=== PATIENT | female | born 1985 | race Caucasian/White ===

== ENCOUNTER 2020-06-21 17:36 | Emergency (ER) | payer MEDICAID, SELFPAY ==
[2020-06-21 17:53] VITALS: BP 124/80; PULSE 92; RESP 17; TEMP 36.5; O2SAT 99; BMI 19.1
[2020-06-21 18:32] LABS: Glucose Urine UA NEG (NEG); Leukocyte Esterase Urine 1+ (NEG); Nitrite Urine NEG (NEG); Urine Blood NEG (NEG); Urine Ketones NEG (NEG); Urine Protein NEG (NEG-TRACE)
[2020-06-21 18:33] LABS: Appearance Urine CLEAR; Color Urine YELLOW
[2020-06-21 18:46] LABS: RBC Urine 0 /HPF (0)
[2020-06-21 18:47] LABS: Bacteria Urine 2+ /LPF; Mucus Urine TRACE /LPF; Squamous Epithelial Cell Urine 3+ /LPF
--- NOTE | 2020-06-21 18:55 | XR_ITS ---
EXAMINATION: PORTABLE CHEST 1 VIEW CLINICAL INFORMATION: pt c covid like symptoms . COMPARISON: 12/02/2019. TECHNIQUE: Portable frontal view of the chest was obtained. FINDINGS: The lungs are hyperinflated. No focal infiltrate, effusion, edema, or pneumothorax. Cardiac and mediastinal silhouettes are within normal limits for technique. No acute bony abnormality seen. IMPRESSION: Hyperinflated but no evidence of acute disease. Specifically no focal airspace disease appreciated
[2020-06-21 19:02] VITALS: O2SAT 98
[2020-06-21 19:31] LABS: UPreg QC Valid YES; Urine Pregnancy NEGATIVE (NEGATIVE)
--- NOTE | 2020-06-21 19:51 | ED_ITS ---
HPI - URI/Sore Throat General Chief Complaint: Upper Respiratory Symptoms Stated Complaint: Covid Symptoms Time Seen by Provider: 06/21/20 18:17 Source: patient Mode of arrival: ambulatory Limitations: no limitations History of Present Illness HPI Narrative: 35-year-old female presenting to the ED with complaints of body aches, chills, intermittent dry cough, back pain and dysuria. Reports she recently took an [id number] urine strip and it revealed that she had a UTI a few weeks ago therefore for she took azo [id number] and reports she had her symptoms resolved although would also like to be tested for UTI. Requesting to be tested for COVID at this time. Related Data Previous Rx's Medication Instructions Recorded acetaminophen [Tylenol] 650 mg PO Q6H PRN #14 tab 06/21/20 cyclobenzaprine 10 mg PO TID PRN #14 tab 06/21/20 nitrofurantoin monohyd/m-cryst 100 mg PO BID 7 Days #14 cap NS 06/21/20 [Macrobid] Allergies Allergy/AdvReac Type Severity Reaction Status Date / Time azithromycin [AZITHROMYCIN] Allergy Mild NAUSEA AND Unverified 05/22/20 15:23 VOMITING Erythromycin Allergy Unknown Uncoded 03/27/15 00:00 Review of Systems Review of Systems: Constitutional : No Fever, No fatigue, No Malaise ENT/Mouth : No sore throat, No runny nose Eyes: No Discharge Cardiovascular : No Chest Pain, No SOB Respiratory : No Cough, No Sputum, No Wheezing, No Smoke Exposure, No Dyspnea Gastrointestinal : No Nausea, No Vomiting, No Diarrhea Genitourinary : No irregular bleeding, No Dysuria, No Urinary Frequency, No Hematuria, No Urinary Incontinence, No Urgency, No Flank Pain, Musculoskeletal : No Myalgia Skin : No rash Neuro : No Headache Yes all other systems are reviewed and are negative [facility] Past Medical History Attestation statement: The following information was validated with the patient. Medical History Depression No known health problems Tachycardia Social History Social History Advance Directives: No Advance Directives Information Provided: No Physical Exam Vital Signs: Vital Signs: Vital Signs Temp Pulse Resp BP Pulse Ox 10/17/20 19:02 98 06/21/20 17:53 97.7 F 92 17 124/80 99 Body Mass Index 19.1 vital signs have been reviewed as normal and appeared to be correct. Blood pressure normal. Heart rate normal. Respiration rate normal. Temperature normal. Oxygen saturation normal. Appearance: Alert. Oriented X3. No acute distress. Head: Normal external exam. Normocephalic. Atraumatic. No Dumont signs noted. No raccoon eyes noted Eyes: PERRLA. EOMI. Conjunctiva and sclera normal. Eyelids normal. ENT: EAC normal. TM's Normal. Pharynx normal. Uvula midline. Moist mucous membranes. No trismus noted. No drooling noted. No muffled voice noted. Neck: Normal inspection. Neck supple. FROM. No adenopathy. Thyroid Normal. No meningeal signs. No neck mass noted. CVS: Normal heart rate and rhythm. Heart sound normal. No murmurs noted. Pulses normal throughout. Respiratory: No respiratory distress. Painless inspiration. Breath sounds normal. No wheezes/rales/rhonchi noted. Chest nontender. No accessory muscle usage noted or decreased air movement noted. Abdomen: Soft and nontender. Bowel sounds normal in all 4 quadrants. No distention noted. No organomegaly noted. No visible injury noted. Back: No CVA tenderness. Full range of motion noted. Skin: Skin warm and dry. Normal skin color. Normal skin turgor. No rashes/lesions/lacerations noted. Extremities: No lower extremity edema. Extremities exhibit normal range of motion. Extremities nontender. Neuro: Oriented X 3. No motor deficit. No sensory deficit. Reflexes normal. Course Course Course Narrative: UA with signs of UTI. Negative . Chest x-ray within normal limits no acute processes noted. Patient s/p swab for COVID at this time. Will DC home with antibiotics for UTI and instructions to return if any new or worsening symptoms to follow-up with primary care provider. Patient understands agrees with this plan. MDM - URI/Sore Throat Lab Data Labs: Lab Results 06/21/20 Range/Units 18:21 Urine Color YELLOW Urine Appearance CLEAR Urine pH 7.0 (5.0-8.0) Ur Specific [place] 1.020 (1.005-1.025) Urine Protein NEG (NEG-TRACE) MG/DL Urine Glucose (UA) NEG (NEG) MG/DL Urine Ketones NEG (NEG) MG/DL Urine Blood NEG (NEG) Urine Nitrite NEG (NEG) Ur Leukocyte Esterase 1+ H (NEG) Urine RBC 0 (0) /HPF Urine WBC 5-9 H (0-4) /HPF Ur Squamous Epith Cells 3+ /LPF Urine Bacteria 2+ /LPF Urine Mucus TRACE /LPF Urine Test NEGATIVE (NEGATIVE) Discharge Plan Discharge Clinical Impression: Acute viral syndrome UTI (urinary tract infection) Qualifiers: Urinary tract infection type: acute cystitis Hematuria presence: without hematuria Qualified Code(s): N30.00 - Acute cystitis without hematuria Patient Disposition: Home, Self-Care Instructions: Urinary Tract Infection in Women (ED), Viral Syndrome (ED), COVID-19 (Coronavirus Disease 2019) (ED) Additional Instructions: Based on your symptoms and history we have sent a COVID-19. Although your RESULT IS PENDING at this time. RESULTS should return within 72 hours. At this time you will be contacted with either NEGATIVE OR POSITIVE results. -Please wait until we contact you for your results. At this time you will be okay for discharge. Please plan for self quarantine for up to 14 days. Do not expose yourself to others. You may not go to work. If testing does come back negative you may return to activities as long as you are no longer having any symptoms for at least 3 days. Please continue to follow cold instructions and wash your hands frequently. You may take Tylenol as directed on the bottle for pain or fever. Patient seen in the emergency department on 06/21/2020 and should be excused from work until negative test results AND until 72 hours without any symptoms AND at least 10 days have passed since symptoms first appeared or since last exposure to COVID-19 positive patient CDC Guidelines for home isolation: - Stay away from others - WEAR A MASK if you are sick AND STAY HOME - Cover your mouth and nose with a tissue when you cough or sneeze. Dispose of tissues in a lined trash can and wash your hands immediately with soap and water for at least 20 seconds. If soap and water are not available, clean hands with alcohol-based hand chief mechanical officer that contains at least 60% alcohol. - Clean your hands often with soap and water for at least 20 seconds - Avoid touching your eyes, nose and mouth with unwashed hands - Do not share dishes, drinking glasses, cups, eating utensils, towels, or bedding with other people in your home. After using these items, wash them thoroughly with soap and water or put in the airport engineer. - Clean high-touch surfaces in your isolation area ( sick room and bathroom) every day; let a caregiver clean and disinfect high-touch surfaces in other areas of the home. Clean the area or item with soap and water or another detergent if it is dirty. Then, use a household disinfectant. - Limit contact with pets and animals: If you must care for a pet, wash your hands before and after interacting with them). Prescriptions: New nitrofurantoin monohyd/m-cryst [Macrobid] 100 mg capsule 100 mg PO BID 7 Days Qty: 14 RF: 0 acetaminophen [Tylenol] 325 mg tablet 650 mg PO Q6H PRN (Reason: fever or pain) Qty: 14 RF: 0 cyclobenzaprine 10 mg tablet 10 mg PO TID PRN (Reason: muscle spasm) Qty: 14 RF: 0 Referrals: Marilou Cummings NP [Primary Care Provider] - 2 days Stand Alone Forms: Work/School Release Print Language: Maltese
== END 2020-06-21 20:40 | disposition home or self-care (01) ==
PROVIDERS: Physician Assistant Medical; Emergency Provider Emergency Medicine; PCP Nurse Practitioner Family
DX: B34.9 Viral infection, unspecified (principal); Z20.828 Contact with and (suspected) exposure to other viral communicable diseases; N30.00 Acute cystitis without hematuria
CPT/HCPCS: 71045; 81001; 81025; 87086; 87147; 87635; 99283; 99284

== ENCOUNTER 2020-07-04 17:33 | Outpatient (REF) | payer MEDICAID, SELFPAY ==
[2020-07-04 18:26] LABS: Glucose Urine UA NEG (NEG); Leukocyte Esterase Urine 1+ (NEG); Nitrite Urine POS (NEG); Specific Gravity - Urine >= 1.030 (1.005-1.025); Urine Blood 3+ (NEG); Urine Ketones NEG (NEG); Urine Protein 2+ MG/DL (NEG-TRACE)
[2020-07-04 18:28] LABS: Appearance Urine HAZY; Color Urine YELLOW
[2020-07-04 18:33] LABS: UPreg QC Valid YES; Urine Pregnancy NEGATIVE (NEGATIVE)
[2020-07-04 18:57] LABS: Bacteria Urine 2+ /LPF; RBC Urine TNTC /HPF (0); Squamous Epithelial Cell Urine 1+ /LPF
[2020-07-05 02:42] LABS: CT PCR NOT DETECTED (Not Detect.); NG PCR NOT DETECTED (Not Detect.)
[2020-07-05 13:00] LABS: BV Int Neg Control Negative (Negative); BV Int Pos Control Positive (Positive)
== END 2020-07-04 17:34 | disposition home or self-care (01) ==
LOC: HO.LAB 17:33
PROVIDERS: PCP Nurse Practitioner Family; Visit Provider Physician Assistant Medical
DX: R35.0 Frequency of micturition (principal); R39.15 Urgency of urination; R30.0 Dysuria
CPT/HCPCS: 81001; 81025; 87086; 87147; 87186; 87480; 87491; 87510; 87591; 87660

== ENCOUNTER 2020-07-10 17:38 | Outpatient (REF) | payer MEDICAID, SELFPAY ==
[2020-07-10 18:14] LABS: COVID-19 Test Negative (Negative)
== END 2020-07-10 17:39 | disposition home or self-care (01) ==
LOC: HO.LAB 17:38
PROVIDERS: PCP Nurse Practitioner Family; Visit Provider Internal Medicine
DX: Z20.828 Contact with and (suspected) exposure to other viral communicable diseases (principal)
CPT/HCPCS: 87635; C9803

== ENCOUNTER 2020-07-11 23:42 | Emergency (ER) | payer MEDICAID, SELFPAY ==
[2020-07-12 00:41] VITALS: BP 140/76; PULSE 102; RESP 16; TEMP 36.3; O2SAT 99; BMI 19.1
--- NOTE | 2020-07-12 00:59 | ED.FEMALEGU ---
HPI - Female Genitourinary General Chief complaint: Abdominal Pain <Scott Shah MD - Last Filed: 07/12/20 01:17> Stated complaint: UTI/KIDNEY INFECTION FOLLOW UP <Scott Shah MD - Last Filed: 07/12/20 01:17> Time Seen by Provider: 07/12/20 00:53 <Scott Shah MD - Last Filed: 07/12/20 01:17> Source: patient <Scott Shah MD - Last Filed: 07/12/20 01:17> Mode of arrival: ambulatory <Scott Shah MD - Last Filed: 07/12/20 01:17> Limitations: no limitations <Scott Shah MD - Last Filed: 07/12/20 01:17> History of Present Illness HPI Narrative: patient with recent history of UTI treated with Macrobid and got better again started having symptoms and was given ciprofloxacin urine culture showed on 07/04 of E coli supposed to be sensitive to both medication patient is still having the symptoms and now she is complaining of pain in the left flank area. No nausea no vomiting no fever no chills <Scott Shah MD - Last Filed: 07/12/20 01:17> MD elicited complaint: dysuria and UTI <Scott Shah MD - Last Filed: 07/12/20 01:17> Onset (ago): week(s) (2) <Scott Shah MD - Last Filed: 07/12/20 01:17> Severity: mild <MD Kelsi Jay Last Filed: 07/12/20 01:17> Urinary symptoms: Dysuria, Urgency and Frequency <MD Kelsi Jay Last Filed: 07/12/20 01:17> Exacerbating factors: none <MD Kelsi Jay Last Filed: 07/12/20 01:17> Relieving factors: none <MD Kelsi Jay Last Filed: 07/12/20 01:17> Associated symptoms: back pain <MD Kelsi Jay Last Filed: 07/12/20 01:17> Treatment prior to arrival: none <MD Kelsi Jay Last Filed: 07/12/20 01:17> Related Data Home medications: Previous Rx's Medication Instructions Recorded acetaminophen-codeine 1 tab PO Q8H PRN #14 tab NS 06/21/20 cyclobenzaprine 10 mg PO TID PRN #14 tab NS 06/21/20 nitrofurantoin monohyd/m-cryst 100 mg PO Q12H 5 Days #10 cap 06/21/20 [Macrobid] ciprofloxacin HCl [Cipro] 500 mg PO Q12H 5 Days #10 tab 07/04/20 fluconazole [Diflucan] 150 mg PO DAILY #1 tab 07/04/20 phenazopyridine [Pyridium] 100 mg PO TID PRN #10 tab 07/04/20 fluconazole [Diflucan] 150 mg PO Q3D #2 tab 07/12/20 metronidazole [Flagyl] 500 mg PO BID 7 Days #14 tab 07/12/20 <Scott Shah MD - Last Filed: 07/12/20 01:17> Allergies/Adverse reactions: Allergies Allergy/AdvReac Type Severity Reaction Status Date / Time No Known Allergies Allergy Verified 07/12/20 00:48 <Scott Shah MD - Last Filed: 07/12/20 01:17> Review of Systems Review of Systems: REVIEW OF SYSTEMS: Pertinent positives and negatives are stated above in the history. GEN: no fevers, chills, fatigue HEENT: no nasal congestion, sore throat, ear pain NEURO: no headache, dizziness, focal weakness PULM: no cough, shortness of breath CV: no chest pain, palpitations, LE edema ABD: no abdominal pain, nausea, vomiting, diarrhea : as HPI SKIN: no rash ROS otherwise negative x 10 <Scott Shah MD - Last Filed: 07/12/20 01:17> [facility] Past Medical History Medical History: Medical History Depression No known health problems Tachycardia <Scott Shah MD - Last Filed: 07/12/20 01:17> Social History Social History: Social History Advance Directives: No Advance Directives Information Provided: No <Scott Shah MD - Last Filed: 07/12/20 01:17> Physical Exam Vital Signs: Vital Signs: Last Vital Signs Temp 97.4 F 07/12/20 00:41 Pulse 102 H 07/12/20 00:41 Resp 16 07/12/20 00:41 BP 140/76 H 07/12/20 00:41 Pulse Ox 99 07/12/20 00:41 Body Mass Index 19.1 <Scott Shah MD - Last Filed: 07/12/20 01:17> Vital Signs: Last Vital Signs Temp 97.4 F 07/12/20 00:41 Pulse 102 H 07/12/20 00:41 Resp 16 07/12/20 00:41 BP 140/76 H 07/12/20 00:41 Pulse Ox 99 07/12/20 00:41 Body Mass Index 19.1 <JACKELINE Johnson - Last Filed: 07/12/20 02:11> Appearance: Alert. Oriented X3. No acute distress. Eyes: Pupils equal, round and reactive to light. ENT: Pharynx normal. Neck: Normal inspection. Neck supple. CVS: Normal heart rate and rhythm. Pulses normal. Respiratory: No respiratory distress. Breath sounds normal. Abdomen: Soft and nontender. mild tenderness left flank area Skin: Skin warm and dry. Normal skin color. Normal skin turgor. Extremities: No lower extremity edema. Good range of movement Neuro: Oriented X 3. No motor deficit. No sensory deficit. <Scott Shah MD - Last Filed: 07/12/20 01:17> Course Course Course Narrative: 35-year-old female presenting to the ED with complaints of generalized abdominal pain, dysuria and vaginal discharge white colored in nature. Was seen here and diagnosed with UTI placed on Macrobid reported she did not feel any better therefore was placed on Cipro and still reports she is not feeling better. She was treated for candidiasis although not for bacterial vaginosis. Her gonorrhea chlamydia were negative. Therefore labs were obtained at this time and awaiting labs. CT scan of abdomen pelvis within normal limits no acute processes noted. If labs and UA are within normal limits DC home with Flagyl and Diflucan and instructions return if any new or worsening symptoms. Patient understands agrees with this plan. <JACKELINE Johnson - Last Filed: 07/12/20 02:11> Discharge Plan Discharge Clinical Impression: Bacterial vaginosis, Candidiasis of genitalia in female <Scott Shah MD - Last Filed: 07/12/20 01:17> Patient Disposition: Home, Self-Care <Scott Shah MD - Last Filed: 07/12/20 01:17> Instructions: Bacterial Vaginosis (ED), Yeast Infection (ED) <Scott Shah MD - Last Filed: 07/12/20 01:17> Prescriptions: New fluconazole [Diflucan] 150 mg tablet 150 mg PO Q3D Qty: 2 RF: 0 metronidazole [Flagyl] 500 mg tablet 500 mg PO BID 7 Days Qty: 14 RF: 0 No Action ciprofloxacin HCl [Cipro] 500 mg tablet 500 mg PO Q12H 5 Days Qty: 10 RF: 0 phenazopyridine [Pyridium] 100 mg tablet 100 mg PO TID PRN (Reason: pain) Qty: 10 RF: 0 fluconazole [Diflucan] 150 mg tablet 150 mg PO DAILY Qty: 1 RF: 0 nitrofurantoin monohyd/m-cryst [Macrobid] 100 mg capsule 100 mg PO Q12H 5 Days Qty: 10 RF: 0 cyclobenzaprine 10 mg tablet 10 mg PO TID PRN (Reason: muscle spasm) Qty: 14 RF: 0 acetaminophen-codeine 300-30 mg tablet 1 tab PO Q8H PRN (Reason: pain) Qty: 14 RF: 0 <Scott Shah MD - Last Filed: 07/12/20 01:17> Referrals: Marilou Cummings, AGRICULTURAL TECHNICAL OFFICER [Primary Care Provider] - 2 days <Scott Shah MD - Last Filed: 07/12/20 01:17> Stand Alone Forms: Work/School Release <Scott Shah MD - Last Filed: 07/12/20 01:17> Print Language: Lebanese <Scott Shah MD - Last Filed: 07/12/20 01:17>
--- NOTE | 2020-07-12 01:12 | CT_ITS ---
EXAMINATION: CT ABDOMEN AND PELVIS WITHOUT CONTRAST CLINICAL INFORMATION: Left flank pain. Urinary tract infection. COMPARISON: 02/28/2010. TECHNIQUE: Contiguous axial thin section helical images of the abdomen and pelvis were performed without oral or IV contrast. The data set was reformatted in the coronal and sagittal planes and reviewed on an independent workstation. DLP: 278 mGy-cm. FINDINGS: The visualized lung bases are clear. The visualized portions of the heart are unremarkable. The liver is of normal size and attenuation without focal lesions nor intrahepatic biliary ductal dilation. A normal gallbladder is identified. There is no wall thickening or discernible pericholecystic fluid. The spleen, pancreas, adrenal glands are unremarkable. Both kidneys are of normal size and attenuation without hydronephrosis or nephrolithiasis. There is no abdominal free fluid. There is neither mesenteric nor retroperitoneal lymphadenopathy. There is a moderate stool within the ascending colon. Otherwise, unremarkable unopacified loops of small and large bowel are identified. There is no pelvic free fluid. The urinary bladder is unremarkable. There is neither pelvic nor inguinal lymphadenopathy. Bone windows: Neither sclerotic nor lytic bone lesions are identified. CT/CT abdomen pelvis wo con IMPRESSION: No evidence for acute abdominal or pelvic inflammatory or infectious processes. Moderate amount of stool within the ascending colon. Automated exposure control (Care Dose) Adjustment of the mA and/or kv according to patient size (this includes techniques or standardized protocols for targeted exams where dose is matched to indication / reason for exam; i.e. extremities or head).
[2020-07-12 02:41] LABS: Glucose Urine UA NEG (NEG); Leukocyte Esterase Urine 1+ (NEG); Nitrite Urine NEG (NEG); Specific Gravity - Urine 1.025 (1.005-1.025); Urine Blood NEG (NEG); Urine Ketones 15 MG/DL (NEG); Urine Protein NEG (NEG-TRACE)
[2020-07-12 02:48] LABS: Basophils Absolute Auto 0.1 X10*3/uL (0.0-0.2); Eosinophils Absolute Auto 0.2 X10*3/uL (0.0-0.4); Hematocrit 37.8 % (37-47); Hemoglobin 12.3 g/dl (12.0-16.0); Imm Gran Abs Auto 0.03 X10*3/uL (0.00-0.03); Imm Gran Pct Auto 0.4 % (0.0-0.4); Lymphocytes Absolute Auto 2.6 X10*3/uL (1.2-4.9); MANUAL DIFF FLAG NO; Mean Corpuscular HGB Conc 32.5 g/dl (31.0-35.0); Mean Corpuscular Hemoglobin 30.9 pg (27.0-33.0); Mean Platelet Volume 11.3 fL (9.4-12.3); Monocytes Absolute Auto 0.6 X10*3/uL (0.1-1.2); Monocytes Percent Auto 6.9 % (2-11); Neutrophils Absolute Auto 4.6 X10*3/uL (2.0-8.3); Neutrophils Percent Auto 57.7 % (45-73); Platelet Count 317 X10*3/uL (160-400); Red Blood Count 3.98 X10*6/uL (4.20-5.50); Red Cell Distribution Width 12.2 % (11.0-16.0)
[2020-07-12 02:57] LABS: Prothrombin Time 11.5 SEC (10.8-13.0)
[2020-07-12 03:14] LABS: Appearance Urine CLEAR; Color Urine YELLOW
[2020-07-12 03:15] LABS: RBC Urine 0-2 /HPF (0); UPreg QC Valid YES; Urine Pregnancy NEGATIVE (NEGATIVE)
[2020-07-12 03:16] LABS: Bacteria Urine TRACE /LPF; Squamous Epithelial Cell Urine 1+ /LPF
[2020-07-12 03:21] LABS: Anion Gap 12 (12-20); Blood Urea Nitrogen 14 mg/dL (9-16); Calcium 8.4 mg/dL (8.4-10.2); Carbon Dioxide 26 mmol/L (22-29); Chloride 103 mmol/L (96-108); Creatinine Clr Calc Pharmacy 49.9; Estimated Glomerular Filt Rate 59; Glucose Random 101 mg/dL (60-115); Potassium 3.8 mmol/l (3.3-5.1); Sodium 137 mmol/L (135-145)
== END 2020-07-12 05:07 | disposition home or self-care (01) ==
PROVIDERS: Physician Assistant Medical; Emergency Provider Internal Medicine; PCP Nurse Practitioner Family
DX: N76.0 Acute vaginitis (principal); R10.9 Unspecified abdominal pain; Z79.899 Other long term (current) drug therapy
CPT/HCPCS: 36415; 74176; 80048; 81001; 81025; 85025; 85610; 87040; 87086; 99283; 99284

== ENCOUNTER 2020-10-03 15:13 | Emergency (ER) | payer MEDICAID, SELFPAY ==
[2020-10-03 15:29] VITALS: BP 127/79; PULSE 212; RESP 18; TEMP 37.1; O2SAT 100; BMI 19.8
--- NOTE | 2020-10-03 15:33 | ED_ITS ---
HPI - Arrhythmia/Palpitations General Chief Complaint: Arrhythmia/Palpitations Stated Complaint: Palpitations Time Seen by Provider: 10/03/20 15:31 Source: patient Mode of arrival: ambulatory Limitations: no limitations History of Present Illness HPI narrative: Patient is a 35-year-old female with past medical history of anxiety disorder on Lexapro and Wellbutrin and oral control pills who presents with heart palpitations, she states she has had this happen to her 3 times previously but never needed any medication to break the rhythm. She states she does not drink high caffeinated drinks, coffee or tea. She is admits to dizziness but denies chest pain, nausea or vomiting. She states she was getting ready for work today and all the sudden she could feel her heart racing. Related Data Previous Rx's Medication Instructions Recorded acetaminophen-codeine 1 tab PO Q8H PRN #14 tab NS 06/21/20 cyclobenzaprine 10 mg PO TID PRN #14 tab NS 06/21/20 nitrofurantoin monohyd/m-cryst 100 mg PO Q12H 5 Days #10 cap 06/21/20 [Macrobid] ciprofloxacin HCl [Cipro] 500 mg PO Q12H 5 Days #10 tab 07/04/20 fluconazole [Diflucan] 150 mg PO DAILY #1 tab 07/04/20 phenazopyridine [Pyridium] 100 mg PO TID PRN #10 tab 07/04/20 fluconazole [Diflucan] 150 mg PO Q3D #2 tab 07/12/20 metronidazole [Flagyl] 500 mg PO BID 7 Days #14 tab 07/12/20 Allergies Allergy/AdvReac Type Severity Reaction Status Date / Time No Known Allergies Allergy Verified 07/12/20 00:48 Review of Systems Review of Systems: Yes all other systems are reviewed and are negative [facility] Past Medical History Medical History Depression No known health problems Tachycardia Social History Social History Alcohol intake: never Smoking Status: Never smoker Use of substances other than those prescribed or required for medical reasons: No Advance Directives: No Advance Directives Information Provided: Yes Physical Exam Vital Signs: Vital Signs: Last Vital Signs Temp 98.8 F 10/03/20 15:29 Pulse 103 H 01/29/21 16:03 Resp 16 10/03/20 16:03 BP 123/75 10/03/20 16:03 Pulse Ox 100 10/03/20 16:03 Body Mass Index 19.8 Const: General: cooperative and acute distress Nutritional Appearance: thin Orientation/consciousness: patient oriented x3 Limitations: no limitations Eyes: General: appearance normal, both eyes and all related structures P upils: Equal, round and reactive pupils present EOM: EOMs intact bilaterally Resp: Effort & Inspection: normal respiratory effort and able to speak in complete sentences Auscultation: clear to auscultation bilaterally Cardio: Other: (post 6mg adenosine) Rate: regular rate Rhythm: regular rhythm Heart sounds: normal S1 and S2 GI: Inspection: Yes normal to inspection Palpation (GI): Soft to palpation and nontender Skin: General skin exam: no rashes or lesions noted Neuro: General: patient oriented x3 Cranial nerves: Yes Equal, round and reactive pupils present Extrem: General: Yes normal to inspection and Yes no pedal edema Course Course Course Narrative: 35-year-old female with past medical history of anxiety presents complaining of palpitations. Upon triage, patient was found to have a heart rate of 212, 1 placed on monitor, she was in SVT. Dr Sanabria at the patient's bedside, Vagal maneuvers were attempted x3 with no success, 6 mg of adenosine was pushed with success. Patient still slightly dizzy but feeling much better, heart rate is in the high 90s, low 100s. 5:15pm patient's vital signs have been stable since she was given adenosine, she is feeling better. All labs are WNL including troponin, TSH, EKG was sinus tachycardia at 102 BPM, CXR no acute issues. Will discharge home with instructions on no caffeine, have to do a Valsalva maneuver and a follow-up with Cardiology. MDM - Arrhythmia/Palpitations Lab Data Result diagrams: 10/03/20 16:13 10/03/20 16:13 Labs: Lab Results 10/03/20 10/03/20 10/03/20 Range/Units 16:13 16:13 16:13 WBC 7.2 (4.8-10.8) X10*3/uL RBC 4.41 (4.20-5.50) X10*6/uL Hgb 13.8 (12.0-16.0) g/dl Hct 41.6 (37-47) % MCV 94.3 (80-98) fL MCH 31.3 (27.0-33.0) pg MCHC 33.2 (31.0-35.0) g/dl RDW 11.9 (11.0-16.0) % Plt Count 297 (160-400) X10*3/uL MPV 12.0 (9.4-12.3) fL Immature Gran % (Auto) 0.4 (0.0-0.4) % Neut % (Auto) 63.9 (45-73) % Lymph % (Auto) 28.6 (20-40) % [place] % (Auto) 5.7 (2-11) % Eos % (Auto) 0.8 (0-4) % Baso % (Auto) 0.6 (0-2) % Lymph # (Auto) 2.1 (1.2-4.9) X10*3/uL [place] # (Auto) 0.4 (0.1-1.2) X10*3/uL Eos # (Auto) 0.1 (0.0-0.4) X10*3/uL Baso # (Auto) 0.0 (0.0-0.2) X10*3/uL Abs Immat Gran (auto) 0.03 (0.00-0.03) X10*3/uL Absolute Neuts (auto) 4.6 (2.0-8.3) X10*3/uL Absolute Nucleated RBC 0.000 (0.0-0.012) X10*3/uL Nucleated RBC % (auto) 0.0 (0.0-0.2) /100WBC Hold Blue Top SEE NOTE Sodium 140 (135-145) mmol/L Potassium 4.1 (3.3-5.1) mmol/L Chloride 107 (96-108) mmol/L Carbon Dioxide 22 (22-29) mmol/L Anion Gap 15 (12-20) BUN 16 (9-16) mg/dL Creatinine 0.91 (0.5-1.4) mg/dL Estim Creat Clear Calc 57.7 Estimated GFR > 60 Random Glucose 72 (60-115) mg/dL Calcium 8.6 (8.4-10.2) mg/dL Magnesium 1.9 (1.6-2.6) mg/dL Troponin I High Sens (<3.5-17.0) ng/L TSH 1.36 (0.32-4.0) uIU/mL 10/03/20 10/03/20 Range/Units 16:13 16:13 WBC (4.8-10.8) X10*3/uL RBC (4.20-5.50) X10*6/uL Hgb (12.0-16.0) g/dl Hct (37-47) % MCV (80-98) fL MCH (27.0-33.0) pg MCHC (31.0-35.0) g/dl RDW (11.0-16.0) % Plt Count (160-400) X10*3/uL MPV (9.4-12.3) fL Immature Gran % (Auto) (0.0-0.4) % Neut % (Auto) (45-73) % Lymph % (Auto) (20-40) % [place] % (Auto) (2-11) % Eos % (Auto) (0-4) % Baso % (Auto) (0-2) % Lymph # (Auto) (1.2-4.9) X10*3/uL [place] # (Auto) (0.1-1.2) X10*3/uL Eos # (Auto) (0.0-0.4) X10*3/uL Baso # (Auto) (0.0-0.2) X10*3/uL Abs Immat Gran (auto) (0.00-0.03) X10*3/uL Absolute Neuts (auto) (2.0-8.3) X10*3/uL Absolute Nucleated RBC (0.0-0.012) X10*3/uL Nucleated RBC % (auto) (0.0-0.2) /100WBC Hold Blue Top Sodium Cancelled (135-145) mmol/L Potassium Cancelled (3.3-5.1) mmol/L Chloride Cancelled (96-108) mmol/L Carbon Dioxide Cancelled (22-29) mmol/L Anion Gap Cancelled (12-20) BUN Cancelled (9-16) mg/dL Creatinine Cancelled (0.5-1.4) mg/dL Estim Creat Clear Calc Cancelled Estimated GFR Cancelled Random Glucose Cancelled (60-115) mg/dL Calcium Cancelled (8.4-10.2) mg/dL Magnesium (1.6-2.6) mg/dL Troponin I High Sens 14.1 (<3.5-17.0) ng/L TSH (0.32-4.0) uIU/mL Imaging Data Chest x-ray: Attestation: I personally reviewed and interpreted this imaging study as follows: My impression: No acute process seen Radiologist's impression: [address] [id number] ReportSigned Patient: Rivas Zavala#: [id number]: 1985Acct:[id number]/Sex: 35 / FADM Date: 10/03/20Loc: EDAttending Dr: Ordering Physician: SWATI HENSON Date of Service: 10/03/20 Procedure(s): XR chest 1V Accession Number(s): [id number] cc: SWATI HENSON~ EXAMINATION: XR CHEST CLINICAL INFORMATION: SVT. COMPARISON: 06/21/2020 chest radiograph. TECHNIQUE: Frontal view of the chest was obtained. FINDINGS: No significant abnormality is noted involving the heart, lungs, mediastinum, bony thorax or soft tissues. XR/XR chest 1V IMPRESSION: Stable chest. No acute cardiopulmonary process. Dictated By:BASIA HOLGUIN MDSigned By:<Electronically signed by BASAI HOLGUIN MD in OV>10/03/20 1614 ECG Data Attestation: I personally reviewed and interpreted this ECG as follows: ECG interpretation date: 10/03/20 ECG interpretation time: 17:16 Interpretation: [address] [id number] ReportDraft Patient: Rivas Zavala#: [id number]: 1985Acct:[id number]/Sex: 35 / FADM Date: 10/03/20Loc: HOKiEDAttending Dr: Ordering Physician: SWATI HENSON Date of Service: 10/03/20 Procedure(s): ECG 12 lead EKG Accession Number(s): [id number] cc: ~ Test Reason : TACHICARDIA Blood Pressure : / mmHG Vent. Rate : 102 BPM Atrial Rate : 102 BPM P-R Int : 118 ms QRS Dur : 076 ms QT Int : 358 ms P-R-T Axes : 077 086 065 degrees QTc Int : 466 ms Sinus tachycardia Otherwise normal ECG When compared with ECG of 05-SEP-2019 17:40, No significant change was found Referred By: Swati Henson Electronically Signed By: Dictated By:Signed By: Discharge Plan Discharge Clinical Impression: Supraventricular tachycardia Patient Disposition: Home, Self-Care Instructions: Supraventricular Tachycardia (ED), Valsalva Maneuver (ED) Prescriptions: No Action ciprofloxacin HCl [Cipro] 500 mg tablet 500 mg PO Q12H 5 Days Qty: 10 RF: 0 phenazopyridine [Pyridium] 100 mg tablet 100 mg PO TID PRN (Reason: pain) Qty: 10 RF: 0 fluconazole [Diflucan] 150 mg tablet 150 mg PO DAILY Qty: 1 RF: 0 fluconazole [Diflucan] 150 mg tablet 150 mg PO Q3D Qty: 2 RF: 0 metronidazole [Flagyl] 500 mg tablet 500 mg PO BID 7 Days Qty: 14 RF: 0 nitrofurantoin monohyd/m-cryst [Macrobid] 100 mg capsule 100 mg PO Q12H 5 Days Qty: 10 RF: 0 cyclobenzaprine 10 mg tablet 10 mg PO TID PRN (Reason: muscle spasm) Qty: 14 RF: 0 acetaminophen-codeine 300-30 mg tablet 1 tab PO Q8H PRN (Reason: pain) Qty: 14 RF: 0 Referrals: Jose Dior MD [Physician] - 2 days (SVT follow up)
[2020-10-03 16:03] VITALS: BP 123/75; PULSE 103; RESP 16; O2SAT 100
[2020-10-03 16:23] LABS: MANUAL DIFF FLAG NO
[2020-10-03 16:25] LABS: Basophils Percent Auto 0.6 % (0-2); Eosinophils Absolute Auto 0.1 X10*3/uL (0.0-0.4); Eosinophils Percent Auto 0.8 % (0-4); Hematocrit 41.6 % (37-47); Hemoglobin 13.8 g/dl (12.0-16.0); Imm Gran Abs Auto 0.03 X10*3/uL (0.00-0.03); Imm Gran Pct Auto 0.4 % (0.0-0.4); Lymphocytes Absolute Auto 2.1 X10*3/uL (1.2-4.9); Lymphocytes Percent Auto 28.6 % (20-40); Mean Corpuscular HGB Conc 33.2 g/dl (31.0-35.0); Mean Corpuscular Hemoglobin 31.3 pg (27.0-33.0); Mean Corpuscular Volume 94.3 fL (80-98); Monocytes Absolute Auto 0.4 X10*3/uL (0.1-1.2); Monocytes Percent Auto 5.7 % (2-11); Neutrophils Absolute Auto 4.6 X10*3/uL (2.0-8.3); Neutrophils Percent Auto 63.9 % (45-73); Platelet Count 297 X10*3/uL (160-400); Red Blood Count 4.41 X10*6/uL (4.20-5.50); Red Cell Distribution Width 11.9 % (11.0-16.0); White Blood Count 7.2 X10*3/uL (4.8-10.8)
[2020-10-03 16:51] LABS: Anion Gap 15 (12-20); Blood Urea Nitrogen 16 mg/dL (9-16); Calcium 8.6 mg/dL (8.4-10.2); Carbon Dioxide 22 mmol/L (22-29); Chloride 107 mmol/L (96-108); Creatinine Clr Calc Pharmacy 57.7; Estimated Glomerular Filt Rate > 60; Glucose Random 72 mg/dL (60-115); Magnesium 1.9 mg/dL (1.6-2.6); Potassium 4.1 mmol/L (3.3-5.1); Sodium 140 mmol/L (135-145)
[2020-10-03 16:55] LABS: Troponin-I High Sensitivity 14.1 ng/L (<3.5-17.0)
[2020-10-03 17:14] LABS: TSH reflex Free T4 1.36 uIU/mL (0.32-4.0)
== END 2020-10-03 17:25 | disposition home or self-care (01) ==
PROVIDERS: Physician Assistant; Emergency Provider Emergency Medicine; PCP Nurse Practitioner Family
DX: I47.1 Supraventricular tachycardia (principal); R00.2 Palpitations; R42 Dizziness and giddiness; F41.1 Generalized anxiety disorder; F43.0 Acute stress reaction; Z79.899 Other long term (current) drug therapy
CPT/HCPCS: 36415; 71045; 80048; 83735; 84443; 84484; 85025; 93005; 96374; 99285; J0153

== ENCOUNTER → 2020-11-05 10:43 | Outpatient (BNVA) | payer MEDICAID, SELFPAY | PROVIDERS: PCP Nurse Practitioner Family; Visit Provider Internal Medicine Cardiovascular Disease | DX: I47.1 Supraventricular tachycardia (principal); R00.2 Palpitations; Z79.899 Other long term (current) drug therapy | CPT/HCPCS: 99202 ==

== ENCOUNTER → 2021-04-20 08:12 | Outpatient (BNVA) | payer MEDICAID, SELFPAY | PROVIDERS: PCP Nurse Practitioner Family; Visit Provider Advanced Practice Midwife ==

== ENCOUNTER 2022-05-03 14:14 | Outpatient (REF) | payer MEDICAID, SELFPAY ==
[2022-05-04 12:55] LABS: BV Int Neg Control Negative (Negative); BV Int Pos Control Positive (Positive)
== END 2022-05-03 14:15 | disposition home or self-care (01) ==
LOC: HO.LAB 14:14
PROVIDERS: Visit Provider Advanced Practice Midwife
DX: N89.8 Other specified noninflammatory disorders of vagina (principal)
CPT/HCPCS: 87480; 87510; 87660

== ENCOUNTER → 2022-06-08 13:58 | Outpatient (BNVA) | payer MEDICAID, SELFPAY | PROVIDERS: PCP Nurse Practitioner Family; Visit Provider Nurse Practitioner Family | DX: I47.1 Supraventricular tachycardia (principal) | CPT/HCPCS: 93005; 99212 ==

== ENCOUNTER 2022-08-13 09:29 | Outpatient (REF) | payer MEDICAID, SELFPAY ==
[2022-08-13 10:37] LABS: Cholesterol 232 mg/dL; HDL Cholesterol 52 mg/dL; LDL Cholesterol Calculated 140 mg/dl; Triglycerides 202 mg/dL
[2022-08-13 11:00] LABS: Estimated Average Glucose 100 mg/dL; Hemoglobin A1c % 5.1 %
== END 2022-08-13 09:30 | disposition home or self-care (01) ==
LOC: HO.LAB 09:29
PROVIDERS: PCP Nurse Practitioner Family; Visit Provider Registered Nurse
DX: F32.1 Major depressive disorder, single episode, moderate (principal)
CPT/HCPCS: 36415; 80061; 83036

== ENCOUNTER 2023-04-21 14:10 | Outpatient (REF) | payer MEDICAID, SELFPAY ==
--- NOTE | ~2023-04-21 | MM_ITS ---
EXAMINATION: MM SCREENING DIGITAL BREAST TOMOSYNTHESIS, BILATERAL CLINICAL INFORMATION: Screening. Asymptomatic. COMPARISON: Mammography: This is a baseline mammogram. TECHNIQUE: Digital breast tomosynthesis is performed in both the craniocaudal and mediolateral oblique views along with computer-aided detection (CAD). Synthesized 2D images are generated from the tomosynthesis. FINDINGS: The breasts are heterogeneously dense, which may obscure small masses (ACR BI-RADS breast composition Category c). There are no significant masses, abnormal calcifications, or other abnormalities. MM/MM tomosynthesis screening BI IMPRESSION: No mammographic evidence of malignancy. ASSESSMENT: BI-RADS BI-RADS 1 - Negative RECOMMENDATION: Routine annual mammography screening. 1 year F/U This examination should not preclude the clinical evaluation of a suspicious palpable abnormality. This patient's information was entered into a reminder system with a target due date for their next mammogram.
== END 2023-04-21 14:11 | disposition home or self-care (01) ==
LOC: HO.MAMMO 14:10
PROVIDERS: PCP Nurse Practitioner Family; Visit Provider Nurse Practitioner Family
DX: Z12.31 Encounter for screening mammogram for malignant neoplasm of breast (principal)
CPT/HCPCS: 77063; 77067

== ENCOUNTER → 2023-04-21 14:15 | Outpatient (BNV) | payer MEDICAID, SELFPAY | PROVIDERS: PCP Nurse Practitioner Family; Visit Provider Radiology Diagnostic Radiology | DX: Z12.31 Encounter for screening mammogram for malignant neoplasm of breast (principal) | CPT/HCPCS: 77063; 77067 ==

== ENCOUNTER 2023-05-05 12:57 | Outpatient (AMB) | payer MEDICAID, SELFPAY ==
--- NOTE | 2023-05-05 13:05 | MHC.OFFVIS ---
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 Scribed for PADDY Willams by Marlen Medrano medical service representative, on 05/05/2023 at 1:20 pm EST. Audio Visual Equipment Rental Clerk Required: No Information Interpreted: non-clinical & clinical Banking Paralegal: Banking Paralegal Present (Leatha Hernandez ANA) Accompanied by: Self / Same As Patient Allergies No Known Allergies Allergy (Verified 05/05/23 13:09) Is last menstrual period known: Yes HPI HPI Comments History of Present Illness Details She is a premenopausal woman presenting for annual exam. Patient admits she tries to eat a healthy diet including Calcium and Vitamin D. She stays active with exercise. Currently sexually active. Uses Junel for BC for 3 years and has concerns for weight gain in the past 2 years and non existent menses. Reports she has interest in possible tubal ligation. Denies vaginal itching and irritation. STD screening offered; she declines. Denies family hx of breast and ovarian cancer. Last pap smear 01/02/20. Last mammogram 04/21/23. UTD on colonoscopy. She denies any contraindications to control such as: migraines with aura, history of DVT or pulmonary emboli, high blood pressure, liver disease, thrombolic disorders, Lupus, +BETSY, or smoking. 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 Sexual orientation: Straight/Heterosexual Gender identity: Female Female Reproductive History Menstrual control method: pills Total pregnancies: 2 Full term: 2 Number of Living Children: 2 Date of last pap smear: 01/02/20 History of abnormal pap smear: No Date of Mammogram: 04/21/23 Physical Exam Vital Signs: Last Vital Signs BP 106/62 05/05/23 13:08 BMI result Body Mass Index 25.2 Const General: cooperative, healthy appearing, no acute distress, well developed and alert Orientation/consciousness: patient oriented x3 HEENT Head: Yes normal to inspection Eyes General: appearance normal, both eyes and all related structures Neck Neck: Yes normal visual inspection Thyroid: Thyroid normal Chest Chest palpation & inspection: normal inspection of the chest Breast/axilla inspection: normal inspection of the breasts (no puckering, dimpling, peau de orange, retraction, discharge, masses) Breast/axilla palpation: normal palpation of the breasts Resp Effort & Inspection: normal respiratory effort GI Inspection: Yes normal to inspection Palpation (GI): Soft to palpation (to palpation) Rectal Exam - Female: deferred General: Yes bladder normal to inspection External Female Exam: normal external appearance and normal appearance of the urethra Speculum Exam - Vagina: normal appearance of the vagina, normal palpation and normal vaginal discharge Speculum Exam - Cervix: normal appearance of the cervix and normal palpation Bimanual exam- vagina & uterus: normal palpation and normal palpation Bimanual Exam- Adnexa, other: normal adnexae and no masses Skin General skin exam: no rashes or lesions noted Neuro General: patient oriented x3 Cognition (Neuro): normal cognition Extrem General: Yes normal to inspection Psych Attitude: cooperative Thought process: Normal thought process present Assessment & Plan Assessment & Plan (1) Well woman exam: Code(s): Z01.419 - Encounter for gynecological examination (general) (routine) without abnormal findings Plan: Discussed: Current recommendations for pap smears per ASCCP guidelines. Breast awareness and periodic self breast exams. Maintaining a healthy lifestyle including a well balanced diet, hydrate well with water and routine exercise. All of her questions and concerns were addressed to the best of my ability. RTO in one year for AG. (2) Contraceptive surveillance: Code(s): Z30.40 - Encounter for surveillance of contraceptives, unspecified Plan: Continue . Reviewed use, side effects and warning of OCP including weight gain and effect of menses. She was instructed to go to ER if she develops loss of vision, severe headache that does not resolve, chest pain, difficulty breathing, abdominal pain, or pain or tenderness in extremity. Advised if considering tubal ligation, schedule consult with Dr. Langley; she opts to think about it. Call the office with any concerns. She is agreeable to plan of care. (3) Weight gain: Code(s): R63.5 - Abnormal weight gain Medications: Changed From norethindrone-e.estradiol-iron 1 mg-20 mcg (21)/75 mg (7) (09/24 ()) continuous use 1 tab PO DAILY 21 days 84 tabs 0RF To norethindrone-e.estradiol-iron 1 mg-20 mcg (21)/75 mg (7) (09/24 ()) continuous use, skip placebo week 1 tab PO DAILY 84 tabs 4RF 21 days Coding Level of Care Code Est Pt Prev Care 40-64y(32631) Diagnoses Well woman exam Z01.419 Contraceptive surveillance Z30.40 Weight gain R63.5
[2023-05-05 13:08] VITALS: BP 106/62; BMI 25.2
== END 2023-05-05 13:39 | disposition home or self-care (01) ==
PROVIDERS: Visit Provider Advanced Practice Midwife
DX: Z01.419 Encounter for gynecological examination (general) (routine) without abnormal findings (principal); Z30.40 Encounter for surveillance of contraceptives, unspecified; R63.5 Abnormal weight gain
CPT/HCPCS: 99396

== ENCOUNTER → 2023-05-05 12:57 | Outpatient (BNVA) | payer MEDICAID, SELFPAY | PROVIDERS: Visit Provider Advanced Practice Midwife ==

== ENCOUNTER 2023-06-30 08:13 | Outpatient (AMB) | payer OTHER, MEDICAID, SELFPAY ==
[2023-06-30 08:17] VITALS: BP 114/62; PULSE 65; BMI 24.4
--- NOTE | 2023-06-30 08:17 | MHC.OFFVIS ---
Intake Vital Signs 06/30/23 08:17 Height 4 ft 11 in Weight 120 lb 13.013 oz BMI 24.4 BP 114/62 Blood Pressure Location Rt brachial Position Sitting Pulse 65 Intake Visit Reasons: 1 year follow-up with ekg Estimator And Drafter Required: No Allergies No Known Allergies Allergy (Verified 06/30/23 08:19) Medication List - Last Reconciled 06/30/23 by Rolanda Robins, SPECIMEN TECHNICIAN-C cholecalciferol (vitamin D3) 25 mcg PO DAILY escitalopram oxalate 10 mg PO QAM hydroxyzine HCl 25 mg PO BID norethindrone-e.estradiol-iron 1 mg-20 mcg (21)/75 mg (7) ( FE 09/24 ()) 1 tab PO DAILY 21 days propranolol 10 mg PO BID 90 days pyridoxine (vitamin B6) 50 mg PO DAILY HPI 1 year follow-up with ekg HPI Details Radha is a 38-year-old female past medical history of SVT who presents for follow-up. Last prior visit was 06/08/2022. Today she reports that she has been doing well with no sustained heart palpitations. She does feel brief intermittent palpitations mostly when she is at rest. She has noted palpitations brought on by physical activity. No presyncope, syncope, falls. No shortness of breath, PND, orthopnea or edema. She does report high anxiety levels which is not new for her. She reports that her life is stressful as both her kids are teenagers. Has been working on weight loss, recently lost approximately 20 lb. [facility] Medical History Mood disorder Acute adjustment disorder with anxiety No known health problems Depression Tachycardia Family History Mother Hypercholesteremia Arthritis Father HTN (hypertension) Hypercholesteremia Emphysema lung Manic depression Tachycardia Heart attack Stroke Maternal Grandfather Colon cancer Sister Suicide Social History Household Members: Children Housing: House Alcohol intake: current Alcohol intake frequency: holidays/special occasions only Alcohol type: wine Patient Tobacco Use Status: Never used Tobacco Current occupational status: employed 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 Sexual orientation: Straight/Heterosexual Gender identity: Female Review of Systems Const All systems reviewed & are unremarkable except as noted in HPI and below ENT Denies dizziness Card Details: brief palpitations Denies chest pain, Denies chest pain at rest, Denies chest pain with activity, Denies rapid heart rate, Denies pedal edema, Denies edema, Denies leg edema, Denies lightheadedness, Denies palpitations, Denies dyspnea, Denies dyspnea on exertion and Denies orthopnea Resp Denies cough, Denies dyspnea and Denies dyspnea on exertion GI Denies hematochezia and Denies change in stool character Musc Denies abnormal gait, Denies limited range of motion, Denies muscle cramps, Denies muscle weakness, Denies numbness, Denies radiating pain into limb, Denies stiffness and Denies tingling Neuro Denies abnormal gait, Denies dizziness, Denies numbness and Denies tingling Endo Denies palpitations Physical Exam Vital Signs: Last Vital Signs Pulse 65 06/30/23 08:17 BP 114/62 06/30/23 08:17 BMI result Body Mass Index 24.4 Const General: cooperative, healthy appearing, comfortable and no acute distress Orientation/consciousness: patient oriented x3 Neck Neck: Yes normal visual inspection and Yes no JVD Carotids: normal carotid upstroke Resp Effort & Inspection: normal respiratory effort Auscultation: clear to auscultation bilaterally, no crackles, no rales, no rhonchi and no wheezes Cardio Jugular venous distension: no JVD Rate: regular rate Rhythm: regular rhythm Heart sounds: S1 normal heart sound present, S2 normal heart sound present, no gallops, no murmurs and no rubs Neuro General: patient oriented x3 Extrem General: Yes normal to inspection, No no pedal edema and No calf tenderness Psych Appearance: grossly normal Mental Status: mental status grossly normal Speech and movement: Normal speech and movement present Office Procedures EKG Details: Today, read by me, normal sinus rhythm, no acute ST or T-wave abnormalities, rate 65, QTC 436 milliseconds [id number], Complete Assessment & Plan Assessment & Plan (1) SVT (supraventricular tachycardia): Code(s): I47.1 - Supraventricular tachycardia Plan: History of SVT with prior ER visits receiving adenosine at least once. No recurrent sustained SVT in the last 2 years. Continues on propranolol 10 mg once daily. She feels this dose is helpful for her. She continues to drink 1 caffeinated beverage daily. She had been exercising routinely and tolerated it well. She does report anxiety issues but this has not triggered any recent SVT. She will feel an occasional brief palpitation mostly when at rest and lasting only seconds. Reviewed vagal maneuvers with her. If she does have recurrent episodes she should cut back on her caffeine intake and increase propranolol to b.i.d. as originally ordered. She will call with concerning symptoms and ED care if needed for sustained rapid palpitations. Cardiology follow-up 2 year, sooner if needed Coding Level of Care Code Est Pt Level 3 (77853) Diagnoses SVT (supraventricular tachycardia) I47.1 CPT Codes EKG - CPT: 76590-[id number], Complete ([id number]) Time Spent (min) 22
== END 2023-06-30 08:43 | disposition home or self-care (01) ==
PROVIDERS: PCP Nurse Practitioner Family; Visit Provider Nurse Practitioner Family
DX: I47.1 Supraventricular tachycardia (principal)
CPT/HCPCS: 93010; 99213

== ENCOUNTER → 2023-06-30 08:13 | Outpatient (BNVA) | payer MEDICAID, SELFPAY | PROVIDERS: PCP Nurse Practitioner Family; Visit Provider Nurse Practitioner Family | DX: I47.10 Supraventricular tachycardia, unspecified (principal); R00.2 Palpitations; F43.22 Adjustment disorder with anxiety; F39 Unspecified mood [affective] disorder | CPT/HCPCS: 93005 ==

== ENCOUNTER 2023-11-03 08:42 | Outpatient (AMB) | payer OTHER, SELFPAY ==
--- NOTE | 2023-11-03 09:08 | AM.OFFWIN_ITS ---
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 She states that this started as a brief respiratory illness, with a mildly sore throat, fatigue, body aches, nasal congestion. This resolved, however she has had ongoing myalgias for the last 2 weeks. She was seen this past weekend at a different urgent care. COVID, flu, RSV were all negative. She did have a mild UTI and was started on antibiotics for this. She states that she has been taking ibuprofen around the clock to help with the body aches and headaches. She denies any respiratory symptoms. Denies any nasal congestion, sinus pressure, shortness of breath, cough. Denies any GI symptoms. Denies any urinary symptoms at this time. Is over correction through her antibiotic regimen. Denies fever or chills. [facility] Medical History Screening due Mood disorder Acute adjustment disorder with anxiety No known health problems Depression Tachycardia Family History Mother Hypercholesteremia Arthritis Father HTN (hypertension) Hypercholesteremia Emphysema lung Manic depression Tachycardia Heart attack Stroke Maternal Grandfather Colon cancer Sister Suicide Social History Household Members: Children Housing: House Alcohol intake: current Alcohol intake frequency: holidays/special occasions only Alcohol type: wine Patient Tobacco Use Status: Never used Tobacco Current occupational status: employed 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 Sexual orientation: Straight/Heterosexual Gender identity: Female Review of Systems Const All systems reviewed & are unremarkable except as noted in HPI and below Physical Exam Vital Signs: Last Vital Signs Pulse 76 11/03/23 09:10 BP 130/80 11/03/23 09:10 Pulse Ox 99 11/03/23 09:10 Oxygen Delivery Method Room Air 11/03/23 09:10 Const General: cooperative and no acute distress HEENT Head: Yes normal to inspection Ears: hearing grossly normal bilaterally, external ears normal and TM's normal bilaterally General nose exam: Normal external nose present and Normal nasal mucous membranes and turbinates present Face and sinus: Yes normal facial exam and Yes sinuses nontender Mouth: Normal oral and palatal mucosa present and oropharynx normal Throat: Yes posterior oropharynx normal Neck Neck: Yes no lymphadenopathy Resp Effort & Inspection: normal respiratory effort and able to speak in complete sentences Auscultation: clear to auscultation bilaterally Cardio Jugular venous distension: no JVD Palpation: normal PMI Rate: regular rate Rhythm: regular rhythm Skin General skin exam: no rashes or lesions noted Neuro General: gait normal Extrem General: Yes capillary refill normal and Yes no clubbing, cyanosis or edema Psych Appearance: grossly normal Mental Status: mental status grossly normal Speech and movement: Normal speech and movement present Results AMB Urinalysis, Automated UA Leukoctes 15 Kate/uL Last Edit by GRAYSON Kebede on 11/03/23 09:3 5 UA Nitrite Negative Last Edit by GRAYSON Kebede on 11/03/23 09:35 UA Urobilinogen 0.2 mg/dL Last Edit by GRAYSON Kebede on 11/03/23 09:35 UA Protein 0 mg/dL Last Edit by GRAYSON Kebede on 11/03/23 09:35 UA pH 5.5 Last Edit by GRAYSON Kebede on 11/03/23 09:35 UA Blood 0 Jose Angel/uL Last Edit by GRAYSON Kebede on 11/03/23 09:35 UA Specific [place] 1.030 Last Edit by GRAYSON Kebede on 11/03/23 09:35 UA Ketone Negative Last Edit by GRAYSON Kebede on 02/29/24 09:35 UA Bilirubin 0 mg/dL Last Edit by GRAYSON Kebede on 11/03/23 09:35 UA Glucose 0 mg/dL Last Edit by GRAYSON Kebede on 11/03/23 09:35 AMB Test Urine AMB Test Urine Negative Last Edit by Abhijit Fernandez CMA on 11/03/23 09:37 Assessment & Plan Assessment & Plan (1) Myalgia: Code(s): M79.10 - Myalgia, unspecified site Plan: Patient having ongoing myalgias following a brief upper respiratory illness. She does not have a PCP at this time, however she is scheduled to see one here with [facility] in November. Urine dip showed small leukocytes. She denies any urinary symptoms, and is on an antibiotic regimen for UTI currently. Her physical exam is unremarkable today. I am going to order some basic labs CBC, BMP, and also an hCG level, as patient has been questioning . She does not get a period while on her oral control pills, however did have some spotting couple of weeks ago. Urine test in the office was negative. Patient aware of this. I have discussed with the patient to continue with conservative measures including increase rest, hydration, Tylenol/Motrin as needed for body aches. I will follow up with her regarding labs once these are available. And she will be seeing PCP within the next couple of weeks should these symptoms be ongoing. If anything changes/worsens in the meantime, she can return to the clinic for further evaluation. She verbalizes understanding and agrees to plan. Orders: Orders AMB Urinalysis Automated Today Z13.9 - Encounter for screening, unspecified Complete Blood Count Auto Diff Today M79.10 - Myalgia, unspecified site Basic Metabolic Panel Today M79.10 - Myalgia, unspecified site AMB HCG Urine Test Today Z13.9 - Encounter for screening, unspecified HCG Quantitative Today M79.10 - Myalgia, unspecified site Coding Level of Care Code Est Pt Level 4 (60579) Diagnoses Myalgia M79.10 Time Spent (min) 25
[2023-11-03 09:10] VITALS: BP 130/80; PULSE 76; O2SAT 99
== END 2023-11-03 10:13 | disposition home or self-care (01) ==
PROVIDERS: PCP Nurse Practitioner Family; Visit Provider Nurse Practitioner Family
DX: M79.10 Myalgia, unspecified site (principal); Z32.02 Encounter for pregnancy test, result negative
CPT/HCPCS: 81003; 81025; 99214

== ENCOUNTER 2023-11-03 09:47 | Outpatient (REF) | payer OTHER, SELFPAY ==
[2023-11-03 13:05] LABS: MANUAL DIFF FLAG NO
[2023-11-03 13:12] LABS: Basophils Absolute Auto 0.1 X10*3/uL (0.0-0.2); Basophils Percent Auto 0.7 % (0-2); Eosinophils Absolute Auto 0.1 X10*3/uL (0.0-0.4); Eosinophils Percent Auto 1.4 % (0-4); Hematocrit 38.9 % (37.0-47.0); Hemoglobin 12.4 g/dl (12.0-16.0); Imm Gran Abs Auto 0.02 X10*3/uL (0.00-0.03); Imm Gran Pct Auto 0.3 % (0.0-0.4); Lymphocytes Absolute Auto 2.9 X10*3/uL (1.2-4.9); Lymphocytes Percent Auto 40.7 % (20-40); Mean Corpuscular HGB Conc 31.9 g/dl (31.0-35.0); Mean Corpuscular Hemoglobin 30.2 pg (27.0-33.0); Mean Corpuscular Volume 94.9 fL (80.0-98.0); Mean Platelet Volume 12.4 fL (9.4-12.3); Monocytes Absolute Auto 0.4 X10*3/uL (0.1-1.2); Neutrophils Absolute Auto 3.6 x10*3/uL (2.0-8.3); Neutrophils Percent Auto 50.9 % (45-73); Platelet Count 305 X10*3/uL (160-400); Red Cell Distribution Width 12.4 % (11.0-16.0); White Blood Count 7.1 X10*3/uL (4.8-10.8)
[2023-11-03 13:45] LABS: Anion Gap 12 (12-20); Blood Urea Nitrogen 11 mg/dL (9-16); Calcium 8.7 mg/dL (8.4-10.2); Carbon Dioxide 25 mmol/L (22-29); Chloride 106 mmol/L (96-108); Estimated Glomerular Filt Rate > 60; Glucose Random 92 mg/dL (60-115); HCG Quantitative < 2 mIU/mL; Sodium 139 mmol/L (135-145)
== END 2023-11-03 09:48 | disposition home or self-care (01) ==
LOC: HO.HMGCLDS 09:47
PROVIDERS: PCP Nurse Practitioner Primary Care; Visit Provider Nurse Practitioner Family
DX: M79.10 Myalgia, unspecified site (principal)
CPT/HCPCS: 36415; 80048; 84702; 85025

== ENCOUNTER 2023-11-16 07:59 | Outpatient (AMB) | payer OTHER, SELFPAY ==
--- NOTE | 2023-11-16 08:05 | A.OFFPC_ITS ---
Vital Signs 11/16/23 08:06 Height 4 ft 11 in Weight 123 lb 4 oz BMI 24.9 BP 108/76 Blood Pressure Location Rt brachial Position Sitting Pulse 81 Pulse Source Pulse Oximeter Pulse Oximetry (%) 98 Oxygen Delivery Method Room Air Intake Visit Reasons: EST care Intake Note: Pt is here to est care [facility] last pap 05/05/23 [place] at [facility] [place] Is last menstrual period known: No Allergies No Known Allergies Allergy (Verified 11/16/23 08:22) Medication List - Last Reconciled 11/16/23 by CARMELO Mittal escitalopram oxalate 15 mg PO QAM norethindrone-e.estradiol-iron 1 mg-20 mcg ()/75 mg (7) (09/24 ()) 1 tab PO DAILY 21 days propranolol 10 mg PO BID 90 days Tobacco use date assessed: 11/16/23 Dental Screening Dental Screen Date: 11/16/23 Did you have a dental visit in the last 12 months?: No Did you have a dental problem in the last 6 months where you did not have access to dental care?: No Was dental information given to patient?: No HPI HPI Comments History of Present Illness Details This is a 38-year-old female who I am meeting for the 1st time. Patient has a history of SVT and anxiety, which are both in control. Patient has establish care with OBGYN, psychiatry, and Cardiology at [facility] Patient is up-to-date with immunizations. Patient is due for mammogram in 5 months. Patient states that over the past year she has fluctuated in weight. She states she gained 45 lb over the course of few months, and then lost around 23lbs a few months following that. 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 She states her weight is usually stable. Will draw labs including T4/TSH. [facility] Medical History Screening due Mood disorder Acute adjustment disorder with anxiety No known health problems Depression Tachycardia Family History Mother Hypercholesteremia Arthritis Father HTN (hypertension) Hypercholesteremia Emphysema lung Manic depression Tachycardia Heart attack Stroke Maternal Grandfather Colon cancer Sister Suicide Social History Household Members: Children Housing: House Alcohol intake: current Alcohol intake frequency: holidays/special occasions only Alcohol type: wine Patient Tobacco Use Status: Never used Tobacco e-Cigarette/Vaping Use: Never Used Second Hand Smoke Exposure: Yes Current occupational status: employed 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 1. Little interest or pleasure in doing things: several days 2. Feeling down, depressed, or hopeless: several days 3. Trouble falling or staying asleep, or sleeping too much: not at all 4. Feeling tired or having little energy: several days 5. Poor appetite or overeating: not at all 6. Feeling bad about yourself - or that you are a failure or have let yourself or your family down: not at all 7. Trouble concentrating on things, such as reading the newspaper or watching television: not at all 8. Moving or speaking so slowly that other people could have noticed. Or the opposite - being so fidgety or restless that you have been moving around a lot more than usual: not at all 9. Thoughts that you would be better off or of hurting yourself in some way: not at all Total score: 3 Depression Screening Interpretation: Negative Depression Screening Done: Yes 03261 - PHQ-9 Billing: Yes Source: Developed by Drs. Vinayak Briscoe, Morena Ordonez, Dennis Sainz and colleagues, with an educational jasen from [employer]. Thrive Questionnaire Date Thrive assessed: 11/16/23 I am a: Patient What is your living situation today?: I have a steady place to live Within the past 12 months, did the food you bought not last and you didn't have the money to get more?: Never true Within the past 12 months, did you worry whether your food would run out before you got money to buy more?: Never true Do you have trouble paying for medicines?: No Do you have trouble getting transportation to medical appointments?: No Do you have trouble paying your heating and electricity bill?: No Do you have trouble taking care of your child, family member or friend?: No Do you have trouble with day-to-day activities such as bathing, preparing meals, shopping, managing finances, etc.?: No Are you currently unemployed and looking for a job?: No Are you interested in more education?: No THRIVE Score: 0 AUDIT C Alcohol Use Questionnaire (AUDIT-C) 1. How often do you have a drink containing alcohol?: 2-4 times a month 2. How many drinks containing alcohol do you have on a typical day when you are drinking?: 1 or 2 3. How often do you have six or more drinks on one occasion?: Never Total Score: 2 AIDEE-7 AMB Questionnaire AIDEE-7 Date AIDEE - 7 assessed: 11/16/23 Feeling nervous, anxious, or on edge: 1 = Several days Not being able to stop or control worryin = Several days Worrying too much about different things: 1 = Several days Trouble relaxin = Several days Being so restless that it is hard to sit still: 0 = Not at all Becoming easily annoyed or irritable: 1 = Several days Feeling afraid as if something awful might happen: 0 = Not at all Total AIDEE-7 score (0-4 normal; 5-9 mild; 10-14 moderate; 15-21 severe): 5 Source: Developed by Drs. Vinayak Briscoe, Morena Ordonez, Dennis Sainz and colleagues, with an educational jasen from [employer]. AIDEE-7 Assessment Billing AIDEE-7 Assessment Tool: AIDEE-7 Assessment 21510 Review of Systems Const All systems reviewed & are unremarkable except as noted in HPI and below Card Denies chest pain and Denies dyspnea Resp Denies dyspnea Psych Denies homicidal ideation and Denies suicidal ideation Physical exam (Primary Care) Vital Signs: Last Vital Signs Pulse 81 11/16/23 08:06 Pulse Ox 98 11/16/23 08:06 Oxygen Delivery Method Room Air 11/16/23 08:06 Care Plan Goal for BP management: Vital signs reviewed stable. BMI result Body Mass Index 24.9 Tobacco/Smoking Status: Tobacco use Status Patient Tobacco Use Status Never used Tobacco 11/16/23 08:06 Depression Screening Interpretation: Negative Const Other: Appearance: Alert.? Oriented X3.? No acute distress.? Head: Normocephalic, atraumatic, ENT: Pharynx normal.? Neck: Normal inspection.? Neck supple.? CVS: Normal heart rate and rhythm.? Pulses normal.? Respiratory: No respiratory distress.? Breath sounds normal.? Neuro: Oriented X 3.? No motor deficit.? No sensory deficit. CN 2-12 intact Results Reviewed Results Reviewed: Sodium 139 135-145 mmol/L Potassium 4.0 3.3-5.1 mmol/L CL 106 96-108 mmol/L CO2 25 22-29 mmol/L Gap 12 12-20 BUN 11 9-16 mg/dL Creat 0.81 0.5-1.4 mg/dL EGFR > 60 NOTE: For -Citizen Of [place] individuals, multiply the result by 1.210. Chronic Kidney Disease: Estimated GFR < 60 mL/min/1.73m2 Severe Kidney Disease: Estimated GFR < 15 mL/min/1.73m2 Glucose, Random 92 60-115 mg/dL CA 8.7 8.4-10.2 mg/dL HCG Quant < 2 mIU/mL Weeks post LMP Approximate hCG (Last Menstrual Period) Range (mIU/ml) 3 - 4 weeks 9 - 130 4 - 5 weeks 75 - 2,600 5 - 6 weeks 850 - 20,800 6 - 7 weeks 4000 - 100,200 7 - 12 weeks 11,500 - 289,000 12 - 16 weeks 18,300 - 137,000 16 - 29 weeks (2nd trimester) 1,400 - 53,000 29 - 41 weeks (3rd trimester) 940 - 60,000 The Ramirez B-hCG assay is used for the early detection of ; it cannot be used to diagnose any condition unrelated to . If a B-hCG level is not supported by the clinical evidence, results should be confirmed by an alternative method (qualitative urine hCG, for example). Assessment and Plan Assessment & Plan (1) Anxiety: Comment: Patient's anxiety is currently under control. She taking Lexapro 15 mg per day. Also has established therapy and Psychiatry. Code(s): F41.9 - Anxiety disorder, unspecified (2) SVT (supraventricular tachycardia): Comment: Patient is establish care with [facility] cardiology. Patient taking propanolol with good effect. Code(s): I47.1 - Supraventricular tachycardia (3) Fluctuation of weight: Comment: Will draw labs including TSH, T4, lipid profile, A1c, UA. Patient had CMP and CBC drawn recently Code(s): R68.89 - Other general symptoms and signs Plan: Take your medications as prescribed. If you were prescribed antibiotics today, it is important that you take your medication to their entirety, do not skip any doses, do not finish them early. Follow-up with your primary care provider this week. Return to the emergency department with new or worsening symptoms. Such as fevers, chills, chest pain, shortness of breath, nausea, vomiting, dizziness, headache, vision changes, lethargy In case of emergency call 911 Plan Follow-up physical exam in 4 months Orders: Orders UA CC w/rflx Micro + Cult Today Z13.89 - Encounter for screening for other disorder TSH reflex Free T4 Today Z13.29 - Encounter for screening for other suspected endocrine disorder Lipid Panel Today Z13.0 - Encounter for screening for diseases of the blood and blood-forming organs and certain disorders involving the immune mechanism Vitamin D 25-OH (D2 and D3) Today Z13.21 - Encounter for screening for nutritional disorder Vitamin B6 Today Z13.21 - Encounter for screening for nutritional disorder Vitamin B12 Today Z13.21 - Encounter for screening for nutritional disorder MM tomosynthesis screening BI 5 Months Z12.31 - Encounter for screening mammogram for malignant neoplasm of breast Hemoglobin A1c Today Z13.1 - Encounter for screening for diabetes mellitus Coding Level of Care Code Est Pt Level 3 (75908) Diagnoses Anxiety F41.9 SVT (supraventricular tachycardia) I47.1 Fluctuation of weight R68.89 Additional Codes AIDEE-7 Assessment Billing - AIDEE-7 Assessment Tool: AIDEE-7 Assessment 92134 ([id number]) Time Spent (min) 31
[2023-11-16 08:06] VITALS: BP 108/76; PULSE 81; O2SAT 98; BMI 24.9
== END 2023-11-16 09:48 | disposition home or self-care (01) ==
PROVIDERS: PCP Nurse Practitioner Family; Visit Provider Nurse Practitioner Primary Care
DX: I47.10 Supraventricular tachycardia, unspecified (principal); F41.9 Anxiety disorder, unspecified; R68.89 Other general symptoms and signs
CPT/HCPCS: 99213

== ENCOUNTER 2023-12-28 08:08 | Outpatient (AMB) | payer OTHER, SELFPAY ==
[2023-12-28 08:43] VITALS: BP 110/78; PULSE 70; TEMP 36.2; O2SAT 98; BMI 25.4
--- NOTE | 2023-12-28 08:43 | MHC.OFFWIV ---
Intake Vital Signs 12/28/23 08:43 Height 4 ft 11 in Weight 126 lb BMI 25.4 BP 110/78 Blood Pressure Location Lt brachial Position Sitting Pulse 70 Pulse Source Pulse Oximeter Temp 97.2 F Temp Source Temporal Artery Scan Pulse Oximetry (%) 98 Oxygen Delivery Method Room Air Intake Visit Reasons: EP vaginal pain discomfort Intake Note: pt is here today for vaginal pain discomfort started yesterday Patient Tobacco Use Status: Never used Tobacco Allergies No Known Allergies Allergy (Verified 12/28/23 08:52) Do you need a note to return to daycare/school/sports/work: Yes HPI HPI Comments History of Present Illness Details She presents to office with vaginal/urine discomfort + increased urine frequency last night She has hx of urine infection She noticed this am + pink in toilet bowl and on paper No thick clots + pressure suprapubic is discomfort, low pain No fever or chills She denies back psin + frequency, urgency, dysuria No abdnormal vaginal discharge PFSH Medical History Screening due Mood disorder Acute adjustment disorder with anxiety No known health problems Depression Tachycardia Family History Mother Hypercholesteremia Arthritis Father HTN (hypertension) Hypercholesteremia Emphysema lung Manic depression Tachycardia Heart attack Stroke Maternal Grandfather Colon cancer Sister Suicide Social History Household Members: Children Housing: House Alcohol intake: current Alcohol intake frequency: holidays/special occasions only Alcohol type: wine Patient Tobacco Use Status: Never used Tobacco e-Cigarette/Vaping Use: Never Used Second Hand Smoke Exposure: Yes Current occupational status: employed 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 Sexual orientation: Straight/Heterosexual Gender identity: Female Review of Systems Const Denies body aches, Denies chills and Denies fever(s) GI Reports abdominal pain (pelvic), Denies diarrhea and Denies nausea Reports hematuria, Reports dysuria, Reports pelvic pain, Denies urinary incontinence, Reports urinary urgency and Denies vaginal discharge Physical Exam Vital Signs: Last Vital Signs Temp 97.2 F 12/28/23 08:43 Pulse 70 12/28/23 08:43 BP 110/78 12/28/23 08:43 Pulse Ox 98 12/28/23 08:43 Oxygen Delivery Method Room Air 12/28/23 08:43 BMI result Body Mass Index 25.4 General: Non-toxic, NAD. Speaking full sentences. Skin: Warm dry throughout Eye: EOMI Respiratory: CTA bilaterally. No wheezes, rales or rhonchi Cardiac: RRR. No murmur Absominal: BS present. Minimal suprapubic tenderness to palpation. No CVAT MSK: Full ROM extremities. Neurology: A/O. No aphasia or facial droop. Gait without abnormality Psych: Good mood and affect Assessment & Plan Assessment & Plan (1) UTI (urinary tract infection): Code(s): N39.0 - Urinary tract infection, site not specified Qualifiers: Hematuria presence: without hematuria Urinary tract infection type: acute cystitis Qualified Code(s): N30.00 - Acute cystitis without hematuria Plan: Patient seen and evaluated. U/A: + blood and leuks HCG: negative Macrobid to pharmacy Pyridium to pharmacy Finish antibiotic completely Increase fluids Patient gave verbal understanding and had no additional questions or concerns at time of discharge All questions answered Medications: New nitrofurantoin monohyd/m-cryst 100 mg (Macrobid) must administer with a meal/food 100 mg PO Q12H 14 caps 0RF 7 days phenazopyridine (Pyridium) 100 mg PO TID PRN 9 tabs 0RF pain Coding Level of Care Code Est Pt Level 3 (33634) Diagnoses UTI (urinary tract infection) N30.00 Hematuria presence: without hematuria Urinary tract infection type: acute cystitis
== END 2023-12-28 09:10 | disposition home or self-care (01) ==
PROVIDERS: PCP Nurse Practitioner Primary Care; Visit Provider Physician Assistant
DX: N30.00 Acute cystitis without hematuria (principal)
CPT/HCPCS: 99213

== ENCOUNTER 2024-01-11 10:12 | Outpatient (REF) | payer OTHER, SELFPAY | END 2024-01-11 10:13 | disposition home or self-care (01) | LOC: HO.LNP 10:12 | PROVIDERS: PCP Nurse Practitioner Primary Care; Visit Provider Advanced Practice Midwife | DX: R10.84 Generalized abdominal pain (principal); R31.9 Hematuria, unspecified; R10.9 Unspecified abdominal pain; Z87.440 Personal history of urinary (tract) infections | CPT/HCPCS: 81003; 81025 ==

== ENCOUNTER 2024-01-11 10:12 | Outpatient (AMB) | payer OTHER, SELFPAY ==
[2024-01-11 10:14] VITALS: BP 102/64; TEMP 36.2; BMI 25.4
--- NOTE | 2024-01-11 10:14 | A.OFFVIS_ITS ---
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 She denies any symptoms of diarrhea, admits to some constipation, attempting to hydrate well, no vomiting. She reports an onset of some pink spotting with urination, she was treated for UTI on 12/28/2023 with Macrobid. Urinalysis revealed blood and leukocytes. No culture was obtained. She progressively had worsening symptoms and went to a second external urgent care center where she was told she had a UTI and was treated with ciprofloxacin currently nursing home through treatment, and reports no improvement, now feels worse with headache. She reports yesterday she did a home test which was faintly positive. Currently on OCP continuos dose user with no history of missed pills. UPT was negative today. Urine dip showed trace blood. [facility] Medical History (Updated 01/11/24 @ 16:17 by Dread Fonseca MD) Pelvic pain Screening due Mood disorder Acute adjustment disorder with anxiety No known health problems Depression Tachycardia Family History Mother Hypercholesteremia Arthritis Father HTN (hypertension) Hypercholesteremia Emphysema lung Manic depression Tachycardia Heart attack Stroke Maternal Grandfather Colon cancer Sister Suicide Social History Household Members: Children Housing: House Alcohol intake: current Alcohol intake frequency: holidays/special occasions only Alcohol type: wine Patient Tobacco Use Status: Never used Tobacco Smoked in Last 30 Days: No e-Cigarette/Vaping Use: Never Used Second Hand Smoke Exposure: Yes Use of substances other than those prescribed or required for medical reasons: No Advance Directives: No Advance Directives Information Provided: Yes Do you have a plan to hurt others: No Plan Current occupational status: employed 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 Sexual orientation: Straight/Heterosexual Gender identity: Female Female Reproductive History Menstrual control method: pills Review of Systems Const All systems reviewed & are unremarkable except as noted in HPI and below Physical Exam Vital Signs: Last Vital Signs Temp 97.1 F 01/11/24 10:14 BP 102/64 01/11/24 10:14 BMI result Body Mass Index 25.4 Const General: cooperative, healthy appearing and no acute distress Orientation/consciousness: patient oriented x3 GI Other: Left flank tenderness Inspection: Yes normal to inspection Palpation (GI): Soft to palpation, Tenderness to palpation present (GI) and Other GI palpation findings present (Nontender) Rectal Exam - Female: visual inspection normal Other: Diffusely tender all over pelvis, no CMT General: Yes bladder normal to palpation External Female Exam: normal appearance of the urethra Speculum Exam - Vagina: normal appearance of the vagina, normal palpation and normal vaginal discharge Speculum Exam - Cervix: normal appearance of the cervix and normal palpation Bimanual exam- vagina & uterus: normal bimanual exam, normal palpation, uterine size normal, bladder normal to palpation, normal palpation, uterine shape normal and non-tender Bimanual Exam- Adnexa, other: normal adnexae Neuro General: patient oriented x3 Results AMB Test Urine AMB Test Urine Negative Last Edit by ANA Willard on 01/11/24 10:30 AMB Urinalysis, Automated UA Leukoctes 2 Kate/uL Last Edit by ANA Willard on 01/11/24 10:30 UA Nitrite Negative Last Edit by ANA Willard on 01/11/24 10:30 UA Urobilinogen 0 mg/dL Last Edit by ANA Willard on 01/11/24 10:3 0 UA Protein 0 mg/dL Last Edit by ANA Willard on 01/11/24 10:30 UA pH 5.0 Last Edit by ANA Willard on 01/11/24 10:30 UA Blood 0.5 Jose Angel/uL Last Edit by ANA Willard on 01/11/24 10:30 UA Specific [place] 1.015 Last Edit by ANA Willard on 01/11/24 10:30 UA Ketone Negative Last Edit by ANA Willard on 01/11/24 10:30 UA Bilirubin 0 mg/dL Last Edit by ANA Willard on 01/11/24 10:30 UA Glucose 0 mg/dL Last Edit by ANA Willard on 01/11/24 10:30 Results Reviewed Results Reviewed: Laboratory Last Values Urine pH (Auto) 5.0 01/11/24 10:28 Specific [place] (Auto) 1.015 01/11/24 10:28 Urine Protein (Auto) 0 mg/dL 01/11/24 10:28 Glucose (UA)(Auto) 0 mg/dL 01/11/24 10:28 Urine Ketones (Auto) Negative 01/11/24 10:28 Urine Blood (Auto) 0.5 Jose Angel/uL 01/11/24 10:28 Urine Nitrite (Auto) Negative 01/11/24 10:28 Urine Bilirubin (Auto) 0 mg/dL 01/11/24 10:28 Urine Urobilinogen (Auto) 0 mg/dL 01/11/24 10:28 Leukocyte Esterase (Auto) 2 Kate/uL 01/11/24 10:28 Tst Clinic Negative 01/11/24 10:28 Assessment & Plan Assessment & Plan (1) Abdominal pain: Code(s): R10.9 - Unspecified abdominal pain Qualifiers: Abdominal location: generalized Qualified Code(s): R10.84 - Generalized abdominal pain (2) Hematuria: Code(s): R31.9 - Hematuria, unspecified Qualifiers: Hematuria type: unspecified type Qualified Code(s): R31.9 - Hematuria, unspecified (3) History of UTI: Code(s): Z87.440 - Personal history of urinary (tract) infections (4) Left flank pain: Code(s): R10.9 - Unspecified abdominal pain Plan Discussed: Workup and further assessment through ED services to rule out pyelo, patient agreeable with plan of care. Report called in. All questions answered to my best ability. This note is constructed using voice recognition software. While every effort has been made to ensure accuracy, tool setter apprentice errors may have been included. Orders: Orders AMB HCG Urine Test Today R10.2 - Pelvic and perineal pain HCG Quantitative Today R10.2 - Pelvic and perineal pain CT NG by PCR Today R10.2 - Pelvic and perineal pain AMB Urinalysis Automated Today R10.2 - Pelvic and perineal pain Bacterial Vaginosis Panel Today R10.2 - Pelvic and perineal pain Coding Level of Care Code Est Pt Level 3 (12975) Diagnoses Generalized abdominal pain R10.84 Abdominal location: generalized Hematuria, unspecified type R31.9 Hematuria type: unspecified type History of UTI Z87.440 Left flank pain R10.9
== END 2024-01-11 11:19 | disposition home or self-care (01) ==
PROVIDERS: PCP Nurse Practitioner Primary Care; Visit Provider Advanced Practice Midwife
DX: R10.2 Pelvic and perineal pain (principal)

== ENCOUNTER 2024-01-11 10:55 | Outpatient (REF) | payer OTHER, SELFPAY ==
[2024-01-12 05:37] LABS: CT PCR NOT DETECTED (Not Detect.); NG PCR NOT DETECTED (Not Detect.)
[2024-01-12 12:03] LABS: BV Int Neg Control Negative (Negative); BV Int Pos Control Positive (Positive)
== END 2024-01-11 10:56 | disposition home or self-care (01) ==
LOC: HO.LAB 10:55
PROVIDERS: Visit Provider Advanced Practice Midwife
DX: R10.2 Pelvic and perineal pain (principal)
CPT/HCPCS: 0353U; 87480; 87510; 87660

== ENCOUNTER 2024-01-11 11:27 | Emergency (ER) | payer OTHER, SELFPAY ==
--- NOTE | ~2024-01-11 | CT_ITS ---
EXAMINATION: CT ABDOMEN AND PELVIS WITH CONTRAST CLINICAL INFORMATION: Left flank pain COMPARISON: CT of 07/12/2020 and 02/28/2010 TECHNIQUE: Multidetector volumetric images were obtained from the superior aspect of the liver through the pubic symphysis following administration 85 mL of Omnipaque 350 intravenous contrast. Sagittal and coronal reformatted images were obtained on the technologist's workstation. Oral contrast: No This CT examination was performed using dose optimization techniques as appropriate, variously including the following: *Automated exposure control *Adjustment of mA and/or kV according to patient size (this includes techniques or standardized protocols for targeted exams where dose is matched to indication/reason for exam; i.e. extremities or head) *Use of iterative reconstruction technique DLP: 332 mGy-cm FINDINGS: LUNG BASES: The visualized lung bases are unremarkable. LIVER, GALLBLADDER, AND BILIARY TREE: The liver is normal in size, shape, and attenuation. No focal hepatic lesion or biliary ductal dilatation is present. The gallbladder is unremarkable with no evidence of radiopaque gallstones, gallbladder wall thickening, or obvious pericholecystic inflammatory changes. PANCREAS: Unremarkable. SPLEEN: Unremarkable. ADRENAL GLANDS: Unremarkable. KIDNEYS AND URETERS: The kidneys are normal in size, shape, and attenuation. No hydronephrosis, hydroureter, or calculi seen. No perinephric stranding. BLADDER: Unremarkable. GASTROINTESTINAL TRACT: The small and large bowel are unremarkable. The appendix is unremarkable. ABDOMINAL WALL: No significant hernia is appreciated. LYMPH NODES: Normal. VASCULAR: Unremarkable. PELVIC VISCERA: Unremarkable. OSSEOUS STRUCTURES: Unremarkable. CT/CT abdomen pelvis w IV con IMPRESSION: No acute findings in the abdomen or pelvis. Fleischner guidelines were followed.
[2024-01-11 12:16] VITALS: BP 142/82; PULSE 64; RESP 16; TEMP 36.6; O2SAT 98; BMI 25.5
[2024-01-11 12:36] LABS: MANUAL DIFF FLAG NO
--- NOTE | 2024-01-11 12:38 | ED_ITS ---
HPI - Female Genitourinary General Chief complaint: Urogenital-Female Stated complaint: Kidney infection? UTI Time Seen by Provider: 01/11/24 12:55 History of Present Illness HPI Narrative: The patient is a 38-year-old woman who says that about 2 weeks ago she had some pinkish tinge in her urine. The next day she developed some urinary discomfort. She went to an urgent care center and was put on an antibiotic that might have been Macrobid. Apparently no culture was sent. She did not feel that she improved at all on the 1st antibiotic and subsequently went to another urgent care 5 days ago and was prescribed 7 days of ciprofloxacin. Despite the ciprofloxacin she is developed left flank pain. She has had no fever. She has had a lot of nausea. She has not had any vomiting. She has had no diarrhea. Today she went to the Gynecology office with complaints of the symptoms. She had a pelvic exam that showed no cervical motion tenderness. She was felt to have left-sided CVA percussion tenderness and was sent to the emergency room for evaluation of possible pyelonephritis or other problem. Related Data Home Medications ?Medication ?Instructions ?Recorded ?Confirmed escitalopram oxalate 10 mg tablet 15 mg PO QAM 11/16/23 11/16/23 cider tab PO 01/11/24 keexzkh-Ux-jvgwtdrkrjlkeeor-tea 500 mg-100 mcg-300 mg-60 mg tab (Apple Cider Vinegar Plus) ciprofloxacin HCl 500 mg tablet 500 mg PO BID 01/11/24 cranberry fruit concentrate 250 mg 250 mg PO TID 01/11/24 chewable tablet (Azo Cranberry) Previous Rx's ?Medication ?Instructions ?Recorded norethindrone 1 mg-ethinyl 1 tab PO DAILY 21 days #84 tabs 05/05/23 estradiol 20 mcg (21)-iron 75 mg (7) tablet (09/24 ()) propranolol 10 mg tablet 10 mg PO BID 90 days #180 tabs 10/27/23 Allergies Allergy/AdvReac Type Severity Reaction Status Date / Time No Known Allergies Allergy Verified 01/11/24 12:17 Review of Systems 2 Review of Systems: Yes all other systems are reviewed and are negative [facility] Past Medical History Medical History (Updated 01/11/24 @ 16:17 by Dread Fonseca MD) Pelvic pain Screening due Mood disorder Acute adjustment disorder with anxiety No known health problems Depression Tachycardia Family History Family History Mother Hypercholesteremia Arthritis Father HTN (hypertension) Hypercholesteremia Emphysema lung Manic depression Tachycardia Heart attack Stroke Maternal Grandfather Colon cancer Sister Suicide Social History Social History Household Members: Children Housing: House Alcohol intake: current Alcohol intake frequency: holidays/special occasions only Alcohol type: wine Patient Tobacco Use Status: Never used Tobacco Smoked in Last 30 Days: No e-Cigarette/Vaping Use: Never Used Second Hand Smoke Exposure: Yes Use of substances other than those prescribed or required for medical reasons: No Advance Directives: No Advance Directives Information Provided: Yes Do you have a plan to hurt others: No Plan Current occupational status: employed 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 She does not appear obviously ill. HEENT: Other: Face is symmetrical. Mucous membranes moist Eyes: Other: Pupils are round equal, conjunctivae are clear Neck: Other: No JVD, neck is supple Resp: Effort & Inspection: normal respiratory effort Auscultation: clear to auscultation bilaterally Cardio: Rate: regular rate Rhythm: regular rhythm Heart sounds: S1 normal heart sound present and S2 normal heart sound present GI: Other: Possibly some mild left-sided abdominal tenderness. No right lower quadrant tenderness Back/Spine/Pelvis: Other: There is left-sided CVA percussion tenderness Skin: Other: Skin is dry and unremarkable Neuro: Other: The patient is awake, alert, grossly neurologically intact. Extrem: Other: No peripheral edema Course Course Course Narrative: This is a Rapid Medical Examination (RME) performed by Nelli Castle PA-C in triage. Full HPI, ROS, assessment and treatment plan per primary provider in the Main ED. 38 yo female here for eval of left flank, nausea without vomiting, headache and diffuse abd pain x2 wks. denies dysuria or hematuria. admits to chance of . concern for STD. [facility]. had pelvic done in office today. sent to ED for labs, serum hcg, and scan. slight left CVAT. diffuse abd tenderness. no rebound or guarding. Plan: labs. UA, u preg, serum hcg +/- CT w/ con in main ED per primary provider Medications Administered Discontinued Medications Generic Name Dose Route Start Last Admin Trade Name Freq PRN Reason Stop Dose Admin Sodium Chloride 1,000 mls @ 999 mls/hr 01/11/24 13:15 01/11/24 14:30 Ns IV 01/11/24 14:15 Infused .Q1H1M CARLOS Infusion Sodium Chloride 1,000 mls @ 999 mls/hr 01/11/24 14:30 01/11/24 16:37 Ns IV 01/11/24 15:30 Infused .Q1H1M CARLOS Infusion Iohexol 100 ml 01/11/24 14:35 01/11/24 14:36 Iohexol 350 Mg/Ml 100 Ml Infus..Btl IV 01/11/24 14:36 85 ml ONCE ONE Administration Ketorolac Tromethamine 10 mg 01/11/24 13:06 01/11/24 13:16 Ketorolac Tromethamine 15 Mg/Ml Vial IVPUSH 01/11/24 13:07 10 mg ONCE ONE Administration Ondansetron HCl 4 mg 01/11/24 13:05 01/11/24 13:16 Ondansetron Hcl 4 Mg/2 Ml Vial IVPUSH 01/11/24 13:06 4 mg ONCE ONE Administration Medical Decision Making Medical Decision Making MDM Narrative: The patient is a 38-year-old woman who is generally in good health who has not felt well for 2 weeks. Her syndrome started with urinary symptoms and she was initially treated with an antibiotic which may have been Macrobid. No urine culture was done at the time of her initial antibiotics. She subsequently was seen at an urgent care center 3 or 4 days ago and was placed on ciprofloxacin. She now has left flank pain and nausea. She has not had fevers. She has not had vomiting. No vaginal discharge. She had a pelvic exam before coming to the emergency room at the Gynecology office. There was no cervical motion tenderness by report. Clinically the patient had unremarkable vital signs. She has not had a fever during any portion of this illness. On exam she has some left-sided CVA percussion tenderness but no other remarkable findings. She has no pleuritic chest pain or shortness of breath. Her pain is not exacerbated by deep breaths. Ultimately the patient's workup in the emergency room was fairly unremarkable including a negative CT of the abdomen and pelvis with IV contrast. No evidence of pyelonephritis or other acute intra-abdominal or retroperitoneal process. Her labs show a normal white count of 8.1 with a normal differential. Her metabolic panel shows normal electrolytes. Her creatinine is 1.18 and her BUN is 18. This gives an estimated GFR of 51 and an estimated creatinine clearance of 48.8. This is likely due to some degree of mild dehydration. Her C-reactive protein is mildly elevated at 3.11. Her urinalysis today shows no blood or infection. test negative. The patient was given 2 L of IV normal saline. Her nausea improved with ondansetron. I explained to the patient that I was not able to find any definite explanation for her symptoms. I was able to contact the urgent care center where she was seen a few days ago. The urine culture sent from that visit grew less than 10,000 colony-forming units of a Gram-negative organism. Given this essentially negative culture I think I will recommend the patient stop taking the ciprofloxacin she is currently taking. She will be discharged with a prescription for ondansetron. She will be advised to take a lot of fluids to help correct her slight renal insufficiency. She should contact your regular doctor's office for a follow up appointment next week or return to the ER if worse before then. Lab Data 01/11/24 12:32 01/11/24 12:32 Labs: Lab Results 01/11/24 01/11/24 Range/Units 12:32 13:01 WBC 8.1 (4.8-10.8) X10*3/uL RBC 4.03 L (4.20-5.50) X10*6/uL Hgb 12.7 (12.0-16.0) g/dl Hct 38.3 (37.0-47.0) % MCV 95.0 (80.0-98.0) fL MCH 31.5 (27.0-33.0) pg MCHC 33.2 (31.0-35.0) g/dl RDW 11.9 (11.0-16.0) % Plt Count 304 (160-400) X10*3/uL MPV 11.3 (9.4-12.3) fL Immature Gran % (Auto) 0.4 (0.0-0.4) % Neut % (Auto) 60.9 (45-73) % Lymph % (Auto) 30.0 (20-40) % Whitman % (Auto) 7.0 (2-11) % Eos % (Auto) 1.0 (0-4) % Baso % (Auto) 0.7 (0-2) % Lymph # (Auto) 2.4 (1.2-4.9) X10*3/uL Whitman # (Auto) 0.6 (0.1-1.2) X10*3/uL Eos # (Auto) 0.1 (0.0-0.4) X10*3/uL Baso # (Auto) 0.1 (0.0-0.2) X10*3/uL Abs Immat Gran (auto) 0.03 (0.00-0.03) X10*3/uL Absolute Neuts (auto) 4.9 (2.0-8.3) x10*3/uL Absolute Nucleated RBC 0.000 (0.0-0.012) X10*3/uL Nucleated RBC % (auto) 0.0 (0.0-0.2) /100WBC Sodium 138 (135-145) mmol/L Potassium 4.4 (3.3-5.1) mmol/L Chloride 106 (96-108) mmol/L Carbon Dioxide 23 (22-29) mmol/L Anion Gap 13 (12-20) BUN 18 H (9-16) mg/dL Creatinine 1.18 (0.5-1.4) mg/dL Estim Creat Clear Calc 48.8 Estimated GFR 51 Random Glucose 83 (60-115) mg/dL Calcium 9.1 (8.4-10.2) mg/dL Magnesium 2.1 (1.6-2.6) mg/dL Total Bilirubin 0.4 (0.0-1.0) mg/dL AST 18 (5-31) U/L ALT 12 (0-31) U/L Alkaline Phosphatase 37 L (39-117) U/L C-Reactive Protein 3.11 H (< or = 0.50) mg/dL Total Protein 7.2 (6.5-8.0) g/dL Albumin 4.1 (3.5-5.0) g/dL Lipase 18 (8-78) U/L Beta HCG, Quant < 2 mIU/mL Urine Color Yellow Urine Appearance Clear Urine pH 5.0 (5.0-9.0) Ur Specific Violet 1.010 (1.005-1.025) Urine Protein Negative (Neg-Trace) mg/dL Urine Glucose (UA) Negative (Negative) mg/dL Urine Ketones Negative (Negative) mg/dL Urine Blood Negative (Negative) Urine Nitrite Negative (Negative) Ur Leukocyte Esterase Negative (Negative) Urine Test NEGATIVE (NEGATIVE) Discharge Plan Discharge Clinical Impression: Left flank pain, Nausea, Dehydration Patient Disposition: Home, Self-Care Additional Instructions: Your evaluation in the emergency room is not showing any definite explanation for your symptoms. I contacted the urgent care where you were seen a couple of days ago. Your urine culture has not grown anything significant. For this reason I think you may stop your current antibiotic. It is possible some of your symptoms could be side effects from the antibiotic. Therefore please stop the antibiotic and concentrate on taking a lot of fluids. You may use acetaminophen (Tylenol) as needed for pain. Take 2 extra-strength tablets up to 3 times a day. I have sent a prescription for a nausea medication to your pharmacy. You may use this as needed. Please contact your regular doctor's office tomorrow to arrange a follow up appointment to recheck how you are doing in the next week or 2 and also to recheck your kidney function. I would avoid ibuprofen (Motrin or Advil) and naproxen (Naprosyn or Aleve) until you have been rechecked by your regular doctor. Return to the emergency room if significantly worse. Prescriptions: No Action propranolol 10 mg tablet 10 mg PO BID 90 Days Qty: 180 3RF escitalopram oxalate 10 mg tablet 15 mg PO QAM norethindrone-e.estradiol-iron [ FE 09/24 (28)] 1 mg-20 mcg (21)/75 mg (7) tablet 1 tab PO DAILY 21 Days Qty: 84 4RF Rx Instructions: continuous use, skip placebo week ciprofloxacin HCl 500 mg tablet 500 mg PO BID Azo Cranberry 250 mg tablet,chewable 250 mg PO TID Apple Cider Vinegar Plus [phone] be-snr-uh-mg tablet PO Referrals: Thom Barney FNP [Primary Care Provider] - (Left flank pain, nausea, mild kidney dysfunction) Stand Alone Forms: Work/School Release Print Language: Chinese
[2024-01-11 12:39] LABS: Basophils Absolute Auto 0.1 X10*3/uL (0.0-0.2); Basophils Percent Auto 0.7 % (0-2); Eosinophils Absolute Auto 0.1 X10*3/uL (0.0-0.4); Hematocrit 38.3 % (37.0-47.0); Hemoglobin 12.7 g/dl (12.0-16.0); Imm Gran Abs Auto 0.03 X10*3/uL (0.00-0.03); Imm Gran Pct Auto 0.4 % (0.0-0.4); Lymphocytes Absolute Auto 2.4 X10*3/uL (1.2-4.9); Mean Corpuscular HGB Conc 33.2 g/dl (31.0-35.0); Mean Corpuscular Hemoglobin 31.5 pg (27.0-33.0); Mean Platelet Volume 11.3 fL (9.4-12.3); Monocytes Absolute Auto 0.6 X10*3/uL (0.1-1.2); Neutrophils Absolute Auto 4.9 x10*3/uL (2.0-8.3); Neutrophils Percent Auto 60.9 % (45-73); Platelet Count 304 X10*3/uL (160-400); Red Blood Count 4.03 X10*6/uL (4.20-5.50); Red Cell Distribution Width 11.9 % (11.0-16.0); White Blood Count 8.1 X10*3/uL (4.8-10.8)
[2024-01-11 13:07] LABS: Alanine Aminotransferase 12 U/L (0-31); Albumin Level 4.1 g/dL (3.5-5.0); Alkaline Phosphatase 37 U/L (39-117); Anion Gap 13 (12-20); Aspartate Amino Transferase 18 U/L (5-31); Bilirubin Total 0.4 mg/dL (0.0-1.0); Blood Urea Nitrogen 18 mg/dL (9-16); Calcium 9.1 mg/dL (8.4-10.2); Carbon Dioxide 23 mmol/L (22-29); Chloride 106 mmol/L (96-108); Creatinine Clr Calc Pharmacy 48.8; Estimated Glomerular Filt Rate 51; Glucose Random 83 mg/dL (60-115); HCG Quantitative < 2 mIU/mL; Lipase 18 U/L (8-78); Magnesium 2.1 mg/dL (1.6-2.6); Potassium 4.4 mmol/L (3.3-5.1); Sodium 138 mmol/L (135-145); Total Protein 7.2 g/dL (6.5-8.0)
[2024-01-11 13:08] VITALS: BP 133/85; PULSE 63; RESP 18
[2024-01-11 13:15] LABS: Appearance Urine Clear; Color Urine Yellow; Glucose Urine UA Negative (Negative); Leukocyte Esterase Urine Negative (Negative); Nitrite Urine Negative (Negative); Urine Blood Negative (Negative); Urine Ketones Negative (Negative); Urine Protein Negative (Neg-Trace)
[2024-01-11] MEDS: Ketorolac Tromethamine 15 MG/ML VIAL 10 MG IVPUSH (13:16)
[2024-01-11] MEDS: ondansetron HCL 4 MG/2 ML VIAL IVPUSH (13:16)
[2024-01-11 13:20] LABS: UPreg QC Valid YES; Urine Pregnancy NEGATIVE (NEGATIVE)
[2024-01-11] MEDS: 0.9 % Sodium Chloride 1,000 ML 999 ML IV ×2 (13:21→15:18)
--- NOTE | 2024-01-11 13:29 | PC.NURSE ---
Pt presents to ED from doctors appointment upstairs. Reports for 2 weeks she has had a UTI, on second course of ABX. Reports she had a period of pink tinged urine, since resolved. Now pt reports lower ABD pain bilat radiating to left side of back X 4 days, 5/10, cramping and discomfort. Pt was seen by her [employer] upstairs who did a pelvic exam and advised her to come to ER for further testing. Pt is alert and oriented, breathing even and unlabored, skin WNL. Pt noted to have lower ABD and left lower back tenderness. Also reports mild headache, ongoing for past few days.
[2024-01-11 14:06] LABS: C Reactive Protein 3.11 mg/dL (< or = 0.50)
[2024-01-11] MEDS: iohexoL 350 MG/ML 100 ML INFUS..BTL IV (14:36)
[2024-01-11 16:43] LABS: CT PCR NOT DETECTED (Not Detect.); NG PCR NOT DETECTED (Not Detect.)
[2024-01-11 16:45] VITALS: BP 121/70; PULSE 70; RESP 16; TEMP 36.9; O2SAT 99
== END 2024-01-11 16:49 | disposition home or self-care (01) ==
PROVIDERS: Physician Assistant Medical; Emergency Provider Emergency Medicine; PCP Nurse Practitioner Primary Care
DX: R10.9 Unspecified abdominal pain (principal); R11.0 Nausea; E86.0 Dehydration; R10.2 Pelvic and perineal pain; F41.9 Anxiety disorder, unspecified; I47.10 Supraventricular tachycardia, unspecified; Z79.899 Other long term (current) drug therapy
CPT/HCPCS: 0353U; 36415; 74177; 80053; 81003; 81025; 83690; 83735; 84702; 85025; 86140; 96361; 96374; 96375; 99284; 99285; J1885; J2405; Q9967

== ENCOUNTER 2024-03-06 12:30 | Emergency (ER) | payer OTHER, SELFPAY ==
--- NOTE | 2024-03-06 | ECG_ITS ---
Test Reason : DIZZINESS Blood Pressure : / mmHG Vent. Rate : 081 BPM Atrial Rate : 081 BPM P-R Int : 120 ms QRS Dur : 074 ms QT Int : 388 ms P-R-T Axes : 065 080 067 degrees QTc Int : 450 ms Normal sinus rhythm Normal ECG No significant changes when compared with the previous EKG of 03 oct 2020 Referred By: Generic ED Physician Electronically Signed By:WILLIE VASQUEZ
[2024-03-06 12:32] VITALS: BP 156/83; PULSE 73; RESP 16; TEMP 36.6; O2SAT 100; BMI 25.4
--- NOTE | 2024-03-06 12:47 | ED.GENADULT ---
HPI - General Adult General Chief complaint: Dizziness Stated complaint: Tingling in extremities, lightheaded Time Seen by Provider: 03/06/24 12:40 Source: patient Mode of arrival: ambulatory Limitations: no limitations History of Present Illness HPI narrative: This is a 38-year-old woman with a past medical history of anxiety, SVT who presents for evaluation of palpitations and lightheadedness. Patient reports that she is prone to tachyarrhythmias. She states no indication she does experience sensation of fluttering in her chest. She reports similar episode yesterday. She states that she does follow with Cardiology and takes propranolol for her tachyarrhythmia. She reports fluttering sensation in her chest yesterday. She states this is preceded by a ?vibration? sensation in her head. She reports similar episodes today. She states feeling lightheaded and having heart racing sensation. She states no associated syncope. She reports associated paresthesias in her hands. She reports this lasted for several minutes. She states and no associated headache, vision changes, vision loss, hearing changes, fever, chills, cough, chest pain, dyspnea, abdominal pain, nausea, vomiting, urinary symptoms or changes to bowel habits. She reports not having much to drink today and reports that she was getting ready to have lunch, but states that she did not get around to having lunch due to her symptoms and come into the emergency room. She reports having coffee this morning. Related Data Home Medications ?Medication ?Instructions ?Recorded ?Confirmed escitalopram oxalate 10 mg tablet 15 mg PO QAM 11/16/23 11/16/23 cider tab PO 01/11/24 ykrttwr-Ln-fhdgwgmgbnmelpjk-tea 500 mg-100 mcg-300 mg-60 mg tab (Apple Cider Vinegar Plus) ciprofloxacin HCl 500 mg tablet 500 mg PO BID 01/11/24 cranberry fruit concentrate 250 mg 250 mg PO TID 01/11/24 chewable tablet (Azo Cranberry) Previous Rx's ?Medication ?Instructions ?Recorded norethindrone 1 mg-ethinyl 1 tab PO DAILY 21 days #84 tabs 05/05/23 estradiol 20 mcg (21)-iron 75 mg (7) tablet ( FE 09/24 ()) propranolol 10 mg tablet 10 mg PO BID 90 days #180 tabs 10/27/23 metronidazole 500 mg tablet 500 mg PO BID 7 days #14 tabs 01/12/24 ondansetron 4 mg disintegrating 4 mg PO Q6H PRN nausea and 01/12/24 tablet vomiting #14 tabs Allergies Allergy/AdvReac Type Severity Reaction Status Date / Time No Known Allergies Allergy Verified 03/06/24 12:33 Review of Systems Review of Systems: ROS as per HPI PMFSH Past Medical History Medical History (Updated 03/06/24 @ 14:28 by Scott Weldon MD) Pelvic pain Screening due Mood disorder Acute adjustment disorder with anxiety No known health problems Depression Tachycardia Family History Family History Mother Hypercholesteremia Arthritis Father HTN (hypertension) Hypercholesteremia Emphysema lung Manic depression Tachycardia Heart attack Stroke Maternal Grandfather Colon cancer Sister Suicide Social History Social History Household Members: Children Housing: House Alcohol intake: current Alcohol intake frequency: holidays/special occasions only Alcohol type: wine Patient Tobacco Use Status: Never used Tobacco Smoked in Last 30 Days: No e-Cigarette/Vaping Use: Never Used Second Hand Smoke Exposure: Yes Advance Directives: No Advance Directives Information Provided: Yes Do you have a plan to hurt others: No Plan Patient : No Current occupational status: employed 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 Sexual orientation: Straight/Heterosexual Gender identity: Female Physical Exam ED Vital Signs: Vital Signs - 24 hr 03/06/24 12:32 Temperature 97.8 F Pulse Rate 73 Respiratory Rate 16 Blood Pressure 156/83 H Pulse Oximetry 100 Oxygen Delivery Method Room Air BMI result Body Mass Index 25.4 Gen: NAD, AOx3 HEENT: NCAT, EOMI, normal conjunctiva CV: RRR, no murmurs appreciated Pulm: CTAB, no increased work of breathing GI: Soft, NTND, no rebound, guarding or rigidity Neuro: Grossly non focal Medications Administered Discontinued Medications Generic Name Dose Route Start Last Admin Trade Name Freq PRN Reason Stop Dose Admin Lactated Ringer's 1,000 mls @ 999 mls/hr 03/06/24 12:41 03/06/24 13:57 Lr IV 03/06/24 13:41 Infused .Q1H1M ONE Infusion Medical Decision Making Medical Decision Making MDM Narrative: Differential diagnosis includes, but is not limited to arrhythmia, electrolyte derangement, dehydration, panic attack, anxiety. Patient is provided 1 L IV LR. Patient is afebrile and hemodynamically stable on room air. Exam is benign and reassuring. I reviewed and interpreted labs, which are noncontributory. I reviewed and interpreted EKG, which is unremarkable for any acute findings. On re-examination, patient is well-appearing and in no acute distress. ?Patient states symptoms have resolved. ?Patient ambulates independently. There is no indication for further emergent evaluation in this otherwise well-appearing patient as above. ?Patient is provided written and verbal instructions, educational materials, recommendations for outpatient follow-up, strict return precautions and teach back is performed. ?Patient states understanding and agreement with plan of care. ?Patient is discharged home in stable and improved condition. Admission/Observation Consideration of admission/observation: Escalation of care including admission/observation considered Lab Data [facility] Lab Attestation statement: I reviewed the patient's lab results. 03/06/24 13:00 03/06/24 13:00 Labs: Lab Results 03/06/24 Range/Units 13:00 WBC 9.8 (4.8-10.8) X10*3/uL RBC 4.19 L (4.20-5.50) X10*6/uL Hgb 13.2 (12.0-16.0) g/dl Hct 39.2 (37.0-47.0) % MCV 93.6 (80.0-98.0) fL MCH 31.5 (27.0-33.0) pg MCHC 33.7 (31.0-35.0) g/dl RDW 12.3 (11.0-16.0) % Plt Count 310 (160-400) X10*3/uL MPV 11.8 (9.4-12.3) fL Immature Gran % (Auto) 0.2 (0.0-0.4) % Neut % (Auto) 52.8 (45-73) % Lymph % (Auto) 39.3 (20-40) % Gulf % (Auto) 6.0 (2-11) % Eos % (Auto) 1.0 (0-4) % Baso % (Auto) 0.7 (0-2) % Lymph # (Auto) 3.9 (1.2-4.9) X10*3/uL Gulf # (Auto) 0.6 (0.1-1.2) X10*3/uL Eos # (Auto) 0.1 (0.0-0.4) X10*3/uL Baso # (Auto) 0.1 (0.0-0.2) X10*3/uL Abs Immat Gran (auto) 0.02 (0.00-0.03) X10*3/uL Absolute Neuts (auto) 5.2 (2.0-8.3) x10*3/uL Absolute Nucleated RBC 0.000 (0.0-0.012) X10*3/uL Nucleated RBC % (auto) 0.0 (0.0-0.2) /100WBC Sodium 140 (135-145) mmol/L Potassium 4.0 (3.3-5.1) mmol/L Chloride 105 (96-108) mmol/L Carbon Dioxide 26 (22-29) mmol/L Anion Gap 13 (12-20) BUN 12 (9-16) mg/dL Creatinine 0.84 (0.5-1.4) mg/dL Estim Creat Clear Calc 69.0 Estimated GFR > 60 Random Glucose 83 (60-115) mg/dL Calcium 9.4 (8.4-10.2) mg/dL Independent Interpretation I performed an independent interpretation of an: EKG Interpretation: EKG demonstrates normal sinus rhythm at 81 beats per minute, NV 120, QRS 74, QTC 450, no STEMI (there are no diagnostic ischemic changes compared to prior EKG June 30, 2023) Discharge Plan Discharge Clinical Impression: Heart palpitations Patient Disposition: Home, Self-Care Instructions: Heart Palpitations (ED) Additional Instructions: You were seen and evaluated in the emergency room. Your vital signs were normal. Your blood work was normal. Your EKG was normal. Please be sure to sit down/lower yourself if experiencing similar symptoms in the future. Please follow-up with your primary care doctor in the next 5-7 days. ? Please return to the emergency room if you develop any worsening symptoms including, but not limited to of lightheadedness, loss of consciousness, palpitations, chest pain or difficulty breathing. ? Prescriptions: No Action propranolol 10 mg tablet 10 mg PO BID 90 Days Qty: 180 3RF metronidazole 500 mg tablet 500 mg PO BID 7 Days Qty: 14 0RF Rx Instructions: Take with food, Avoid alcohol and vinegar products ondansetron 4 mg tablet,disintegrating 4 mg PO Q6H PRN (Reason: nausea and vomiting) Qty: 14 0RF escitalopram oxalate 10 mg tablet 15 mg PO QAM norethindrone-e.estradiol-iron [June FE 09/24 ()] 1 mg-20 mcg (21)/75 mg (7) tablet 1 tab PO DAILY 21 Days Qty: 84 4RF Rx Instructions: continuous use, skip placebo week ciprofloxacin HCl 500 mg tablet 500 mg PO BID Azo Cranberry 250 mg tablet,chewable 250 mg PO TID Apple Cider Vinegar Plus [phone] zf-eza-us-mg tablet PO Print Language: Setswana
[2024-03-06] MEDS: Lactated Ringers 1,000 ML 999 ML IV (13:01)
[2024-03-06 13:05] LABS: MANUAL DIFF FLAG NO
[2024-03-06 13:06] LABS: Basophils Absolute Auto 0.1 X10*3/uL (0.0-0.2); Basophils Percent Auto 0.7 % (0-2); Eosinophils Absolute Auto 0.1 X10*3/uL (0.0-0.4); Hematocrit 39.2 % (37.0-47.0); Hemoglobin 13.2 g/dl (12.0-16.0); Imm Gran Abs Auto 0.02 X10*3/uL (0.00-0.03); Imm Gran Pct Auto 0.2 % (0.0-0.4); Lymphocytes Absolute Auto 3.9 X10*3/uL (1.2-4.9); Lymphocytes Percent Auto 39.3 % (20-40); Mean Corpuscular HGB Conc 33.7 g/dl (31.0-35.0); Mean Corpuscular Hemoglobin 31.5 pg (27.0-33.0); Mean Corpuscular Volume 93.6 fL (80.0-98.0); Mean Platelet Volume 11.8 fL (9.4-12.3); Monocytes Absolute Auto 0.6 X10*3/uL (0.1-1.2); Neutrophils Absolute Auto 5.2 x10*3/uL (2.0-8.3); Neutrophils Percent Auto 52.8 % (45-73); Platelet Count 310 X10*3/uL (160-400); Red Blood Count 4.19 X10*6/uL (4.20-5.50); Red Cell Distribution Width 12.3 % (11.0-16.0); White Blood Count 9.8 X10*3/uL (4.8-10.8)
[2024-03-06 13:19] LABS: Anion Gap 13 (12-20); Blood Urea Nitrogen 12 mg/dL (9-16); Calcium 9.4 mg/dL (8.4-10.2); Carbon Dioxide 26 mmol/L (22-29); Chloride 105 mmol/L (96-108); Estimated Glomerular Filt Rate > 60; Glucose Random 83 mg/dL (60-115); Sodium 140 mmol/L (135-145)
--- NOTE | 2024-03-06 14:00 | PC.NURSE ---
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
[2024-03-06 14:56] VITALS: BP 127/62; PULSE 72; RESP 16; TEMP 36.8; O2SAT 98
== END 2024-03-06 15:00 | disposition home or self-care (01) ==
PROVIDERS: Absent Provider Nurse Practitioner Primary Care; Emergency Provider Emergency Medicine
DX: R00.2 Palpitations (principal); R42 Dizziness and giddiness; I47.10 Supraventricular tachycardia, unspecified; Z79.899 Other long term (current) drug therapy
CPT/HCPCS: 36415; 80048; 85025; 93005; 96360; 99284; 99285; J7120

== ENCOUNTER → 2024-03-06 12:53 | Outpatient (BNV) | payer OTHER, SELFPAY | PROVIDERS: Absent Provider Nurse Practitioner Primary Care; Emergency Provider Emergency Medicine; Visit Provider Internal Medicine | DX: R42 Dizziness and giddiness (principal) | CPT/HCPCS: 93010 ==

== ENCOUNTER 2024-03-19 09:30 | Outpatient (AMB) | payer OTHER, SELFPAY ==
--- NOTE | 2024-03-19 09:30 | A.OFFPC_ITS ---
Vital Signs 03/19/24 09:36 Height 4 ft 11 in Weight 121 lb BMI 24.4 BP 118/68 Blood Pressure Location Rt brachial Position Sitting Pulse 63 Pulse Source Pulse Oximeter Pulse Oximetry (%) 97 Oxygen Delivery Method Room Air Intake Visit Reasons: Annual PE Intake Note: pt is here for annual PE. Mammogram 04/21/23. Pap Due Allergies No Known Allergies Allergy (Verified 03/19/24 10:13) Medication List - Last Reconciled 03/19/24 by CARMELO Mittal escitalopram oxalate (Lexapro) 20 mg PO DAILY norethindrone-e.estradiol-iron 1 mg-20 mcg (21)/75 mg (7) ( FE 09/24 ()) 1 tab PO DAILY 21 days propranolol 10 mg PO BID 90 days Tobacco use date assessed: 03/19/24 Dental Screening Dental Screen Date: 03/19/24 HPI HPI Comments History of Present Illness Details This is a 38-year-old female in today for physical exam. She is up-to-date with her Tdap. She is due for mammogram will order Has upcoming appointment with OBGYN. Has a past medical history significant for: Anxiety depression: Utilizing escitalopram oxalate 50 mg p.o. daily. Patient has establish psychiatric provider and therapist. 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 Patient Denies SI/HI. SVT: Patient utilizing propanolol 10 mg p.o. b.i.d. with good effect. History of Atypical Nevi: Also family history of melanoma. Will refer to derm. REPLACED BY [facility] Medical History (Updated 03/19/24 @ 10:15 by CARMELO Mittal) Pelvic pain Screening due Mood disorder Acute adjustment disorder with anxiety No known health problems Depression Tachycardia Family History Mother Hypercholesteremia Arthritis Father HTN (hypertension) Hypercholesteremia Emphysema lung Manic depression Tachycardia Heart attack Stroke Maternal Grandfather Colon cancer Sister Suicide Social History Household Members: Children Housing: House Alcohol intake: current Alcohol intake frequency: holidays/special occasions only Alcohol type: wine Patient Tobacco Use Status: Never used Tobacco e-Cigarette/Vaping Use: Never Used Second Hand Smoke Exposure: Yes Current occupational status: employed 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 1. Little interest or pleasure in doing things: more than half the days 2. Feeling down, depressed, or hopeless: more than half the days 3. Trouble falling or staying asleep, or sleeping too much: nearly every day 4. Feeling tired or having little energy: nearly every day 5. Poor appetite or overeating: nearly every day 6. Feeling bad about yourself - or that you are a failure or have let yourself or your family down: nearly every day 7. Trouble concentrating on things, such as reading the newspaper or watching television: nearly every day 8. Moving or speaking so slowly that other people could have noticed. Or the opposite - being so fidgety or restless that you have been moving around a lot more than usual: not at all 9. Thoughts that you would be better off or of hurting yourself in some way: several days Total score: 20 Depression Screening Interpretation: Positive Depression Screening Follow-up: In treatment and Change in Medication Depression Screening Done: Yes 27983 - PHQ-9 Billing: Yes Source: Developed by Drs. Vinayak Briscoe, Morena Ordonez, Dennis Sainz and colleagues, with an educational jasen from [employer]. Thrive Questionnaire Date Thrive assessed: 03/19/24 I am a: Patient What is your living situation today?: I have a steady place to live Within the past 12 months, did the food you bought not last and you didn't have the money to get more?: Sometimes True Within the past 12 months, did you worry whether your food would run out before you got money to buy more?: Sometimes True Do you have trouble paying for medicines?: No Do you have trouble getting transportation to medical appointments?: No Do you have trouble paying your heating and electricity bill?: Yes Do you have trouble taking care of your child, family member or friend?: No Do you have trouble with day-to-day activities such as bathing, preparing meals, shopping, managing finances, etc.?: No Are you currently unemployed and looking for a job?: No Are you interested in more education?: No Please select the resources that you would like help with: Housing/Detention Currently or been in a relationship where the following occur: No concerns reported THRIVE Score: 3 AUDIT C Alcohol Use Questionnaire (AUDIT-C) 1. How often do you have a drink containing alcohol?: Monthly or less 2. How many drinks containing alcohol do you have on a typical day when you are drinking?: 1 or 2 3. How often do you have six or more drinks on one occasion?: Never Total Score: 1 AIDEE-7 AMB Questionnaire AIDEE-7 Date AIDEE - 7 assessed: 03/19/24 Feeling nervous, anxious, or on edge: 2 = More than half the days Not being able to stop or control worryin = Several days Worrying too much about different things: 3 = Nearly every day Trouble relaxin = Not at all Being so restless that it is hard to sit still: 0 = Not at all Becoming easily annoyed or irritable: 3 = Nearly every day Feeling afraid as if something awful might happen: 1 = Several days Total AIDEE-7 score (0-4 normal; 5-9 mild; 10-14 moderate; 15-21 severe): 10 Source: Developed by Drs. Vinayak Briscoe, Morena Ordonez, Dennis Sainz and colleagues, with an educational jasen from [employer]. AIDEE-7 Assessment Billing AIDEE-7 Assessment Tool: AIDEE-7 Assessment 35325 (His therapist in Psychiatry. Patient will have escitalopram increased to 20 mg p.o. daily) Review of Systems Const All systems reviewed & are unremarkable except as noted in HPI and below Physical exam (Primary Care) Vital Signs: Last Vital Signs Pulse 63 03/19/24 09:36 BP 118/68 03/19/24 09:36 Pulse Ox 97 03/19/24 09:36 Oxygen Delivery Method Room Air 03/19/24 09:36 BMI result Body Mass Index 24.4 Tobacco/Smoking Status: Tobacco use Status Tobacco use date assessed 03/19/24 03/19/24 09:39 Patient Tobacco Use Status Never used Tobacco 03/19/24 09:31 e-Cigarette/Vaping Use Never Used 03/19/24 09:31 PHQ-9: PHQ-9 Score PHQ-9: Total score 20 03/19/24 09:55 Depression Screening Interpretation: Positive Depression Screening Follow-up: In treatment and Change in Medication Thrive Assessment: Date of Thrive Assessment Date Thrive assessed 03/19/24 03/19/24 09:33 Currently or been in a relationship where the following occur: No concerns reported Const Other: Appearance: Alert.? Oriented X3.? No acute distress.? Head: Normocephalic, atraumatic, no step-offs or deformities Eyes: Pupils equal, round and reactive to light.? ENT: Pharynx normal.?TM intact and pearly varma. Neck: Normal inspection.? Neck supple.? CVS: Normal heart rate and rhythm.? Pulses normal.? Respiratory: No respiratory distress.? Breath sounds normal.? Abdomen: Soft and nontender.? Skin: Skin warm and dry.? Normal skin color.? Normal skin turgor.? Extremities: No lower extremity edema.? No calf ttp. 5/5 strength to bilateral upper and lower extremities Back: No midline tenderness, no C-spine tenderness, full range of motion, no CVA tenderness bilaterally Neuro: Oriented X 3.? No motor deficit.? No sensory deficit. CN 2-12 intact Psych: No SI/HI. Assessment and Plan Assessment & Plan (1) Physical exam: Comment: She is due for mammogram will order Has upcoming appointment with OBGYN. Has a past medical history significant for: Anxiety depression: Utilizing escitalopram oxalate 50 mg p.o. daily. Patient has establish psychiatric provider and therapist. 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 Patient Denies SI/HI. SVT: Patient utilizing propanolol 10 mg p.o. b.i.d. with good effect. History of Atypical Nevi: Also family history of melanoma. Will refer to derm. Code(s): Z00.00 - Encounter for general adult medical examination without abnormal findings (2) Atypical nevus: Comment: Will refer to Derm. Code(s): D22.9 - Melanocytic nevi, unspecified (3) Anxiety: Comment: Patient's anxiety is currently under control. She taking Lexapro 15 mg per day. Also has established therapy and Psychiatry. Will increase Lexapro to 20 mg p.o. daily. Patient has follow-up with Psychiatry in 1 month. Patient has crisis information and feels confident that she could reach out if having acute episodes of anxiety. Code(s): F41.9 - Anxiety disorder, unspecified (4) SVT (supraventricular tachycardia): Comment: Patient is establish care with [facility] cardiology. Patient taking propanolol with good effect. Code(s): I47.1 - Supraventricular tachycardia Plan follow up in 6 months. Orders: Referrals Dermatology Referral D22.9 - Melanocytic nevi, unspecified Medications: New escitalopram oxalate (Lexapro) 20 mg PO DAILY 90 tabs 0RF Coding Level of Care Code Est Pt Level 3 (52691) Est Pt Prev Care 40-64y(43298) Diagnoses Physical exam Z00.00 Atypical nevus D22.9 Anxiety F41.9 SVT (supraventricular tachycardia) I47.1 Additional Codes AIDEE-7 Assessment Billing - AIDEE-7 Assessment Tool: AIDEE-7 Assessment 96052 ([id number]) Time Spent (min) 31
[2024-03-19 09:36] VITALS: BP 118/68; PULSE 63; O2SAT 97; BMI 24.4
== END 2024-03-19 10:14 | disposition home or self-care (01) ==
PROVIDERS: PCP Nurse Practitioner Primary Care; Visit Provider Nurse Practitioner Primary Care
DX: Z00.00 Encounter for general adult medical examination without abnormal findings (principal); D22.9 Melanocytic nevi, unspecified; F41.9 Anxiety disorder, unspecified; I47.10 Supraventricular tachycardia, unspecified
CPT/HCPCS: 96127; 99213; 99396

== ENCOUNTER 2024-04-09 10:13 | Inpatient (IN) | payer OTHER, SELFPAY ==
--- NOTE | ~2024-04-09 | CT_ITS ---
CT HEAD WITHOUT CONTRAST CLINICAL INFORMATION: Migraines. COMPARISON: Head CT May 19, 2017. TECHNIQUE: Contiguous axial imaging was performed from the skull base to vertex without intravenous administration of contrast. This CT examination was performed using dose optimization techniques as appropriate, variously including the following: *Automated exposure control *Adjustment of mA and/or kV according to patient size (this includes techniques or standardized protocols for targeted exams where dose is matched to indication/reason for exam; i.e. 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 There is no intracranial hemorrhage, hydrocephalus, extra-axial surface collection, midline shift, or other herniation pattern. Christiansen to white matter differentiation is diffusely maintained without evidence of an evolved acute territorial infarct. The basilar cisterns are preserved. No significant soft tissue abnormality. No acute osseous abnormality. The paranasal sinuses and the mastoid air cells are well aerated. CT/CT head/brain wo IV con IMPRESSION: No acute intracranial abnormality. 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 No hydrocephalus.
[2024-04-09 10:27] VITALS: BP 146/93; PULSE 77; RESP 16; TEMP 37; O2SAT 99; BMI 26.0
[2024-04-09 12:03] LABS: MANUAL DIFF FLAG NO
[2024-04-09 12:04] LABS: Basophils Absolute Auto 0.1 X10*3/uL (0.0-0.2); Basophils Percent Auto 0.7 % (0-2); Eosinophils Absolute Auto 0.1 X10*3/uL (0.0-0.4); Eosinophils Percent Auto 1.5 % (0-4); Hematocrit 35.8 % (37.0-47.0); Hemoglobin 12.2 g/dl (12.0-16.0); Imm Gran Abs Auto 0.02 X10*3/uL (0.00-0.03); Imm Gran Pct Auto 0.3 % (0.0-0.4); Lymphocytes Absolute Auto 2.8 X10*3/uL (1.2-4.9); Lymphocytes Percent Auto 37.2 % (20-40); Mean Corpuscular HGB Conc 34.1 g/dl (31.0-35.0); Mean Corpuscular Hemoglobin 31.7 pg (27.0-33.0); Mean Platelet Volume 11.4 fL (9.4-12.3); Monocytes Absolute Auto 0.4 X10*3/uL (0.1-1.2); Monocytes Percent Auto 5.8 % (2-11); Neutrophils Absolute Auto 4.1 x10*3/uL (2.0-8.3); Neutrophils Percent Auto 54.5 % (45-73); Platelet Count 274 X10*3/uL (160-400); Red Blood Count 3.85 X10*6/uL (4.20-5.50); Red Cell Distribution Width 12.3 % (11.0-16.0); White Blood Count 7.5 X10*3/uL (4.8-10.8)
[2024-04-09 12:21] LABS: Amphetamine Screen Urine Not Detected (Not Detect); Barbiturates, Urine Not Detected (Not Detect); Benzodiazepines Screen Urine Not Detected (Not Detect); Buprenorphine Scr Not Detected (Not Detect); Cannabinoid Screen Urine Not Detected (Not Detect); Cocaine Screen Urine Not Detected (Not Detect); Fentanyl, urine Not Detected (Not Detect); Methadone Screen, Urine Not Detected (Not Detect); Opiate Screen Urine Not Detected (Not Detect); Oxycodone Screen Urine Not Detected (Not Detect); Phencyclidine Screen Urine Not Detected (Not Detect)
--- NOTE | 2024-04-09 12:23 | ED.PSYCH ---
HPI - Psych General Chief Complaint: Psychiatric Symptoms Stated Complaint: anxiety, brain fog, depression Time Seen by Provider: 04/09/24 10:54 Source: patient Mode of arrival: ambulatory Limitations: no limitations History of Present Illness ED Provider: Kassandra CARSON HPI Narrative: This is a 38-year-old female history of anxiety presenting to the emergency department with ?head fog?, patient reports she has been having worsening anxiety, depression over the past few weeks, she reports she was on Lexapro she was on 15 mg recently switched to 20 mg however this does not seem to be helping. She reports increasing life stressors related to finances, employment, children. She reports that she has been having intermittent suicidal thoughts with thoughts to overdose on drugs or alcohol. She has never had this before. Denies hallucinations. Reports headache from stress however denies head trauma, visual disturbances, weakness. Patient denies drugs, alcohol and tobacco. Reports chest heaviness when she gets anxious however no pain. Denies shortness of breath nausea, vomiting, abdominal pain, vision changes, dizziness, weakness NIH stroke scale 0 Related Data Previous Rx's ?Medication ?Instructions ?Recorded norethindrone 1 mg-ethinyl 1 tab PO DAILY 21 days #84 tabs 05/05/23 estradiol 20 mcg (21)-iron 75 mg (7) tablet (09/24 (28)) propranolol 10 mg tablet 10 mg PO BID 90 days #180 tabs 10/27/23 escitalopram oxalate 20 mg tablet 20 mg PO DAILY #90 tabs 03/19/24 (Lexapro) Allergies Allergy/AdvReac Type Severity Reaction Status Date / Time No Known Allergies Allergy Verified 04/09/24 10:41 Review of Systems Review of Systems: Yes all other systems are reviewed and are negative REPLACED BY [facility] Past Medical History Attestation statement: The following information was validated with the patient. Source: old records reviewed and nursing notes reviewed Medical History Pelvic pain Screening due Mood disorder Acute adjustment disorder with anxiety No known health problems Depression Tachycardia Family History Family History Mother Hypercholesteremia Arthritis Father HTN (hypertension) Hypercholesteremia Emphysema lung Manic depression Tachycardia Heart attack Stroke Maternal Grandfather Colon cancer Sister Suicide Social History Social History Household Members: Children Housing: House Alcohol intake: current Alcohol intake frequency: a few times a month Alcohol type: wine Patient Tobacco Use Status: Never used Tobacco Smoked in Last 30 Days: No e-Cigarette/Vaping Use: Never Used Second Hand Smoke Exposure: Yes Use of substances other than those prescribed or required for medical reasons: No Advance Directives: No Advance Directives Information Provided: Yes Current occupational status: employed 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 Oriented X3.? No acute distress.? Head: Normocephalic, atraumatic, no step-offs or deformities Eyes: Pupils equal, round and reactive to light.? ENT: Pharynx normal.? Neck: Normal inspection.? Neck supple.? CVS: Normal heart rate and rhythm.? Pulses normal.? Respiratory: No respiratory distress.? Breath sounds normal.? Abdomen: Soft and nontender.? Skin: Skin warm and dry.? Normal skin color.? Normal skin turgor.? Extremities: No lower extremity edema.? No calf ttp. 5/5 strength to bilateral upper and lower extremities Back: No midline tenderness, no C-spine tenderness, full range of motion, no CVA tenderness bilaterally Neuro: Oriented X 3.? No motor deficit.? No sensory deficit. CN 2-12 intact . Normal [id number], [id number] steady tandem gait normal coordination. Course Reevaluation(s) Reevaluation #1: CBC no acute findings needing intervention. Chemistry no acute findings needing intervention. Troponin negative, nonischemic EKG pending. Urine toxicology negative. Ethanol negative. Patient was seen by the care team who feels as though patient would likely benefit from inpatient hospital admission. At this time will place patient into physician observation until bed becomes available. Time: 13:33 Medications Administered Discontinued Medications Generic Name Dose Route Start Last Admin Trade Name Steev PRN Reason Stop Dose Admin Acetaminophen 650 mg 04/09/24 12:23 04/09/24 12:48 Acetaminophen 325 Mg Tablet PO 04/09/24 12:24 650 mg ONCE ONE Administration Lorazepam 1 mg 04/09/24 12:23 04/09/24 12:48 Lorazepam 1 Mg Tablet PO 04/09/24 12:24 1 mg ONCE ONE Administration Medical Decision Making Medical Decision Making [facility] Narrative: 38-year-old female presents with anxiety, depression and intermittent suicidal ideation and thoughts. Ongoing for the past few week. Recent medication change Physical exam benign History and physical exam concerning for anxiety, depression and suicidal ideation. Unlikely bipolar, schizophrenia. Unlikely metabolic derangements. Chest pressure likely secondary to anxiety unlikely ACS, PE, dissection, acute respiratory distress. Headache likely secondary to stress, unlikely intracranial hemorrhage, stroke, posterior stroke. Plan labs, urine, EKG Differential Diagnosis Differential Diagnoses: The differential diagnosis associated with the presentation includes History and physical exam concerning for anxiety, depression and suicidal ideation. Unlikely bipolar, schizophrenia. Unlikely metabolic derangements. Chest pressure likely secondary to anxiety unlikely ACS, PE, dissection, acute respiratory distress. Headache likely secondary to stress, unlikely intracranial hemorrhage, stroke, posterior stroke. Admission/Observation Consideration of admission/observation: Escalation of care including admission/observation considered Unlikley Consult Healthcare Provider Management of the patient was discussed with: Behavioral Health Provider Lab Data [facility] Lab Attestation statement: I reviewed the patient's lab results. 04/09/24 11:56 04/09/24 11:56 Labs: Lab Results 04/09/24 04/09/24 Range/Units 11:23 11:56 WBC 7.5 (4.8-10.8) X10*3/uL RBC 3.85 L (4.20-5.50) X10*6/uL Hgb 12.2 (12.0-16.0) g/dl Hct 35.8 L (37.0-47.0) % MCV 93.0 (80.0-98.0) fL MCH 31.7 (27.0-33.0) pg MCHC 34.1 (31.0-35.0) g/dl RDW 12.3 (11.0-16.0) % Plt Count 274 (160-400) X10*3/uL MPV 11.4 (9.4-12.3) fL Immature Gran % (Auto) 0.3 (0.0-0.4) % Neut % (Auto) 54.5 (45-73) % Lymph % (Auto) 37.2 (20-40) % [place] % (Auto) 5.8 (2-11) % Eos % (Auto) 1.5 (0-4) % Baso % (Auto) 0.7 (0-2) % Lymph # (Auto) 2.8 (1.2-4.9) X10*3/uL [place] # (Auto) 0.4 (0.1-1.2) X10*3/uL Eos # (Auto) 0.1 (0.0-0.4) X10*3/uL Baso # (Auto) 0.1 (0.0-0.2) X10*3/uL Abs Immat Gran (auto) 0.02 (0.00-0.03) X10*3/uL Absolute Neuts (auto) 4.1 (2.0-8.3) x10*3/uL Absolute Nucleated RBC 0.000 (0.0-0.012) X10*3/uL Nucleated RBC % (auto) 0.0 (0.0-0.2) /100WBC Sodium 139 (135-145) mmol/L Potassium 3.9 (3.3-5.1) mmol/L Chloride 108 (96-108) mmol/L Carbon Dioxide 26 (22-29) mmol/L Anion Gap 9 L (12-20) BUN 9 (9-16) mg/dL Creatinine 0.78 (0.5-1.4) mg/dL Estim Creat Clear Calc 74.5 Estimated GFR > 60 Random Glucose 99 (60-115) mg/dL Calcium 8.6 D (8.4-10.2) mg/dL Magnesium 1.9 (1.6-2.6) mg/dL Total Bilirubin 0.3 (0.0-1.0) mg/dL AST 14 (5-31) U/L ALT 12 (0-31) U/L Alkaline Phosphatase 33 L (39-117) U/L Troponin I High Sens < 2.7 (<3.5-17.0) ng/L Total Protein 6.7 (6.5-8.0) g/dL Albumin 4.0 (3.5-5.0) g/dL Urine Opiates Screen Not Detected (Not Detect) Ur Buprenorphine Scrn Not Detected (Not Detect) ng/mL Ur Oxycodone Screen Not Detected (Not Detect) ng/mL Urine Methadone Screen Not Detected (Not Detect) ng/mL Urine Fentanyl Screen Not Detected (Not Detect) Ur Barbiturates Screen Not Detected (Not Detect) Ur Phencyclidine Scrn Not Detected (Not Detect) Ur Amphetamines Screen Not Detected (Not Detect) U Benzodiazepines Scrn Not Detected (Not Detect) Urine Cocaine Screen Not Detected (Not Detect) U Marijuana (THC) Screen Not Detected (Not Detect) Ethyl Alcohol < 10 mg/dL Independent Interpretation I performed an independent interpretation of an: EKG Radiology Impression Discussion of test interpretation with radiology: I have reviewed the radiologist's reading. External Record Review External record reviewed: Office record, Outpatient record and Prior outpatient labs Discharge Plan Discharge Clinical Impression: Anxiety, Depression Patient Disposition: Still a Patient Prescriptions: No Action propranolol 10 mg tablet 10 mg PO BID 90 Days Qty: 180 3RF escitalopram oxalate [Lexapro] 20 mg tablet 20 mg PO DAILY Qty: 90 0RF norethindrone-e.estradiol-iron [Junel FE 09/24 ()] 1 mg-20 mcg (21)/75 mg (7) tablet 1 tab PO DAILY 21 Days Qty: 84 4RF Rx Instructions: continuous use, skip placebo week Interventions: [place]-Suicide Risk Severity Scale Last Done: 04/09/24 11:03 Print Language: Albanian
--- NOTE | 2024-04-09 12:25 | ECG_ITS ---
Test Reason : CHEST HEAVINESS Blood Pressure : / mmHG Vent. Rate : 080 BPM Atrial Rate : 080 BPM P-R Int : 126 ms QRS Dur : 076 ms QT Int : 388 ms P-R-T Axes : 054 067 063 degrees QTc Int : 447 ms Normal sinus rhythm Cannot rule out Anterior infarct , age undetermined Abnormal ECG When compared with ECG of 06-MAR-2024 12:53, No significant change was found Referred By: Lakshmi Corona Electronically Signed By:HESHAM LOPES MD
[2024-04-09] MEDS: Acetaminophen 325 MG TABLET 650 MG PO (12:48)
[2024-04-09] MEDS: LORazepam 1 MG TABLET PO (12:48)
[2024-04-09 12:58] LABS: Alanine Aminotransferase 12 U/L (0-31); Alkaline Phosphatase 33 U/L (39-117); Anion Gap 9 (12-20); Aspartate Amino Transferase 14 U/L (5-31); Bilirubin Total 0.3 mg/dL (0.0-1.0); Blood Urea Nitrogen 9 mg/dL (9-16); Calcium 8.6 mg/dL (8.4-10.2); Carbon Dioxide 26 mmol/L (22-29); Chloride 108 mmol/L (96-108); Creatinine Clr Calc Pharmacy 74.5; Estimated Glomerular Filt Rate > 60; Ethanol < 10 mg/dL; Glucose Random 99 mg/dL (60-115); Magnesium 1.9 mg/dL (1.6-2.6); Potassium 3.9 mmol/L (3.3-5.1); Sodium 139 mmol/L (135-145); Total Protein 6.7 g/dL (6.5-8.0)
[2024-04-09 13:14] LABS: Troponin-I High Sensitivity < 2.7 ng/L (<3.5-17.0)
--- NOTE | 2024-04-09 15:29 | PC.NURSE ---
Med rec completed with patient. Patient states propranlol is prescribed 10mg BID but she only takes it daily
[2024-04-09 15:43] LABS: Appearance Urine Cloudy; Color Urine Yellow; Glucose Urine UA Negative (Negative); Leukocyte Esterase Urine Large (3+) (Negative); Nitrite Urine Negative (Negative); PH 5.5 (5.0-9.0); Specific Gravity - Urine 1.015 (1.005-1.025); UMIC TRIGGER UACC YES; Urine Blood Negative (Negative); Urine Ketones Negative (Negative); Urine Protein Negative (Neg-Trace)
[2024-04-09 15:46] LABS: Bacteria Urine 1+ (None Seen); Hyaline Casts Urine 0-2 /LPF (0-2); RBC Urine 0-2 /HPF (0-2); UACC Culture Trigger YES; WBC Urine >50 /HPF (0-5)
[2024-04-09 15:55] LABS: UPreg QC Valid YES; Urine Pregnancy NEGATIVE (NEGATIVE)
--- NOTE | 2024-04-09 17:26 | PC.NURSE ---
Report given to Darby in M5
[2024-04-09 17:45] VITALS: BP 139/81; PULSE 81; RESP 16; TEMP 36.5; O2SAT 98
[2024-04-09 17:46] VITALS: BMI 25.7
--- NOTE | 2024-04-09 18:50 | PC.ADMIT ---
Pt arrived on the unit at 1740 via w/c from [facility]. Worsening anxiety and depression with SI (OD on alcohol or drugs)brought her in for help. She reports a recent stressor of changing positions at work, however, she is unsure if this triggered her decline. Pt also states that she sometimes has paranoia, which she experienced previous to going on her current medications. She also states that she experiences panic attacks daily . Pt believes that she needs a medication adjustment. She is here on a CV. Pt is a current and long standing [facility] employee. Pt assessed as safe on the unit and placed on 15 minute checks. Skin check completed, unremarkable. NKDA. Pt has a stable home life and stable housing.
[2024-04-09 20:00] VITALS: BP 130/75; PULSE 76; RESP 18; TEMP 37.1; O2SAT 98
[2024-04-09] MEDS: hydrOXYzine HCL 25 MG TABLET PO (22:38)
[2024-04-10 08:00] VITALS: BP 141/79; PULSE 77; RESP 17; TEMP 36.9; O2SAT 97
[2024-04-10] MEDS: Escitalopram Oxalate 20 MG TABLET PO (08:47)
[2024-04-10] MEDS: Propranolol HCL 10 MG TABLET PO (08:47)
[2024-04-10 08:53] LABS: Estimated Average Glucose 85 mg/dL; Hemoglobin A1c % 4.6 % (<6.0)
[2024-04-10 09:04] LABS: Cholesterol 240 mg/dL (<200); HDL Cholesterol 47 mg/dL (>40); LDL Cholesterol Calculated 125 mg/dL (<100); Triglycerides 340 mg/dL (<150)
[2024-04-10 09:55] LABS: Free T4 (Free Thyroxine) 0.87 ng/dL (0.71-1.85); Thyroid Stimulating Hormone 1.42 uIU/mL (0.32-4.0)
[2024-04-10 10:05] LABS: Folate 12.4 ng/mL (> or = 4.0); Vitamin B12 393 pg/mL (200-900)
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
[2024-04-10] MEDS: NaPROXEN 500 MG TABLET PO (16:08)
[2024-04-10 20:00] VITALS: BP 111/55; PULSE 75; RESP 18; TEMP 37.1; O2SAT 98
[2024-04-10 20:20] LABS: C Reactive Protein 0.65 mg/dL (< or = 0.50)
[2024-04-10 20:24] LABS: D Dimer High Sensitivity < 150 NG/ML
[2024-04-10 20:42] LABS: Vitamin D 25-OH Total 20.3 ng/mL (>30)
[2024-04-10 21:05] LABS: Erythrocyte Sedimentation Rate 10 MM/HR (0-20)
[2024-04-11] MEDS: Venlafaxine HCl ER 37.5 MG CAP.ER.24H PO (08:22)
[2024-04-11] MEDS: Escitalopram Oxalate 10 MG TABLET PO (08:22)
[2024-04-11] MEDS: Propranolol HCL 10 MG TABLET PO (08:22)
[2024-04-11 08:24] VITALS: BP 151/83; PULSE 67; RESP 16; TEMP 37.1; O2SAT 97
[2024-04-11] MEDS: Cholecalciferol (Vitamin D3) 25 MCG TABLET 50 MCG PO (10:53)
--- NOTE | 2024-04-11 12:18 | P.PNPSI_ITS ---
Subjective Subjective Date of Service: 04/11/24 Reason For Visit: Depression Subjective Notes: Conditional Voluntary Interim History: Reviewed with Dr. Maddox. Patient reports having some anxiety today;pt stated, I'm really sensitive when I'm switching medications. This usually happens where I get a brain fog and anxious. I've been trying to stay in my room and read because it calms me down . Pt reports sleeping well last night. denies SI/HI/VH/AH. Medication Compliance: Yes Side effects from medications: No Attending Groups: Yes Review of Systems Constitutional: Reports as per HPI Eyes: Reports as per HPI Reports as per HPI Cardiovascular: Reports as per HPI Respiratory: Reports as per HPI Gastrointestinal: Reports as per HPI Genitourinary: Reports as per HPI Musculoskeletal: Reports as per HPI Skin/Breast: Reports as per HPI Reports as per HPI Psychiatric: Reports as per HPI Endocrine: Reports as per HPI Hematologic/Lymphatic: Reports as per HPI Allergic/Immunologic: Reports as per HPI Mental Status Exam Mental Status Exam Narrative: Pt is alert and oriented; behavior is cooperative, friendly and calm; dressed in casual attire; mood is described as good ; eye contact appropriate; Speech is normal rate, volume and not pressured; thought process is organized and goal directed; Thought content is on tx; denies SI/HI/VH/AH. Diagnostics Vital Signs (24Hr): Vital Signs - 24 hr 04/10/24 20:00 04/11/24 08:24 Temperature 98.7 F 98.8 F Pulse Rate 75 67 Respiratory Rate 18 16 Blood Pressure 111/55 L 151/83 H Pulse Oximetry 98 97 Oxygen Delivery Method Room Air Room Air BMI result Body Mass Index 25.7 Labs 04/09/24 11:56 04/09/24 11:56 Labs: Laboratory Results - last 48 hr 04/09/24 04/09/24 04/09/24 11:23 11:56 15:34 ESR D-Dimer High Sensitivty Sodium 139 Potassium 3.9 Chloride 108 Carbon Dioxide 26 Anion Gap 9 L BUN 9 Creatinine 0.78 Estim Creat Clear Calc 74.5 Estimated GFR > 60 Random Glucose 99 Estimat Average Glucose Hemoglobin A1c % Calcium 8.6 D Magnesium 1.9 Total Bilirubin 0.3 AST 14 ALT 12 Alkaline Phosphatase 33 L Troponin I High Sens < 2.7 C-Reactive Protein Total Protein 6.7 Albumin 4.0 Triglycerides Cholesterol LDL Cholesterol, Calc HDL Cholesterol Vitamin B12 25-OH Vitamin D Total Folate TSH Free T4 Urine Color Yellow Urine Appearance Cloudy Urine pH 5.5 Ur Specific [place] 1.015 Urine Protein Negative Urine Glucose (UA) Negative Urine Ketones Negative Urine Blood Negative Urine Nitrite Negative Ur Leukocyte Esterase Large (3+) H Urine RBC 0-2 Urine WBC >50 H Ur Squamous Epith Cells 6-10 Urine Bacteria 1+ Hyaline Casts 0-2 Urine Test NEGATIVE Urine Opiates Screen Not Detected Ur Buprenorphine Scrn Not Detected Ur Oxycodone Screen Not Detected Urine Methadone Screen Not Detected Urine Fentanyl Screen Not Detected Ur Barbiturates Screen Not Detected Ur Phencyclidine Scrn Not Detected Ur Amphetamines Screen Not Detected U Benzodiazepines Scrn Not Detected Urine Cocaine Screen Not Detected U Marijuana (THC) Screen Not Detected Ethyl Alcohol < 10 04/10/24 04/10/24 08:25 20:01 ESR 10 D-Dimer High Sensitivty < 150 Sodium Potassium Chloride Carbon Dioxide Anion Gap BUN Creatinine Estim Creat Clear Calc Estimated GFR Random Glucose Estimat Average Glucose 85 Hemoglobin A1c % 4.6 Calcium Magnesium 2.0 Total Bilirubin AST ALT Alkaline Phosphatase Troponin I High Sens C-Reactive Protein 0.65 H Total Protein Albumin Triglycerides 340 H Cholesterol 240 H LDL Cholesterol, Calc 125 H HDL Cholesterol 47 Vitamin B12 393 25-OH Vitamin D Total 20.3 L Folate 12.4 TSH 1.42 Free T4 0.87 Urine Color Urine Appearance Urine pH Ur Specific [place] Urine Protein Urine Glucose (UA) Urine Ketones Urine Blood Urine Nitrite Ur Leukocyte Esterase Urine RBC Urine WBC Ur Squamous Epith Cells Urine Bacteria Hyaline Casts Urine Test Urine Opiates Screen Ur Buprenorphine Scrn Ur Oxycodone Screen Urine Methadone Screen Urine Fentanyl Screen Ur Barbiturates Screen Ur Phencyclidine Scrn Ur Amphetamines Screen U Benzodiazepines Scrn Urine Cocaine Screen U Marijuana (THC) Screen Ethyl Alcohol Imaging Radiology Impressions: ITS Impressions Head CT 04/10/24 13:38 IMPRESSION: No acute intracranial abnormality. 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 No hydrocephalus. Medications Medications Current Medications Acetaminophen (Acetaminophen 325 Mg Tablet) 650 mg PO Q6H PRN PRN Reason: Headache/Pain Mild Scale (1-3) Al Hydroxide/Mg Hydroxide (Magnesium Hydrox/Alum Hydrox 30 Ml Oral.Susp) 30 ml PO Q6H PRN PRN Reason: Heartburn/Nausea Escitalopram Oxalate (Escitalopram Oxalate 10 Mg Tablet) 10 mg PO DAILY [facility] Last Admin: 04/11/24 08:22 Dose: 10 mg Hydroxyzine HCl (Hydroxyzine Hcl 25 Mg Tablet) 25 mg PO Q6H PRN PRN Reason: Anxiety Last Admin: 04/09/24 22:38 Dose: 25 mg Lorazepam (Lorazepam 0.5 Mg Tablet) 0.5 mg PO BID PRN PRN Reason: severe anxiety Magnesium Hydroxide (Milk Of Magnesia 30 Ml Oral.Susp) 30 ml PO DAILY PRN PRN Reason: Constipation Naproxen (Naproxen 500 Mg Tablet) 500 mg PO Q12H PRN PRN Reason: Headache Last Admin: 04/10/24 16:08 Dose: 500 mg Nicotine (Nicotine 21 Mg Patch.Td24) 21 mg TRANSDERMA DAILY PRN PRN Reason: nicotine cravings Nicotine Polacrilex (Nicotine Polacrilex 2 Mg Gum) 4 mg BUCCAL Q2H PRN PRN Reason: Nicotine Cravings Pt Own ( Norethindrone-E. Estradiol-Iron [ Blisovi Fe 09/24 () ] 1 Mg-20 Mc 1 tab PO DAILY [facility] Last Admin: 04/11/24 08:22 Dose: 1 tab Propranolol HCl (Propranolol Hcl 10 Mg Tablet) 10 mg PO DAILY [facility]; Protocol Last Admin: 04/11/24 08:22 Dose: 10 mg Trazodone HCl (Trazodone Hcl 50 Mg Tablet) 50 mg PO BEDTIME MRX1 PRN PRN Reason: Insomnia Venlafaxine HCl (Venlafaxine Hcl Er 37.5 Mg Cap.Er.24h) 37.5 mg PO DAILY [facility] Last Admin: 04/11/24 08:22 Dose: 37.5 mg Vitamin D (Cholecalciferol (Vitamin D3) 25 Mcg Tablet) 50 mcg PO DAILY [facility] Last Admin: 04/11/24 10:53 Dose: 50 mcg Allergies Allergies Allergy/AdvReac Type Severity Reaction Status Date / Time No Known Allergies Allergy Verified 04/09/24 10:41 Assessment & Plan Assessment & Plan (1) MDD (major depressive disorder), recurrent episode, moderate: Status: Acute Code(s): F33.1 - Major depressive disorder, recurrent, moderate Plan Mrs. Ball is a 38 year-old woman with hx of MDD, who self presents reporting increased depression, anxious mood, intermittent Si but no plan or intent to harm herself. She is finding it harder to function, go to work, easily overwhelmed, feeling of tiredness even after sleeping all night, no able to find tushar. She had been on lexapro for some years after few SSRI failed trials including sertraline, prozac and also tried wellbutrin. We discussed switching lexapro to effexor, hoping norepinephrine and serotonin may help with low energy. TSH wnl. B12 also wnl. She reports feeling of head warm on fire and headaches, will do head CT. Will check inflamatory markers given other physical symptoms of depression and anxiety- palpitation, headache, numbness and joint pain. PLAN 1. Admit to , CV, 15 minutes checks for safety 2. lowered lexapro to 10mg po daily, start venlafaxine to 37.5mg po daily. 3. head ct headache, vit d, esr, crp, liliam 4. obtain collateral information 5. aftercare planning- pt would benefit from stepping down to [facility] 04/11: Patient reports having some anxiety today;pt stated, I'm really sensitive when I'm switching medications. This usually happens where I get a brain fog and anxious. I've been trying to stay in my room and read because it calms me down . Pt reports sleeping well last night. denies SI/HI/VH/AH. Continue current tx plan. Patient educated on: diagnosis, medication risk/benefits and therapeutic strategies Reason for continued inpatient stay Substantial Risk for: med/psych decompensation Time Spent With Patient Time: Total time managing care of this patient today _20___ minutes.
--- NOTE | 2024-04-11 16:55 | PM.NEUROCN ---
History of Present Illness Data of Consult Service Date: 04/11/24 Primary Care Provider: CARMELO Mittal HPI Reason for consult: Pineal cyst on CT This is a 38 year-old woman with hx of depression and anxiety, admitted for increasingly depressed mood, difficulty concentrating, increased anxious mood with periods of panic attacks. Utox is negative. She has been in treatment for depression and anxiety since 2017. She had been stable for sometime. She reports for the past 2-3 months she has been feeling more depressed, anxious. She reports every day to day task feels very overwhelming. She is facing financial stress and behind on her mortgage. She is head of household and has two children ages 15 and 19. She endorses anhedonia, hopelessness, depressed mood, poor concentration. Sleep is okay. She reports feeling tired all the time, even after sleeping. She has occasional headaches and burning in the scalp. She reports at times passive SI but adamantly denies any plan or intent to harm herself. 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 This is an insignificant incidental finding. Neurological examination is normal. Nonfocal. Impression: depression and muscle tension headaches. Incidental finding of a partially calcified pineal gland cyst, which is unchanged over 7 years and is an insignificant and common finding of no clinical significance. Recommend treating her with her Tylenol when necessary. Keep a log of the headaches if they get very frequent and amitriptyline 25 mg at bedtime can be instituted. No further workup is necessary for the pineal cyst. The [facility] Past Medical History Medical History Pelvic pain Screening due Mood disorder Acute adjustment disorder with anxiety No known health problems Depression Tachycardia Family History Family History Mother Hypercholesteremia Arthritis Father HTN (hypertension) Hypercholesteremia Emphysema lung Manic depression Tachycardia Heart attack Stroke Maternal Grandfather Colon cancer Sister Suicide Social History Social History Household Members: Children Housing: House Do you presently have visiting nurse or other home services: No Alcohol intake: current Alcohol intake frequency: a few times a month Alcohol type: wine Patient Tobacco Use Status: Never used Tobacco Smoked in Last 30 Days: No e-Cigarette/Vaping Use: Never Used Second Hand Smoke Exposure: Yes Use of substances other than those prescribed or required for medical reasons: No Currently Displaying Signs/Symptoms of Drug Intoxication Withdrawal: No Have you been hit, kicked, punched, or otherwise hurt by someone within the past year? If so, by whom?: No Do you feel safe in your current relationship?: Yes Is there a partner from a previous relationship who is making you feel unsafe now?: No Are you made to feel afraid or neglected: No Advance Directives: No Advance Directives Information Provided: Yes Do you have thoughts of harming others: None Do you have a plan to hurt others: No Plan Recently lost weight without trying: No How much weight loss: Not applicable Eating poorly because of decreased appetite: No Nutrition screen score: 0 Nutrition Risks: No Nutritional Risk Patient : No : No Poor oral hygiene: No service: No Current occupational status: employed 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 Sexual orientation: Straight/Heterosexual Gender identity: Female Meds Allergies Allergy/AdvReac Type Severity Reaction Status Date / Time No Known Allergies Allergy Verified 04/09/24 10:41 Active Medications: Current Medications Acetaminophen (Acetaminophen 325 Mg Tablet) 650 mg PO Q6H PRN PRN Reason: Headache/Pain Mild Scale (1-3) Al Hydroxide/Mg Hydroxide (Magnesium Hydrox/Alum Hydrox 30 Ml Oral.Susp) 30 ml PO Q6H PRN PRN Reason: Heartburn/Nausea Escitalopram Oxalate (Escitalopram Oxalate 10 Mg Tablet) 10 mg PO DAILY [facility] Last Admin: 04/11/24 08:22 Dose: 10 mg Hydroxyzine HCl (Hydroxyzine Hcl 25 Mg Tablet) 25 mg PO Q6H PRN PRN Reason: Anxiety Last Admin: 04/09/24 22:38 Dose: 25 mg Lorazepam (Lorazepam 0.5 Mg Tablet) 0.5 mg PO BID PRN PRN Reason: severe anxiety Magnesium Hydroxide (Milk Of Magnesia 30 Ml Oral.Susp) 30 ml PO DAILY PRN PRN Reason: Constipation Naproxen (Naproxen 500 Mg Tablet) 500 mg PO Q12H PRN PRN Reason: Headache Last Admin: 04/10/24 16:08 Dose: 500 mg Nicotine (Nicotine 21 Mg Patch.Td24) 21 mg TRANSDERMA DAILY PRN PRN Reason: nicotine cravings Nicotine Polacrilex (Nicotine Polacrilex 2 Mg Gum) 4 mg BUCCAL Q2H PRN PRN Reason: Nicotine Cravings Pt Own ( Norethindrone-E. Estradiol-Iron [ Blisovi Fe 09/24 () ] 1 Mg-20 Mc 1 tab PO DAILY [facility] Last Admin: 04/11/24 08:22 Dose: 1 tab Propranolol HCl (Propranolol Hcl 10 Mg Tablet) 10 mg PO DAILY [facility]; Protocol Last Admin: 04/11/24 08:22 Dose: 10 mg Trazodone HCl (Trazodone Hcl 50 Mg Tablet) 50 mg PO BEDTIME MRX1 PRN PRN Reason: Insomnia Venlafaxine HCl (Venlafaxine Hcl Er 37.5 Mg Cap.Er.24h) 37.5 mg PO DAILY [facility] Last Admin: 04/11/24 08:22 Dose: 37.5 mg Vitamin D (Cholecalciferol (Vitamin D3) 25 Mcg Tablet) 50 mcg PO DAILY [facility] Last Admin: 04/11/24 10:53 Dose: 50 mcg Home Medications ?Medication ?Instructions ?Recorded ?Confirmed ?Last Taken ?Type norethindrone 1 mg-ethinyl 1 tab PO DAILY 04/09/24 04/09/24 Unknown History estradiol 20 mcg (21)-iron 75 mg (7) tablet (Blisovi Fe 09/24 ()) propranolol 10 mg tablet 10 mg PO DAILY 04/09/24 04/09/24 Unknown History Physical Exam Vital Signs: Vital Signs: Last Vital Signs Temp 98.8 F 04/11/24 08:24 Pulse 67 04/11/24 08:24 Resp 16 04/11/24 08:24 BP 151/83 H 04/11/24 08:24 Pulse Ox 97 04/11/24 08:24 O2 Del Method Room Air 04/11/24 08:24 BMI result Body Mass Index 25.7 Results Labs 04/09/24 11:56 04/09/24 11:56 Microbiology Microbiology Results: Microbiology 04/09/24 Unknown Urine clean catch - Clean Catch Midstream Urine Culture - Final Lactobacillus species Procedures Date of Service Date of Service: 04/11/24
[2024-04-11 20:00] VITALS: BP 143/89; PULSE 80; RESP 20; TEMP 36.6
[2024-04-11] MEDS: LORazepam 0.5 MG TABLET PO (20:38)
[2024-04-11] MEDS: hydrOXYzine HCL 25 MG TABLET PO (20:38)
[2024-04-12 07:00] VITALS: BMI 25.4
[2024-04-12 08:00] VITALS: BP 137/79; PULSE 80; RESP 20; TEMP 36.8; O2SAT 99
[2024-04-12 08:43] VITALS: BP 137/79; PULSE 80
[2024-04-12] MEDS: Propranolol HCL 10 MG TABLET PO (08:43)
[2024-04-12] MEDS: Venlafaxine HCl ER 37.5 MG CAP.ER.24H PO (08:44)
[2024-04-12] MEDS: Escitalopram Oxalate 10 MG TABLET PO (08:44)
[2024-04-12] MEDS: Cholecalciferol (Vitamin D3) 25 MCG TABLET 50 MCG PO (08:44)
--- NOTE | 2024-04-12 14:02 | P.PNPSI_ITS ---
Subjective Subjective Date of Service: 04/12/24 Reason For Visit: Depression Subjective Notes: Conditional Voluntary Interim History: Reviewed with Dr. Maddox. Pt presents similar to yesterday; continuing to report anxiety about medication changes. Pt stated, I'm trying to get used to the new meds . denies SI/HI/VH/AH. Keeping to self. pt reports she is looking forward to visiting with her friends today. Medication Compliance: Yes Side effects from medications: No Attending Groups: No Review of Systems Constitutional: Reports as per HPI Eyes: Reports as per HPI Reports as per HPI Cardiovascular: Reports as per HPI Respiratory: Reports as per HPI Gastrointestinal: Reports as per HPI Musculoskeletal: Reports as per HPI Skin/Breast: Reports as per HPI Reports as per HPI Psychiatric: Reports as per HPI Endocrine: Reports as per HPI Hematologic/Lymphatic: Reports as per HPI Allergic/Immunologic: Reports as per HPI Mental Status Exam Mental Status Exam Narrative: Pt is alert and oriented; behavior is cooperative, friendly and calm; dressed in casual attire; mood is described as anxious ; eye contact appropriate; Speech is normal rate, volume and not pressured; thought process is organized and goal directed; Thought content is on tx; denies SI/HI/VH/AH. Diagnostics Vital Signs (24Hr): Vital Signs - 24 hr 04/11/24 20:00 04/12/24 08:00 04/12/24 08:43 Temperature 97.9 F 98.3 F Pulse Rate 80 80 80 Respiratory Rate 20 20 Blood Pressure 143/89 H 137/79 137/79 Pulse Oximetry 99 Oxygen Delivery Method Room Air Room Air BMI result Body Mass Index 25.4 Labs 04/09/24 11:56 04/09/24 11:56 Labs: Laboratory Results - last 48 hr 04/10/24 20:01 ESR 10 D-Dimer High Sensitivty < 150 C-Reactive Protein 0.65 H 25-OH Vitamin D Total 20.3 L Imaging Radiology Impressions: ITS Impressions Head CT 04/10/24 13:38 IMPRESSION: No acute intracranial abnormality. 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 No hydrocephalus. Medications Medications Current Medications Acetaminophen (Acetaminophen 325 Mg Tablet) 650 mg PO Q6H PRN PRN Reason: Headache/Pain Mild Scale (1-3) Al Hydroxide/Mg Hydroxide (Magnesium Hydrox/Alum Hydrox 30 Ml Oral.Susp) 30 ml PO Q6H PRN PRN Reason: Heartburn/Nausea Escitalopram Oxalate (Escitalopram Oxalate 10 Mg Tablet) 10 mg PO DAILY [facility] Last Admin: 04/12/24 08:44 Dose: 10 mg Hydroxyzine HCl (Hydroxyzine Hcl 25 Mg Tablet) 25 mg PO Q6H PRN PRN Reason: Anxiety Last Admin: 04/11/24 20:38 Dose: 25 mg Lorazepam (Lorazepam 0.5 Mg Tablet) 0.5 mg PO BID PRN PRN Reason: severe anxiety Last Admin: 04/11/24 20:38 Dose: 0.5 mg Magnesium Hydroxide (Milk Of Magnesia 30 Ml Oral.Susp) 30 ml PO DAILY PRN PRN Reason: Constipation Naproxen (Naproxen 500 Mg Tablet) 500 mg PO Q12H PRN PRN Reason: Headache Last Admin: 04/10/24 16:08 Dose: 500 mg Nicotine (Nicotine 21 Mg Patch.Td24) 21 mg TRANSDERMA DAILY PRN PRN Reason: nicotine cravings Nicotine Polacrilex (Nicotine Polacrilex 2 Mg Gum) 4 mg BUCCAL Q2H PRN PRN Reason: Nicotine Cravings Pt Own ( Norethindrone-E. Estradiol-Iron [ Blisovi Fe 09/24 () ] 1 Mg-20 Mc 1 tab PO DAILY [facility] Last Admin: 04/12/24 09:01 Dose: 1 tab Propranolol HCl (Propranolol Hcl 10 Mg Tablet) 10 mg PO DAILY [facility]; Protocol Last Admin: 04/12/24 08:43 Dose: 10 mg Trazodone HCl (Trazodone Hcl 50 Mg Tablet) 50 mg PO BEDTIME MRX1 PRN PRN Reason: Insomnia Venlafaxine HCl (Venlafaxine Hcl Er 37.5 Mg Cap.Er.24h) 37.5 mg PO DAILY [facility] Last Admin: 04/12/24 08:44 Dose: 37.5 mg Vitamin D (Cholecalciferol (Vitamin D3) 25 Mcg Tablet) 50 mcg PO DAILY [facility] Last Admin: 04/12/24 08:44 Dose: 50 mcg Allergies Allergies Allergy/AdvReac Type Severity Reaction Status Date / Time No Known Allergies Allergy Verified 04/09/24 10:41 Assessment & Plan Assessment & Plan (1) MDD (major depressive disorder), recurrent episode, moderate: Status: Acute Code(s): F33.1 - Major depressive disorder, recurrent, moderate Plan Mrs. Ball is a 38 year-old woman with hx of MDD, who self presents reporting increased depression, anxious mood, intermittent Si but no plan or intent to harm herself. She is finding it harder to function, go to work, easily overwhelmed, feeling of tiredness even after sleeping all night, no able to find tushar. She had been on lexapro for some years after few SSRI failed trials including sertraline, prozac and also tried wellbutrin. We discussed switching lexapro to effexor, hoping norepinephrine and serotonin may help with low energy. TSH wnl. B12 also wnl. She reports feeling of head warm on fire and headaches, will do head CT. Will check inflamatory markers given other physical symptoms of depression and anxiety- palpitation, headache, numbness and joint pain. PLAN 1. Admit to [facility], CV, 15 minutes checks for safety 2. lowered lexapro to 10mg po daily, start venlafaxine to 37.5mg po daily. 3. head ct headache, vit d, esr, crp, liliam 4. obtain collateral information 5. aftercare planning- pt would benefit from stepping down to [facility] 04/11: Patient reports having some anxiety today;pt stated, I'm really sensitive when I'm switching medications. This usually happens where I get a brain fog and anxious. I've been trying to stay in my room and read because it calms me down . Pt reports sleeping well last night. denies SI/HI/VH/AH. Continue current tx plan. 04/12: Continue current tx plan. Patient educated on: diagnosis, medication risk/benefits and therapeutic strategies Reason for continued inpatient stay Substantial Risk for: med/psych decompensation Time Spent With Patient Time: Total time managing care of this patient today _20___ minutes.
[2024-04-12] MEDS: Acetaminophen 325 MG TABLET 650 MG PO (18:41)
[2024-04-12 20:00] VITALS: BP 134/74; PULSE 93; RESP 18; TEMP 36.3; O2SAT 99
--- NOTE | 2024-04-13 07:38 | HO.PSYCHPN ---
Subjective Subjective Date of Service: 04/13/24 Reason For Visit: Depression Subjective Notes: Conditional Voluntary Interim History: Reviewed with Dr. Maddox. Pt reports feeling a little better today. Pt stated, last evening I felt pretty good but I didn't sleep well last night, I'm not sure why . denies SI/HI/VH/AH. Discussed starting melatonin; pt agreed to trial. Start: Melatonin 3mg PO bedtime Medication Compliance: Yes Side effects from medications: No Attending Groups: Intermittent Review of Systems Constitutional: Reports as per HPI Eyes: Reports as per HPI Reports as per HPI Cardiovascular: Reports as per HPI Respiratory: Reports as per HPI Gastrointestinal: Reports as per HPI Musculoskeletal: Reports as per HPI Skin/Breast: Reports as per HPI Reports as per HPI Psychiatric: Reports as per HPI Endocrine: Reports as per HPI Hematologic/Lymphatic: Reports as per HPI Allergic/Immunologic: Reports as per HPI Mental Status Exam Mental Status Exam Narrative: Pt is alert and oriented; behavior is cooperative, friendly and calm; dressed in casual attire; mood is described as okay ; eye contact appropriate; Speech is normal rate, volume and not pressured; thought process is organized and goal directed; Thought content is on tx; denies SI/HI/VH/AH. Diagnostics Vital Signs (24Hr): Vital Signs - 24 hr 04/12/24 08:00 04/12/24 08:43 04/12/24 20:00 Temperature 98.3 F 97.3 F Pulse Rate 80 80 93 Respiratory Rate 20 18 Blood Pressure 137/79 137/79 134/74 Pulse Oximetry 99 99 Oxygen Delivery Method Room Air Room Air BMI result Body Mass Index 25.4 Labs 04/09/24 11:56 04/09/24 11:56 Imaging Radiology Impressions: ITS Impressions Head CT 04/10/24 13:38 IMPRESSION: No acute intracranial abnormality. 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 No hydrocephalus. Medications Medications Current Medications Acetaminophen (Acetaminophen 325 Mg Tablet) 650 mg PO Q6H PRN PRN Reason: Headache/Pain Mild Scale (1-3) Last Admin: 04/12/24 18:41 Dose: 650 mg Al Hydroxide/Mg Hydroxide (Magnesium Hydrox/Alum Hydrox 30 Ml Oral.Susp) 30 ml PO Q6H PRN PRN Reason: Heartburn/Nausea Escitalopram Oxalate (Escitalopram Oxalate 10 Mg Tablet) 10 mg PO DAILY [facility] Last Admin: 04/12/24 08:44 Dose: 10 mg Hydroxyzine HCl (Hydroxyzine Hcl 25 Mg Tablet) 25 mg PO Q6H PRN PRN Reason: Anxiety Last Admin: 04/11/24 20:38 Dose: 25 mg Lorazepam (Lorazepam 0.5 Mg Tablet) 0.5 mg PO BID PRN PRN Reason: severe anxiety Last Admin: 04/11/24 20:38 Dose: 0.5 mg Magnesium Hydroxide (Milk Of Magnesia 30 Ml Oral.Susp) 30 ml PO DAILY PRN PRN Reason: Constipation Naproxen (Naproxen 500 Mg Tablet) 500 mg PO Q12H PRN PRN Reason: Headache Last Admin: 04/10/24 16:08 Dose: 500 mg Nicotine (Nicotine 21 Mg Patch.Td24) 21 mg TRANSDERMA DAILY PRN PRN Reason: nicotine cravings Nicotine Polacrilex (Nicotine Polacrilex 2 Mg Gum) 4 mg BUCCAL Q2H PRN PRN Reason: Nicotine Cravings Pt Own ( Norethindrone-E. Estradiol-Iron [ Blisovi Fe 09/24 () ] 1 Mg-20 Mc 1 tab PO DAILY [facility] Last Admin: 04/12/24 09:01 Dose: 1 tab Propranolol HCl (Propranolol Hcl 10 Mg Tablet) 10 mg PO DAILY [facility]; Protocol Last Admin: 04/12/24 08:43 Dose: 10 mg Trazodone HCl (Trazodone Hcl 50 Mg Tablet) 50 mg PO BEDTIME MRX1 PRN PRN Reason: Insomnia Venlafaxine HCl (Venlafaxine Hcl Er 37.5 Mg Cap.Er.24h) 37.5 mg PO DAILY [facility] Last Admin: 04/12/24 08:44 Dose: 37.5 mg Vitamin D (Cholecalciferol (Vitamin D3) 25 Mcg Tablet) 50 mcg PO DAILY [facility] Last Admin: 04/12/24 08:44 Dose: 50 mcg Allergies Allergies Allergy/AdvReac Type Severity Reaction Status Date / Time No Known Allergies Allergy Verified 04/09/24 10:41 Assessment & Plan Assessment & Plan (1) MDD (major depressive disorder), recurrent episode, moderate: Status: Acute Code(s): F33.1 - Major depressive disorder, recurrent, moderate Plan Mrs. Ball is a 38 year-old woman with hx of MDD, who self presents reporting increased depression, anxious mood, intermittent Si but no plan or intent to harm herself. She is finding it harder to function, go to work, easily overwhelmed, feeling of tiredness even after sleeping all night, no able to find tushar. She had been on lexapro for some years after few SSRI failed trials including sertraline, prozac and also tried wellbutrin. We discussed switching lexapro to effexor, hoping norepinephrine and serotonin may help with low energy. TSH wnl. B12 also wnl. She reports feeling of head warm on fire and headaches, will do head CT. Will check inflamatory markers given other physical symptoms of depression and anxiety- palpitation, headache, numbness and joint pain. PLAN 1. Admit to , CV, 15 minutes checks for safety 2. lowered lexapro to 10mg po daily, start venlafaxine to 37.5mg po daily. 3. head ct headache, vit d, esr, crp, liliam 4. obtain collateral information 5. aftercare planning- pt would benefit from stepping down to [facility] 04/11: Patient reports having some anxiety today;pt stated, I'm really sensitive when I'm switching medications. This usually happens where I get a brain fog and anxious. I've been trying to stay in my room and read because it calms me down . Pt reports sleeping well last night. denies SI/HI/VH/AH. Continue current tx plan. 04/12: Continue current tx plan. 04/13: Pt reports feeling a little better today. Pt stated, last evening I felt pretty good but I didn't sleep well last night, I'm not sure why . denies SI/HI/VH/AH. Discussed starting melatonin; pt agreed to trial. Start: Melatonin 3mg PO bedtime Patient educated on: diagnosis, medication risk/benefits and therapeutic strategies Reason for continued inpatient stay Substantial Risk for: med/psych decompensation Time Spent With Patient Time: Total time managing care of this patient today _20___ minutes.
[2024-04-13 08:00] VITALS: BP 137/75; PULSE 67; RESP 16; TEMP 36.8; O2SAT 99
[2024-04-13] MEDS: Cholecalciferol (Vitamin D3) 25 MCG TABLET 50 MCG PO (08:42)
[2024-04-13] MEDS: Venlafaxine HCl ER 37.5 MG CAP.ER.24H PO (08:42)
[2024-04-13] MEDS: Escitalopram Oxalate 10 MG TABLET PO (08:42)
[2024-04-13] MEDS: Propranolol HCL 10 MG TABLET PO (08:42)
[2024-04-13] MEDS: Ibuprofen 200 MG TABLET PO (16:33)
[2024-04-13 17:28] LABS: Influenza A PCR NEGATIVE (Negative); Influenza B PCR NEGATIVE (Negative); Resp Syncy Virus RNA Qual PCR NEGATIVE (Negative); SARS COV2 PCR INHOUSE NEGATIVE (Negative)
[2024-04-13 20:00] VITALS: BP 134/80; PULSE 71; TEMP 36.2; O2SAT 99
[2024-04-13] MEDS: Melatonin 3 MG TABLET PO (21:07)
[2024-04-14 07:56] VITALS: BP 129/66; PULSE 67; RESP 16; TEMP 36.3; O2SAT 98
[2024-04-14 09:13] VITALS: BP 117/71; PULSE 80
[2024-04-14] MEDS: Venlafaxine HCl ER 37.5 MG CAP.ER.24H PO (09:13)
[2024-04-14] MEDS: Propranolol HCL 10 MG TABLET PO (09:13)
[2024-04-14] MEDS: Acetaminophen 325 MG TABLET 650 MG PO ×2 (09:13→21:50)
[2024-04-14] MEDS: Escitalopram Oxalate 10 MG TABLET PO (09:14)
[2024-04-14] MEDS: Cholecalciferol (Vitamin D3) 25 MCG TABLET 50 MCG PO (09:14)
--- NOTE | 2024-04-14 10:16 | P.PNPSI_ITS ---
Subjective Subjective Date of Service: 04/14/24 Reason For Visit: Depression Interim History: Patient feels tired and run down. Has postnasal drip and complains of a sore throat. No fevers. COVID -ve. Says she can't assess mood because she is feeling unwell. No SOB. No CP. No N/V. Denies SI/HI/VH/AH. Review of Systems Review of Systems Yes all other systems are reviewed and are negative Constitutional: Reports as per HPI Eyes: Reports as per HPI Reports as per HPI Cardiovascular: Reports as per HPI Respiratory: Reports as per HPI Gastrointestinal: Reports as per HPI Musculoskeletal: Reports as per HPI Skin/Breast: Reports as per HPI Reports as per HPI Psychiatric: Reports as per HPI Endocrine: Reports as per HPI Hematologic/Lymphatic: Reports as per HPI Allergic/Immunologic: Reports as per HPI Mental Status Exam Mental Status Exam Narrative: Pt is alert and oriented; behavior is cooperative, friendly and calm; dressed in casual attire; mood is described as okay ; eye contact appropriate; Speech is normal rate, volume and not pressured; thought process is organized and goal directed; Thought content is on tx; denies SI/HI/VH/AH. Diagnostics Vital Signs (24Hr): Vital Signs - 24 hr 04/13/24 20:00 04/14/24 07:56 04/14/24 09:13 Temperature 97.2 F 97.4 F Pulse Rate 71 67 80 Respiratory Rate 16 Blood Pressure 134/80 129/66 117/71 Pulse Oximetry 99 98 Oxygen Delivery Method Room Air Room Air BMI result Body Mass Index 25.4 Labs 04/09/24 11:56 04/09/24 11:56 Labs: Laboratory Results - last 48 hr 04/13/24 16:42 Influenza Type A (PCR) NEGATIVE Influenza Type B (PCR) NEGATIVE RSV RNA Qual (PCR) NEGATIVE SARS-CoV-2 RNA (RT-PCR) NEGATIVE Imaging Radiology Impressions: ITS Impressions Head CT 04/10/24 13:38 IMPRESSION: No acute intracranial abnormality. 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 No hydrocephalus. Medications Medications Current Medications Acetaminophen (Acetaminophen 325 Mg Tablet) 650 mg PO Q6H PRN PRN Reason: Headache/Pain Mild Scale (1-3) Last Admin: 04/14/24 09:13 Dose: 650 mg Al Hydroxide/Mg Hydroxide (Magnesium Hydrox/Alum Hydrox 30 Ml Oral.Susp) 30 ml PO Q6H PRN PRN Reason: Heartburn/Nausea Escitalopram Oxalate (Escitalopram Oxalate 10 Mg Tablet) 10 mg PO DAILY [facility] Last Admin: 04/14/24 09:14 Dose: 10 mg Hydroxyzine HCl (Hydroxyzine Hcl 25 Mg Tablet) 25 mg PO Q6H PRN PRN Reason: Anxiety Last Admin: 04/11/24 20:38 Dose: 25 mg Ibuprofen (Ibuprofen 200 Mg Tablet) 200 mg PO Q4H PRN PRN Reason: uri sx Last Admin: 04/13/24 16:33 Dose: 200 mg Lorazepam (Lorazepam 0.5 Mg Tablet) 0.5 mg PO BID PRN PRN Reason: severe anxiety Last Admin: 04/11/24 20:38 Dose: 0.5 mg Magnesium Hydroxide (Milk Of Magnesia 30 Ml Oral.Susp) 30 ml PO DAILY PRN PRN Reason: Constipation Melatonin (Melatonin 3 Mg Tablet) 3 mg PO BEDTIME [facility] Last Admin: 04/13/24 21:07 Dose: 3 mg Naproxen (Naproxen 500 Mg Tablet) 500 mg PO Q12H PRN PRN Reason: Headache Last Admin: 04/10/24 16:08 Dose: 500 mg Nicotine (Nicotine 21 Mg Patch.Td24) 21 mg TRANSDERMA DAILY PRN PRN Reason: nicotine cravings Nicotine Polacrilex (Nicotine Polacrilex 2 Mg Gum) 4 mg BUCCAL Q2H PRN PRN Reason: Nicotine Cravings Pt Own ( Norethindrone-E. Estradiol-Iron [ Blisovi Fe 09/24 () ] 1 Mg-20 Mc 1 tab PO DAILY [facility] Last Admin: 04/14/24 09:15 Dose: 1 tab Propranolol HCl (Propranolol Hcl 10 Mg Tablet) 10 mg PO DAILY [facility]; Protocol Last Admin: 04/14/24 09:13 Dose: 10 mg Trazodone HCl (Trazodone Hcl 50 Mg Tablet) 50 mg PO BEDTIME MRX1 PRN PRN Reason: Insomnia Venlafaxine HCl (Venlafaxine Hcl Er 37.5 Mg Cap.Er.24h) 37.5 mg PO DAILY [facility] Last Admin: 04/14/24 09:13 Dose: 37.5 mg Vitamin D (Cholecalciferol (Vitamin D3) 25 Mcg Tablet) 50 mcg PO DAILY [facility] Last Admin: 04/14/24 09:14 Dose: 50 mcg Allergies Allergies Allergy/AdvReac Type Severity Reaction Status Date / Time No Known Allergies Allergy Verified 04/09/24 10:41 Assessment & Plan Assessment & Plan (1) MDD (major depressive disorder), recurrent episode, moderate: Status: Acute Code(s): F33.1 - Major depressive disorder, recurrent, moderate Plan Mrs. Ball is a 38 year-old woman with hx of MDD, who self presents reporting increased depression, anxious mood, intermittent Si but no plan or intent to harm herself. She is finding it harder to function, go to work, easily overwhelmed, feeling of tiredness even after sleeping all night, no able to find tushar. She had been on lexapro for some years after few SSRI failed trials including sertraline, prozac and also tried wellbutrin. We discussed switching lexapro to effexor, hoping norepinephrine and serotonin may help with low energy. TSH wnl. B12 also wnl. She reports feeling of head warm on fire and headaches, will do head CT. Will check inflamatory markers given other physical symptoms of depression and anxiety- palpitation, headache, numbness and joint pain. PLAN 1. Admit to [facility], CV, 15 minutes checks for safety 2. lowered lexapro to 10mg po daily, start venlafaxine to 37.5mg po daily. 3. head ct headache, vit d, esr, crp, liliam 4. obtain collateral information 5. aftercare planning- pt would benefit from stepping down to [facility] 04/11: Patient reports having some anxiety today;pt stated, I'm really sensitive when I'm switching medications. This usually happens where I get a brain fog and anxious. I've been trying to stay in my room and read because it calms me down . Pt reports sleeping well last night. denies SI/HI/VH/AH. Continue current tx plan. 04/12: Continue current tx plan. 04/13: Pt reports feeling a little better today. Pt stated, last evening I felt pretty good but I didn't sleep well last night, I'm not sure why . denies SI/HI/VH/AH. Discussed starting melatonin; pt agreed to trial. Start: Melatonin 3mg PO bedtime 04/14: Decrease Lexapro to 5 mg and increase Effexor to 75 mg. Reason for continued inpatient stay Substantial Risk for: inability to function and rapid decompensation Time Spent With Patient Time: Total time managing care of this patient today ____ minutes.
[2024-04-14] MEDS: Throat Lozenge, Medicated LOZENGE 1 LOZENGE MUCOUS MEM (13:29)
[2024-04-14] MEDS: Ibuprofen 200 MG TABLET PO (13:29)
[2024-04-14 20:00] VITALS: BP 154/99; PULSE 78; RESP 17; TEMP 36.6; O2SAT 100
[2024-04-14] MEDS: Melatonin 3 MG TABLET PO (21:50)
[2024-04-15] MEDS: Ibuprofen 200 MG TABLET PO ×2 (02:15→21:12)
[2024-04-15] MEDS: Throat Lozenge, Medicated LOZENGE 1 LOZENGE MUCOUS MEM (02:15)
[2024-04-15] MEDS: Fluticasone Propionate Nasal 16 GM SPRAY 1 SPRAY NOSTRIL-B (02:16)
[2024-04-15 08:32] VITALS: BP 135/67; PULSE 73; RESP 16; TEMP 36.8; O2SAT 98
[2024-04-15] MEDS: Cholecalciferol (Vitamin D3) 25 MCG TABLET 50 MCG PO (09:12)
[2024-04-15] MEDS: Venlafaxine HCl ER 75 MG CAP.ER.24H PO (09:12)
[2024-04-15] MEDS: Escitalopram Oxalate 5 MG TABLET PO (09:12)
[2024-04-15] MEDS: Propranolol HCL 10 MG TABLET PO (09:12)
--- NOTE | 2024-04-15 10:27 | HO.PSYCHPN ---
Subjective Subjective Date of Service: 04/15/24 Reason For Visit: Depression Interim History: Patient feels less tired. Says her mood is improving. She was up yesterday afternoon and felt less anxious. Tolerating cross titration from Lexapro to Effexor. No side effects. Applied for FMLA. Future oriented. Discussed potential for PHP. Patient to consider. Postnasal drip and complains of a sore throat and some cough. No fevers. COVID -ve yesterday. No SOB. No CP. No N/V. Denies SI/HI/VH/AH. Review of Systems Review of Systems Yes all other systems are reviewed and are negative Constitutional: Reports as per HPI Eyes: Reports as per HPI Reports as per HPI Cardiovascular: Reports as per HPI Respiratory: Reports as per HPI Gastrointestinal: Reports as per HPI Musculoskeletal: Reports as per HPI Skin/Breast: Reports as per HPI Reports as per HPI Psychiatric: Reports as per HPI Endocrine: Reports as per HPI Hematologic/Lymphatic: Reports as per HPI Allergic/Immunologic: Reports as per HPI Mental Status Exam Mental Status Exam Narrative: Pt is alert and oriented; behavior is cooperative, friendly and calm; dressed in casual attire; mood is described as okay ; eye contact appropriate; Speech is normal rate, volume and not pressured; thought process is organized and goal directed; Thought content is on tx; denies SI/HI/VH/AH. Diagnostics Vital Signs (24Hr): Vital Signs - 24 hr 04/14/24 20:00 04/15/24 08:32 Temperature 97.8 F 98.3 F Pulse Rate 78 73 Respiratory Rate 17 16 Blood Pressure 154/99 H 135/67 Pulse Oximetry 100 98 Oxygen Delivery Method Room Air Room Air BMI result Body Mass Index 25.4 Labs 04/09/24 11:56 04/09/24 11:56 Labs: Laboratory Results - last 48 hr 04/13/24 16:42 Influenza Type A (PCR) NEGATIVE Influenza Type B (PCR) NEGATIVE RSV RNA Qual (PCR) NEGATIVE SARS-CoV-2 RNA (RT-PCR) NEGATIVE Imaging Radiology Impressions: ITS Impressions Head CT 04/10/24 13:38 IMPRESSION: No acute intracranial abnormality. 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 No hydrocephalus. Medications Medications Current Medications Acetaminophen (Acetaminophen 325 Mg Tablet) 650 mg PO Q6H PRN PRN Reason: Headache/Pain Mild Scale (1-3) Last Admin: 04/14/24 21:50 Dose: 650 mg Al Hydroxide/Mg Hydroxide (Magnesium Hydrox/Alum Hydrox 30 Ml Oral.Susp) 30 ml PO Q6H PRN PRN Reason: Heartburn/Nausea Benzocaine (Throat Lozenge, Medicated Lozenge) 1 lozenge MUCOUS MEM Q2H PRN PRN Reason: Sore Throat Last Admin: 04/15/24 02:15 Dose: 1 lozenge Escitalopram Oxalate (Escitalopram Oxalate 5 Mg Tablet) 5 mg PO DAILY [facility] Last Admin: 04/15/24 09:12 Dose: 5 mg Fluticasone Propionate (Fluticasone Propionate Nasal 16 Gm [place]) 1 spray NOSTRIL-B DAILY [facility] Stop: 04/19/24 09:01 Last Admin: 04/15/24 02:16 Dose: 1 spray Hydroxyzine HCl (Hydroxyzine Hcl 25 Mg Tablet) 25 mg PO Q6H PRN PRN Reason: Anxiety Last Admin: 04/11/24 20:38 Dose: 25 mg Ibuprofen (Ibuprofen 200 Mg Tablet) 200 mg PO Q4H PRN PRN Reason: uri sx Last Admin: 04/15/24 02:15 Dose: 200 mg Lorazepam (Lorazepam 0.5 Mg Tablet) 0.5 mg PO BID PRN PRN Reason: severe anxiety Last Admin: 04/11/24 20:38 Dose: 0.5 mg Magnesium Hydroxide (Milk Of Magnesia 30 Ml Oral.Susp) 30 ml PO DAILY PRN PRN Reason: Constipation Melatonin (Melatonin 3 Mg Tablet) 3 mg PO BEDTIME [facility] Last Admin: 04/14/24 21:50 Dose: 3 mg Naproxen (Naproxen 500 Mg Tablet) 500 mg PO Q12H PRN PRN Reason: Headache Last Admin: 04/10/24 16:08 Dose: 500 mg Nicotine (Nicotine 21 Mg Patch.Td24) 21 mg TRANSDERMA DAILY PRN PRN Reason: nicotine cravings Nicotine Polacrilex (Nicotine Polacrilex 2 Mg Gum) 4 mg BUCCAL Q2H PRN PRN Reason: Nicotine Cravings Pt Own ( Norethindrone-E. Estradiol-Iron [ Blisovi Fe 09/24 (28) ] 1 Mg-20 Mc 1 tab PO DAILY [facility] Last Admin: 04/15/24 09:13 Dose: Not Given Propranolol HCl (Propranolol Hcl 10 Mg Tablet) 10 mg PO DAILY [facility]; Protocol Last Admin: 04/15/24 09:12 Dose: 10 mg Trazodone HCl (Trazodone Hcl 50 Mg Tablet) 50 mg PO BEDTIME MRX1 PRN PRN Reason: Insomnia Venlafaxine HCl (Venlafaxine Hcl Er 75 Mg Cap.Er.24h) 75 mg PO DAILY [facility] Last Admin: 04/15/24 09:12 Dose: 75 mg Vitamin D (Cholecalciferol (Vitamin D3) 25 Mcg Tablet) 50 mcg PO DAILY [facility] Last Admin: 04/15/24 09:12 Dose: 50 mcg Allergies Allergies Allergy/AdvReac Type Severity Reaction Status Date / Time No Known Allergies Allergy Verified 04/09/24 10:41 Assessment & Plan Assessment & Plan (1) MDD (major depressive disorder), recurrent episode, moderate: Status: Acute Code(s): F33.1 - Major depressive disorder, recurrent, moderate Plan Mrs. Ball is a 38 year-old woman with hx of MDD, who self presents reporting increased depression, anxious mood, intermittent Si but no plan or intent to harm herself. She is finding it harder to function, go to work, easily overwhelmed, feeling of tiredness even after sleeping all night, no able to find tushar. She had been on lexapro for some years after few SSRI failed trials including sertraline, prozac and also tried wellbutrin. We discussed switching lexapro to effexor, hoping norepinephrine and serotonin may help with low energy. TSH wnl. B12 also wnl. She reports feeling of head warm on fire and headaches, will do head CT. Will check inflamatory markers given other physical symptoms of depression and anxiety- palpitation, headache, numbness and joint pain. PLAN 1. Admit to [facility], CV, 15 minutes checks for safety 2. lowered lexapro to 10mg po daily, start venlafaxine to 37.5mg po daily. 3. head ct headache, vit d, esr, crp, liliam 4. obtain collateral information 5. aftercare planning- pt would benefit from stepping down to [facility] 04/11: Patient reports having some anxiety today;pt stated, I'm really sensitive when I'm switching medications. This usually happens where I get a brain fog and anxious. I've been trying to stay in my room and read because it calms me down . Pt reports sleeping well last night. denies SI/HI/VH/AH. Continue current tx plan. 04/12: Continue current tx plan. 04/13: Pt reports feeling a little better today. Pt stated, last evening I felt pretty good but I didn't sleep well last night, I'm not sure why . denies SI/HI/VH/AH. Discussed starting melatonin; pt agreed to trial. Start: Melatonin 3mg PO bedtime 04/14: Decrease Lexapro to 5 mg and increase Effexor to 75 mg. 04/15: Lower Lexapro to 2.5 tomorrow then stop. Continue Effexor XR 75 mg. Reason for continued inpatient stay Substantial Risk for: inability to function and rapid decompensation Time Spent With Patient Time: Total time managing care of this patient today ____ minutes.
[2024-04-15 20:00] VITALS: BP 118/75; PULSE 90; RESP 15; TEMP 37.1; O2SAT 97
[2024-04-15] MEDS: Melatonin 3 MG TABLET PO (21:08)
[2024-04-15] MEDS: traZODone HCL 50 MG TABLET PO (21:08)
[2024-04-15] MEDS: Acetaminophen 325 MG TABLET 650 MG PO (21:11)
[2024-04-16] MEDS: Throat Lozenge, Medicated LOZENGE 1 LOZENGE MUCOUS MEM (03:11)
[2024-04-16 08:00] VITALS: BP 131/80; PULSE 75; RESP 16; TEMP 36.8; O2SAT 97
[2024-04-16] MEDS: Cholecalciferol (Vitamin D3) 25 MCG TABLET 50 MCG PO (08:22)
[2024-04-16] MEDS: Escitalopram Oxalate 5 MG TABLET 2.5 MG PO (08:23)
[2024-04-16 08:24] VITALS: BP 131/80; PULSE 97
[2024-04-16] MEDS: Propranolol HCL 10 MG TABLET PO (08:24)
[2024-04-16] MEDS: Venlafaxine HCl ER 75 MG CAP.ER.24H PO (08:25)
[2024-04-16] MEDS: Fluticasone Propionate Nasal 16 GM SPRAY 1 SPRAY NOSTRIL-B (08:27)
[2024-04-16] MEDS: Acetaminophen 325 MG TABLET 650 MG PO ×2 (09:06→18:07)
[2024-04-16 10:39] LABS: Anti Nuclear Antibody Screen NEGATIVE (NEGATIVE)
--- NOTE | 2024-04-16 14:56 | HO.PSYCHPN ---
Subjective Subjective Date of Service: 04/16/24 Reason For Visit: Depression Subjective Notes: Conditional Voluntary Interim History: Reviewed with Dr. Maddox. Pt reports she is starting to feel a lot better ; pt stated, I feel like my meds are okay. I'm feeling happier . Pt denies SI/HI/VH/AH. Medication Compliance: Yes Side effects from medications: No Attending Groups: Intermittent Review of Systems Constitutional: Reports as per HPI Eyes: Reports as per HPI Reports as per HPI Cardiovascular: Reports as per HPI Respiratory: Reports as per HPI Gastrointestinal: Reports as per HPI Musculoskeletal: Reports as per HPI Skin/Breast: Reports as per HPI Reports as per HPI Psychiatric: Reports as per HPI Endocrine: Reports as per HPI Hematologic/Lymphatic: Reports as per HPI Allergic/Immunologic: Reports as per HPI Mental Status Exam Mental Status Exam Narrative: Pt is alert and oriented; behavior is cooperative, friendly and calm; dressed in casual attire; mood is described as better ; eye contact appropriate; Speech is normal rate, volume and not pressured; thought process is organized and goal directed; Thought content is on tx; denies SI/HI/VH/AH. Diagnostics Vital Signs (24Hr): Vital Signs - 24 hr 04/15/24 20:00 04/16/24 08:00 04/16/24 08:24 Temperature 98.7 F 98.2 F Pulse Rate 90 75 97 Respiratory Rate 15 16 Blood Pressure 118/75 131/80 131/80 Pulse Oximetry 97 97 Oxygen Delivery Method Room Air BMI result Body Mass Index 25.4 Labs 04/09/24 11:56 04/09/24 11:56 Labs: Laboratory Results - last 48 hr 04/10/24 20:01 LILIAM Screen NEGATIVE LILIAM Titer TNP LILIAM Titer 2 TNP LILIAM Titer 3 TNP LILIAM Pattern TNP LILIAM Pattern 2 TNP LILIAM Pattern 3 TNP Imaging Radiology Impressions: ITS Impressions Head CT 04/10/24 13:38 IMPRESSION: No acute intracranial abnormality. 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 No hydrocephalus. Medications Medications Current Medications Acetaminophen (Acetaminophen 325 Mg Tablet) 650 mg PO Q6H PRN PRN Reason: Headache/Pain Mild Scale (1-3) Last Admin: 04/16/24 09:06 Dose: 650 mg Al Hydroxide/Mg Hydroxide (Magnesium Hydrox/Alum Hydrox 30 Ml Oral.Susp) 30 ml PO Q6H PRN PRN Reason: Heartburn/Nausea Benzocaine (Throat Lozenge, Medicated Lozenge) 1 lozenge MUCOUS MEM Q2H PRN PRN Reason: Sore Throat Last Admin: 04/16/24 03:11 Dose: 1 lozenge Fluticasone Propionate (Fluticasone Propionate Nasal 16 Gm [place]) 1 spray NOSTRIL-B DAILY CARLOS Stop: 04/19/24 09:01 Last Admin: 04/16/24 08:27 Dose: 1 spray Hydroxyzine HCl (Hydroxyzine Hcl 25 Mg Tablet) 25 mg PO Q6H PRN PRN Reason: Anxiety Last Admin: 04/11/24 20:38 Dose: 25 mg Ibuprofen (Ibuprofen 200 Mg Tablet) 200 mg PO Q4H PRN PRN Reason: uri sx Last Admin: 04/15/24 21:12 Dose: 200 mg Lorazepam (Lorazepam 0.5 Mg Tablet) 0.5 mg PO BID PRN PRN Reason: severe anxiety Last Admin: 04/11/24 20:38 Dose: 0.5 mg Magnesium Hydroxide (Milk Of Magnesia 30 Ml Oral.Susp) 30 ml PO DAILY PRN PRN Reason: Constipation Melatonin (Melatonin 3 Mg Tablet) 3 mg PO BEDTIME CARLOS Last Admin: 04/15/24 21:08 Dose: 3 mg Naproxen (Naproxen 500 Mg Tablet) 500 mg PO Q12H PRN PRN Reason: Headache Last Admin: 04/10/24 16:08 Dose: 500 mg Nicotine (Nicotine 21 Mg Patch.Td24) 21 mg TRANSDERMA DAILY PRN PRN Reason: nicotine cravings Nicotine Polacrilex (Nicotine Polacrilex 2 Mg Gum) 4 mg BUCCAL Q2H PRN PRN Reason: Nicotine Cravings Pt Own ( Norethindrone-E. Estradiol-Iron [ Blisovi Fe 09/24 (28) ] 1 Mg-20 Mc 1 tab PO DAILY CARLOS Last Admin: 04/16/24 10:34 Dose: Not Given Propranolol HCl (Propranolol Hcl 10 Mg Tablet) 10 mg PO DAILY [facility]; Protocol Last Admin: 04/16/24 08:24 Dose: 10 mg Trazodone HCl (Trazodone Hcl 50 Mg Tablet) 50 mg PO BEDTIME MRX1 PRN PRN Reason: Insomnia Last Admin: 04/15/24 21:08 Dose: 50 mg Venlafaxine HCl (Venlafaxine Hcl Er 75 Mg Cap.Er.24h) 75 mg PO DAILY [facility] Last Admin: 04/16/24 08:25 Dose: 75 mg Vitamin D (Cholecalciferol (Vitamin D3) 25 Mcg Tablet) 50 mcg PO DAILY CARLOS Last Admin: 04/16/24 08:22 Dose: 50 mcg Allergies Allergies Allergy/AdvReac Type Severity Reaction Status Date / Time No Known Allergies Allergy Verified 04/09/24 10:41 Assessment & Plan Assessment & Plan (1) MDD (major depressive disorder), recurrent episode, moderate: Status: Acute Code(s): F33.1 - Major depressive disorder, recurrent, moderate Plan Mrs. Ball is a 38 year-old woman with hx of MDD, who self presents reporting increased depression, anxious mood, intermittent Si but no plan or intent to harm herself. She is finding it harder to function, go to work, easily overwhelmed, feeling of tiredness even after sleeping all night, no able to find tushar. She had been on lexapro for some years after few SSRI failed trials including sertraline, prozac and also tried wellbutrin. We discussed switching lexapro to effexor, hoping norepinephrine and serotonin may help with low energy. TSH wnl. B12 also wnl. She reports feeling of head warm on fire and headaches, will do head CT. Will check inflamatory markers given other physical symptoms of depression and anxiety- palpitation, headache, numbness and joint pain. PLAN 1. Admit to M5, CV, 15 minutes checks for safety 2. lowered lexapro to 10mg po daily, start venlafaxine to 37.5mg po daily. 3. head ct headache, vit d, esr, crp, liliam 4. obtain collateral information 5. aftercare planning- pt would benefit from stepping down to [facility] 04/11: Patient reports having some anxiety today;pt stated, I'm really sensitive when I'm switching medications. This usually happens where I get a brain fog and anxious. I've been trying to stay in my room and read because it calms me down . Pt reports sleeping well last night. denies SI/HI/VH/AH. Continue current tx plan. 04/12: Continue current tx plan. 04/13: Pt reports feeling a little better today. Pt stated, last evening I felt pretty good but I didn't sleep well last night, I'm not sure why . denies SI/HI/VH/AH. Discussed starting melatonin; pt agreed to trial. Start: Melatonin 3mg PO bedtime 04/14: Decrease Lexapro to 5 mg and increase Effexor to 75 mg. 04/15: Lower Lexapro to 2.5 tomorrow then stop. Continue Effexor XR 75 mg. 04/16: continue current tx plan. Patient educated on: diagnosis, medication risk/benefits and therapeutic strategies Reason for continued inpatient stay Substantial Risk for: med/psych decompensation Time Spent With Patient Time: Total time managing care of this patient today _20___ minutes.
[2024-04-16 20:00] VITALS: BP 144/99; PULSE 97; RESP 18; TEMP 36.7; O2SAT 97
[2024-04-16] MEDS: Melatonin 3 MG TABLET PO (21:06)
[2024-04-16] MEDS: hydrOXYzine HCL 25 MG TABLET PO (23:07)
[2024-04-17] MEDS: Cholecalciferol (Vitamin D3) 25 MCG TABLET 50 MCG PO (08:11)
[2024-04-17] MEDS: Propranolol HCL 10 MG TABLET PO (08:11)
[2024-04-17] MEDS: Fluticasone Propionate Nasal 16 GM SPRAY 1 SPRAY NOSTRIL-B (08:11)
[2024-04-17] MEDS: Venlafaxine HCl ER 75 MG CAP.ER.24H PO (08:12)
[2024-04-17 09:10] VITALS: BP 127/61; PULSE 85; RESP 18; TEMP 36.8; O2SAT 97
--- NOTE | 2024-04-17 10:49 | HO.PSYCHPN ---
Subjective Subjective Date of Service: 04/17/24 Reason For Visit: Depression Subjective Notes: Conditional Voluntary Interim History: Reviewed with Dr. Daniel. Patient reports feeling good today; Pt stated, I feel ready to go home tomorrow . She reports sleeping well last night. Pt denies SI/HI/VH/AH. She plans on [place] [facility] intake [place] scheduled for tomorrow per social work. Medication Compliance: Yes Side effects from medications: No Attending Groups: Yes Review of Systems Constitutional: Reports as per HPI Eyes: Reports as per HPI Reports as per HPI Cardiovascular: Reports as per HPI Respiratory: Reports as per HPI Gastrointestinal: Reports as per HPI Musculoskeletal: Reports as per HPI Skin/Breast: Reports as per HPI Reports as per HPI Psychiatric: Reports as per HPI Endocrine: Reports as per HPI Hematologic/Lymphatic: Reports as per HPI Allergic/Immunologic: Reports as per HPI Mental Status Exam Mental Status Exam Narrative: Pt is alert and oriented; behavior is cooperative, friendly and calm; dressed in casual attire; mood is described as good ; eye contact appropriate; Speech is normal rate, volume and not pressured; thought process is organized and goal directed; Thought content is on tx; denies SI/HI/VH/AH. Diagnostics Vital Signs (24Hr): Vital Signs - 24 hr 04/16/24 20:00 04/17/24 09:10 Temperature 98.1 F 98.3 F Pulse Rate 97 85 Respiratory Rate 18 18 Blood Pressure 144/99 H 127/61 Pulse Oximetry 97 97 Oxygen Delivery Method Room Air Room Air BMI result Body Mass Index 25.4 Labs 04/09/24 11:56 04/09/24 11:56 Labs: Laboratory Results - last 48 hr 04/10/24 20:01 LILIAM Screen NEGATIVE LILIAM Titer TNP LILIAM Titer 2 TNP LILIAM Titer 3 TNP LILIAM Pattern TNP LILIAM Pattern 2 TNP LILIAM Pattern 3 TNP Imaging Radiology Impressions: ITS Impressions Head CT 04/10/24 13:38 IMPRESSION: No acute intracranial abnormality. 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 No hydrocephalus. Medications Medications Current Medications Acetaminophen (Acetaminophen 325 Mg Tablet) 650 mg PO Q6H PRN PRN Reason: Headache/Pain Mild Scale (1-3) Last Admin: 04/16/24 18:07 Dose: 650 mg Al Hydroxide/Mg Hydroxide (Magnesium Hydrox/Alum Hydrox 30 Ml Oral.Susp) 30 ml PO Q6H PRN PRN Reason: Heartburn/Nausea Benzocaine (Throat Lozenge, Medicated Lozenge) 1 lozenge MUCOUS MEM Q2H PRN PRN Reason: Sore Throat Last Admin: 04/16/24 03:11 Dose: 1 lozenge Fluticasone Propionate (Fluticasone Propionate Nasal 16 Gm [place]) 1 spray NOSTRIL-B DAILY CARLOS Stop: 04/19/24 09:01 Last Admin: 04/17/24 08:11 Dose: 1 spray Hydroxyzine HCl (Hydroxyzine Hcl 25 Mg Tablet) 25 mg PO Q6H PRN PRN Reason: Anxiety Last Admin: 04/16/24 23:07 Dose: 25 mg Ibuprofen (Ibuprofen 200 Mg Tablet) 200 mg PO Q4H PRN PRN Reason: uri sx Last Admin: 04/15/24 21:12 Dose: 200 mg Lorazepam (Lorazepam 0.5 Mg Tablet) 0.5 mg PO BID PRN PRN Reason: severe anxiety Last Admin: 04/11/24 20:38 Dose: 0.5 mg Magnesium Hydroxide (Milk Of Magnesia 30 Ml Oral.Susp) 30 ml PO DAILY PRN PRN Reason: Constipation Melatonin (Melatonin 3 Mg Tablet) 3 mg PO BEDTIME CARLOS Last Admin: 04/16/24 21:06 Dose: 3 mg Naproxen (Naproxen 500 Mg Tablet) 500 mg PO Q12H PRN PRN Reason: Headache Last Admin: 04/10/24 16:08 Dose: 500 mg Nicotine (Nicotine 21 Mg Patch.Td24) 21 mg TRANSDERMA DAILY PRN PRN Reason: nicotine cravings Nicotine Polacrilex (Nicotine Polacrilex 2 Mg Gum) 4 mg BUCCAL Q2H PRN PRN Reason: Nicotine Cravings Pt Own ( Norethindrone-E. Estradiol-Iron [ Blisovi Fe 09/24 () ] 1 Mg-20 Mc 1 tab PO DAILY CARLOS Last Admin: 04/17/24 09:48 Dose: 1 tab Propranolol HCl (Propranolol Hcl 10 Mg Tablet) 10 mg PO DAILY CARLOS; Protocol Last Admin: 04/17/24 08:11 Dose: 10 mg Trazodone HCl (Trazodone Hcl 50 Mg Tablet) 50 mg PO BEDTIME MRX1 PRN PRN Reason: Insomnia Last Admin: 04/15/24 21:08 Dose: 50 mg Venlafaxine HCl (Venlafaxine Hcl Er 75 Mg Cap.Er.24h) 75 mg PO DAILY CARLOS Last Admin: 04/17/24 08:12 Dose: 75 mg Vitamin D (Cholecalciferol (Vitamin D3) 25 Mcg Tablet) 50 mcg PO DAILY CARLOS Last Admin: 04/17/24 08:11 Dose: 50 mcg Allergies Allergies Allergy/AdvReac Type Severity Reaction Status Date / Time No Known Allergies Allergy Verified 04/09/24 10:41 Assessment & Plan Assessment & Plan (1) MDD (major depressive disorder), recurrent episode, moderate: Status: Acute Code(s): F33.1 - Major depressive disorder, recurrent, moderate Plan Mrs. Ball is a 38 year-old woman with hx of MDD, who self presents reporting increased depression, anxious mood, intermittent Si but no plan or intent to harm herself. She is finding it harder to function, go to work, easily overwhelmed, feeling of tiredness even after sleeping all night, no able to find tushar. She had been on lexapro for some years after few SSRI failed trials including sertraline, prozac and also tried wellbutrin. We discussed switching lexapro to effexor, hoping norepinephrine and serotonin may help with low energy. TSH wnl. B12 also wnl. She reports feeling of head warm on fire and headaches, will do head CT. Will check inflamatory markers given other physical symptoms of depression and anxiety- palpitation, headache, numbness and joint pain. PLAN 1. Admit to M5, CV, 15 minutes checks for safety 2. lowered lexapro to 10mg po daily, start venlafaxine to 37.5mg po daily. 3. head ct headache, vit d, esr, crp, liliam 4. obtain collateral information 5. aftercare planning- pt would benefit from stepping down to [facility] 04/11: Patient reports having some anxiety today;pt stated, I'm really sensitive when I'm switching medications. This usually happens where I get a brain fog and anxious. I've been trying to stay in my room and read because it calms me down . Pt reports sleeping well last night. denies SI/HI/VH/AH. Continue current tx plan. 04/12: Continue current tx plan. 04/13: Pt reports feeling a little better today. Pt stated, last evening I felt pretty good but I didn't sleep well last night, I'm not sure why . denies SI/HI/VH/AH. Discussed starting melatonin; pt agreed to trial. Start: Melatonin 3mg PO bedtime 04/14: Decrease Lexapro to 5 mg and increase Effexor to 75 mg. 04/15: Lower Lexapro to 2.5 tomorrow then stop. Continue Effexor XR 75 mg. 04/16: continue current tx plan. 04/17: Patient reports feeling good today; Pt stated, I feel ready to go home tomorrow . She reports sleeping well last night. Pt denies SI/HI/VH/AH. She plans on [place] [facility] intake is scheduled for tomorrow per social work. Patient educated on: diagnosis, medication risk/benefits and therapeutic strategies Informed Consent: understands Reason for continued inpatient stay Substantial Risk for: stable for discharge Time Spent With Patient Time: Total time managing care of this patient today _30___ minutes.
[2024-04-17] MEDS: Acetaminophen 325 MG TABLET 650 MG PO (17:41)
[2024-04-17 20:00] VITALS: BP 137/80; PULSE 110; RESP 18; TEMP 36.9; O2SAT 97
[2024-04-17] MEDS: Ibuprofen 200 MG TABLET PO (20:21)
[2024-04-17] MEDS: Melatonin 3 MG TABLET PO (20:21)
[2024-04-17] MEDS: hydrOXYzine HCL 25 MG TABLET PO (20:21)
[2024-04-17] MEDS: Throat Lozenge, Medicated LOZENGE 1 LOZENGE MUCOUS MEM (20:21)
[2024-04-18 08:00] VITALS: BP 141/87; PULSE 103; RESP 18; TEMP 36.6; O2SAT 97
[2024-04-18] MEDS: Fluticasone Propionate Nasal 16 GM SPRAY 1 SPRAY NOSTRIL-B (08:43)
[2024-04-18] MEDS: Propranolol HCL 10 MG TABLET PO (08:43)
[2024-04-18] MEDS: Venlafaxine HCl ER 75 MG CAP.ER.24H PO (08:44)
[2024-04-18] MEDS: Cholecalciferol (Vitamin D3) 25 MCG TABLET 50 MCG PO (08:44)
--- NOTE | 2024-04-18 10:41 | P.DS_ITS ---
DS: Providers Provider Date of Service: 04/18/24 Date of admission: 04/09/24 16:43 Date of discharge: 04/18/24 Primary care physician: CARMELO Mittal Admitting clinician: Yeny La Consults: 04/11/24 10:28 Consult to Neurology Routine Consulting Provider: [facility] Reason for consultation: pineal gland cyst, headaches Has provider been notified: Yes Attending physician on discharge: Keon Hoff DS: Diagnosis Discharge Diagnosis (1) MDD (major depressive disorder), recurrent episode, moderate: Status: Acute DS: Medications Discharge Medications Home Medications: Previous Rx's ?Medication ?Instructions ?Recorded norethindrone 1 mg-ethinyl 1 tab PO DAILY 30 days #30 tabs 04/16/24 estradiol 20 mcg (21)-iron 75 mg (7) tablet (Blisovi Fe 09/24 ()) cholecalciferol (vitamin D3) 25 50 mcg (2 x 25 mcg (1,000 unit)) 04/18/24 mcg (1,000 unit) tablet PO DAILY 30 days #60 tabs fluticasone propionate 50 1 spray intranasal DAILY 30 days 04/18/24 mcg/actuation nasal #16 grams spray,suspension hydroxyzine HCl 25 mg tablet 25 mg PO Q6H PRN Anxiety 30 days 04/18/24 #90 tabs melatonin 3 mg tablet 3 mg PO BEDTIME 30 days #30 tabs 04/18/24 propranolol 10 mg tablet 10 mg PO DAILY 30 days #30 tabs 04/18/24 venlafaxine 75 mg capsule,extended 75 mg PO DAILY 30 days #30 caps 04/18/24 release 24 hr Mental Status Exam Mental Status Exam Narrative: Pt is alert and oriented; behavior is cooperative, friendly and calm; patient is not in distress; dressed in casual attire and adequate hygiene; mood is described as good and affect congruent; eye contact appropriate; Speech is normal rate, volume and prosody and not pressured; no psychomotor agitation/retardation present; thought process is organized and goal directed; Thought content is on tx; otherwise pertinent to relevant topics and without any delusional content, paranoid ideations or grandiosity; denies any SI/HI. There is no evidence of perceptual disturbance. Patients insight and judgment appear intact. Data Data Completed and Pending Completed studies during hospitalization [Text1]: 04/10/24 04/13/24 20:01 16:42 BETSY Screen NEGATIVE BETSY Titer TNP BETSY Titer 2 TNP BETSY Titer 3 TNP BETSY Pattern TNP BETSY Pattern 2 TNP BETSY Pattern 3 TNP Influenza Type A (PCR) NEGATIVE Influenza Type B (PCR) NEGATIVE RSV RNA Qual (PCR) NEGATIVE SARS-CoV-2 RNA (RT-PCR) NEGATIVE 04/09/24 Unknown Urine clean catch - Clean Catch Midstream Urine Culture - Final Lactobacillus species Imaging Diagnostic Imaging Impressions Head CT 04/10/24 13:38 IMPRESSION: No acute intracranial abnormality. 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 No hydrocephalus. DS: Summary Hospital Course Hospital Course: HPI: Ms. Ball is a 38 year-old woman with hx of depression and anxiety. Pt self presented to [facility] ED reporting increased depressed mood, difficulty concentrating, increase anxious mood with periods of increase anxiety leading to what she calls panic attacks. Reports intermittent Si but no plan or intent to harm herself. She is finding it harder to function, go to work, easily overwhelmed, feeling of tiredness even after sleeping all night, no able to find tushar. In the ED utox is negative. On the unit, pt presents as pleasant. She reports she has been in treatment for depression and anxiety since 2017. She had been stable for sometime. She reports for the past 2-3 months she has been feeling more depressed, anxious. She reports every day to day task feels very overwhelming. She is facing financial stress and behind her mortgage. She is head of household and has two children ages 15 and 19. She endorses anhedonia, h opelessness, depressed mood, poor concentration. Sleep is okay. She reports feeling tired all the time, even after sleeping. She reports at times passive SI but adamantly denies any plan or intent to harm herself. She identifies her children and current partner as protective factors. No psychosis or delusional content noted or reported. She is currently on lexapro which she reported helped for sometime but now feels is not as effective. She reports feeling of head warm on fire and headaches; on unit workup showed labs, head CT wnl. Hospital course: Depressed but cooperative and engaged. No SI. Provider Discussed medications had been on lexapro for some years after few SSRI failed trials including sertraline, prozac and also tried wellbutrin. We discussed switching lexapro to effexor, hoping norepinephrine and serotonin may help with low energy. Patient was cross tapered to Effexor. 04/11: Patient reports having some anxiety today;pt stated, I'm really sensitive when I'm switching medications. This usually happens where I get a brain fog and anxious. I've been trying to stay in my room and read because it calms me down . Pt reports sleeping well last night. denies SI/HI/VH/AH. Continue current tx plan. 04/12: Continue current tx plan. 04/13: Pt reports feeling a little better today. Pt stated, last evening I felt pretty good but I didn't sleep well last night, I'm not sure why . denies SI/HI/VH/AH. Discussed starting melatonin; pt agreed to trial. Start: Melatonin 3mg PO bedtime; continue plan to Decrease Lexapro to 5 mg and increase Effexor to 75 mg. 04/15:Patient feels less tired. Says her mood is improving. She was up yesterday afternoon and felt less anxious. Tolerating cross titration from Lexapro to Effexor. No side effects. Applied for FMLA. Future oriented. Discussed potential for PHP Lower Lexapro to 2.5 tomorrow then stop. Continue Effexor XR 75 mg. 04/16: Pt reports she is starting to feel a lot better ; pt stated, I feel like my meds are okay. I'm feeling happier . Pt denies SI/HI/VH/AH. 04/17: Pt reports feeling good today; Pt stated, I feel ready to go home tomorrow . She reports sleeping well last night. Pt denies SI/HI/VH/AH. She plans on attending PHP at [facility], her intake is scheduled for tomorrow per social work. Patient returned to baseline; depression abated, good mood future oriented and discharging to attend [facility] on same day of discharge. Patient not in imminent risk for harm to self or others and appropriate to return to the community for care Time spent discussing smoking cessation with patient: 3 to 10 minutes Status at Discharge Functional status at discharge: independent ambulation Overall status at discharge: patient is back to baseline Time Spent with Patient Time attestation: Total time managing care of this patient today ____ minutes. Time spent: Greater than 30 minutes Discharge Plan Discharge Anticipated Discharge Date/Time: 04/18/24 11:00 Patient Disposition: Home, Self-Care Discharge Diagnosis: MDD, recurrent, severe w/out psychosis, in full remission Referrals: [facility] Partial Hospitalization Program (PHP) [Other] - 04/18/24 10:30 am (Initial intake for [facility] PHP program Appointment in person at PHP [facility], [facility].) [facility]: Daphney Gonzales (therapist) [Other] - 04/20/24 3:45 pm (Hospital discharge appointment with therapist appointment in person at [facility] in [place] ) [facility]: Daphney Gonzales (therapist) [Other] - 04/24/24 9:15 am (scheduled therapy appointment Appointment in person at [facility] clinic in [place] ) [facility]: Daphney Gonzales (therapist) [Other] - 04/27/24 3:45 pm (scheduled therapy appointment Appointment is in person at [facility] clinic in [place]) [facility]: Magaly Arroyo (psychiatry) [Other] - 05/01/24 9:30 am (Hospital discharge appointment for psychiatric medication management Appointment is by tele-health ) Thom Barney FNP [Primary Care Provider] - ([facility] system is down. office will call patient with follow-up appointment.) Discharge Medications: New hydroxyzine HCl 25 mg Tablet 25 mg PO Q6H PRN (Reason: Anxiety) 30 Days Qty: 90 0RF venlafaxine 75 mg Capsule,Extended Release 24hr 75 mg PO DAILY 30 Days Qty: 30 0RF fluticasone propionate 50 mcg/actuation [place],Suspension 1 spray intranasal DAILY 30 Days Qty: 16 0RF cholecalciferol (vitamin D3) 25 mcg (1,000 unit) Tablet 50 mcg PO DAILY 30 Days Qty: 60 0RF melatonin 3 mg Tablet 3 mg PO BEDTIME 30 Days Qty: 30 0RF Continued norethindrone-e.estradiol-iron [Blisovi Fe 09/24 (28)] 1 mg-20 mcg (21)/75 mg (7) tablet 1 tab PO DAILY 30 Days Qty: 30 1RF Changed propranolol 10 mg tablet 10 mg PO DAILY 30 Days Qty: 30 0RF Discontinued escitalopram oxalate [Lexapro] 20 mg tablet 20 mg PO DAILY Qty: 90 0RF Discharge Orders: Discharge Order (Routine); Ordered 04/18/24 Ordered By: Keon Hoff Diet: Regular diet Activity on Discharge: As tolerated Stand Alone Forms: Patient Portal Discharge page, Community Support Print Language: Polish Care Plan Goals: Maintain mood and safe behaviors Take medications as prescribed Practice coping skills Continue with outpatient providers and reach out to them as needed Health Concerns: Mood stability and behaviors hx of pelvic pain Plan of Treatment: Follow up with your PCP, psychiatric provider and other outpatient providers regarding above concerns Take medications as prescribed Assessment: Risk assessment at time of discharge:? Patient was interviewed prior to discharge and found to be fully oriented and without any SI or HI. Patient has improved insight and judgment and wants to continue treatment. Patient is not in imminent risk of harm to self or others and has a safety plan that includes presenting to the closest ER or calling 911 if feeling unsafe.? Patient has been observed closely by nursing and unit staff throughout admission; patient has not engaged in any behaviors that suggest dangerousness to self or others and has demonstrated appropriate behaviors and impulse control Discharge Date/Time: 04/18/24 10:49
== END 2024-04-18 10:49 | disposition home or self-care (01) | DRG 751 ==
LOC: HO.ED 13:34 → HO.PM5 16:48
PROVIDERS: Physician Assistant; Social Worker; Admitting Provider Clinical Nurse Specialist Psychiatric/Mental Health, Adult; Emergency Provider Emergency Medicine; PCP Nurse Practitioner Primary Care; Visit Provider Clinical Nurse Specialist Psychiatric/Mental Health, Adult
DX: F33.2 Major depressive disorder, recurrent severe without psychotic features (principal); R45.851 Suicidal ideations; Z20.822 Contact with and (suspected) exposure to COVID-19; Z79.51 Long term (current) use of inhaled steroids; Z79.899 Other long term (current) drug therapy
CPT/HCPCS: 0241U; 36415; 70450; 80053; 80061; 80307; 81001; 81025; 82306; 82607; 82746; 83036; 83735; 84439; 84443; 84484; 85025; 85379; 85652; 86038; 86140; 87086; 93005; 99285; S9485

== ENCOUNTER → 2024-04-09 12:25 | Outpatient (BNV) | payer OTHER, SELFPAY | PROVIDERS: Admitting Provider Clinical Nurse Specialist Psychiatric/Mental Health, Adult; Emergency Provider Emergency Medicine; PCP Nurse Practitioner Primary Care; Visit Provider Internal Medicine Cardiovascular Disease | DX: R94.31 Abnormal electrocardiogram [ECG] [EKG] (principal) | CPT/HCPCS: 93010 ==

== ENCOUNTER → 2024-04-09 16:43 | Outpatient (BNV) | payer OTHER, SELFPAY | PROVIDERS: Admitting Provider Clinical Nurse Specialist Psychiatric/Mental Health, Adult; Emergency Provider Emergency Medicine; PCP Nurse Practitioner Primary Care; Visit Provider Social Worker | DX: F33.1 Major depressive disorder, recurrent, moderate (principal) | CPT/HCPCS: 90792; 99231; 99232; 99238 ==

== ENCOUNTER → 2024-04-09 16:43 | Outpatient (BNV) | payer OTHER, SELFPAY | PROVIDERS: Admitting Provider Clinical Nurse Specialist Psychiatric/Mental Health, Adult; Emergency Provider Emergency Medicine; PCP Nurse Practitioner Primary Care; Visit Provider Psychiatry & Neurology Neurology | DX: G44.209 Tension-type headache, unspecified, not intractable (principal); E34.8 Other specified endocrine disorders | CPT/HCPCS: 99222 ==

== ENCOUNTER 2024-04-30 09:45 | Outpatient (RCR) | payer OTHER, SELFPAY ==
[2024-04-19 11:07] VITALS: BP 124/94; PULSE 80; TEMP 36.3
[2024-04-19 11:09] VITALS: BMI 25.1
--- NOTE | 2024-04-19 11:54 | PC.ADMIT ---
Patient is a 39 year old single mother who self presented to [facility] ER secondary to increased depression and anxiety with panic attacks. Reported poor functioning with poor concentration at the time. Patient calling out of work d/t symptoms. Patient was referred to [facility] by [facility] inpatient behavioral health unit where she was admitted from 04/09/24-04/18/24. Per records patient reported financial stresses and being behind on bills/mortgage. Patient currently is alert and oriented x4. Calm and cooperative. She presented with depressed mood and anxious affect. Denied SI, no HI. She was given a copy of her safety plan if needed. She report improvement in symptoms since hospitalization however reports experiencing some brain fog, with some depression and anxiety. Taking a leave of absence from work to work on mental health. Plans on going back to work on May 15, 2024. Medications reconciled with patient and [facility] medical records. She stated she did not take her medications today as she is going to pick out hand her medications from the pharmacy after she leaves here.
--- NOTE | 2024-04-19 14:57 | HO.PHP ---
Pt's case has been opened and reviewed in treatment team.
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
--- NOTE | 2024-04-23 08:26 | HO.PHP ---
PHP admin, Keya, informed the PHP team that Radha will not be in attendance to program today due to not feeling well. Keya reported no safety concerns for Radha.
--- NOTE | 2024-04-24 08:44 | HO.PHP ---
PHP admin, Keya, informed the PHP team that Radha will not be in attendance to program due to being sick still. Radha reported no safety concerns to Keya.
--- NOTE | 2024-04-27 14:10 | HO.PHP ---
PHP Admin, Keya, informed the team that Radha will not be in attendance to program today due to being sick. Radha reported no safety concerns and will be in attendance to program on Tuesday.
--- NOTE | 2024-04-27 22:52 | PM.EVENT ---
Event Note Date of Service: 04/28/24 Event Note: Patient was scheduled to be seen but did not come in to program today. Time Spent With Patient Time: Total time managing care of this patient today ____ minutes.
--- NOTE | 2024-05-01 08:17 | HO.PHP ---
PHP admin, Keya, informed the PHP team that Radha is being discharged today due to having pneumonia and is unable to continue at this time. Keya did let Radha know that when she is feeling better she can contact her and complete a reassessment. Keya voiced that she informed Radha that a clinician will be contacting her to gather the remainder of the discharge information.
== END 2024-04-30 23:59 | disposition home or self-care (01) ==
LOC: HO.PHPA 09:45
PROVIDERS: Visit Provider Psychiatry & Neurology Psychiatry
DX: F33.9 Major depressive disorder, recurrent, unspecified (principal); F41.1 Generalized anxiety disorder; Z79.899 Other long term (current) drug therapy
CPT/HCPCS: 90791; 90853

== ENCOUNTER 2024-05-04 08:52 | Emergency (ER) | payer OTHER, SELFPAY ==
--- NOTE | ~2024-05-04 | XR_ITS ---
EXAMINATION: XR CHEST CLINICAL INFORMATION: Progressive cough and shortness of breath. COMPARISON: Chest radiograph 10/03/2020. TECHNIQUE: 2 views of the chest were obtained. FINDINGS: Normal appearance of the cardiomediastinal silhouette. No focal consolidation, pleural effusion or pneumothorax. No acute osseous findings. XR/XR chest 2V IMPRESSION: No acute cardiopulmonary findings. Electronically signed by: Estella Wooten MD 05/04/2024 09:28 AM EDT
--- NOTE | 2024-05-04 08:55 | ED.GENADULT ---
HPI - General Adult General Chief complaint: Upper Respiratory Symptoms Stated complaint: Pneumonia Time Seen by Provider: 05/04/24 08:54 Source: patient Mode of arrival: ambulatory Limitations: no limitations History of Present Illness HPI narrative: Patient is a 39-year-old female with past medical history of anxiety, depression, mood disorder, SVT who presents to the emergency department for evaluation. She states that she was evaluated at an urgent care earlier this week, had a chest x-ray done which showed evidence of pneumonia by her account, she was given a prescription for a Z-Yogesh and Augmentin to take twice daily for 1 week. She has completed 4 days of the Augmentin at this time. She states that she continues to have a nonproductive cough, shortness of breath, in pain just bilateral lower thoracic region that is exacerbated during cough. Denies fevers or chills. Denies any underlying lung disease Related Data Previous Rx's ?Medication ?Instructions ?Recorded norethindrone 1 mg-ethinyl 1 tab PO DAILY 30 days #30 tabs 04/16/24 estradiol 20 mcg (21)-iron 75 mg (7) tablet (Blisovi Fe 09/24 (28)) cholecalciferol (vitamin D3) 25 50 mcg (2 x 25 mcg (1,000 unit)) 04/18/24 mcg (1,000 unit) tablet PO DAILY 30 days #60 tabs fluticasone propionate 50 1 spray intranasal DAILY 30 days 04/18/24 mcg/actuation nasal #16 grams spray,suspension hydroxyzine HCl 25 mg tablet 25 mg PO Q6H PRN Anxiety 30 days 04/18/24 #90 tabs melatonin 3 mg tablet 3 mg PO BEDTIME 30 days #30 tabs 04/18/24 propranolol 10 mg tablet 10 mg PO DAILY 30 days #30 tabs 04/18/24 venlafaxine 75 mg capsule,extended 75 mg PO DAILY 30 days #30 caps 04/18/24 release 24 hr albuterol sulfate 90 mcg/actuation 2 puff inhalation Q4-6H PRN 05/04/24 aerosol inhaler (Ventolin HFA) shortness of breath or wheezing #6.7 grams prednisone 20 mg tablet 40 mg (2 x 20 mg) PO DAILY 4 days 05/04/24 #8 tabs Allergies Allergy/AdvReac Type Severity Reaction Status Date / Time No Known Allergies Allergy Verified 05/04/24 08:59 Review of Systems Review of Systems: Yes all other systems are reviewed and are negative [facility] Past Medical History Attestation statement: The following information was validated with the patient. Source: old records reviewed Medical History Screening due Mood disorder Acute adjustment disorder with anxiety No known health problems Depression Tachycardia Family History Family History Mother Hypercholesteremia Arthritis Father HTN (hypertension) Hypercholesteremia Emphysema lung Manic depression Tachycardia Heart attack Stroke Maternal Grandfather Colon cancer Sister Suicide Social History Social History Household Members: Children Household Members Other:: 2 children ages 15 years old and 18 years old Housing: House Do you presently have visiting nurse or other home services: No Alcohol intake: never Patient Tobacco Use Status: Never used Tobacco Smoked in Last 30 Days: No e-Cigarette/Vaping Use: Never Used Second Hand Smoke Exposure: Yes Use of substances other than those prescribed or required for medical reasons: No Advance Directives: No Advance Directives Information Provided: No service: No Current occupational status: employed 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 No acute distress.?Normal affect. Eyes: Pupils equal, round and reactive to light.? ENT: Pharynx normal.?? Neck: Normal inspection.? Neck supple.?? CVS: Heart sounds normal. Normal heart rate and rhythm.? Pulses normal.?? Respiratory: No respiratory distress.? Lung sounds clear to auscultation bilaterally, diminished at the bases. Tenderness upon palpation of the bilateral lower chest wall posteriorly. No crepitus. No deformities. Abdomen: Soft and non-tender. Normoactive bowel sounds. ? Skin: Skin warm and dry.? Normal skin color.?? Extremities: No lower extremity edema.? No calf ttp? Neuro: Moves all extremities spontaneously. Sensation intact bilaterally. Ambulates with normal steady gait. Course Reevaluation(s) Reevaluation #1: CXR today without evidence of consolidation or infiltrate, no notable pleural effusion. Suspect symptoms at this time most likely secondary to costochondritis, bronchitis in the setting of recent illness. Discussed conservative treatment, short course of prednisone and instructed on use of albuterol inhaler as needed for shortness of breath or persistent cough. Outpatient follow-up with primary care doctor. Time: 09:34 Medications Administered Discontinued Medications Generic Name Dose Route Start Last Admin Trade Name Freq PRN Reason Stop Dose Admin Ibuprofen 600 mg 05/04/24 09:01 05/04/24 09:08 Ibuprofen 600 Mg Tablet PO 05/04/24 09:02 600 mg ONCE ONE Administration Prednisone 40 mg 05/04/24 09:01 05/04/24 09:08 Prednisone 20 Mg Tablet PO 05/04/24 09:02 40 mg ONCE ONE Administration Medical Decision Making Medical Decision Making MDM Narrative: Patient is a 39-year-old female with past medical history of anxiety, depression, mood disorder, SVT presenting to emergency department for evaluation of mildly progressive symptoms of pneumonia without much improvement despite antibiotics for the past 4 days. She has not trialed additional OTC medications including analgesics. Overall she appears well, nontoxic, afebrile. She is in no respiratory distress. No tachycardia tachypnea or hypoxia. Plan to obtain CXR for evaluation in addition to viral panel. Differential Diagnosis Differential Diagnoses: The differential diagnosis associated with the presentation includes Costochondritis, bacterial pneumonia, viral pneumonia, COVID-19. She is on oral contraceptives, no clinical evidence of DVT in the setting of recently diagnosed pneumonia suspect pulmonary embolism to be less likely. No risk factors for ACS, unlikely pain secondary to dissection. Admission/Observation Consideration of admission/observation: Escalation of care including admission/observation considered Lab Data [facility] Lab Attestation statement: I reviewed the patient's lab results. (Viral panel negative) Labs: Lab Results 05/04/24 Range/Units 09:10 Influenza Type A (PCR) NEGATIVE (Negative) Influenza Type B (PCR) NEGATIVE (Negative) RSV RNA Qual (PCR) NEGATIVE (Negative) SARS-CoV-2 RNA (RT-PCR) NEGATIVE (Negative) Independent Interpretation I performed an independent interpretation of an: Plain X-Ray (No consolidation or infiltrate) Radiology Impression Discussion of test interpretation with radiology: I have reviewed the radiologist's reading. Radiologist Impression: XR/XR chest 2V IMPRESSION: No acute cardiopulmonary findings. External Record Review External record reviewed: Outpatient record Prescription Management I considered prescription management with: Pain Medication, Antibiotic (Continue as prescribed) and Other (Prednisone, albuterol) Discharge Plan Discharge Clinical Impression: Bronchitis, Costochondritis Patient Disposition: Home, Self-Care Instructions: Costochondritis (ED), How to Use a Metered-Dose Inhaler (ED), Acute Bronchitis (ED) Additional Instructions: Your x-ray today does not show any evidence of pneumonia. As discussed, you can develop inflammation in the setting of recent illness as you have experienced. I would advised her to complete your entire course of antibiotics as previously prescribed. A prescription for prednisone has been sent to your pharmacy please take this as prescribed with food in the morning to prevent stomach upset. I have also prescribed an inhaler to use as needed for shortness of breath or persistent cough. Please be advised, cough and symptoms associated with this for some people can last up to 6 weeks. Please follow-up with your primary care doctor as needed. Prescriptions: New prednisone 20 mg tablet 40 mg PO DAILY 4 Days Qty: 8 0RF albuterol sulfate [Ventolin HFA] 90 mcg/actuation HFA aerosol inhaler 2 puff inhalation Q4-6H PRN (Reason: shortness of breath or wheezing) Qty: 6.7 0RF No Action norethindrone-e.estradiol-iron [Blisovi Fe 09/24 (28)] 1 mg-20 mcg (21)/75 mg (7) tablet 1 tab PO DAILY 30 Days Qty: 30 1RF hydroxyzine HCl 25 mg Tablet 25 mg PO Q6H PRN (Reason: Anxiety) 30 Days Qty: 90 0RF venlafaxine 75 mg Capsule,Extended Release 24hr 75 mg PO DAILY 30 Days Qty: 30 0RF fluticasone propionate 50 mcg/actuation [place],Suspension 1 spray intranasal DAILY 30 Days Qty: 16 0RF cholecalciferol (vitamin D3) 25 mcg (1,000 unit) Tablet 50 mcg PO DAILY 30 Days Qty: 60 0RF melatonin 3 mg Tablet 3 mg PO BEDTIME 30 Days Qty: 30 0RF propranolol 10 mg tablet 10 mg PO DAILY 30 Days Qty: 30 0RF Interventions: ED Discharge Assessment Last Done: 05/04/24 09:54 Discharge Date/Time: 05/04/24 10:01 Print Language: Tristanian
[2024-05-04 08:58] VITALS: BP 143/92; PULSE 83; RESP 18; TEMP 36.4; O2SAT 100; BMI 27.6
[2024-05-04] MEDS: Ibuprofen 600 MG TABLET PO (09:08)
[2024-05-04] MEDS: predniSONE 20 MG TABLET 40 MG PO (09:08)
[2024-05-04 09:49] LABS: Influenza A PCR NEGATIVE (Negative); Influenza B PCR NEGATIVE (Negative); Resp Syncy Virus RNA Qual PCR NEGATIVE (Negative); SARS COV2 PCR INHOUSE NEGATIVE (Negative)
[2024-05-04 09:54] VITALS: BP 143/92; PULSE 83; RESP 18; TEMP 36.4; O2SAT 100
== END 2024-05-04 10:01 | disposition home or self-care (01) ==
PROVIDERS: Nurse Practitioner Family; Emergency Provider Emergency Medicine; PCP Nurse Practitioner Primary Care
DX: J40 Bronchitis, not specified as acute or chronic (principal); M94.0 Chondrocostal junction syndrome [Tietze]; Z03.818 Encounter for observation for suspected exposure to other biological agents ruled out; R06.02 Shortness of breath; R05.9 Cough, unspecified; Z79.899 Other long term (current) drug therapy
CPT/HCPCS: 0241U; 71046; 99283; 99284

== ENCOUNTER 2024-05-11 08:51 | Emergency (ER) | payer OTHER, SELFPAY ==
[2024-05-11 09:00] VITALS: BP 143/90; PULSE 83; RESP 18; TEMP 36.3; O2SAT 98; BMI 25.6
[2024-05-11 09:56] LABS: Influenza A PCR NEGATIVE (Negative); Influenza B PCR NEGATIVE (Negative); Resp Syncy Virus RNA Qual PCR NEGATIVE (Negative); SARS COV2 PCR INHOUSE NEGATIVE (Negative)
[2024-05-11 10:07] VITALS: BP 138/86; PULSE 76; RESP 16; O2SAT 98
--- NOTE | 2024-05-11 10:29 | ED.GENADULT ---
HPI - General Adult General Chief complaint: General Medical Stated complaint: Multiple Complaints Time Seen by Provider: 05/11/24 10:29 Source: patient Mode of arrival: ambulatory Limitations: no limitations History of Present Illness ED Provider: Dr. Alvaro Sinha HPI narrative: 39-year-old female with past medical history of anxiety, depression, mood disorder, SVT, who presents emergency department for evaluation of constant, nonproductive cough for 3 weeks, nonbloody diarrhea 4 to 5 times a day on and off for 2 weeks, muscle aches, body aches, chills on and off for 2 days. Patient states that she has completed a Zithromax Z-Yogesh and a course of Augmentin with no improvement of her symptoms. She also completed a course of prednisone and he was an albuterol inhaler with no improvement of her symptoms. Patient was seen in the emergency department on 05/04/2024 and at that time had normal laboratory evaluation and a chest x-ray which was unremarkable. Related Data Previous Rx's ?Medication ?Instructions ?Recorded norethindrone 1 mg-ethinyl 1 tab PO DAILY 30 days #30 tabs 04/16/24 estradiol 20 mcg (21)-iron 75 mg (7) tablet ([place] Fe 09/24 (28)) cholecalciferol (vitamin D3) 25 50 mcg (2 x 25 mcg (1,000 unit)) 04/18/24 mcg (1,000 unit) tablet PO DAILY 30 days #60 tabs fluticasone propionate 50 1 spray intranasal DAILY 30 days 04/18/24 mcg/actuation nasal #16 grams spray,suspension hydroxyzine HCl 25 mg tablet 25 mg PO Q6H PRN Anxiety 30 days 04/18/24 #90 tabs melatonin 3 mg tablet 3 mg PO BEDTIME 30 days #30 tabs 04/18/24 propranolol 10 mg tablet 10 mg PO DAILY 30 days #30 tabs 04/18/24 venlafaxine 75 mg capsule,extended 75 mg PO DAILY 30 days #30 caps 04/18/24 release 24 hr albuterol sulfate 90 mcg/actuation 2 puff inhalation Q4-6H PRN 05/04/24 aerosol inhaler (Ventolin HFA) shortness of breath or wheezing #6.7 grams prednisone 20 mg tablet 40 mg (2 x 20 mg) PO DAILY 4 days 05/04/24 #8 tabs Allergies Allergy/AdvReac Type Severity Reaction Status Date / Time No Known Allergies Allergy Verified 05/11/24 09:03 Review of Systems Review of Systems: Yes all other systems are reviewed and are negative [facility] Past Medical History [facility] Narrative: Social history: She denies tobacco and alcohol use. She denies drug use. Medical History Screening due Mood disorder Acute adjustment disorder with anxiety No known health problems Depression Tachycardia Family History Family History Mother Hypercholesteremia Arthritis Father HTN (hypertension) Hypercholesteremia Emphysema lung Manic depression Tachycardia Heart attack Stroke Maternal Grandfather Colon cancer Sister Suicide Social History Social History Household Members: Children Household Members Other:: 2 children ages 15 years old and 18 years old Housing: House Do you presently have visiting nurse or other home services: No Alcohol intake: never Patient Tobacco Use Status: Never used Tobacco e-Cigarette/Vaping Use: Never Used Second Hand Smoke Exposure: Yes Advance Directives: No Advance Directives Information Provided: Yes Do you have a plan to hurt others: No Plan service: No Current occupational status: employed 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 Sexual orientation: Straight/Heterosexual Gender identity: Female Physical Exam ED Vital Signs: Vital Signs - 24 hr 05/11/24 09:00 05/11/24 10:07 05/11/24 12:41 Temperature 97.4 F 97 F Pulse Rate 83 76 82 Respiratory Rate 18 16 16 Blood Pressure 143/90 H 138/86 123/62 Pulse Oximetry 98 98 95 Oxygen Delivery Method Room Air Room Air Room Air BMI result Body Mass Index 25.6 Vital signs revealed an elevated blood pressure of 143/90 this improved without treatment otherwise vital signs were normal Exam: General: Awake, alert in no distress Head: Normocephalic, atraumatic EENT: PERRL, Lids normal, sclera normal, conjunctiva normal, nose normal , ears normal, throat without erythema or exudates Neck: Supple, no adenopathy Lung: breath sounds symmetric, no wheezing, rales or rhonchi Chest: symmetric movement, nontender Heart: regular rate and rhythm, normal S1, S2 no murmurs or rubs Abdomen: soft, non-tender, nondistended, normal bowel sounds Back: no vertebral tenderness, no CVAT Extremities: no deformities, moves all extremities symmetrically, no increased warmth or effusion over the patient's major joints Neuro: Awake, alert, oriented, normal speech, cranial nerves intact, moves all extremities symmetrically Psych: Pleasant, cooperative Medical Decision Making Medical Decision Making MDM Narrative: 39-year-old female with past medical history of anxiety, depression, mood disorder, SVT, who presents emergency department for evaluation of constant, nonproductive cough for 3 weeks, nonbloody diarrhea 4 to 5 times a day on and off for 2 weeks, muscle aches, body aches, chills on and off for 2 days. Patient states that she has completed a Zithromax Z-Yogesh and a course of Augmentin with no improvement of her symptoms. She also completed a course of prednisone and he was an albuterol inhaler with no improvement of her symptoms. Vital signs revealed an initial elevated blood pressure but this improved without treatment. Physical examination was unremarkable. Differential diagnosis: ?Includes but is not limited to pneumonia, bronchitis, viral URI, tick-borne illness, COVID-19, influenza, RSV Following evaluation was ordered: COVID-19, influenza, RSV, tick-borne illness panel Course: My interpretation patient's laboratory evaluation is as follows: COVID-19, influenza, RSV were normal. Patient most likely has a viral URI which has not resolved or she may have had [id number] viral URIs. I did discuss this with the patient. She was completed 2 courses of antibiotic and I do not think that there is a need for another course of antibiotics since this is most likely a viral syndrome. Patient does not appear to be dehydrated and I do not think that she needs IV fluid at this time. Patient's myalgias and arthralgias could be caused by a tick-borne illness therefore I ordered the tick-borne illness panel. I did discuss this with the patient. She was given printed and verbal instructions and discharged home. Admission/Observation Consideration of admission/observation: Escalation of care including admission/observation considered Lab Data [facility] Lab Attestation statement: I reviewed the patient's lab results. Labs: Lab Results 05/11/24 Range/Units 09:08 Influenza Type A (PCR) NEGATIVE (Negative) Influenza Type B (PCR) NEGATIVE (Negative) RSV RNA Qual (PCR) NEGATIVE (Negative) SARS-CoV-2 RNA (RT-PCR) NEGATIVE (Negative) Discharge Plan Discharge Clinical Impression: Viral upper respiratory illness, Myalgia, Arthralgia Patient Disposition: Home, Self-Care Instructions: Upper Respiratory Infection (ED) Additional Instructions: Your COVID-19, influenza and RSV tests were negative. At this time, I believe that your symptoms are due to a viral infection especially since you did not get better on antibiotics. Sometimes cold viruses can take 4-6 weeks before your body fights them off. Also, sometimes she will get back to back viruses that can make you sick. Take ibuprofen 200 mg pills, 2 pills every 6 hours as needed for pain or fever. Take Tylenol (acetaminophen) 500 mg pills, 2 pills every 6 hours as needed for pain or fever. Joint and muscle pain can go along with viral illness however sometimes tick-borne illnesses can also cause these symptoms therefore I tested you for the common tick-borne illnesses that we see in [place]. You would only need treatment if any of these tests are positive. These tests will come back in 1 week and I want you to check the patient portal. The ED should contact you if any these tests are positive in you treatment. Follow-up with your doctor in 2 days. Please return to the emergency department if your symptoms get worse or if you develop any symptoms that are concerning to you. Prescriptions: No Action prednisone 20 mg tablet 40 mg PO DAILY 4 Days Qty: 8 0RF albuterol sulfate [Ventolin HFA] 90 mcg/actuation HFA aerosol inhaler 2 puff inhalation Q4-6H PRN (Reason: shortness of breath or wheezing) Qty: 6.7 0RF norethindrone-e.estradiol-iron [Blisovi Fe 09/24 (28)] 1 mg-20 mcg (21)/75 mg (7) tablet 1 tab PO DAILY 30 Days Qty: 30 1RF hydroxyzine HCl 25 mg Tablet 25 mg PO Q6H PRN (Reason: Anxiety) 30 Days Qty: 90 0RF venlafaxine 75 mg Capsule,Extended Release 24hr 75 mg PO DAILY 30 Days Qty: 30 0RF fluticasone propionate 50 mcg/actuation [place],Suspension 1 spray intranasal DAILY 30 Days Qty: 16 0RF cholecalciferol (vitamin D3) 25 mcg (1,000 unit) Tablet 50 mcg PO DAILY 30 Days Qty: 60 0RF melatonin 3 mg Tablet 3 mg PO BEDTIME 30 Days Qty: 30 0RF propranolol 10 mg tablet 10 mg PO DAILY 30 Days Qty: 30 0RF Interventions: ED Discharge Assessment Last Done: 05/11/24 12:41 Discharge Date/Time: 05/11/24 12:42 Print Language: Eritrean
[2024-05-11 12:41] VITALS: BP 123/62; PULSE 82; RESP 16; TEMP 36.1; O2SAT 95
[2024-05-14 18:19] LABS: A. Phagocytphilium DNA,RT-PCR NOT DETECTED (NOT DETECTED); Babesia Microti DNA, RT-PCR NOT DETECTED (NOT DETECTED); Borrelia Miyamotoi,DNA RT-PCR NOT DETECTED (NOT DETECTED); E.Chaffeensis DNA RT-PCR NOT DETECTED (NOT DETECTED); Lyme(Borrelia ssp)DNA RT-PCR NOT DETECTED (NOT DETECTED)
== END 2024-05-11 12:42 | disposition home or self-care (01) ==
PROVIDERS: Emergency Provider Emergency Medicine Emergency Medical Services
DX: J06.9 Acute upper respiratory infection, unspecified (principal); M79.10 Myalgia, unspecified site; M25.50 Pain in unspecified joint; R05.9 Cough, unspecified; Z03.818 Encounter for observation for suspected exposure to other biological agents ruled out; Z79.899 Other long term (current) drug therapy
CPT/HCPCS: 0241U; 36415; 87468; 87469; 87478; 87484; 87798; 99283

== ENCOUNTER 2024-05-15 15:12 | Outpatient (AMB) | payer OTHER, SELFPAY ==
--- NOTE | 2024-05-15 15:15 | MHC.OFFVIS ---
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 Doing well with no concerns. Recovering from pneumonia. Plans to eat healthier, and workout when she has the energy., Currently is sexually active. Doing well on OCPs and wants to continue. She denies any contraindications to control such as: migraines with aura, history of DVT or pulmonary emboli, high blood pressure, liver disease, thrombolic disorders, Lupus, +BETSY, breast cancer, or smoking. She denies vaginal itching and irritation. STI screening offered; she declined. Denies family history of breast or ovarian cancer. FH colon cancer. Last pap smear 2019, negative. Mammogram: 2022. [facility] Medical History Screening due Mood disorder Acute adjustment disorder with anxiety No known health problems Depression Tachycardia Family History Mother Hypercholesteremia Arthritis Father HTN (hypertension) Hypercholesteremia Emphysema lung Manic depression Tachycardia Heart attack Stroke Maternal Grandfather Colon cancer Sister Suicide Social History Household Members: Children Household Members Other:: 2 children ages 15 years old and 18 years old Housing: House Do you presently have visiting nurse or other home services: No Alcohol intake: never Patient Tobacco Use Status: Never used Tobacco e-Cigarette/Vaping Use: Never Used Second Hand Smoke Exposure: Yes service: No Current occupational status: employed 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 Sexual orientation: Straight/Heterosexual Gender identity: Female Female Reproductive History Menstrual control method: pills Total pregnancies: 2 Full term: 2 Number of Living Children: 2 Date of last pap smear: 12/24/19 History of abnormal pap smear: No History of STI: No Date of Mammogram: 04/21/23 History of abnormal mammogram: No Review of Systems Const All systems reviewed & are unremarkable except as noted in HPI and below Reports as per HPI Eyes Reports no additional complaints ENT Reports no additional complaints Card Reports no additional complaints Resp Reports no additional complaints GI Reports as per HPI and Reports no additional complaints Reports as per HPI Musc Reports no additional complaints Skin/Breast Reports as per HPI Neuro Reports no additional complaints Psych Reports no additional complaints Endo Reports no additional complaints Crescencio/Lymph Reports no additional complaints Aller/Immun Reports no additional complaints Physical Exam Vital Signs: Last Vital Signs BP 112/66 05/15/24 15:17 BMI result Body Mass Index 25.3 Const General: cooperative, healthy appearing, no acute distress, well developed and alert Orientation/consciousness: patient oriented x3 HEENT Head: Yes normal to inspection Eyes General: appearance normal, both eyes and all related structures Neck Neck: Yes normal visual inspection Thyroid: Thyroid normal Chest Chest palpation & inspection: normal inspection of the chest and other (no puckering, dimpling, peau de orange, retraction, discharge, masses) Breast/axilla inspection: normal inspection of the breasts Breast/axilla palpation: normal palpation of the breasts Resp Effort & Inspection: normal respiratory effort GI Inspection: Yes normal to inspection Palpation (GI): Soft to palpation Rectal Exam - Female: deferred General: Yes bladder normal to palpation External Female Exam: normal external appearance and normal appearance of the urethra Speculum Exam - Vagina: normal appearance of the vagina, normal palpation and normal vaginal discharge Speculum Exam - Cervix: normal appearance of the cervix and normal palpation Bimanual exam- vagina & uterus: normal bimanual exam, normal palpation, uterine size normal, bladder normal to palpation, normal palpation and non-tender Bimanual Exam- Adnexa, other: no masses Skin General skin exam: no rashes or lesions noted Rashes: no rashes Neuro General: patient oriented x3 Cognition (Neuro): normal cognition Extrem General: Yes normal to inspection Psych Attitude: cooperative Thought process: Normal thought process present Assessment & Plan Assessment & Plan (1) Encounter for well woman exam with routine gynecological exam: Code(s): Z01.419 - Encounter for gynecological examination (general) (routine) without abnormal findings Category: Medical Plan Discussed: Current recommendations for pap smears per ASCCP guidelines. Breast awareness and periodic breast exams. Mammogram ordered. Maintain a healthy lifestyle including a well balanced diet and routine exercise. control hormone use warnings: go to ER if and loss of vision, blindness, severe headache, chest pain or difficulty breathing, severe abdominal pain, or any pain or swelling in an extremity. Mammogram yearly. Colonoscopy >45, or at risk sooner. Patient verbalizes understanding and agrees to the plan of care. She was given opportunity to ask questions and all questions were answered to the best of my ability. RTO in one year for annual reinsurance claim analyst examination. This note is constructed using voice recognition software. While every effort has been made to ensure accuracy, front end technician errors may have been included. Orders: Orders MM tomosynthesis screening BI Today Z12.31 - Encounter for screening mammogram for malignant neoplasm of breast Medications: Refilled norethindrone-e.estradiol-iron 1 mg-20 mcg (21)/75 mg (7) (Blisovi Fe 09/24 (28)) 1 tab PO DAILY 30 days 84 tabs 4RF Coding Level of Care Code Est Pt Prev Care 40-64y(81232) Diagnoses Encounter for well woman exam with routine gynecological exam Z01.419
[2024-05-15 15:17] VITALS: BP 112/66; BMI 25.3
== END 2024-05-15 16:07 | disposition home or self-care (01) ==
PROVIDERS: PCP Nurse Practitioner Primary Care; Visit Provider Advanced Practice Midwife
DX: Z01.419 Encounter for gynecological examination (general) (routine) without abnormal findings (principal)
CPT/HCPCS: 99396

== ENCOUNTER → 2024-05-15 15:12 | Outpatient (BNVA) | payer OTHER, SELFPAY | PROVIDERS: PCP Nurse Practitioner Primary Care; Visit Provider Advanced Practice Midwife ==

== ENCOUNTER 2024-06-19 13:58 | Outpatient (AMB) | payer OTHER, SELFPAY ==
[2024-06-19 14:13] VITALS: BP 110/60; PULSE 73; BMI 25.8
--- NOTE | 2024-06-19 14:13 | MHC.OFFVIS ---
Vital Signs 06/19/24 14:13 Height 4 ft 11 in Weight 127 lb 13.89 oz BMI 25.8 BP 110/60 Blood Pressure Location Lt brachial Position Sitting Pulse 73 Pulse Source Monitor Intake Visit Reasons: 1 yr follow up Allergies No Known Allergies Allergy (Verified 05/15/24 15:19) Medication List - Last Reconciled 06/19/24 by Rolanda Robins, ENVIRONMENTAL EMERGENCIES PLANNER-C ascorbate calcium (vitamin C) 500 mg PO DAILY ashwagandha root extract 600 mg PO cholecalciferol (vitamin D3) 50 mcg PO DAILY magnesium 300 mg PO DAILY mecobalamin (vitamin B12) 1,000 mcg PO DAILY norethindrone-e.estradiol-iron 1 mg-20 mcg (21)/75 mg (7) (Blisovi Fe 1/20 (28)) 1 tab PO DAILY 30 days propranolol 10 mg PO DAILY 30 days pyridoxine (vitamin B6) 100 mg PO DAILY venlafaxine ER 75 mg PO DAILY 30 days HPI HPI 1 yr follow up: Details: Radha is a 39-year-old female past medical history of SVT who presents for follow-up. Last prior visit was 06/30/23. Today she reports that since her last visit she has had various health issues. She did have recurrent heart palpitations and was evaluated in the emergency room. She did not require adenosine. Now that she has been feeling better and back to her normal state of health she has not had recurrent rapid heart palpitations. She will feel very brief flutters in her chest lasting 1-2 seconds and resolving. She continues on low-dose propranolol. No presyncope, syncope, falls. No shortness of breath, PND, orthopnea or edema. She does have issues with anxiety and depression in his on new medications for this problem. [facility] Medical History Screening due Mood disorder Acute adjustment disorder with anxiety No known health problems Depression Tachycardia Family History Mother Hypercholesteremia Arthritis Father HTN (hypertension) Hypercholesteremia Emphysema lung Manic depression Tachycardia Heart attack Stroke Maternal Grandfather Colon cancer Sister Suicide Social History Household Members: Children Household Members Other:: 2 children ages 15 years old and 18 years old Housing: House Do you presently have visiting nurse or other home services: No Alcohol intake: never Patient Tobacco Use Status: Never used Tobacco e-Cigarette/Vaping Use: Never Used Second Hand Smoke Exposure: Yes service: No 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 occupational status: employed 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 Sexual orientation: Straight/Heterosexual Gender identity: Female Review of Systems Const All systems reviewed & are unremarkable except as noted in HPI and below Denies weakness ENT Denies dizziness Card Denies chest pain, Denies chest pain with activity, Denies syncope, Reports rapid heart rate, Denies pedal edema, Denies edema, Denies leg edema, Denies lightheadedness, Reports palpitations, Denies dyspnea, Denies dyspnea on exertion and Denies orthopnea Resp Denies cough, Denies dyspnea and Denies dyspnea on exertion GI Denies hematochezia and Denies change in stool character Musc Denies abnormal gait, Denies muscle cramps, Denies muscle weakness, Denies numbness, Denies radiating pain into limb and Denies tingling Neuro Denies abnormal gait, Denies dizziness, Denies syncope, Denies numbness, Denies tingling and Denies weakness Endo Reports palpitations Physical Exam Vital Signs: Last Vital Signs Pulse 73 06/19/24 14:13 BP 110/60 06/19/24 14:13 BMI result Body Mass Index 25.8 Const General: cooperative, healthy appearing, comfortable and no acute distress Orientation/consciousness: patient oriented x3 Neck Neck: Yes normal visual inspection and Yes no JVD Carotids: normal carotid upstroke Resp Effort & Inspection: normal respiratory effort Auscultation: clear to auscultation bilaterally, no crackles, no rales, no rhonchi and no wheezes Cardio Jugular venous distension: no JVD Rate: regular rate Rhythm: regular rhythm Heart sounds: S1 normal heart sound present, S2 normal heart sound present, no gallops, no murmurs and no rubs Neuro General: patient oriented x3 Extrem General: Yes normal to inspection, No no pedal edema and No calf tenderness Psych Appearance: grossly normal Mental Status: mental status grossly normal Speech and movement: Normal speech and movement present Office Procedures EKG Details: Today, read by me, normal sinus rhythm, no acute ST or T-wave abnormalities, normal ME and QTC intervals, rate 73 [id number], Complete Assessment & Plan Assessment & Plan (1) SVT (supraventricular tachycardia): Comment: Patient is establish care with [facility] cardiology. Patient taking propanolol with good effect. Code(s): I47.1 - Supraventricular tachycardia Category: Medical Plan: History of SVT with prior ER visits receiving adenosine at least once. She did have recurrent rapid heart palpitations in the recent past when she was ill with anxiety/depression and then pneumonia. She has not required emergency treatment with adenosine. She continues on propranolol 10 mg once daily. This dose is quite low but she feels it is helpful for her. She continues to drink 1 caffeinated beverage daily. At this time she is only feelingel an occasional brief palpitation mostly when at rest and lasting only 1-2 seconds. Reviewed vagal maneuvers with her. If she does have recurrent episodes she should cut back on her caffeine intake and increase propranolol to b.i.d. as originally ordered. She will call with concerning symptoms and ED care if needed for sustained rapid palpitations. Cardiology follow-up 2 year, sooner if needed Plan Time spent on chart review, documentation, intravenous assessment Coding Level of Care Code Est Pt Level 3 (57839) Diagnoses SVT (supraventricular tachycardia) I47.1 CPT Codes EKG - CPT: 84781-[id number], Complete ([id number]) Time Spent (min) 22
== END 2024-06-19 14:55 | disposition home or self-care (01) ==
PROVIDERS: PCP Internal Medicine; Visit Provider Nurse Practitioner Family
DX: I47.10 Supraventricular tachycardia, unspecified (principal)
CPT/HCPCS: 93010; 99213

== ENCOUNTER → 2024-06-19 13:58 | Outpatient (BNVA) | payer OTHER, SELFPAY | PROVIDERS: PCP Internal Medicine; Visit Provider Nurse Practitioner Family | DX: I47.10 Supraventricular tachycardia, unspecified (principal); Z79.899 Other long term (current) drug therapy | CPT/HCPCS: 93005 ==

== ENCOUNTER 2024-06-28 15:05 | Outpatient (REF) | payer OTHER, SELFPAY ==
--- NOTE | ~2024-06-28 | MM_ITS ---
EXAMINATION: MM SCREENING DIGITAL BREAST TOMOSYNTHESIS, BILATERAL CLINICAL INFORMATION: Screening. Asymptomatic. COMPARISON: Mammography: Comparison is made with available priors TECHNIQUE: Digital breast mammography with tomosynthesis is performed in both the craniocaudal and mediolateral oblique views along with computer-aided detection (CAD). FINDINGS: The breasts are heterogeneously dense, which may obscure small masses (ACR BI-RADS breast composition Category c). There are no significant masses, abnormal calcifications, or other abnormalities. MM/MM tomosynthesis screening BI IMPRESSION: No mammographic evidence of malignancy. ASSESSMENT: BI-RADS BI-RADS 1 - Negative RECOMMENDATION: Routine annual mammography screening. 1 year F/U This examination should not preclude the clinical evaluation of a suspicious palpable abnormality. This patient's information was entered into a reminder system with a target due date for their next mammogram. Electronically signed by: Karen Sheth DO 06/29/2024 10:42 AM EDT
== END 2024-06-28 15:06 | disposition home or self-care (01) ==
LOC: HO.MAMMO 15:05
PROVIDERS: PCP Internal Medicine; Visit Provider Internal Medicine
DX: Z12.31 Encounter for screening mammogram for malignant neoplasm of breast (principal)
CPT/HCPCS: 77063; 77067

== ENCOUNTER → 2024-06-28 15:30 | Outpatient (BNV) | payer OTHER, SELFPAY | PROVIDERS: PCP Internal Medicine; Visit Provider Internal Medicine | DX: Z12.31 Encounter for screening mammogram for malignant neoplasm of breast (principal) | CPT/HCPCS: 77063; 77067 ==

== ENCOUNTER 2024-07-15 14:14 | Emergency (ER) | payer OTHER, SELFPAY ==
--- NOTE | 2024-07-15 14:15 | ECG_ITS ---
Test Reason : CP/PALPATATIONS Blood Pressure : / mmHG Vent. Rate : 212 BPM Atrial Rate : 000 BPM P-R Int : 000 ms QRS Dur : 068 ms QT Int : 212 ms P-R-T Axes : 000 059 251 degrees QTc Int : 398 ms Supraventricular tachycardia Marked ST abnormality, possible inferolateral subendocardial injury Abnormal ECG When compared with ECG of 09-APR-2024 14:57, Vent. rate has increased BY [address] now depressed in Inferior leads ST now depressed in Anterolateral leads T wave inversion now evident in Inferior leads Nonspecific T wave abnormality now evident in Lateral leads Referred By: Uzma Barnes Electronically Signed By:Jose Dior
[2024-07-15] MEDS: Adenosine 6 MG/2 ML VIAL IVPUSH (14:32)
[2024-07-15 14:34] VITALS: PULSE 220; RESP 30; BMI 25.5
--- NOTE | 2024-07-15 14:34 | ECG_ITS ---
Test Reason : SVT Blood Pressure : / mmHG Vent. Rate : 092 BPM Atrial Rate : 092 BPM P-R Int : 124 ms QRS Dur : 078 ms QT Int : 360 ms P-R-T Axes : 066 074 057 degrees QTc Int : 445 ms Normal sinus rhythm Normal ECG When compared with ECG of 15-JUL-2024 14:12, Vent. rate has decreased BY [address] no longer depressed in Inferior leads ST no longer depressed in Anterolateral leads T wave inversion no longer evident in Inferior leads Nonspecific T wave abnormality no longer evident in Lateral leads Referred By: Colette Bhatt Electronically Signed By:Jose Dior
--- NOTE | 2024-07-15 14:36 | ED_ITS ---
HPI - Arrhythmia/Palpitations General Chief Complaint: Arrhythmia/Palpitations Stated Complaint: cp Time Seen by Provider: 07/15/24 14:32 Source: patient Mode of arrival: ambulatory Limitations: no limitations History of Present Illness ED Provider: DR. Bhatt HPI narrative: a 39-year-old female history of SVT on propanolol, presented today with palpitation, patient is compliant with her medication, declined using coffee, chocolate, or alcohol. admitted to more life stress, found to have heart rate 210 in the waiting room patient was rushed to room 9, Valsalva maneuver was preformed with no relief,peripheral IV was established patient was given 6 mg of adenosine heart rate went down from to 10 to 100s repeat EKG was obtained patient feels much better Related Data Home Medications ?Medication ?Instructions ?Recorded ?Confirmed ascorbate calcium (vitamin C) 500 500 mg PO DAILY 06/19/24 06/19/24 mg tablet ashwagandha root extract 500 mg 600 mg PO 06/19/24 06/19/24 capsule cholecalciferol (vitamin D3) 50 50 mcg PO DAILY 06/19/24 06/19/24 mcg (2,000 unit) capsule magnesium 250 mg tablet 300 mg PO DAILY 06/19/24 06/19/24 mecobalamin (vitamin B12) 1,000 1,000 mcg PO DAILY 06/19/24 06/19/24 mcg lozenges pyridoxine (vitamin B6) 100 mg 100 mg PO DAILY 06/19/24 06/19/24 tablet Previous Rx's ?Medication ?Instructions ?Recorded propranolol 10 mg tablet 10 mg PO DAILY 30 days #30 tabs 04/18/24 venlafaxine 75 mg capsule,extended 75 mg PO DAILY 30 days #30 caps 04/18/24 release 24 hr norethindrone 1 mg-ethinyl 1 tab PO DAILY 30 days #84 tabs 05/15/24 estradiol 20 mcg (21)-iron 75 mg (7) tablet (Blisovi Fe 09/24 (28)) Allergies Allergy/AdvReac Type Severity Reaction Status Date / Time No Known Allergies Allergy Verified 07/15/24 14:36 Review of Systems 2 Review of Systems: all other systems are reviewed and are negative Constitutional: Reports as per HPI and Reports no additional constitutional complaints Eyes: Reports as per HPI and Reports no additional eye complaints Reports system reviewed and no additional complaints, except as documented Cardiovascular: Reports as per HPI and Reports no additional cardiovascular complaints Respiratory: Reports as per HPI and Reports no additional respiratory complaints Gastrointestinal: Reports as per HPI and Reports no additional gastrointestinal complaints Genitourinary: Reports no additional female genitourinary complaints Musculoskeletal: Reports no additional musculoskeletal complaints Skin/Breast: Reports system reviewed and no additional complaints, except as docu Psychiatric: Reports no additional psychiatric complaints Endocrine: Reports no additional endocrine complaints Hematologic/Lymphatic: Reports no additional hematologic/lymphatic complaints Allergic/Immunologic: Reports no additional allergic/immunologic complaints Reports system reviewed and no additional complaints, except as documented and Reports Abnormal speech present [facility] Past Medical History Medical History Screening due Mood disorder Acute adjustment disorder with anxiety No known health problems Depression Tachycardia Family History Family History Mother Hypercholesteremia Arthritis Father HTN (hypertension) Hypercholesteremia Emphysema lung Manic depression Tachycardia Heart attack Stroke Maternal Grandfather Colon cancer Sister Suicide Social History Social History Household Members: Children Household Members Other:: 2 children ages 15 years old and 18 years old Housing: House Do you presently have visiting nurse or other home services: No Alcohol intake: never Patient Tobacco Use Status: Never used Tobacco e-Cigarette/Vaping Use: Never Used Second Hand Smoke Exposure: Yes Advance Directives: No Advance Directives Information Provided: Yes service: No Current occupational status: employed 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 Blood pressure elevated. Heart rate normal. Respiratory rate normal. Temperature normal. Oxygen saturation normal. Appearance: Alert. Oriented X3. No acute distress. Head: Normal external exam. Normocephalic. Atraumatic. No Dumont signs noted. No raccoon eyes noted Eyes: PERRLA. EOMI. Conjunctiva and sclera normal. Eyelids normal. ENT: TM's Normal. Pharynx normal. Uvula midline. Moist mucous membranes. No trismus noted. No drooling noted. No muffled voice noted. Neck: Normal inspection. Neck supple. FROM. No adenopathy. Thyroid Normal. No meningeal signs. No neck mass noted. CVS: rapid heart rate of 210, Heart sound normal. No murmurs noted. Pulses normal throughout. Respiratory: No respiratory distress. Painless inspiration. Breath sounds normal. No wheezes/rales/rhonchi noted. Chest nontender. No accessory muscle usage noted or decreased air movement noted. Abdomen: Soft and nontender. Bowel sounds normal in all 4 quadrants. No distention noted. No organomegaly noted. No visible injury noted. Back: No CVA tenderness. Full range of motion noted. Skin: Skin warm and dry. Normal skin color. Normal skin turgor. No rashes/lesions/lacerations noted. Extremities: No lower extremity edema. Extremities exhibit normal range of motion. Extremities nontender. Neuro: Oriented X 3. Cranial nerve exam: II-XII are grossly intact No motor deficit. No sensory deficit. Reflexes normal. Course Reevaluation(s) Reevaluation #1: palpitation SVT able to control with adenosine 6 mg IV, labs are unremarkable, repeat EKG is normal sinus rhythm. Patient with history of anxiety, depression with SI, currently patient has no SI or HI, no hallucination. Time: 16:00 Medications Administered Discontinued Medications Generic Name Dose Route Start Last Admin Trade Name Steve PRN Reason Stop Dose Admin Adenosine 6 mg 07/15/24 14:35 07/15/24 14:32 Adenosine 6 Mg/2 Ml Vial IVPUSH 07/15/24 14:36 6 mg STAT STA Administration Medical Decision Making Differential Diagnosis Differential Diagnoses: The differential diagnosis associated with the presentation includes ( SVT, atrial fibrillation, ventricular dysrhythmia, electrolyte derangement, ACS, hyperthyroidism, severe anemia.) Admission/Observation Consideration of admission/observation: Escalation of care including admission/observation considered Lab Data MDM Lab Attestation statement: I reviewed the patient's lab results. 07/15/24 14:38 07/15/24 14:38 Labs: Lab Results 07/15/24 Range/Units 14:38 WBC 9.3 (4.8-10.8) X10*3/uL RBC 4.45 (4.20-5.50) X10*6/uL Hgb 13.9 (12.0-16.0) g/dl Hct 40.4 (37.0-47.0) % MCV 90.8 (80.0-98.0) fL MCH 31.2 (27.0-33.0) pg MCHC 34.4 (31.0-35.0) g/dl RDW 12.0 (11.0-16.0) % Plt Count 371 D (160-400) X10*3/uL MPV 11.9 (9.4-12.3) fL Immature Gran % (Auto) 0.1 (0.0-0.4) % Neut % (Auto) 39.9 L (45-73) % Lymph % (Auto) 51.7 H (20-40) % Custer % (Auto) 6.5 (2-11) % Eos % (Auto) 1.0 (0-4) % Baso % (Auto) 0.8 (0-2) % Lymph # (Auto) 4.8 (1.2-4.9) X10*3/uL Custer # (Auto) 0.6 (0.1-1.2) X10*3/uL Eos # (Auto) 0.1 (0.0-0.4) X10*3/uL Baso # (Auto) 0.1 (0.0-0.2) X10*3/uL Abs Immat Gran (auto) 0.01 (0.00-0.03) X10*3/uL Absolute Neuts (auto) 3.7 (2.0-8.3) x10*3/uL Absolute Nucleated RBC 0.000 (0.0-0.012) X10*3/uL Nucleated RBC % (auto) 0.0 (0.0-0.2) /100WBC Sodium 141 (135-145) mmol/L Potassium 3.7 (3.3-5.1) mmol/L Chloride 107 (96-108) mmol/L Carbon Dioxide 16 L (22-29) mmol/L Anion Gap 22 H (12-20) BUN 9 (9-16) mg/dL Creatinine 1.11 (0.5-1.4) mg/dL Estim Creat Clear Calc 51.3 Estimated GFR 54 Random Glucose 151 H (60-115) mg/dL Calcium 10.1 D (8.4-10.2) mg/dL Magnesium 1.8 (1.6-2.6) mg/dL Total Bilirubin 0.4 (0.0-1.0) mg/dL Direct Bilirubin 0.1 (0.0-0.5) mg/dL AST 33 H (5-31) U/L ALT 39 H (0-31) U/L Troponin I High Sens 3.9 (<3.5-17.0) ng/L Total Protein 7.8 (6.5-8.0) g/dL Albumin 4.5 (3.5-5.0) g/dL Lipase 23 (8-78) U/L TSH 2.31 (0.32-4.0) uIU/mL Discharge Plan Discharge Clinical Impression: Palpitations, SVT (supraventricular tachycardia) Patient Disposition: Still a Patient Instructions: Supraventricular Tachycardia (ED) Prescriptions: No Action venlafaxine 75 mg Capsule,Extended Release 24hr 75 mg PO DAILY 30 Days Qty: 30 0RF propranolol 10 mg tablet 10 mg PO DAILY 30 Days Qty: 30 0RF magnesium 250 mg tablet 300 mg PO DAILY mecobalamin (vitamin B12) 1,000 mcg lozenge 1,000 mcg PO DAILY Rx Instructions: allow to dissolve in mouth OR may chew lightly before swallowing pyridoxine (vitamin B6) 100 mg tablet 100 mg PO DAILY ascorbate calcium (vitamin C) 500 mg tablet 500 mg PO DAILY cholecalciferol (vitamin D3) 50 mcg (2,000 unit) capsule 50 mcg PO DAILY ashwagandha root extract 500 mg capsule 600 mg PO norethindrone-e.estradiol-iron [Blisovi Fe 09/24 (28)] 1 mg-20 mcg (21)/75 mg (7) tablet 1 tab PO DAILY 30 Days Qty: 84 4RF Referrals: Nirali Raphael MD [Primary Care Provider] - Print Language: Luxembourgish
[2024-07-15 14:42] LABS: MANUAL DIFF FLAG NO
[2024-07-15 14:43] LABS: Basophils Absolute Auto 0.1 X10*3/uL (0.0-0.2); Basophils Percent Auto 0.8 % (0-2); Eosinophils Absolute Auto 0.1 X10*3/uL (0.0-0.4); Hematocrit 40.4 % (37.0-47.0); Hemoglobin 13.9 g/dl (12.0-16.0); Imm Gran Abs Auto 0.01 X10*3/uL (0.00-0.03); Imm Gran Pct Auto 0.1 % (0.0-0.4); Lymphocytes Absolute Auto 4.8 X10*3/uL (1.2-4.9); Lymphocytes Percent Auto 51.7 % (20-40); Mean Corpuscular HGB Conc 34.4 g/dl (31.0-35.0); Mean Corpuscular Hemoglobin 31.2 pg (27.0-33.0); Mean Corpuscular Volume 90.8 fL (80.0-98.0); Mean Platelet Volume 11.9 fL (9.4-12.3); Monocytes Absolute Auto 0.6 X10*3/uL (0.1-1.2); Monocytes Percent Auto 6.5 % (2-11); Neutrophils Absolute Auto 3.7 x10*3/uL (2.0-8.3); Neutrophils Percent Auto 39.9 % (45-73); Platelet Count 371 X10*3/uL (160-400); Red Blood Count 4.45 X10*6/uL (4.20-5.50); White Blood Count 9.3 X10*3/uL (4.8-10.8)
[2024-07-15 15:04] LABS: Troponin-I High Sensitivity 3.9 ng/L (<3.5-17.0)
[2024-07-15 15:07] LABS: Alanine Aminotransferase 39 U/L (0-31); Albumin Level 4.5 g/dL (3.5-5.0); Anion Gap 22 (12-20); Aspartate Amino Transferase 33 U/L (5-31); Bilirubin Direct 0.1 mg/dL (0.0-0.5); Bilirubin Total 0.4 mg/dL (0.0-1.0); Blood Urea Nitrogen 9 mg/dL (9-16); Calcium 10.1 mg/dL (8.4-10.2); Carbon Dioxide 16 mmol/L (22-29); Chloride 107 mmol/L (96-108); Creatinine Clr Calc Pharmacy 51.3; Estimated Glomerular Filt Rate 54; Glucose Random 151 mg/dL (60-115); Lipase 23 U/L (8-78); Magnesium 1.8 mg/dL (1.6-2.6); Potassium 3.7 mmol/L (3.3-5.1); Sodium 141 mmol/L (135-145); Total Protein 7.8 g/dL (6.5-8.0)
[2024-07-15 15:21] LABS: Thyroid Stimulating Hormone 2.31 uIU/mL (0.32-4.0)
[2024-07-15 15:37] VITALS: BP 125/87; PULSE 81; RESP 14; TEMP 36.6; O2SAT 100
--- NOTE | 2024-07-15 15:39 | PC.NURSE ---
patient presented to the ED with feelings that her heart was racing while at home, patient states that she began to have chest pain and numbness to her left arm. patient states she took her medications as prescribed. patient ekg obtained in triage and it was noted patient was in svt rate 200-230s. patient brought back to ED 9, IV established in [facility] ACs, 20#LAC and 18# RAC. labs drawn and obtained. patient given 6mg adenosine per MAR, patient then broke out of svt rate low 100s, -80s. new ekg obtained. patient appeared visually more comfortable. patient VSS
[2024-07-15 16:12] LABS: Alkaline Phosphatase 41 U/L (39-117)
== END 2024-07-15 16:24 | disposition still patient (30) ==
PROVIDERS: Emergency Provider Emergency Medicine; PCP Internal Medicine
DX: I47.10 Supraventricular tachycardia, unspecified (principal); R07.89 Other chest pain; I49.9 Cardiac arrhythmia, unspecified; R00.2 Palpitations; Z79.899 Other long term (current) drug therapy
CPT/HCPCS: 36415; 80048; 80076; 83690; 83735; 84443; 84484; 85025; 93005; 96374; 99283; 99284; J0153

== ENCOUNTER → 2024-07-15 14:15 | Outpatient (BNV) | payer OTHER, SELFPAY | PROVIDERS: Emergency Provider Emergency Medicine; PCP Internal Medicine; Visit Provider Internal Medicine Cardiovascular Disease | DX: R94.31 Abnormal electrocardiogram [ECG] [EKG] (principal); I47.10 Supraventricular tachycardia, unspecified | CPT/HCPCS: 93010 ==

== ENCOUNTER 2024-10-23 10:48 | Outpatient (REF) | payer OTHER, SELFPAY ==
[2024-10-23 13:02] LABS: MANUAL DIFF FLAG NO
[2024-10-23 13:08] LABS: Appearance Urine Clear; Color Urine Yellow; Glucose Urine UA Negative (Negative); Leukocyte Esterase Urine Small (1+) (Negative); Nitrite Urine Negative (Negative); PH 5.5 (5.0-9.0); UMIC TRIGGER UACC YES; Urine Blood Negative (Negative); Urine Ketones Trace mg/dL (Negative); Urine Protein Negative (Neg-Trace)
[2024-10-23 13:10] LABS: Basophils Absolute Auto 0.1 X10*3/uL (0.0-0.2); Basophils Percent Auto 0.5 % (0-2); Eosinophils Absolute Auto 0.1 X10*3/uL (0.0-0.4); Eosinophils Percent Auto 0.5 % (0-4); Hematocrit 37.6 % (37.0-47.0); Hemoglobin 11.9 g/dl (12.0-16.0); Imm Gran Abs Auto 0.06 X10*3/uL (0.00-0.03); Imm Gran Pct Auto 0.5 % (0.0-0.4); Lymphocytes Absolute Auto 3.1 X10*3/uL (1.2-4.9); Mean Corpuscular HGB Conc 31.6 g/dl (31.0-35.0); Mean Corpuscular Volume 94.7 fL (80.0-98.0); Mean Platelet Volume 11.9 fL (9.4-12.3); Monocytes Absolute Auto 0.9 X10*3/uL (0.1-1.2); Monocytes Percent Auto 6.7 % (2-11); Neutrophils Absolute Auto 8.8 x10*3/uL (2.0-8.3); Neutrophils Percent Auto 67.8 % (45-73); Platelet Count 289 X10*3/uL (160-400); Red Blood Count 3.97 X10*6/uL (4.20-5.50); Red Cell Distribution Width 12.6 % (11.0-16.0)
[2024-10-23 13:14] LABS: Bacteria Urine 2+ (None Seen); RBC Urine 0-2 /HPF (0-2); UACC Culture Trigger YES; WBC Urine 21-50 /HPF (0-5)
[2024-10-23 13:29] LABS: Alanine Aminotransferase 58 U/L (0-31); Albumin Level 4.1 g/dL (3.5-5.0); Alkaline Phosphatase 72 U/L (39-117); Anion Gap 11 (12-20); Aspartate Amino Transferase 32 U/L (5-31); Bilirubin Total 0.4 mg/dL (0.0-1.0); Blood Urea Nitrogen 11 mg/dL (9-16); Calcium 9.4 mg/dL (8.4-10.2); Carbon Dioxide 28 mmol/L (22-29); Chloride 106 mmol/L (96-108); Estimated Glomerular Filt Rate > 60; Glucose Random 85 mg/dL (60-115); Potassium 3.7 mmol/L (3.3-5.1); Sodium 141 mmol/L (135-145); Total Protein 7.7 g/dL (6.5-8.0)
[2024-10-23 14:03] LABS: Influenza A PCR NEGATIVE (Negative); Influenza B PCR NEGATIVE (Negative); Resp Syncy Virus RNA Qual PCR NEGATIVE (Negative); SARS COV2 PCR INHOUSE NEGATIVE (Negative)
== END 2024-10-23 10:49 | disposition home or self-care (01) ==
LOC: HO.HMGCLDS 10:48
PROVIDERS: PCP Internal Medicine; Visit Provider Internal Medicine
DX: R10.84 Generalized abdominal pain (principal); R11.0 Nausea; M79.10 Myalgia, unspecified site; R09.89 Other specified symptoms and signs involving the circulatory and respiratory systems
CPT/HCPCS: 0241U; 36415; 80053; 81001; 85025; 87086

== ENCOUNTER 2024-10-23 10:48 | Outpatient (AMB) | payer OTHER, SELFPAY ==
--- NOTE | 2024-10-23 11:31 | AM.OFFWIN_ITS ---
Intake Vital Signs 10/23/24 11:38 Weight 128 lb 2 oz BP 100/60 Blood Pressure Location Lt brachial Position Sitting Pulse 68 Pulse Source Pulse Oximeter Temp 97.8 F Temp Source Oral Pulse Oximetry (%) 95 Oxygen Delivery Method Room Air Intake Visit Reasons: EP-lt abd pain & tenderness Patient Tobacco Use Status: Never used Tobacco Allergies No Known Allergies Allergy (Verified 10/23/24 11:39) Medication List - Last Reconciled 10/23/24 by Hugh Serrato MD ascorbate calcium (vitamin C) 500 mg PO DAILY ashwagandha root extract 600 mg PO cholecalciferol (vitamin D3) 50 mcg PO DAILY magnesium 300 mg PO DAILY mecobalamin (vitamin B12) 1,000 mcg PO DAILY norethindrone-e.estradiol-iron 1 mg-20 mcg (21)/75 mg (7) (Blisovi Fe 09/24 (28)) 1 tab PO DAILY 30 days propranolol 10 mg PO DAILY 30 days pyridoxine (vitamin B6) 100 mg PO DAILY venlafaxine ER 75 mg PO DAILY 30 days Do you need a note to return to daycare/school/sports/work: No HPI EP-lt abd pain & tenderness HPI Details Chief Complaint The patient presents with abdominal pain, generalized body aches, and tenderness persisting for three days. History of Present Illness - The patient is a 39-year-old female pr esenting with abdominal pain, generalized body aches, and tenderness. - Abdominal pain and tenderness across t he entire abdomen began three days ago and have been accompanied by sharp, exacerbating pains during physical movement, such as walking. - Body aches were initially manifested a s head pain and have subsequently spread, resulting in generalized tenderness. - Patient denies symptoms suggestive of a urinary tract infection, such as increased frequency of urination or dysuria. - No fever, sore throat, or cough report ed, which are not suggestive of a respiratory infection. - Patient complains of episodic nausea b ut denies any significant changes in appetite or bowel movements, which remain regular.. - Lack of COVID-19 vaccination was noted , and consideration given to a possible viral etiology for presenting symptoms. Patient Instructions - Take medication provided for abdominal and body aches as directed. - Eat light meals, avoiding spicy foods, and focus on bland foods like broth- based soups. - Monitor symptoms and seek further medi issa evaluation if there is no improvement or if new symptoms develop, such as fever or respiratory symptoms. COVID test taken, labs ordered Review of Systems - Gastrointestinal: Reports abdominal te nderness and intermittent nausea. Denies changes in bowel habits. - Genitourinary: Denies frequency of uri nation or dysuria. - Respiratory: Denies sore throat, cough , and nasal congestion. - Neurological: Reports initial head conchita n. - Musculoskeletal: Reports generalized b enriqueta aches and tenderness. - General: Denies fever; Unvaccinated fo r COVID-19. Cardiovascular: no palpitations, no chest pains [facility] Medical History Screening due Mood disorder Acute adjustment disorder with anxiety No known health problems Depression Tachycardia Family History Mother Hypercholesteremia Arthritis Father HTN (hypertension) Hypercholesteremia Emphysema lung Manic depression Tachycardia Heart attack Stroke Maternal Grandfather Colon cancer Sister Suicide Social History Household Members: Children Household Members Other:: 2 children ages 15 years old and 18 years old Housing: House Do you presently have visiting nurse or other home services: No Alcohol intake: never Patient Tobacco Use Status: Never used Tobacco e-Cigarette/Vaping Use: Never Used Second Hand Smoke Exposure: Yes service: No Current occupational status: employed 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 Sexual orientation: Straight/Heterosexual Gender identity: Female Physical Exam Vital Signs: Last Vital Signs Temp 97.8 F 10/23/24 11:38 Pulse 68 10/23/24 11:38 BP 100/60 10/23/24 11:38 Pulse Ox 95 10/23/24 11:38 Oxygen Delivery Method Room Air 10/23/24 11:38 Const General: no acute distress Orientation/consciousness: patient oriented x3 Eyes General: appearance normal, both eyes and all related structures Resp Effort & Inspection: normal respiratory effort and able to speak in complete sentences GI Other: Generalized tenderness no rebound no guarding, bowel sounds positive Neuro General: patient oriented x3 Psych Mental Status: mental status grossly normal Assessment & Plan Assessment & Plan (1) Abdominal pain: Code(s): R10.9 - Unspecified abdominal pain Qualifiers: Abdominal location: generalized Qualified Code(s): R10.84 - Generalized abdominal pain (2) Myalgia: Code(s): M79.10 - Myalgia, unspecified site (3) Nausea: Code(s): R11.0 - Nausea Plan Chief Complaint The patient presents with abdominal pain, generalized body aches, and tenderness persisting for three days. History of Present Illness - The patient is a 39-year-old female presenting with abdominal pain, generalized body aches, and tenderness. - Abdominal pain and tenderness across the entire abdomen began three days ago and have been accompanied by sharp, exacerbating pains during physical movement, such as walking. - Body aches were initially manifested as head pain and have subsequently spread, resulting in generalized tenderness. - Patient denies symptoms suggestive of a urinary tract infection, such as increased frequency of urination or dysuria. - No fever, sore throat, or cough reported, which are not suggestive of a respiratory infection. - Patient complains of episodic nausea but denies any significant changes in appetite or bowel movements, which remain regular.. - Lack of COVID-19 vaccination was noted, and consideration given to a possible viral etiology for presenting symptoms. Patient Instructions - Take medication provided for abdominal and body aches as directed. - Eat light meals, avoiding spicy foods, and focus on bland foods like broth- based soups. - Monitor symptoms and seek further medical evaluation if there is no improvemen t or if new symptoms develop, such as fever or respiratory symptoms. COVID test taken, labs ordered Orders: Orders Comprehensive Met. Panel Today R10.9 - Unspecified abdominal pain UA CC w/rflx Micro + Cult Today R10.9 - Unspecified abdominal pain SARS-CoV2/FLU/RSV Today R09.89 - Other specified symptoms and signs involving the circulatory and respiratory systems Complete Blood Count Auto Diff Today R10.9 - Unspecified abdominal pain Medications: New dicyclomine 10 mg PO TID 3 days PRN 9 caps 0RF abdominal pain Coding Level of Care Code Est Pt Level 4 (50084) Diagnoses Generalized abdominal pain R10.84 Abdominal location: generalized Myalgia M79.10 Nausea R11.0
[2024-10-23 11:38] VITALS: BP 100/60; PULSE 68; TEMP 36.6; O2SAT 95
== END 2024-10-23 11:50 | disposition home or self-care (01) ==
PROVIDERS: PCP Internal Medicine; Visit Provider Internal Medicine
DX: R10.84 Generalized abdominal pain (principal); M79.10 Myalgia, unspecified site; R11.0 Nausea

== ENCOUNTER 2024-11-14 09:25 | Outpatient (REF) | payer OTHER, SELFPAY ==
[2024-11-15 05:45] LABS: CT PCR NOT DETECTED (Not Detect.); NG PCR NOT DETECTED (Not Detect.)
[2024-11-15 09:26] LABS: Bacterial Vaginosis PCR NEGATIVE (Negative); Candida Group PCR DETECTED (Not Detect); Candida glab krusei PCR NOT DETECTED (Not Detect); Trichomonas vaginalis PCR NOT DETECTED (Not Detect)
== END 2024-11-14 09:26 | disposition home or self-care (01) ==
LOC: HO.LAB 09:25
PROVIDERS: PCP Internal Medicine; Visit Provider Advanced Practice Midwife
DX: N92.0 Excessive and frequent menstruation with regular cycle (principal); N93.9 Abnormal uterine and vaginal bleeding, unspecified; Z79.899 Other long term (current) drug therapy
CPT/HCPCS: 81025; 81515; 87491; 87591

== ENCOUNTER 2024-11-14 09:25 | Outpatient (AMB) | payer OTHER, SELFPAY ==
[2024-11-14 09:28] VITALS: BP 100/64; BMI 25.9
--- NOTE | 2024-11-14 09:28 | A.OFFVIS_ITS ---
Vital Signs 11/14/24 09:28 Height 4 ft 11 in Weight 128 lb BMI 25.9 BP 100/64 Intake Visit Reasons: control Intake Note: patient stopped BC 5 months ago no period since. Started period last Wed heavy, painful with clots Allergies No Known Allergies Allergy (Verified 11/14/24 09:28) Is last menstrual period known: Yes Last menstrual period: 11/07/24 HPI Comments Details: Pateint is here today with concerns re: OCP use, stopped pills about 3 months ago. Hot flashes without OCP's. Cycles are now heavier with clots/cramps, lasting a week. Most recent lab TSH-2.31, H/H- 11.9/37.6. PFSH Medical History (Updated 11/14/24 @ 11:50 by Maria C Argueta CNM) Heavy menses Screening due Mood disorder Acute adjustment disorder with anxiety No known health problems Depression Tachycardia Family History Mother Hypercholesteremia Arthritis Father HTN (hypertension) Hypercholesteremia Emphysema lung Manic depression Tachycardia Heart attack Stroke Maternal Grandfather Colon cancer Sister Suicide Social History Household Members: Children Household Members Other:: 2 children ages 15 years old and 18 years old Housing: House Do you presently have visiting nurse or other home services: No Alcohol intake: never Patient Tobacco Use Status: Never used Tobacco e-Cigarette/Vaping Use: Never Used Second Hand Smoke Exposure: Yes service: No Current occupational status: employed 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 Sexual orientation: Straight/Heterosexual Gender identity: Female Female Reproductive History Menstrual Date of last menstrual period: 11/07/24 Review of Systems Const All systems reviewed & are unremarkable except as noted in HPI and below Physical Exam Vital Signs: Last Vital Signs BP 100/64 11/14/24 09:28 BMI result Body Mass Index 25.9 Const General: cooperative, healthy appearing and no acute distress Orientation/consciousness: patient oriented x3 GI Inspection: Yes normal to inspection Palpation (GI): Soft to palpation and Other GI palpation findings present (Nontender) Rectal Exam - Female: visual inspection normal General: Yes bladder normal to palpation External Female Exam: normal appearance of the urethra Speculum Exam - Vagina: normal appearance of the vagina, normal palpation, normal vaginal discharge and vaginal bleeding Speculum Exam - Cervix: normal appearance of the cervix and normal palpation Bimanual exam- vagina & uterus: normal bimanual exam, normal palpation, uterine size normal, bladder normal to palpation, normal palpation, uterine shape normal and non-tender Bimanual Exam- Adnexa, other: normal adnexae OB/external & speculum: vaginal bleeding Neuro General: patient oriented x3 Results AMB Test Urine AMB Test Urine Negative Last Edit by ANA Willard on 11/14/24 09:41 Results Reviewed Results Reviewed: Laboratory Last Values [facility]st Clinic Negative 11/14/24 09:40 Assessment & Plan Assessment & Plan (1) Heavy menses: Code(s): N92.0 - Excessive and frequent menstruation with regular cycle Category: Medical Qualifiers: Menorrhagia type: with regular cycle Qualified Code(s): N92.0 - E xcessive and frequent menstruation with regular cycle (2) Prescription medication started: Code(s): Z79.899 - 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 Reviewed pill use and side effects. Recommended continued dosing with Advil 3 tablets every 6 hours during the heavy cramping days with food per manufacture's recommendation if no contraindications. Hydrate well. control hormone use warnings: go to ER if and loss of vision, blindness, severe headache, chest pain or difficulty breathing, severe abdominal pain, or any pain or swelling in an extremity. Follow up pill check it annual 05/2025. The patient expressed understanding and agreement with the plan of care. All of her questions and concerns were addressed to the best of my ability. This note is constructed using voice recognition software. While every effort has been made to ensure accuracy, ballet master/mistress errors may have been included. Orders: Orders Bacterial Vaginosis Panel Today N93.9 - Abnormal uterine and vaginal bleeding, unspecified CT NG by PCR Today N93.9 - Abnormal uterine and vaginal bleeding, unspecified US pelvic and transvaginal Today N92.0 - Excessive and frequent menstruation with regular cycle AMB HCG Urine Test Today N93.9 - Abnormal uterine and vaginal bleeding, unspecified Medications: New norethindrone ac-eth estradiol 1-20 mg-mcg () take continuously 1 tab PO DAILY 63 tabs 0RF norethindrone ac-eth estradiol 1-20 mg-mcg () take continuously 1 tab PO DAILY 63 tabs 2RF norethindrone ac-eth estradiol 1-20 mg-mcg () take for 21 days then a week off and restart 1 tab PO DAILY 63 tabs 0RF Coding Level of Care Code Est Pt Level 3 (08855) Diagnoses Menorrhagia with regular cycle N92.0 Menorrhagia type: with regular cycle Prescription medication started Z79.899
== END 2024-11-14 10:19 | disposition home or self-care (01) ==
PROVIDERS: PCP Internal Medicine; Visit Provider Advanced Practice Midwife
DX: N92.0 Excessive and frequent menstruation with regular cycle (principal); Z79.899 Other long term (current) drug therapy; N93.9 Abnormal uterine and vaginal bleeding, unspecified
CPT/HCPCS: 99213

== ENCOUNTER 2024-11-14 10:08 | Outpatient (REF) | payer OTHER, SELFPAY | END 2024-11-14 10:09 | disposition home or self-care (01) | LOC: HO.LNP 10:08 | PROVIDERS: Visit Provider Advanced Practice Midwife | DX: Z13.89 Encounter for screening for other disorder (principal) ==

== ENCOUNTER 2025-01-03 11:27 | Outpatient (REF) | payer OTHER, SELFPAY ==
--- NOTE | ~2025-01-03 | US_ITS ---
EXAMINATION: US PELVIS TRANSABDOMINAL AND TRANSVAGINAL HISTORY: N92.0 - Excessive and frequent menstruation with regular cycle COMPARISON: Comparison is made with the prior examination dated 12/26/2014. TECHNIQUE: Transabdominal and endovaginal real-time 2D varma-scale ultrasound was performed. FINDINGS: Uterus: The uterus is normal in size, measuring 10.2 x 5.7 x 5.9 cm. Myometrium has a normal echotexture. No fibroids are identified. Endometrium: The endometrial stripe measures 27 mm in thickness, and internal vascular flow is noted. Right ovary: The right ovary measures 2.2 x 1.0 x 1.4 cm. The right ovary is normal in size and echotexture. Left ovary: The left ovary measures 1.8 x 1.5 x 1.1 cm. The left ovary is normal in size and echotexture. Pelvic fluid: none. US/US pelvic and transvaginal IMPRESSION: Markedly thickened endometrial stripe demonstrate internal vascular flow. This could represent endometrial hyperplasia or neoplasm. Further evaluation with hysteroscopy should be considered. Electronically signed by: Vinayak Vazquez MD 01/03/2025 12:55 PM EDT
== END 2025-01-03 11:28 | disposition home or self-care (01) ==
LOC: HO.US 11:27
PROVIDERS: PCP Internal Medicine; Visit Provider Advanced Practice Midwife
DX: N92.0 Excessive and frequent menstruation with regular cycle (principal)
CPT/HCPCS: 76830; 76856

== ENCOUNTER → 2025-01-03 11:30 | Outpatient (BNV) | payer OTHER, SELFPAY | PROVIDERS: PCP Internal Medicine; Visit Provider Radiology Diagnostic Radiology | DX: N92.0 Excessive and frequent menstruation with regular cycle (principal) | CPT/HCPCS: 76830; 76856 ==

== ENCOUNTER 2025-01-06 20:18 | Emergency (ER) | payer OTHER, SELFPAY ==
[2025-01-06 21:07] VITALS: BP 140/89; PULSE 86; RESP 18; TEMP 37.1; O2SAT 99; BMI 26.9
[2025-01-06 21:33] LABS: MANUAL DIFF FLAG NO
[2025-01-06 21:35] LABS: Basophils Absolute Auto 0.1 X10*3/uL (0.0-0.2); Basophils Percent Auto 0.4 % (0-2); Eosinophils Absolute Auto 0.1 X10*3/uL (0.0-0.4); Hematocrit 37.1 % (37.0-47.0); Hemoglobin 12.6 g/dl (12.0-16.0); Imm Gran Abs Auto 0.04 X10*3/uL (0.00-0.03); Imm Gran Pct Auto 0.3 % (0.0-0.4); Lymphocytes Absolute Auto 3.6 X10*3/uL (1.2-4.9); Lymphocytes Percent Auto 29.7 % (20-40); Mean Corpuscular Hemoglobin 31.4 pg (27.0-33.0); Mean Corpuscular Volume 92.5 fL (80.0-98.0); Mean Platelet Volume 11.4 fL (9.4-12.3); Monocytes Percent Auto 8.3 % (2-11); Neutrophils Absolute Auto 7.4 x10*3/uL (2.0-8.3); Neutrophils Percent Auto 60.3 % (45-73); Platelet Count 278 X10*3/uL (160-400); Red Blood Count 4.01 X10*6/uL (4.20-5.50); Red Cell Distribution Width 12.4 % (11.0-16.0); White Blood Count 12.3 X10*3/uL (4.8-10.8)
[2025-01-06 21:56] LABS: Alanine Aminotransferase 17 U/L (0-31); Alkaline Phosphatase 42 U/L (39-117); Anion Gap 13 (12-20); Aspartate Amino Transferase 21 U/L (5-31); Bilirubin Direct < 0.2 mg/dL (0.0-0.5); Bilirubin Total 0.1 mg/dL (0.0-1.0); Blood Urea Nitrogen 12 mg/dL (9-16); Calcium 8.9 mg/dL (8.4-10.2); Carbon Dioxide 23 mmol/L (22-29); Chloride 110 mmol/L (96-108); Creatinine Clr Calc Pharmacy 69.6; Estimated Glomerular Filt Rate > 60; Glucose Random 84 mg/dL (60-115); Lipase 38 U/L (8-78); Potassium 3.8 mmol/L (3.3-5.1); Sodium 142 mmol/L (135-145); Total Protein 6.9 g/dL (6.5-8.0)
[2025-01-06 21:57] LABS: HCG Quantitative < 2 mIU/mL
[2025-01-06 22:09] LABS: Appearance Urine Cloudy; Bacteria Urine None Seen (None Seen); Color Urine Orange; Glucose Urine UA Negative (Negative); Hyaline Casts Urine 0-2 /LPF (0-2); Leukocyte Esterase Urine Small (1+) (Negative); Nitrite Urine Negative (Negative); PH 5.5 (5.0-9.0); RBC Urine >20 /HPF (0-2); Specific Gravity - Urine >= 1.030 (1.005-1.025); UACC Culture Trigger YES; UMIC TRIGGER UACC YES; Urine Blood Large (3+) (Negative); Urine Ketones Trace mg/dL (Negative); Urine Protein 30 (1+) mg/dL (Neg-Trace)
--- NOTE | 2025-01-06 23:08 | ED_ITS ---
HPI - Female Genitourinary General Chief complaint: Vaginal Bleeding Stated complaint: vaginal bleeding Time Seen by Provider: 01/06/25 22:02 Source: patient Mode of arrival: ambulatory Limitations: no limitations History of Present Illness ED Provider: Edna Trejo NP HPI Narrative: Patient is a 39-year-old female presents emergency department for evaluation, she reports no menstrual cycle for 5 years due to OCP, stopped taking it in August of 2024, October of 2024 began with heavy menses cramping and clotting. 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 Today she felt sudden onset of severe abdominal pain and cramping radiating to the back, associated with excessive bleeding with clots , states that was so bad she was doubled over. She took 6 tablets of 200 mg ibuprofen. She subsequently She passed a large collection of tissue of what she took a photo on her phone. Sometime after the pain did start to subside in his now described as this is a very mild discomfort/cramping and bleeding has slowed significantly as well Related Data Home Medications ?Medication ?Instructions ?Recorded ?Confirmed ascorbate calcium (vitamin C) 500 500 mg PO DAILY 06/19/24 10/23/24 mg tablet ashwagandha root extract 500 mg 600 mg PO 06/19/24 10/23/24 capsule cholecalciferol (vitamin D3) 50 50 mcg PO DAILY 06/19/24 10/23/24 mcg (2,000 unit) capsule magnesium 250 mg tablet 300 mg PO DAILY 06/19/24 10/23/24 mecobalamin (vitamin B12) 1,000 1,000 mcg PO DAILY 06/19/24 10/23/24 mcg lozenges pyridoxine (vitamin B6) 100 mg 100 mg PO DAILY 06/19/24 10/23/24 tablet buspirone 10 mg tablet mg PO BID 11/14/24 Previous Rx's ?Medication ?Instructions ?Recorded venlafaxine 75 mg capsule,extended 75 mg PO DAILY 30 days #30 caps 04/18/24 release 24 hr dicyclomine 10 mg capsule 10 mg PO TID PRN abdominal pain 3 10/23/24 days #9 caps norethindrone acetate 1 mg-ethinyl 1 tab PO DAILY #63 tabs 11/14/24 estradiol 20 mcg tablet (Junel) fluconazole 150 mg tablet 150 mg PO ONCE PRN personal 1 day 11/15/24 #1 tab propranolol 10 mg tablet 10 mg PO BID #180 tabs 11/19/24 Allergies Allergy/AdvReac Type Severity Reaction Status Date / Time No Known Allergies Allergy Verified 01/06/25 21:10 Review of Systems 2 Review of Systems: Yes all other systems are reviewed and are negative [facility] Past Medical History Attestation statement: The following information was validated with the patient. Source: old records reviewed Medical History Heavy menses Screening due Mood disorder Acute adjustment disorder with anxiety No known health problems Depression Tachycardia Family History Family History Mother Hypercholesteremia Arthritis Father HTN (hypertension) Hypercholesteremia Emphysema lung Manic depression Tachycardia Heart attack Stroke Maternal Grandfather Colon cancer Sister Suicide Social History Social History Household Members: Children Household Members Other:: 2 children ages 15 years old and 18 years old Housing: House Do you presently have visiting nurse or other home services: No Alcohol intake: never Patient Tobacco Use Status: Never used Tobacco e-Cigarette/Vaping Use: Never Used Second Hand Smoke Exposure: Yes service: No Current occupational status: employed 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 No acute distress.?Normal affect. CVS: Heart sounds normal. Normal heart rate and rhythm.? Pulses normal.?? Respiratory: No respiratory distress.? Lung sounds clear to auscultation bilaterally?? Abdomen: Soft and non-tender. Normoactive bowel sounds. no CVAT Skin: Skin warm and dry.? Normal skin color.? ? Extremities: No lower extremity edema.? Neuro: Moves all extremities spontaneously. Sensation intact bilaterally. Ambulates with normal steady gait. Medical Decision Making Medical Decision Making MDM Narrative: Patient is a 39-year-old female presenting to emergency department for evaluation of heavy vaginal bleeding and clots, severe abdominal pain, passage of the a large collection of tissue, which afterwards subsequently led to a significant decrease in pain and slowing of bleeding. On evaluation of serologies obtained prior to my assumption of care she has a mild leukocytosis of 12,300, normal H and H of 12.6 and 37.1, no thrombocytopenia. No significant electrolyte derangement. No BHAVANI. HCG serum is negative. Urinalysis with microscopic hematuria, there is 1+ leukocyte esterase and urine WBC with squamous epithelial cells, no urine bacteria seen, given she has having urinary symptoms suspect urogenital contamination versus urinary tract infection. At this time her abdominal examination is benign. Declines an internal pelvic examination. On review of medical record, she was seen in [facility] office by Ozzie THOMASON on 11/14/24 with heavy menses, clotting and cramping after having recently stopped OCP. Decision made at that time to restart OCP with continuous cycle dosing, Junel, ibuprofen for pain management, and outpatient pelvic and transvaginal ultrasound. This was performed on 01/03/2025; revealing markedly thickened endometrial stripe with internal vascular flow may represent endometrial hyperplasia or neoplasm with radiologist recommendation for further evaluation with hysteroscopy. I [facility] this [facility] recommends close outpatient follow-up for endometrial sampling to rule out hyperplasia/polyp/malignancy was strict return precautions. We discussed if she has return of heavy bleeding, fevers, chills, nausea, vomiting, severe worsening pain she should seek re-evaluation and she verbalized understanding of this. Differential Diagnosis Differential Diagnoses: The differential diagnosis associated with the presentation includes (See narrative above) Lab Data MDM Lab Attestation statement: I reviewed the patient's lab results. (See narrative above) 01/06/25 21:30 01/06/25 21:30 Labs: Lab Results 01/06/25 Range/Units 21:30 WBC 12.3 H (4.8-10.8) X10*3/uL RBC 4.01 L (4.20-5.50) X10*6/uL Hgb 12.6 (12.0-16.0) g/dl Hct 37.1 (37.0-47.0) % MCV 92.5 (80.0-98.0) fL MCH 31.4 (27.0-33.0) pg MCHC 34.0 (31.0-35.0) g/dl RDW 12.4 (11.0-16.0) % Plt Count 278 (160-400) X10*3/uL MPV 11.4 (9.4-12.3) fL Immature Gran % (Auto) 0.3 (0.0-0.4) % Neut % (Auto) 60.3 (45-73) % Lymph % (Auto) 29.7 (20-40) % [place] % (Auto) 8.3 (2-11) % Eos % (Auto) 1.0 (0-4) % Baso % (Auto) 0.4 (0-2) % Lymph # (Auto) 3.6 (1.2-4.9) X10*3/uL [place] # (Auto) 1.0 (0.1-1.2) X10*3/uL Eos # (Auto) 0.1 (0.0-0.4) X10*3/uL Baso # (Auto) 0.1 (0.0-0.2) X10*3/uL Abs Immat Gran (auto) 0.04 H (0.00-0.03) X10*3/uL Absolute Neuts (auto) 7.4 (2.0-8.3) x10*3/uL Absolute Nucleated RBC 0.000 (0.0-0.012) X10*3/uL Nucleated RBC % (auto) 0.0 (0.0-0.2) /100WBC Sodium 142 (135-145) mmol/L Potassium 3.8 (3.3-5.1) mmol/L Chloride 110 H (96-108) mmol/L Carbon Dioxide 23 (22-29) mmol/L Anion Gap 13 (12-20) BUN 12 (9-16) mg/dL Creatinine 0.84 (0.5-1.4) mg/dL Estim Creat Clear Calc 69.6 Estimated GFR > 60 Random Glucose 84 (60-115) mg/dL Calcium 8.9 (8.4-10.2) mg/dL Total Bilirubin 0.1 (0.0-1.0) mg/dL Direct Bilirubin < 0.2 (0.0-0.5) mg/dL AST 21 (5-31) U/L ALT 17 (0-31) U/L Alkaline Phosphatase 42 (39-117) U/L Total Protein 6.9 (6.5-8.0) g/dL Albumin 4.0 (3.5-5.0) g/dL Lipase 38 (8-78) U/L Beta HCG, Quant < 2 mIU/mL Urine Color [place] A Urine Appearance Cloudy Urine pH 5.5 (5.0-9.0) Ur Specific [place] >= 1.030 H (1.005-1.025) Urine Protein 30 (1+) H (Neg-Trace) mg/dL Urine Glucose (UA) Negative (Negative) mg/dL Urine Ketones Trace (Negative) mg/dL Urine Blood Large (3+) H (Negative) Urine Nitrite Negative (Negative) Ur Leukocyte Esterase Small (1+) H (Negative) Urine RBC >20 H (0-2) /HPF Urine WBC 6-10 H (0-5) /HPF Ur Squamous Epith Cells 3-5 (0-2) /HPF Urine Bacteria None Seen (None Seen) Hyaline Casts 0-2 (0-2) /LPF External Record Review External record reviewed: Prior outpatient radiology 01/03/2025 Transabdominal and endovaginal real-time 2D varma-scale ultrasound was performed. US/US pelvic and transvaginal IMPRESSION: Markedly thickened endometrial stripe demonstrate internal vascular flow. This could represent endometrial hyperplasia or neoplasm. Further evaluation with hysteroscopy should be considered. Prescription Management I considered prescription management with: Pain Medication Discharge Plan Discharge Clinical Impression: Vaginal bleeding Patient Disposition: Home, Self-Care Additional Instructions: Continue taking your control as prescribed. You can take ibuprofen 200 mg, 3 tablets (600mg) every 6-8 hours as needed for pain, in addition to Tylenol 500 mg, 2 tablets (1,000mg) every 4-6 hours as needed for pain, but not to exceed 3 doses daily (3,000mg).? As discussed, please contact outside barrel lathe operator office 1st thing tomorrow morning to arrange for close outpatient follow-up for endometrial sampling. Return to emergency department with new or worsening symptoms or concerns which includes but is not limited to severe worsening pain, heavy bleeding, fevers, chills, nausea, vomiting. Prescriptions: No Action fluconazole 150 mg tablet 150 mg PO ONCE PRN (Reason: personal) 1 Days Qty: 1 0RF propranolol 10 mg tablet 10 mg PO BID Qty: 180 2RF venlafaxine 75 mg Capsule,Extended Release 24hr 75 mg PO DAILY 30 Days Qty: 30 0RF magnesium 250 mg tablet 300 mg PO DAILY mecobalamin (vitamin B12) 1,000 mcg lozenge 1,000 mcg PO DAILY Rx Instructions: allow to dissolve in mouth OR may chew lightly before swallowing pyridoxine (vitamin B6) 100 mg tablet 100 mg PO DAILY ascorbate calcium (vitamin C) 500 mg tablet 500 mg PO DAILY cholecalciferol (vitamin D3) 50 mcg (2,000 unit) capsule 50 mcg PO DAILY ashwagandha root extract 500 mg capsule 600 mg PO dicyclomine 10 mg capsule 10 mg PO TID PRN (Reason: abdominal pain) 3 Days Qty: 9 0RF buspirone 10 mg tablet PO BID norethindrone ac-eth estradiol [09/24 (21)] 1-20 mg-mcg tablet 1 tab PO DAILY Qty: 63 2RF Rx Instructions: take continuously Referrals: Nirali Raphael MD [Primary Care Provider] - Stand Alone Forms: Work/School Release Interventions: ED Discharge Assessment Last Done: 01/07/25 00:06 Discharge Date/Time: 01/07/25 00:06 Print Language: Trinidadian
[2025-01-06 23:25] VITALS: BP 130/81; PULSE 70; RESP 16; TEMP 36.8; O2SAT 100
--- NOTE | 2025-01-06 23:36 | PM.GYNCN ---
BACTERIOLOGIST FOOD - CN: HPI Data of Consult Consult date: 01/06/25 Primary Care Provider: Nirali Raphael MD Consult Narrative Narrative: I was consulted on Radha Zavala who is a 39 year old female presented emergency room complaining of an episode of vaginal bleeding with pelvic cramping, this episode have subsided prior to presentation. The patient was on control pills that was stopped in August of 2024, restarted on continuously after abnormal uterine bleeding was started in October. No fever or chills no other concerns. In the emergency room H&H with a normal, hCG less than 2. Ultrasound done on 01/03/2025 showed the following: IMPRESSION: Markedly thickened endometrial stripe demonstrate internal vascular flow. This could represent endometrial hyperplasia or neoplasm. Further evaluation with hysteroscopy should be considered cc:: CC: OB [facility] Past Medical History Medical History Heavy menses Screening due Mood disorder Acute adjustment disorder with anxiety No known health problems Depression Tachycardia Family History Family History Mother Hypercholesteremia Arthritis Father HTN (hypertension) Hypercholesteremia Emphysema lung Manic depression Tachycardia Heart attack Stroke Maternal Grandfather Colon cancer Sister Suicide Social History Social History Household Members: Children Household Members Other:: 2 children ages 15 years old and 18 years old Housing: House Do you presently have visiting nurse or other home services: No Alcohol intake: never Patient Tobacco Use Status: Never used Tobacco Smoked in Last 30 Days: No e-Cigarette/Vaping Use: Never Used Second Hand Smoke Exposure: Yes Use of substances other than those prescribed or required for medical reasons: No Advance Directives: No Advance Directives Information Provided: No Do you have a plan to hurt others: No Plan Patient : No service: No Current occupational status: employed 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 Sexual orientation: Straight/Heterosexual Gender identity: Female Meds Allergies Allergy/AdvReac Type Severity Reaction Status Date / Time No Known Allergies Allergy Verified 01/06/25 21:10 Home Medications ?Medication ?Instructions ?Recorded ?Confirmed ?Last Taken ?Type ascorbate calcium (vitamin C) 500 500 mg PO DAILY 06/19/24 10/23/24 Unknown History mg tablet ke root extract 500 mg 600 mg PO 06/19/24 10/23/24 Unknown History capsule cholecalciferol (vitamin D3) 50 50 mcg PO DAILY 06/19/24 10/23/24 Unknown History mcg (2,000 unit) capsule magnesium 250 mg tablet 300 mg PO DAILY 06/19/24 10/23/24 Unknown History mecobalamin (vitamin B12) 1,000 1,000 mcg PO DAILY 06/19/24 10/23/24 Unknown History mcg lozenges pyridoxine (vitamin B6) 100 mg 100 mg PO DAILY 06/19/24 10/23/24 Unknown History tablet buspirone 10 mg tablet mg PO BID 11/14/24 Unknown History BACTERIOLOGIST FOOD Physical Exam Vitals Vital signs: Temp Pulse Resp BP Pulse Ox O2 Del Method 98.2 F 70 16 130/81 100 Room Air 01/06/25 23:25 01/06/25 23:25 01/06/25 23:25 01/06/25 23:25 01/06/25 23:25 01/06/25 23:25 BMI result Body Mass Index 26.9 BACTERIOLOGIST FOOD - Results Labs 01/06/25 21:30 01/06/25 21:30 Labs: Short CBC 01/06/25 Range/Units 21:30 WBC 12.3 H (4.8-10.8) X10*3/uL Hgb 12.6 (12.0-16.0) g/dl Hct 37.1 (37.0-47.0) % Plt Count 278 (160-400) X10*3/uL BMP 01/06/25 21:30 Sodium 142 Potassium 3.8 Chloride 110 H Carbon Dioxide 23 BUN 12 Creatinine 0.84 Calcium 8.9 Liver Function 01/06/25 Range/Units 21:30 Total Bilirubin 0.1 (0.0-1.0) mg/dL Direct Bilirubin < 0.2 (0.0-0.5) mg/dL AST 21 (5-31) U/L ALT 17 (0-31) U/L Alkaline Phosphatase 42 (39-117) U/L Albumin 4.0 (3.5-5.0) g/dL Urine 01/06/25 Range/Units 21:30 Urine Color [place] A Urine Appearance Cloudy Urine pH 5.5 (5.0-9.0) Ur Specific [place] >= 1.030 H (1.005-1.025) Urine Protein 30 (1+) H (Neg-Trace) mg/dL Urine Glucose (UA) Negative (Negative) mg/dL Assessment and Plan (1) Abnormal uterine bleeding: Status: Acute Recommended the following to JACKELINE Trevino : Since the patient heavy bleeding resolved, H&H is stable and hCG is less than 2 Recommended close office follow-up for endometrial sampling to rule out endometrial pathology including endometrial hyperplasia and/or malignancy Instructions to be given to patient to come back to emergency room in case of heavy vaginal bleeding, fever above 100.4, pelvic pain I spent a total of 20 minutes reviewing the chart, communicating with the emergency room provider and documenting in the medical record.
[2025-01-07 00:06] VITALS: BP 130/81; PULSE 70; RESP 16; TEMP 36.8; O2SAT 100
== END 2025-01-07 00:06 | disposition home or self-care (01) ==
PROVIDERS: Emergency Provider Emergency Medicine; PCP Internal Medicine
DX: N93.9 Abnormal uterine and vaginal bleeding, unspecified (principal); R10.2 Pelvic and perineal pain; Z79.899 Other long term (current) drug therapy
CPT/HCPCS: 36415; 80048; 80076; 81001; 81003; 83690; 84702; 85025; 87086; 99283; 99284

== ENCOUNTER → 2025-01-06 21:29 | Outpatient (BNV) | payer OTHER, SELFPAY | PROVIDERS: Emergency Provider Emergency Medicine; PCP Internal Medicine; Visit Provider Obstetrics & Gynecology | DX: N93.9 Abnormal uterine and vaginal bleeding, unspecified (principal) | CPT/HCPCS: 99447 ==

== ENCOUNTER 2025-01-08 12:51 | Outpatient (REF) | payer OTHER, SELFPAY ==
[2025-01-17 09:16] LABS: HPV Genotype 16 Negative (Negative); HPV Genotype 18 Negative (Negative); HPV High Risk Negative (Negative)
== END 2025-01-08 12:52 | disposition home or self-care (01) ==
LOC: HO.LNP 12:51
PROVIDERS: PCP Internal Medicine; Visit Provider Obstetrics & Gynecology
DX: N93.9 Abnormal uterine and vaginal bleeding, unspecified (principal)
CPT/HCPCS: 58100; 87626; 88175; 88305

== ENCOUNTER 2025-01-08 12:51 | Outpatient (AMB) | payer OTHER, SELFPAY ==
[2025-01-08 13:02] VITALS: BMI 26.9
--- NOTE | 2025-01-08 13:02 | MHC.OFFVIS ---
Vital Signs 01/08/25 13:02 Height 4 ft 11 in Weight 133 lb BMI 26.9 Intake Visit Reasons: Thickened endometrium Professor Of Sociology Required: No Information Interpreted: non-clinical & clinical Accompanied by: Self / Same As Patient Allergies No Known Allergies Allergy (Verified 01/08/25 13:03) HPI Comments Details: Presenting for follow-up from emergency room visit on 01/03/2025 when the patient went to the emergency room with an episode of vaginal bleeding with pelvic cramping, that subsided prior to presentation. The patient was on control pills that was stopped in August of 2024, restarted on continuously after abnormal uterine bleeding was started in October. In the emergency room the following workup was done: H&H 12.6/37.1, hCG less than 2. Pelvic Ultrasound done on 01/03/2025 showed the following: IMPRESSION: Markedly thickened endometrial stripe demonstrate internal vascular flow. This could represent endometrial hyperplasia or neoplasm. Further evaluation with hysteroscopy should be considered Last mammogram in 06/28 was BI-RADS 1 Last co testing in 12/23 was negative [facility] Medical History Heavy menses Screening due Mood disorder Acute adjustment disorder with anxiety No known health problems Depression Tachycardia Family History Mother Hypercholesteremia Arthritis Father HTN (hypertension) Hypercholesteremia Emphysema lung Manic depression Tachycardia Heart attack Stroke Maternal Grandfather Colon cancer Sister Suicide Social History Household Members: Children Household Members Other:: 2 children ages 15 years old and 18 years old Housing: House Do you presently have visiting nurse or other home services: No Alcohol intake: never Patient Tobacco Use Status: Never used Tobacco e-Cigarette/Vaping Use: Never Used Second Hand Smoke Exposure: Yes service: No 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 occupational status: employed 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 Sexual orientation: Straight/Heterosexual Gender identity: Female Review of Systems Const All systems reviewed & are unremarkable except as noted in HPI and below Physical Exam Vital Signs: BMI result Body Mass Index 26.9 General: Yes no CVA tenderness External Female Exam: normal external appearance and normal appearance of the urethra Speculum Exam - Vagina: normal appearance of the vagina, normal palpation, no lesions and no masses Speculum Exam - Cervix: normal appearance of the cervix, normal palpation, no lesions, no masses and nontender Bimanual exam- vagina & uterus: normal bimanual exam, normal palpation, uterine size normal, normal palpation, uterine shape normal, No Cervical tenderness present and non-tender Bimanual Exam- Adnexa, other: normal adnexae Back/Spine/Pelvis Back: no CVA tenderness Office Procedures Endometrial Biopsy Details: The patient was counseled regarding the indication and benefits of endometrial sampling to rule out endometrial pathology including not limited to endometrial hyperplasia or endometrial cancer and others; The alternatives (Either do nothing vs. hysteroscopy D&C) & the risks were discussed with the patient including but not limited: pain, uterine perforation, bleeding, infection, possible injury to bladder, bowel, ureter, possible need for blood transfusion with all its possible risks. The patient verbalized understanding all questions answered and signed consent. Urine test done in the office was negative The patient was placed into the dorsal lithotomy position; a speculum was inserted in the vagina. Using aseptic technique for the procedure, the cervix was cleansed with Betadine. The anterior lip of the cervix was grasped with a single tooth tenaculum. The uterus was sounded to 7 cm with a 4 mm Pipelle was used. Tissues samples were obtained and placed in formalin, in a patient labeled container and sent to the pathology department. At the end of the procedure, there was minimal bleeding noted The patient tolerated the procedure well and was discharged in good condition with the following instructions: Nothing in the vagina until the bleeding stops. No sex until the bleeding stops, to call if any of the following occurs: fever (>100.4), flu-like symptoms, abdominal pain, heavy bleeding, four smelling vaginal discharge. The patient was instructed to schedule a Follow up appointment in 2 weeks to discuss pathology results of the biopsy and treatment options. This note was generated with a voice recognition program. Some errors may have been overlooked during the review of this note. Sometimes these errors may affect the content or meaning of a given sentence. 25916-Unqbctxtlyp Biopsy Assessment & Plan Assessment & Plan (1) Abnormal uterine bleeding: Comment: Abnormal endometrial thickness by ultrasound Code(s): N93.9 - Abnormal uterine and vaginal bleeding, unspecified Category: Medical Plan: Co testing done, TSH ordered. Discussed with the patient the different causes of abnormal bleeding including thyroid disorders, uterine and ovarian pathology, endometrial hyperplasia, carcinoma and other potential causes. Recommended to the patient that the next step is an endometrial sampling via hysteroscopy D&C possible polypectomy versus endometrial biopsy to r/o endometrial pathology including hyperplasia or cancer. All the pros and cons risks and benefits of each approach were discussed with the patient, endometrial biopsy being less invasive, office procedure with less sensitivity and inability diagnose a polyp and removal versus hysteroscopy done under anesthesia more invasive more sensitive to endometrial cancer and possibility of diagnosing and endometrial polyp with the possibility of polypectomy. All questions were answered pt verbalized understanding and decided to proceed with endometrial biopsy. EMB done, see procedure note Orders: Orders TSH reflex Free T4 Today N93.9 - Abnormal uterine and vaginal bleeding, unspecified AMB Endometrial Biopsy Today N93.9 - Abnormal uterine and vaginal bleeding, unspecified Coding Level of Care Code Est Pt Level 3 (34895) Procedure Only Diagnoses Abnormal uterine bleeding N93.9 CPT Codes Endometrial Biopsy - CPT: 98144-Aqrotcrqduz Biopsy ([id number])
== END 2025-01-08 13:26 | disposition home or self-care (01) ==
LOC: HO.HWS 12:51
PROVIDERS: PCP Internal Medicine; Visit Provider Obstetrics & Gynecology
DX: N93.9 Abnormal uterine and vaginal bleeding, unspecified (principal)
CPT/HCPCS: 58100; 99213

== ENCOUNTER 2025-01-14 14:20 | Outpatient (AMB) | payer OTHER, SELFPAY ==
--- NOTE | 2025-01-14 14:40 | MHC.OFFVIS ---
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 The pain has improved over the last few days especially a today. [facility] Medical History Heavy menses Screening due Mood disorder Acute adjustment disorder with anxiety No known health problems Depression Tachycardia Family History Mother Hypercholesteremia Arthritis Father HTN (hypertension) Hypercholesteremia Emphysema lung Manic depression Tachycardia Heart attack Stroke Maternal Grandfather Colon cancer Sister Suicide Social History Household Members: Children Household Members Other:: 2 children ages 15 years old and 18 years old Housing: House Do you presently have visiting nurse or other home services: No Alcohol intake: never Patient Tobacco Use Status: Never used Tobacco e-Cigarette/Vaping Use: Never Used Second Hand Smoke Exposure: Yes service: No Current occupational status: employed 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 Sexual orientation: Straight/Heterosexual Gender identity: Female Review of Systems Const All systems reviewed & are unremarkable except as noted in HPI and below Physical Exam Vital Signs: BMI result Body Mass Index 26.9 GI Palpation (GI): Soft to palpation, nontender and no guarding General: Yes no CVA tenderness External Female Exam: normal external appearance and normal appearance of the urethra Speculum Exam - Vagina: normal appearance of the vagina, normal palpation, no lesions and no masses Speculum Exam - Cervix: normal appearance of the cervix, normal palpation, no lesions, no masses and nontender Bimanual exam- vagina & uterus: normal bimanual exam, normal palpation, uterine size normal, normal palpation, uterine shape normal, No Cervical tenderness present and non-tender Bimanual Exam- Adnexa, other: normal adnexae Back/Spine/Pelvis Back: no CVA tenderness Assessment & Plan Assessment & Plan (1) Pelvic pain: Code(s): R10.2 - Pelvic and perineal pain Category: Medical Plan: Urine test done in the office was negative. Urine culture sent. GC/CT collected. Pelvic ultrasound ordered. Instructions given to patient to call in case of fever above 100.4, worsening or persistent of pelvic pain, heavy vaginal bleeding otherwise follow-up in the office within a week. All questions answered, the patient verbalized understanding. Coding Level of Care Code Est Pt Level 3 (88542) Diagnoses Pelvic pain R10.2
[2025-01-14 14:42] VITALS: BMI 26.9
== END 2025-01-14 14:58 | disposition home or self-care (01) ==
LOC: HO.HWS 14:21
PROVIDERS: PCP Internal Medicine; Visit Provider Obstetrics & Gynecology
DX: Z32.02 Encounter for pregnancy test, result negative (principal); R10.2 Pelvic and perineal pain
CPT/HCPCS: 99213

== ENCOUNTER 2025-01-14 14:20 | Outpatient (REF) | payer OTHER, SELFPAY ==
[2025-01-14 18:58] LABS: CT PCR NOT DETECTED (Not Detect.); NG PCR NOT DETECTED (Not Detect.)
== END 2025-01-14 14:21 | disposition home or self-care (01) ==
LOC: HO.LNP 14:20
PROVIDERS: PCP Internal Medicine; Visit Provider Obstetrics & Gynecology
DX: R10.2 Pelvic and perineal pain (principal); N93.9 Abnormal uterine and vaginal bleeding, unspecified
CPT/HCPCS: 81025; 87086; 87491; 87591

== ENCOUNTER 2025-01-17 10:00 | Outpatient (REF) | payer OTHER, SELFPAY ==
--- NOTE | ~2025-01-17 | US_ITS ---
CLINICAL HISTORY: R10.2 - Pelvic and perineal pain US pelvis transabdominal and transvaginal with Doppler Comparison: None Findings: Transabdominal scanning performed for overall anatomy. Transvaginal scanning performed for additional detail. Anteverted uterus is 9.9 cm length. Normal myometrium. Endometrium 19 mm thickness and is heterogeneous. Right ovary 2.6 x 1.6 x 1.9 cm. Left ovary 2.2 x 1.3 x 1.5 cm. Normal color Doppler with arterial/venous spectral tracing of both ovaries. No free fluid. IMPRESSION: 1. Thickened, heterogeneous endometrium, consistent with hypoplasia versus malignancy. This document has been electronically signed by: Yumiko Horne MD on 01/17/2025 16:53:52
== END 2025-01-17 10:01 | disposition home or self-care (01) ==
LOC: HO.US 10:00
PROVIDERS: PCP Internal Medicine; Visit Provider Obstetrics & Gynecology
DX: R10.2 Pelvic and perineal pain (principal)
CPT/HCPCS: 76830; 76856

== ENCOUNTER → 2025-01-17 10:02 | Outpatient (BNV) | payer OTHER, SELFPAY | PROVIDERS: PCP Internal Medicine; Visit Provider Radiology Diagnostic Radiology | DX: R10.2 Pelvic and perineal pain (principal) | CPT/HCPCS: 76830; 76856 ==

== ENCOUNTER 2025-01-29 09:56 | Outpatient (AMB) | payer OTHER, SELFPAY ==
--- NOTE | 2025-01-29 10:12 | A.OFFVIS_ITS ---
Intake Visit Reasons: EMB results/ repeat pap Highway Engineering Teacher: Highway Engineering Teacher Present (Josefa) Accompanied by: Self / Same As Patient Allergies No Known Allergies Allergy (Verified 01/29/25 10:12) HPI Comments Details: The patient is presenting for follow-up , repeat Pap to discuss the results of her abnormal uterine bleeding workup and options of treatment. The following workup was done.: H&H= 12.6/37.1 TSH, hCG, GC and chlamydia were negative. Endometrial biopsy pathology showed the following: Endometrium, biopsy: Benign endometrium with breakdown, atrophic glands, and decidual stromal change, consistent with progestin effect; no atypia or carcinoma Co testing was done showed the following General Category: Non-diagnostic. Adequacy: Unsatisfactory for evaluation. Interpretation: Insufficient epithelial component present; acid-wash performed. Abundant blood Recommend repeat. HPV High Risk: Negative HPV Genotyping 16: Negative HPV Genotyping 18: Negative Mammogram was done in 08/28 was BI-RADS 1 Pelvic ultrasound showed the following: Findings: Transabdominal scanning performed for overall anatomy. Transvaginal scanning performed for additional detail. Anteverted uterus is 9.9 cm length. Normal myometrium. Endometrium 19 mm thickness and is heterogeneous. Right ovary 2.6 x 1.6 x 1.9 cm. Left ovary 2.2 x 1.3 x 1.5 cm. Normal color Doppler with arterial/venous spectral tracing of both ovaries. No free fluid. The patient was control pill discontinued in August and was restarted recently, her menstrual cycle has been improving since then [facility] Medical History Heavy menses Screening due Mood disorder Acute adjustment disorder with anxiety No known health problems Depression Tachycardia Family History Mother Hypercholesteremia Arthritis Father HTN (hypertension) Hypercholesteremia Emphysema lung Manic depression Tachycardia Heart attack Stroke Maternal Grandfather Colon cancer Sister Suicide Social History Household Members: Children Household Members Other:: 2 children ages 15 years old and 18 years old Housing: House Do you presently have visiting nurse or other home services: No Alcohol intake: never Patient Tobacco Use Status: Never used Tobacco e-Cigarette/Vaping Use: Never Used Second Hand Smoke Exposure: Yes service: No Current occupational status: employed 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 Sexual orientation: Straight/Heterosexual Gender identity: Female Review of Systems Const All systems reviewed & are unremarkable except as noted in HPI and below Reports as per HPI and Reports no additional complaints GI Reports no additional complaints Reports no additional complaints Physical Exam General: Yes no CVA tenderness External Female Exam: normal external appearance and normal appearance of the urethra Speculum Exam - Vagina: normal appearance of the vagina, normal palpation, no lesions and no masses Speculum Exam - Cervix: normal appearance of the cervix, normal palpation, no lesions, no masses and nontender Bimanual exam- vagina & uterus: normal bimanual exam, normal palpation, uterine size normal, normal palpation, uterine shape normal, No Cervical tenderness present and non-tender Bimanual Exam- Adnexa, other: normal adnexae Back/Spine/Pelvis Back: no CVA tenderness Assessment & Plan Assessment & Plan (1) Abnormal uterine bleeding: Comment: On Code(s): N93.9 - Abnormal uterine and vaginal bleeding, unspecified Category: Medical Plan: Discussed with the patient the results of the work up done and options of treatment including control pills , Mirena IUD. All pros, cons, risks and benefits if each option was discussed with the patient and the patient decided to stay with [facility] so a more detailed discussion re: control pills including mechanism of action, benefits (regular menses, less dysmenorrhea, less risk of ovarian cancer, ...), risks ( DVT, PE, Strokes, [place], ? increased breast ca, others). Instructions were given to consider Mirena IUD and she is above the age of 40 with family history of arterial disease, the patient will call when she is ready for Mirena IUD insertion (2) Unsatisfactory cervical Papanicolaou smear: Code(s): R87.615 - Unsatisfactory cytologic smear of cervix Category: Medical Plan: Pap repeated Coding Level of Care Code Est Pt Level 3 (11577) Diagnoses Abnormal uterine bleeding N93.9 Unsatisfactory cervical Papanicolaou smear R87.615
== END 2025-01-29 10:46 | disposition home or self-care (01) ==
LOC: HO.HWS 09:57
PROVIDERS: PCP Internal Medicine; Visit Provider Obstetrics & Gynecology
DX: N93.9 Abnormal uterine and vaginal bleeding, unspecified (principal); R87.615 Unsatisfactory cytologic smear of cervix
CPT/HCPCS: 99213

== ENCOUNTER 2025-01-29 09:56 | Outpatient (REF) | payer OTHER, SELFPAY | END 2025-01-29 09:57 | disposition home or self-care (01) | LOC: HO.LNP 09:56 | PROVIDERS: PCP Internal Medicine; Visit Provider Obstetrics & Gynecology | DX: R87.615 Unsatisfactory cytologic smear of cervix (principal) | CPT/HCPCS: 88175 ==

== ENCOUNTER 2025-02-13 09:35 | Outpatient (AMB) | payer OTHER, SELFPAY ==
--- NOTE | 2025-02-13 09:36 | MHC.OFFVIS ---
Intake Visit Reasons: control follow up Allergies No Known Allergies Allergy (Verified 01/29/25 10:12) HPI Comments Details: The patient is scheduled tele health visit to discuss the results of the pelvic ultrasound complaining of hot flashes and mood swings Pelvic ultrasound done recently showed the following: Anteverted uterus is 9.9 cm length. Normal myometrium. Endometrium 19 mm thickness and is heterogeneous. Right ovary 2.6 x 1.6 x 1.9 cm. Left ovary 2.2 x 1.3 x 1.5 cm. Normal color Doppler with arterial/venous spectral tracing of both ovaries. No free fluid. IMPRESSION: 1. Thickened, heterogeneous endometrium, consistent with hypoplasia versus malignancy. Emb path=Benign endometrium with breakdown, atrophic glands, and decidual stromal change, consistent with progestin effect; no atypia or carcinoma Last co testing in 01/27 was negative [facility] Medical History Heavy menses Screening due Mood disorder Acute adjustment disorder with anxiety No known health problems Depression Tachycardia Family History Mother Hypercholesteremia Arthritis Father HTN (hypertension) Hypercholesteremia Emphysema lung Manic depression Tachycardia Heart attack Stroke Maternal Grandfather Colon cancer Sister Suicide Social History Household Members: Children Household Members Other:: 2 children ages 15 years old and 18 years old Housing: House Do you presently have visiting nurse or other home services: No Alcohol intake: never Patient Tobacco Use Status: Never used Tobacco e-Cigarette/Vaping Use: Never Used Second Hand Smoke Exposure: Yes service: No 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 occupational status: employed 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 Sexual orientation: Straight/Heterosexual Gender identity: Female Review of Systems Const All systems reviewed & are unremarkable except as noted in HPI and below Reports as per HPI and Reports no additional complaints GI Reports no additional complaints Reports no additional complaints Telehealth Telehealth Telehealth Platform: Telephone Location of provider rendering services: practice address Location of patient: address on file Patient Identification confirmed using: Name, : Yes Telehealth method: video Patient verbally consented to treatment: Yes Patient verbally consented to billing insurance company: Yes Patient informed of any privacy concerns related to visit: Yes Minutes spent on Phone/Video with Pt.: 6 Assessment & Plan Assessment & Plan (1) Abnormal uterine bleeding: Comment: Thickened heterogenous abnormal endometrium by ultrasound consistent with hyperplasia/malignancy On Code(s): N93.9 - Abnormal uterine and vaginal bleeding, unspecified Category: Medical Plan: Day 7 FSH/LH ordered, instructions given the patient to have blood drawn day 7 of pill free period. Discussed with the patient the finding on ultrasound showing thickened heterogenous endometrium consistent with endometrial hyperplasia and/or malignancy per radiology report, recommended hysteroscopy D&C possible polypectomy/myomectomy Instructions given the patient to schedule a preop visit within few days. I spent a total of 20 minutes reviewing the chart, talking to the patient via video and documenting in the medical record. Orders: Orders Follicle Stimulating Hormone Today N93.9 - Abnormal uterine and vaginal bleeding, unspecified Lutenizing Hormone Today N93.9 - Abnormal uterine and vaginal bleeding, unspecified Coding Level of Care Code Tele [facility] Pt Level 3 (58106) Diagnoses Abnormal uterine bleeding N93.9
== END 2025-02-13 10:01 | disposition home or self-care (01) ==
LOC: HO.HWS 09:35
PROVIDERS: PCP Internal Medicine; Visit Provider Obstetrics & Gynecology
DX: N93.9 Abnormal uterine and vaginal bleeding, unspecified (principal)
CPT/HCPCS: 99213

== ENCOUNTER 2025-02-14 10:02 | Outpatient (AMB) | payer OTHER, SELFPAY ==
--- NOTE | 2025-02-14 10:05 | MHC.OFFVIS ---
Intake Visit Reasons: pre op Import/Export Agent: Import/Export Agent Present Accompanied by: Self / Same As Patient Allergies No Known Allergies Allergy (Verified 02/14/25 10:05) Is last menstrual period known: Yes Last menstrual period: 07/03/20 Post menopausal: No Patient : No Do you need a note to return to daycare/school/sports/work: Yes (for surgery on tuesday) HPI Comments Details: Presenting to discuss hysteroscopy D&C possible polypectomy/myomectomy [facility] Medical History Heavy menses Screening due Mood disorder Acute adjustment disorder with anxiety No known health problems Depression Tachycardia Family History Mother Hypercholesteremia Arthritis Father HTN (hypertension) Hypercholesteremia Emphysema lung Manic depression Tachycardia Heart attack Stroke Maternal Grandfather Colon cancer Sister Suicide Social History Household Members: Children Household Members Other:: 2 children ages 15 years old and 18 years old Housing: House Do you presently have visiting nurse or other home services: No Alcohol intake: never Patient Tobacco Use Status: Never used Tobacco e-Cigarette/Vaping Use: Never Used Second Hand Smoke Exposure: Yes service: No 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 occupational status: employed 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 Sexual orientation: Straight/Heterosexual Gender identity: Female Female Reproductive History Menstrual Date of last menstrual period: 07/03/20 Total pregnancies: 2 Full term: 2 Review of Systems Card Reports as per HPI and Reports no additional complaints Resp Reports as per HPI and Reports no additional complaints GI Reports as per HPI and Reports no additional complaints Reports as per HPI Physical Exam Const General: cooperative, healthy appearing and comfortable Resp Effort & Inspection: normal respiratory effort Auscultation: clear to auscultation bilaterally Percussion: percussion normal Cardio Palpation: normal PMI Rate: regular rate Rhythm: regular rhythm Heart sounds: no murmurs and no rubs Peripheral pulses: Peripheral pulses 2+ throughout GI Inspection: Yes normal to inspection Palpation (GI): Soft to palpation, nontender, no guarding, not rigid and No hepatosplenomegaly present Percussion: Yes normal to percussion Auscultation: normal bowel sounds Rectal Exam - Female: deferred Assessment & Plan Assessment & Plan (1) Abnormal uterine bleeding: Comment: Thickened heterogenous abnormal endometrium by ultrasound consistent with hyperplasia/malignancy On Code(s): N93.9 - Abnormal uterine and vaginal bleeding, unspecified Category: Medical Plan: Will proceed with hysteroscopy D&C possible polypectomy/myomectomy. Discussed with the patient the procedure , all benefits and risks including but not limited to inability to complete the procedure , insufficient endometrial tissue for a complete evaluation of the endometrial cavity , bleeding, infection, possible need for blood transfusion with all its risk ( HIV,syphilis, Hepatitis, anaphylaxis shock, others..), injury to bladder, rectum, possible need for laparoscopy/laparotomy or hysterectomy. The patient verbalized understanding and signed the consent. Instructions given the patient to stay NPO after midnight the day prior to the procedure and to take only the specific medication (s) discussed the morning of the surgical procedure and to schedule a 2 week postoperative appointment Coding Level of Care Code Est Pt Level 3 (74443) Diagnoses Abnormal uterine bleeding N93.9
== END 2025-02-14 10:23 | disposition home or self-care (01) ==
LOC: HO.HWS 10:02
PROVIDERS: PCP Internal Medicine; Visit Provider Obstetrics & Gynecology
DX: N93.9 Abnormal uterine and vaginal bleeding, unspecified (principal)
CPT/HCPCS: 99213

== ENCOUNTER → 2025-02-14 10:02 | Outpatient (BNVA) | payer OTHER, SELFPAY | PROVIDERS: PCP Internal Medicine; Visit Provider Obstetrics & Gynecology ==

== ENCOUNTER 2025-02-20 12:17 | Day surgery (SDC) | payer OTHER, SELFPAY ==
--- NOTE | 2025-02-19 09:46 | HO.ANESPROP2 ---
Documented by User: Radha Noble NP 02/19/25 09:50 HPI - Anesthesia Eval Consult details Narrative: 39yo F for D&C Hysteroscopy,possible myomectomy,possible polypectomy SVT on propranolol. [place] [facility] Required ED/adenosine 07/2024 for HR 210 PMFSH Active Problems Active Problems: All Active Problems Unsatisfactory cervical Papanicolaou smear (Acute) Abnormal uterine bleeding (Acute) Heavy menses (Acute) Abdominal pain (Acute) Encounter for well woman exam with routine gynecological exam (Acute) AIDEE (generalized anxiety disorder) (Acute) MDD (major depressive disorder), recurrent episode (Acute) MDD (major depressive disorder), recurrent episode, moderate (Acute) Atypical nevus (Acute) Physical exam (Acute) Fluctuation of weight (Acute) SVT (supraventricular tachycardia) (Acute) Pelvic pain (Acute) Past Medical History Medical History Heavy menses Screening due Mood disorder Acute adjustment disorder with anxiety No known health problems Depression Tachycardia Family History Family History Mother Hypercholesteremia Arthritis Father HTN (hypertension) Hypercholesteremia Emphysema lung Manic depression Tachycardia Heart attack Stroke Maternal Grandfather Colon cancer Sister Suicide Surgical History Surgical History (Updated 02/20/25 @ 13:09 by Xiomara Kate RN) No pertinent past surgical history Social History Social History Household Members: Children Household Members Other:: 2 children ages 15 years old and 18 years old Housing: House Are you a primary animal care giver to a significant other at home: No Do you presently have visiting nurse or other home services: No Alcohol intake: never Patient Tobacco Use Status: Never used Tobacco e-Cigarette/Vaping Use: Never Used Second Hand Smoke Exposure: Yes Use of substances other than those prescribed or required for medical reasons: No Have you been hit, kicked, punched, or otherwise hurt by someone within the past year? 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 Sexual orientation: Straight/Heterosexual Gender identity: Female Meds Allergies Allergy/AdvReac Type Severity Reaction Status Date / Time No Known Allergies Allergy Verified 02/20/25 13:10 Home Medications ?Medication ?Instructions ?Recorded ?Confirmed ?Last Taken ?Type cholecalciferol (vitamin D3) 50 50 mcg PO DAILY 06/19/24 02/20/25 Unknown History mcg (2,000 unit) capsule mecobalamin (vitamin B12) 1,000 1,000 mcg PO DAILY 06/19/24 02/20/25 Unknown History mcg lozenges pyridoxine (vitamin B6) 100 mg 100 mg PO DAILY 06/19/24 02/20/25 Unknown History tablet buspirone 10 mg tablet 10 mg PO BID 11/14/24 02/20/25 Unknown History Exam Narrative Narrative: EKG 07/2024 Vent. Rate : 092 BPM Atrial Rate : 092 BPM P-R Int : 124 ms QRS Dur : 078 ms QT Int : 360 ms P-R-T Axes : 066 074 057 degrees QTc Int : 445 ms Normal sinus rhythm Normal ECG When compared with ECG of 15-JUL-2024 14:12, Vent. rate has decreased BY [address] no longer depressed in Inferior leads ST no longer depressed in Anterolateral leads T wave inversion no longer evident in Inferior leads Nonspecific T wave abnormality no longer evident in Lateral leads Assessment and Plan Assessment Anesthesia Assessment: Chart Reviewed Documented by User: Madison Calderón MD 02/20/25 13:55 [facility] Past Medical History Medical History Heavy menses Screening due Mood disorder Acute adjustment disorder with anxiety No known health problems Depression Tachycardia Family History Family History Mother Hypercholesteremia Arthritis Father HTN (hypertension) Hypercholesteremia Emphysema lung Manic depression Tachycardia Heart attack Stroke Maternal Grandfather Colon cancer Sister Suicide Family history of problems with anesthesia: No Surgical History Surgical History (Updated 02/20/25 @ 13:09 by Xiomara Kate RN) No pertinent past surgical history History of Problems with Anesthesia: No Social History Social History Household Members: Children Household Members Other:: 2 children ages 15 years old and 18 years old Housing: House Are you a primary animal care giver to a significant other at home: No Do you presently have visiting nurse or other home services: No Alcohol intake: never Patient Tobacco Use Status: Never used Tobacco e-Cigarette/Vaping Use: Never Used Second Hand Smoke Exposure: Yes Use of substances other than those prescribed or required for medical reasons: No Have you been hit, kicked, punched, or otherwise hurt by someone within the past year? 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 Sexual orientation: Straight/Heterosexual Gender identity: Female Meds Allergies Allergy/AdvReac Type Severity Reaction Status Date / Time No Known Allergies Allergy Verified 02/20/25 13:10 Home Medications ?Medication ?Instructions ?Recorded ?Confirmed ?Last Taken ?Type cholecalciferol (vitamin D3) 50 50 mcg PO DAILY 06/19/24 02/20/25 Unknown History mcg (2,000 unit) capsule mecobalamin (vitamin B12) 1,000 1,000 mcg PO DAILY 06/19/24 02/20/25 Unknown History mcg lozenges pyridoxine (vitamin B6) 100 mg 100 mg PO DAILY 06/19/24 02/20/25 Unknown History tablet buspirone 10 mg tablet 10 mg PO BID 11/14/24 02/20/25 Unknown History Exam Airway Mallampati Class: II TM Dist: >3cm Neck ROM: Full Loose/Missing/Broken Teeth: Yes and Upper Assessment and Plan Assessment Anesthesia Assessment: Anesthesia Plan Discussed Final Anesthetic Review Family History of Problems with Anesthesia: No History of Problems with Anesthesia: No NPO: Yes ASA Class: II Final Preanesthetic Review: No Changes in Pt Med Stat, Meds/Allgs Chart Reviewed, Consent Obtained/Reviewed and Anes Risks/Benef Reviewed Patient Risk: Low Procedure Risk: Low Anesthetic Plan Anesthetic Plan: GA Disposition: Standard PACU
[2025-02-20 13:12] LABS: UPreg QC Valid YES; Urine Pregnancy NEGATIVE (NEGATIVE)
[2025-02-20 13:15] VITALS: BMI 26.9
[2025-02-20 13:19] VITALS: BP 129/87; PULSE 91; RESP 16; TEMP 36.9; O2SAT 99
[2025-02-20] MEDS: Lactated Ringers 1,000 ML 100 ML IVCONT (13:41)
--- NOTE | 2025-02-20 14:01 | MHC.SHP ---
Pre-Procedural Eval Section A - 24 Hr Update-Section A only Date of Service: 02/20/25 The patient is an INPATIENT: No Changes since office visit: No Cold of Flu in the past 2 weeks, No New Medical Problems, No Changes in Medication and No Patient answered all questions The patient has been examined within 24 hours of the surgical procedure. The History & Physical has been completed within 30 days and I have reviewed it.: Yes Section B - Complete if H&P > 30 days Chief Complaint: Abnormal uterine and vaginal bleeding, unspecified Allergies: Allergies Allergy/AdvReac Type Severity Reaction Status Date / Time No Known Allergies Allergy Verified 02/20/25 13:10 Plan Diagnosis/Plan: Unchanged I have reviewed the history and physical and performed a pertinent physical examination on my patient. No changes have occurred unless specified. Time Spent With Patient Time: Total time managing care of this patient today ____ minutes.
--- NOTE | 2025-02-20 14:32 | P.BOP_ITS ---
Brief Operative Note Date of Service: 02/20/25 Pre-op diagnosis: Abnormal uterine bleeding, thickened abnormal endometrium by ultrasound Post-op diagnosis: same Procedure: Hysteroscopy D&C Surgeon: Jasson Langley MD Anesthesia: GLMA Was an Motor Equipment Captain used for this Procedure?: No Estimated blood loss (mL): 0 Pathology: other (Endometrial Scrapping. ) Condition: stable Disposition: PACU
--- NOTE | 2025-02-20 14:32 | W.PM.OPN ---
Operative Note Operative Note Date of Service: 02/20/25 Narrative: Preop Diagnosis: Abnormal uterine bleeding, thickened endometrium by ultrasound Operation: Diagnostic Hysteroscopy, Dilataion & Curettage Post Op Diagnosis: Thickened endometrium QBL: Minimal Anesthesia: GLMA Surgeon: Jasson Langley MD Vice President Biostatistics: None Complication: None Pathology: Endometrial Scrapings Procedure: The patient was put in the dorsal lithotomy position, scrubbed, and draped in the usual manner. A sterile speculum was inserted in the patient's vagina. The anterior lip of the cervix was grasped with a single tooth tenaculum. The cervix was dilated up to 5 mm, then the scope was inserted in the patient's uterus. Inspection revealed thickened endometrium. Using MyoSure all quadrants of the uterine cavity were sampled. The scope was taken out of the uterine cavity , then sharp curetting was carried on with no complications. At the end of the procedure, all instruments were taken out of the patient uterine and vaginal cavity. The single tooth tenaculum was removed and homeostasis was assured using pressure. The patient tolerated the procedure well and was transferred to the PACU in a stable condition.
[2025-02-20 14:35] VITALS: BP 150/90; PULSE 86; RESP 16; TEMP 36.4; O2SAT 99
[2025-02-20 14:40] VITALS: BP 155/86; PULSE 84; RESP 16; O2SAT 94
[2025-02-20] MEDS: fentaNYL citrate/PF 100 MCG/2 ML VIAL 50 MCG IVPUSH (14:40)
[2025-02-20 14:45] VITALS: BP 134/86; PULSE 83; RESP 16; O2SAT 95
[2025-02-20 14:50] VITALS: BP 137/85; PULSE 91; RESP 20; O2SAT 95
[2025-02-20 15:05] VITALS: BP 140/71; PULSE 76; RESP 18; TEMP 36.5; O2SAT 98
== END 2025-02-20 15:15 | disposition home or self-care (01) ==
PROVIDERS: Nurse Practitioner; PCP Internal Medicine; Visit Provider Obstetrics & Gynecology
PROC: 0UDB8ZZ Extraction of Endometrium, Via Natural or Artificial Opening Endoscopic (ICD-10-PCS; CPT 58558; principal; 2025-02-20 14:30)
DX: N93.9 Abnormal uterine and vaginal bleeding, unspecified (principal); N85.00 Endometrial hyperplasia, unspecified; N92.0 Excessive and frequent menstruation with regular cycle; F43.22 Adjustment disorder with anxiety; F32.A Depression, unspecified; R00.0 Tachycardia, unspecified
CPT/HCPCS: 58558; 81025; 88305; J1100; J1885; J2003; J2250; J2405; J2704; J3010

== ENCOUNTER → 2025-02-20 12:17 | Outpatient (BNV) | payer OTHER, SELFPAY | PROVIDERS: PCP Internal Medicine; Visit Provider Obstetrics & Gynecology | DX: N93.9 Abnormal uterine and vaginal bleeding, unspecified (principal) | CPT/HCPCS: 58558 ==

== ENCOUNTER 2025-03-06 09:58 | Outpatient (AMB) | payer OTHER, SELFPAY ==
--- NOTE | 2025-03-06 10:07 | A.OFFVIS_ITS ---
Vital Signs 03/06/25 10:09 Height 4 ft 11 in Weight 130 lb BMI 26.3 BP 112/70 Intake Visit Reasons: post op General Inspector Required: No Information Interpreted: non-clinical & clinical Accompanied by: Self / Same As Patient Allergies No Known Allergies Allergy (Verified 03/06/25 10:11) HPI Comments Details: The patient is presenting post hysteroscopy D&C no complaints minimal vaginal bleeding no feverishness chills or abdominal pain. The pathology showed the following: Endometrium, curettage: Benign inactive endometrium with focal breakdown, ectatic stromal vessels, and focal atrophic glands and decidual stromal change consistent with partial progestin effect, and fragments suggestive of benign polyps; no atypia or carcinoma The following workup was done.: H&H= 12.6/37.1 TSH, hCG, GC and chlamydia were negative. Co testing was done was negative. Mammogram in 06/28 was BI-RADS 1 Pelvic ultrasound showed the following: Transabdominal scanning performed for overall anatomy. Transvaginal scanning performed for additional detail. Anteverted uterus is 9.9 cm length. Normal myometrium. Endometrium 19 mm thickness and is heterogeneous. Right ovary 2.6 x 1.6 x 1.9 cm. Left ovary 2.2 x 1.3 x 1.5 cm. Normal color Doppler with arterial/venous spectral tracing of both ovaries. No free fluid PFSH Medical History Heavy menses Screening due Mood disorder Acute adjustment disorder with anxiety No known health problems Depression Tachycardia Surgical History No pertinent past surgical history Family History Mother Hypercholesteremia Arthritis Father HTN (hypertension) Hypercholesteremia Emphysema lung Manic depression Tachycardia Heart attack Stroke Maternal Grandfather Colon cancer Sister Suicide Social History Household Members: Children Household Members Other:: 2 children ages 15 years old and 18 years old Housing: House Are you a primary critical care technician to a significant other at home: No Do you presently have visiting nurse or other home services: No Alcohol intake: never Patient Tobacco Use Status: Never used Tobacco e-Cigarette/Vaping Use: Never Used Second Hand Smoke Exposure: Yes service: No Current occupational status: employed 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 Sexual orientation: Straight/Heterosexual Gender identity: Female Review of Systems Const All systems reviewed & are unremarkable except as noted in HPI and below Reports as per HPI and Reports no additional complaints GI Reports no additional complaints Reports no additional complaints Physical Exam Vital Signs: Last Vital Signs BP 112/70 03/06/25 10:09 BMI result Body Mass Index 26.3 Assessment & Plan Assessment & Plan (1) Abnormal uterine bleeding: Code(s): N93.9 - Abnormal uterine and vaginal bleeding, unspecified Category: Medical Plan: Discussed with the patient the results of the work up done and options of treatment including control pills , Mirena IUD, cyclic Provera. All pros, cons, risks and benefits if each option was discussed with the patient and the patient decided to stay on BCP so a more detailed discussion re: control pills including mechanism of action, benefits (regular menses, less dysmenorrhea, less risk of ovarian cancer, ...), risks ( DVT, PE, Strokes, ND, ? increased breast ca, others). Coding Level of Care Code Est Pt Level 3 (57593) Diagnoses Abnormal uterine bleeding N93.9
[2025-03-06 10:09] VITALS: BP 112/70; BMI 26.3
== END 2025-03-06 10:23 | disposition home or self-care (01) ==
LOC: HO.HWS 09:58
PROVIDERS: PCP Internal Medicine; Visit Provider Obstetrics & Gynecology
DX: N93.9 Abnormal uterine and vaginal bleeding, unspecified (principal)
CPT/HCPCS: 99213

== ENCOUNTER 2025-03-21 10:16 | Outpatient (AMB) | payer OTHER, SELFPAY ==
--- NOTE | 2025-03-21 10:21 | MHC.PC.OV ---
Vital Signs 03/21/25 10:26 Height 4 ft 11 in Weight 135 lb BMI 27.3 BP 108/72 Blood Pressure Location Lt brachial Position Sitting Respiration 17 Pulse 82 Pulse Source Pulse Oximeter Temp 98.2 F Temp Source Oral Pulse Oximetry (%) 98 Oxygen Delivery Method Room Air Intake Visit Reasons: PE/transfer from [facility] Intake Note: Pt is here today transfer from [facility]/ to [facility] PE: Last mammogram 06/28/24, papsmear 01/29/25 Is last menstrual period known: Yes (Irregular) Last menstrual period: 01/06/25 Allergies No Known Allergies Allergy (Verified 03/21/25 10:47) Medication List - Last Reconciled 03/21/25 by Nirali Raphael MD buspirone 10 mg PO BID cholecalciferol (vitamin D3) 50 mcg PO DAILY mecobalamin (vitamin B12) 1,000 mcg PO DAILY norethindrone ac-eth estradiol 1-20 mg-mcg (Junel) 1 tab PO DAILY propranolol 10 mg PO BID pyridoxine (vitamin B6) 100 mg PO DAILY venlafaxine ER 75 mg PO DAILY 30 days Tobacco use date assessed: 03/21/25 Dental Screening Dental Screen Date: 03/21/25 Did you have a dental visit in the last 12 months?: Yes Did you have a dental problem in the last 6 months where you did not have access to dental care?: No Was dental information given to patient?: Patient has dentist HPI PE/transfer from [facility] HPI Details 39-year-old lady, new to [place], here to establish care with new provider and for physical exam. She has history of generalized anxiety disorder and depression, currently on buspirone 10 mg 1 tablet twice a day and venlafaxine ER 75 mg daily, followed by psychiatrist,Noe Sutton. She sees Dr. Langley for her routine Pap and pelvic exam, has been diagnosed to have abnormal uterine bleeding, currently on control pills, last Pap was done 01/29/2025 with negative findings. She is also up-to-date with her screening mammogram done June last year, due again later this year Has been diagnosed of supraventricular tachycardia, currently managed with propranolol [facility] Medical History (Updated 03/25/25 @ 02:14 by Nirali Raphael MD) Vitamin D deficiency Hypertriglyceridemia Depression with anxiety Heavy menses Screening due Mood disorder Acute adjustment disorder with anxiety No known health problems Depression Tachycardia Surgical History No pertinent past surgical history Family History Mother Hypercholesteremia Arthritis Father HTN (hypertension) Hypercholesteremia Emphysema lung Manic depression Tachycardia Heart attack Stroke Substance use disorder Mental health disorder Maternal Grandfather Colon cancer Sister Suicide Substance use disorder Paternal Grandfather Substance use disorder Paternal Aunt Substance use disorder Paternal Uncle Substance use disorder Paternal Grandmother Mental health disorder Social History Household Members: Children Household Members Other:: 2 children ages 15 years old and 18 years old Housing: House Are you a primary floor care technician to a significant other at home: No Do you presently have visiting nurse or other home services: No Alcohol intake: never Patient Tobacco Use Status: Never used Tobacco e-Cigarette/Vaping Use: Never Used Second Hand Smoke Exposure: Yes service: No Current occupational status: employed 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 1. Little interest or pleasure in doing things: more than half the days 2. Feeling down, depressed, or hopeless: several days 3. Trouble falling or staying asleep, or sleeping too much: more than half the days 4. Feeling tired or having little energy: more than half the days 5. Poor appetite or overeating: not at all 6. Feeling bad about yourself - or that you are a failure or have let yourself or your family down: more than half the days 7. Trouble concentrating on things, such as reading the newspaper or watching television: more than half the days 8. Moving or speaking so slowly that other people could have noticed. Or the opposite - being so fidgety or restless that you have been moving around a lot more than usual: not at all 9. Thoughts that you would be better off or of hurting yourself in some way: not at all Total score: 11 Depression Screening Interpretation: Positive (Followed by psychiatry, Noe Sutton) Depression Screening Follow-up: Existing condition, In treatment and Community Mental Health Worker F/U Depression Screening Done: Yes 85520 - PHQ-9 Billing: Yes Source: Developed by Drs. Vinayak Briscoe, Morena Ordonez, Dennis Sainz and colleagues, with an educational jasen from [employer]. Thrive Questionnaire Date Thrive assessed: 03/18/25 I am a: Patient What is your living situation today?: I have a steady place to live Within the past 12 months, did the food you bought not last and you didn't have the money to get more?: Sometimes True Within the past 12 months, did you worry whether your food would run out before you got money to buy more?: Sometimes True Do you have trouble paying for medicines?: No Do you have trouble getting transportation to medical appointments?: No Do you have trouble paying your heating and electricity bill?: Yes Do you have trouble taking care of your child, family member or friend?: No Do you have trouble with day-to-day activities such as bathing, preparing meals, shopping, managing finances, etc.?: No Are you currently unemployed and looking for a job?: No Are you interested in more education?: No Please select the resources that you would like help with: Utilities Currently or been in a relationship where the following occur: No concerns reported THRIVE Score: 3 AUDIT C Alcohol Use Questionnaire (AUDIT-C) 1. How often do you have a drink containing alcohol?: Monthly or less 2. How many drinks containing alcohol do you have on a typical day when you are drinking?: 1 or 2 3. How often do you have six or more drinks on one occasion?: Never Total Score: 1 Score Reviewed/Action Taken: Yes AIDEE-7 AMB Questionnaire AIDEE-7 Date AIDEE - 7 assessed: 03/21/25 Feeling nervous, anxious, or on edge: 2 = More than half the days Not being able to stop or control worryin = More than half the days Worrying too much about different things: 2 = More than half the days Trouble relaxin = More than half the days Being so restless that it is hard to sit still: 2 = More than half the days Becoming easily annoyed or irritable: 2 = More than half the days Feeling afraid as if something awful might happen: 2 = More than half the days Total AIDEE-7 score (0-4 normal; 5-9 mild; 10-14 moderate; 15-21 severe): 14 Source: Developed by Drs. Vinayak Briscoe, Morena Ordonez, Dennis Sainz and colleagues, with an educational jasen from [employer]. AIDEE-7 Assessment Billing AIDEE-7 Assessment Tool: AIDEE-7 Assessment 31819 (Followed by psychiatry, noe Sutton) Review of Systems Const Denies fatigue, Denies fever(s), Denies headache(s) and Denies weakness Eyes Denies change in vision ENT Denies dizziness, Denies headache(s) and Denies nasal congestion Card Denies chest pain, Denies lightheadedness and Denies dyspnea Resp Denies chest congestion, Denies cough, Denies dyspnea and Denies wheezing GI Denies abdominal pain, Denies change in bowel habits and Denies heartburn Denies hematuria, Denies urinary frequency, Denies dysuria and Denies urinary urgency Musc Reports no additional complaints Skin/Breast Denies breast pain, Denies breast mass, Denies lesions and Denies rash Neuro Denies dizziness, Denies headache(s) and Denies weakness Psych Reports as per HPI Endo Denies fatigue, Denies polydipsia and Denies polyuria Crescencio/Lymph Denies easy bruising Aller/Immun Denies seasonal rhinorrhea and Denies wheezing Physical exam (Primary Care) Vital Signs: Last Vital Signs Temp 98.2 F 03/21/25 10:26 Pulse 82 03/21/25 10:26 Resp 17 03/21/25 10:26 BP 108/72 03/21/25 10:26 Pulse Ox 98 03/21/25 10:26 Oxygen Delivery Method Room Air 03/21/25 10:26 BMI result Body Mass Index 27.3 Tobacco/Smoking Status: Tobacco use Status Tobacco use date assessed 03/21/25 03/21/25 10:24 Patient Tobacco Use Status Never used Tobacco 03/21/25 10:24 e-Cigarette/Vaping Use Never Used 03/21/25 10:24 PHQ-9: PHQ-9 Score PHQ-9: Total score 11 03/21/25 10:49 Depression Screening Interpretation: Positive (Followed by psychiatry, Noe Sutton) Depression Screening Follow-up: Existing condition, In treatment and Community Mental Health Worker F/U Thrive Assessment: Date of Thrive Assessment Date Thrive assessed 03/18/25 03/21/25 10:24 Currently or been in a relationship where the following occur: No concerns reported Advance Care Planning discussion: Completed/Scanned Date of discussion: 03/21/25 Who was present: patient Forms completed: Health Care Proxy Time spent: 16-45 minutes Actual minutes spent: 2 Const General: no acute distress and alert Orientation/consciousness: patient oriented x3 HENMT Head: Yes normocephalic Ears: external ears normal, TM's normal bilaterally and EAC's normal General nose exam: Normal external nose present and No nasal discharge present Face and sinus: Yes face symmetric Mouth: Normal oral and palatal mucosa present, oropharynx normal and moist mucous membranes Eyes Other: Sees Dr. [place], has myopia wears corrective lens General: appearance normal, both eyes and all related structures Eyelids: Yes eyelids normal Conjunctivae: conjunctivae normal Sclerae: sclerae normal Pupils: Equal, round and reactive pupils present EOM: EOMs intact bilaterally Neck Neck: Yes full ROM, Yes no lymphadenopathy and Yes supple Thyroid: Thyroid normal Chest Breast/axilla palpation: normal palpation of the breasts Resp Effort & Inspection: normal respiratory effort and able to speak in complete sentences Auscultation: clear to auscultation bilaterally Cardio Rate: regular rate Rhythm: regular rhythm Heart sounds: S1 normal heart sound present and S2 normal heart sound present GI Palpation (GI): Soft to palpation, nontender, no guarding and no masses Auscultation: normal bowel sounds General: Yes no CVA tenderness Back/Spine/Pelvis Back: no CVA tenderness and No back tenderness Skin General skin exam: no rashes or lesions noted Neuro General: patient oriented x3, gait normal, moves all extremities, Normal light touch and pain sensation, no focal motor deficits and CN's II-XI intact bilaterally Cranial nerves: Yes Equal, round and reactive pupils present Cognition (Neuro): normal cognition Gait exam (Neuro): Normal gait present Motor exam (neuro): 5/5 motor strength present throughout Extrem General: Yes normal to inspection, Yes full ROM, Yes no joint enlargement, Yes no pedal edema and Yes normal gait Psych Appearance: grossly normal and well kempt Mental Status: mental status grossly normal Speech and movement: Normal speech and movement present Affect: normal affect Attitude: cooperative Results Reviewed Results Reviewed: Name: Radha Zavala Age/Sex: 39/F [facility] 1985 [id number]#: [id number] Attend Dr: Colette Bhatt MD Re01/06/25 [facility]: [facility] SPEC : [id number] DARRICK: 01/06/25 STATUS: COMP REQ : [id number] RECD: 01/06/[address]: Colette Bhatt MD COMP: 01/06/25 ENTERED: 01/06/[address]: Nirali Raphael MD [facility] ED Physician ORDERED: Liver Panel, BMP, Lip, HCG Quant Test Result Flag Reference Sodium 142 135-145 mmol/L Potassium 3.8 3.3-5.1 mmol/L CL 110 H 96-108 mmol/L CO2 23 22-29 mmol/L Gap 13 12-20 BUN 12 9-16 mg/dL Creat 0.84 0.5-1.4 mg/dL Estimated CrCl 69.6 Provided height and weight: 149.86 cm, 60.4 kg. eGFR (calculated from the MDRD study equation) and eCrCl (calculated from the Cockcroft-Gault equation) are based on different parameters and may not yield comparable results. If eCrCl result is absurd, please check patient's height/weight. eGFR > 60 Chronic Kidney Disease: Estimated GFR < 60 mL/min/1.73m2 Severe Kidney Disease: Estimated GFR < 15 mL/min/1.73m2 Glucose, Random 84 60-115 mg/dL CA 8.9 8.4-10.2 mg/dL Total Bili 0.1 0.0-1.0 mg/dL Direct Bili < 0.2 0.0-0.5 mg/dL AST (GOT) 21 5-31 U/L ALT (GPT) 17 0-31 U/L Protein, Total 6.9 6.5-8.0 g/dL Alb 4.0 3.5-5.0 g/dL Alk Phos 42 39-117 U/L Lipase 38 8-78 U/L HCG Quant < 2 mIU/mL Weeks post LMP Approximate hCG Name: Radha Zavala Age/Sex: 39/F : 1985 Unit#: [id number] Attend Dr: Colette Bhatt MD Re01/06/25 Status: [facility] SPEC : [id number] DARRICK: 01/06/25 STATUS: COMP REQ : [id number] RECD: 01/06/[address]: Colette Bhatt MD COMP: 01/06/25 ENTERED: 01/06/[address]: Nirali Raphael MD [facility] ED Physician ORDERED: CBC Auto Diff Test Result Flag Reference WBC 12.3 H 4.8-10.8 X10*3/uL RBC 4.01 L 4.20-5.50 X10*6/uL HGB 12.6 12.0-16.0 g/dl HCT 37.1 37.0-47.0 % MCV 92.5 80.0-98.0 fL MCH 31.4 27.0-33.0 pg MCHC 34.0 31.0-35.0 g/dl RDW 12.4 11.0-16.0 % PLT 278 160-400 X10*3/uL MPV 11.4 9.4-12.3 fL Neut Pct Auto 60.3 45-73 % ImGran Pct Auto 0.3 0.0-0.4 % Lymp Pct Auto 29.7 20-40 % [place] Pct Auto 8.3 2-11 % Eos Pct Auto 1.0 0-4 % Baso Pct Auto 0.4 0-2 % NRBC Pct Auto 0.0 0.0-0.2 /100WBC ANC Neut Abs # 7.4 2.0-8.3 x10*3/uL ImGran Abs Auto 0.04 H 0.00-0.03 X10*3/uL Lymph Abs Auto 3.6 1.2-4.9 X10*3/uL [place] Abs Auto 1.0 0.1-1.2 X10*3/uL Eos Abs Auto 0.1 0.0-0.4 X10*3/uL Baso Abs Auto 0.1 0.0-0.2 X10*3/uL NRBC Abs Auto 0.000 0.0-0.012 X10*3/uL Coding Level of Care Code Est Pt Prev Care 40-64y(80907) Diagnoses Annual visit for general adult medical examination with abnormal findings Z00.01 Abnormal uterine bleeding N93.9 Encounter for counseling regarding advance directives Z. Depression with anxiety F41.8 SVT (supraventricular tachycardia) I47.1 Additional Codes AIDEE-7 Assessment Billing - AIDEE-7 Assessment Tool: AIDEE-7 Assessment 36303 ([id number]) PHQ-9 - 48696 - PHQ-9 Billing: Yes ([id number]) Vital Signs *Quality* - Advance Care Planning discussion: Completed/Scanned ([id number]) Vital Signs *Quality* - Time spent: 16-45 minutes ([id number]) Assessment & Plan Assessment & Plan (1) Annual visit for general adult medical examination with abnormal findings: Code(s): Z00.01 - Encounter for general adult medical examination with abnormal findings Plan: Will check appropriate labs. Recommended dental visit every 6 months and regular eye exams, at least every 2 years. Take adequate calcium in diet and vitamin-D 3 at 2000 IU per cap once a day, in addition to weight-bearing exercises to help maintain good muscle tone and weight control. Instructed to do self-breast exam, and recommended to get yearly mammogram, up-to-date with her cervical cancer screening. Reminded to get yearly flu shots, up-to-date with Tdap, no longer wants to get COVID vaccines (2) Abnormal uterine bleeding: Comment: Followed at [facility] Code(s): N93.9 - Abnormal uterine and vaginal bleeding, unspecified Category: Medical Plan: Currently followed by Dr. Langley, hysteroscopy came back with negative findings. (3) Encounter for counseling regarding advance directives: Code(s): Z71.89 - Other specified counseling Plan: Initiated the conversation about Advanced Directives. Advanced Directives help patients prepare for current and future decisions about their medical treatment and place of care. Discussed with patient that it is a process where a patients current condition and prognosis are reviewed, their wishes for information regarding their illness are elicited, and likely medical dilemmas are presented and options discussed. Healthcare proxy form completed today. The form can be amended as needed, reviewed yearly and make changes as needed (4) Depression with anxiety: Comment: Followed by Noe Sutton Code(s): F41.8 - Other specified anxiety disorders Category: Medical Plan: Currently followed by psychiatry, currently on venlafaxine ER 75 mg daily and buspirone 10 mg 1 tablet twice a day. (5) SVT (supraventricular tachycardia): Comment: Patient is establish care with [facility] cardiology. Patient taking propanolol with good effect. Code(s): I47.1 - Supraventricular tachycardia Category: Medical Plan: Continued on propranolol 10 mg 1 tablet twice a day Orders: Orders Lipid Panel 03/21/25 E55.9 - Vitamin D deficiency, unspecified, E78.1 - Pure hyperglyceridemia, Z71.89 - Other specified counseling LDL Cholesterol Direct 03/21/25 E55.9 - Vitamin D deficiency, unspecified, E78.1 - Pure hyperglyceridemia, Z71.89 - Other specified counseling Vitamin D 25-OH Total 03/21/25 E55.9 - Vitamin D deficiency, unspecified, E78.1 - Pure hyperglyceridemia, Z71.89 - Other specified counseling Vitamin B12 and Folate 03/21/25 E55.9 - Vitamin D deficiency, unspecified, E78.1 - Pure hyperglyceridemia, Z71.89 - Other specified counseling
[2025-03-21 10:26] VITALS: BP 108/72; PULSE 82; RESP 17; TEMP 36.8; O2SAT 98; BMI 27.3
== END 2025-03-21 11:17 | disposition home or self-care (01) ==
LOC: HO.HMCC 10:17
PROVIDERS: PCP Nurse Practitioner Primary Care; Visit Provider Internal Medicine
DX: Z00.01 Encounter for general adult medical examination with abnormal findings (principal); N93.9 Abnormal uterine and vaginal bleeding, unspecified; Z71.89 Other specified counseling; F41.8 Other specified anxiety disorders; I47.10 Supraventricular tachycardia, unspecified; Z00.00 Encounter for general adult medical examination without abnormal findings

== ENCOUNTER → 2025-03-21 10:16 | Outpatient (BNVA) | payer OTHER, SELFPAY | PROVIDERS: PCP Nurse Practitioner Primary Care; Visit Provider Internal Medicine | DX: Z00.01 Encounter for general adult medical examination with abnormal findings (principal); F41.1 Generalized anxiety disorder; N93.9 Abnormal uterine and vaginal bleeding, unspecified; F41.8 Other specified anxiety disorders; I47.10 Supraventricular tachycardia, unspecified; Z71.89 Other specified counseling; Z79.899 Other long term (current) drug therapy | CPT/HCPCS: 96127 ==

== ENCOUNTER 2025-07-04 14:48 | Outpatient (REF) | payer OTHER, SELFPAY ==
--- OUTSIDE RECORDS SUMMARY | 2025-07-04 17:42 | XMS_ITS | Clinical Summary ---
Author Organization [facility] Address [address] [place] [id number] Phone Care Team Providers Care Mandrel Maker Name Role Phone Pcp, Unknown Primary Care Provider Unavailabl e Allergies No known active allergies Medications ibuprofen (ADVIL,MOTRIN) 200 MG tablet Take 200 mg by mouth every 6 (six) hours as needed for pain (specific location in comments). 12/14/2017 Active escitalopram oxalate (LEXAPRO) 10 MG tablet 2 10/20/2018 Active buPROPion (WELLBUTRIN XL) 300 MG ER 24 hr tablet TAKE 1 TABLET(300 MG) BY MOUTH DAILY 30 tablet 6 05/14/2019 Active norethindrone-e thinyl estradiol (09/24 28 DAY, 21X7,) 1 mg-20 mcg (21)/75 mg (7) per tablet Take 1 tablet by mouth daily. Active Active Problems Problem Noted Date Diagnosed Date Paronychia of finger of right hand 12/14/2017 Assessment & Plan (12/14/2017 12:29 PM EDT): Recommend warm soaks of affected area twice daily, followed by cleansing with light application of clorhexidine (OTC). Can apply bacitracin as well. Continue ice between this regimen as needed for pain. Please continue OTC NSAIDs with food as needed over the next 2-3 days. Please f/u if swelling worsens or if any pus/discharge or systemic sx (fever, chills). Generalized anxiety disorder 08/02/2017 Overview (12/14/2017): Sertraline 25 mg x 1 week, then 50 mg--started 05/25/2017 Wellbutrin 150 mg ER started 06/22/17 (due to fatigue on sertraline) Assessment & Plan (12/15/2017 1:35 PM EDT): Discussed altering current regimen as predominant concerns surround anxiety in day-to-day life. Supportive counseling re: continued healthy habits and taking some time for self-care as her family is very dependent upon her. Increase sertraline to 75 mg total daily. Initial prescriber Marilou Cummings NP in agreement. Please f/u if any worsened sx, or immediately if any SI/HI. We also discussed trial of talk therapy given recent loss and desire to build skills in controlling anxiety and depression. I support her interest in pursuing a goal of driving without anxiety, and think that this is a reasonable long-term goal to work on. Referred to [facility] to explore therapy options. Also discussed possible r/f to psychiatry for medication management. Pt agreeable. Recurrent major depressive disorder, in partial remission 08/02/2017 Immunizations Immunization Administration Dates Next Due Influenza Quadrivalent Preservative Free IM 05/07,07/03/2019 Tdap 08/06/2020 Family History Medical History Relation Comments Hypertension Father Cancer Maternal Grandfather Hypertension Mother Bipolar disorder Sister 1 Suicide Sister 2 Relation Status Comments Brother Alive Daughter Alive Father Alive Maternal Grandfather Mother Alive Sister 1 Alive Sister 2 Son Alive Social History Tobacco Use Types Packs/Day Years Used Date Smoking Tobacco: Never Smokeless Tobacco: Never Alcohol Use Standard Drinks/Week Comments Yes 0 (1 standard drink = 0.6 oz pur e alcohol) occasionally wine Education Answer Date Recorded Are you interested in more education? Not on ramila e 12/31/2022 Are you concerned about learning? Not on file 12/31/2022 No 12/31/2022 No 12/31/2022 Digital Access Answer Date Recorded No 01/31/2023 No 01/31/2023 Reliable internet access at home? Not on file 01/31/2023 Device with a working camera? Not on file Comments Unknown Sex and Gender Information Value Date Recorded Sex Assigned at Not on file Legal Sex Female 9:18 PM EDT Gender Identity Not on file Sexual Orientation Not on file Last Filed Vital Signs Vital Sign Reading Time Taken Comments Blood Pressure 102/40 08/06/2020 8:43 AM EST Pulse 90 08/06/2020 8:43 AM EST Temperature 36.6 C (97.9 F) 08/06/2020 8:43 AM EST Respiratory Rate 16 08/06/2020 8:43 AM EST Oxygen Saturation 98% 08/06/2020 8:43 AM EST Inhaled Oxygen Concentration - - Weight 44.8 kg (98 lb 12.8 oz) 08/06/2020 8:43 A M EST Height 149.9 cm (4' 11.02 ) 08/06/2020 8:[address] Body Mass Index 19.94 08/06/2020 8:43 AM EST Plan of Treatment Health Maintenance Due Date Last Done Comments DEPRESSION SCREENING 02/28/2020 02/27/2019 PAP SMEAR 08/02/2020 08/02/2017, 08/02/2017, 09/12/2012 INFLUENZA VACCINE (#1) 2025 , 07/03/2019 MAMMOGRAM 04/21/2025 04/21/2023 COVID-19 VACCINE (2 - 2024-2 6 season) 2025 12/26/2020 Adult Td,Tdap Booster 08/06/2030 08/06/2020 HEPATITIS C SCREENING Completed 10/05/2019 HIV ONE-TIME SCREENING (18-6 5 YEARS) Completed 10/05/2019 SMOKING STATUS SCREENING (On ce After 26 Yrs) Completed 08/06/2020 HEPATITIS A VACCINES Aged Out No long er eligible based on patient's age to complete this topic HIB VACCINES Aged Out No longer eligi ble based on patient's age to complete this topic MENINGOCOCCAL VACCINES (ACWY) Aged Out No longer eligible based on patient's age to complete this topic MENINGOCOCCAL VACCINES (B) Aged Out N o longer eligible based on patient's age to complete this topic PNEUMOCOCCAL VACCINES (0-49 years) Aged Out No longer eligible b ased on patient's age to complete this topic Medical Devices Not on file Procedures Procedure Name Priority Date/Time Associated Diagnosis Comments HM MAMMOGRAPHY Routine 04/21/2023 OUTSIDE HIV Routine 10/05/2019 OUTSIDE HEPATITIS C VIRUS SCREENING Routine 10/05/2019 PAP TEST Routine 08/02/2017 12:00 AM EST from Last 3 Months or Most Recently Relevant to Health Maintenance Results * HM MAMMOGRAPHY FOR RESULT ENTRY ONLY (04/21/2023) Marilou Cummings NP HEALTH MAINTENANCE Edited Resul t - Final * Outside Hepatitis C Virus Screening (10/05/2019) Hepatitis C Screening - External Neg Historical Provider MD LAB BLOOD ORDERABLES Silvina l Result * OUTSIDE HIV TEST (10/05/2019) HIV - External Neg Historical Provider MD LAB BLOOD ORDERABLES Silvina l Result * Pap Smear (08/02/2017 12:00 AM EST) 08/02/2017 08/03/2017 10: 04 AM EST Narrative SEE NARRATIVE - 08/08/2017 12:00 [place] [address] Barber Instructor: Ce Carr MD FRICTION WELDING MACHINE OPERATOR Cytology Report FINAL DIAGNOSIS A. PAP SMEAR (SUREPATH) CE: SPECIMEN ADEQUACY: Satisfactory for evaluation; transformation zone present. INTERPRETATION: NEGATIVE FOR INTRAEPITHELIAL LESION OR MALIGNANCY. Electronically Signed Out By: EDA Segura(ASCP) The Pap test is a screening test primarily for squamous cancers and precursors and has associated false-negative and false-positive results. New technologies such as liquid-based preparations may decrease but will not eliminate all false-negative results. Regular sampling and follow-up of unexplained clinical signs and symptoms are recommended to minimize false negative results. PROCEDURES/ADDENDA HPV Testing (Requested) Ordered Date: 08/03/2017 HPV Test Negative for high risk human papillomavirus types 16, 18 and the Other high risk probe set (Includes 31, 33, 35, 39, 45, 51, 52, 56, 58, 59, 66, 68) by Griselda cobase 4800 HR-HPV analysis. Clinical correlation is advised. This HPV test was performed at [facility], [address] [place] [address]. The accuracy and precision of this test has been verified in the Cytopathology laboratory of the [facility]. This test has not been cleared or approved by the U.S. Food and Drug Administration (FDA). CLINICAL HISTORY Date of Last Menstrual Period: Other Clinical Conditions: Screening Pap SPECIMEN SOURCE A: PAP SMEAR (SUREPATH) CE Patient Name: RADHA ZAVALA : 1985 (Age: 32) Sex: F Institution: [facility] Location: [facility] Date of Collection: 08/02/2017 Date of Reported: 08/08/2017 12:00 Results to: Marilou Cummings MSN, BSN us Marilou Cummings OBJECTIVE C DEVELOPER CYTOLOGY ORDERABLES Final Resul t SEE NARRATIVE from Last 3 Months or Most Recently Relevant to Health Maintenance Insurance ACO [facility]CO [facility] Care Teams Mandrel Maker Relationship Specialty Start Date End Date Pcp, Unknown PCP - General 03/16/23 Additional Source Comments The information contained in this document represents components of the legal health record. It is not the complete legal health record.[facility]
== END 2025-07-04 14:49 | disposition home or self-care (01) ==
LOC: HO.MAMMO 14:48
PROVIDERS: Visit Provider Internal Medicine
DX: Z12.31 Encounter for screening mammogram for malignant neoplasm of breast (principal)
CPT/HCPCS: 77063; 77067

== ENCOUNTER → 2025-07-04 15:00 | Outpatient (BNV) | payer OTHER, SELFPAY | PROVIDERS: Visit Provider Radiology Body Imaging | DX: Z12.31 Encounter for screening mammogram for malignant neoplasm of breast (principal) | CPT/HCPCS: 77063; 77067 ==

== ENCOUNTER 2025-07-11 13:26 | Outpatient (AMB) | payer OTHER, SELFPAY ==
[2025-07-11 13:36] VITALS: BP 118/52; PULSE 84; BMI 27.4
--- NOTE | 2025-07-11 13:36 | MHC.OFFVIS ---
Vital Signs 07/11/25 13:36 Height 4 ft 11 in Weight 135 lb 12.876 oz BMI 27.4 BP 118/52 L Blood Pressure Location Rt brachial Position Sitting Pulse 84 Pulse Source Monitor Intake Visit Reasons: 2 year fu Livestock Broker Required: No Allergies No Known Allergies Allergy (Verified 07/11/25 13:39) Medication List - Last Reconciled 07/11/25 by Rolanda Robins, OUTSOLE MOLDER-C norethindrone ac-eth estradiol 1-20 mg-mcg (June) 1 tab PO DAILY propranolol 20 mg PO DAILY venlafaxine ER 75 mg PO DAILY 30 days HPI HPI 2 year fu: Details: Radha is a 40-year-old female past medical history of SVT who presents for follow-up. Last prior visit was 06/19/24. Today she reports that she had an episode of NSVT 07/15/2024 requiring ER visit with adenosine administration for conversion of the rhythm back to normal. Since then she has been taking her propranolol 20 mg daily. She has brief episodes but no sustained rapid palpitations since then. She is very fearful of having recurrent SVT as it feels awful for her. No presyncope, syncope, falls. No shortness of breath, PND, orthopnea or edema. She will get chest tightness when she has high anxiety levels. No chest discomfort with exertional activities. Still has issues with anxiety and depression. 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 [facility] [place] [facility] Medical History Vitamin D deficiency Hypertriglyceridemia Depression with anxiety Heavy menses Screening due Mood disorder Acute adjustment disorder with anxiety No known health problems Depression Tachycardia Surgical History No pertinent past surgical history Family History Mother Hypercholesteremia Arthritis Father HTN (hypertension) Hypercholesteremia Emphysema lung Manic depression Tachycardia Heart attack Stroke Substance use disorder Mental health disorder Maternal Grandfather Colon cancer Sister Suicide Substance use disorder Paternal Grandfather Substance use disorder Paternal Aunt Substance use disorder Paternal Uncle Substance use disorder Paternal Grandmother Mental health disorder Social History Household Members: Children Household Members Other:: 2 children ages 15 years old and 18 years old Housing: House Are you a primary care program director to a significant other at home: No Do you presently have visiting nurse or other home services: No Alcohol intake: never Patient Tobacco Use Status: Never used Tobacco e-Cigarette/Vaping Use: Never Used Second Hand Smoke Exposure: Yes service: No Current occupational status: employed 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 Sexual orientation: Straight/Heterosexual Gender identity: Female Cognitive needs: No Hearing needs: No Vision needs: Yes Review of Systems Const All systems reviewed & are unremarkable except as noted in HPI and below ENT Denies dizziness Card Denies chest pain, Denies chest pain at rest, Denies chest pain with activity, Reports rapid heart rate, Denies pedal edema, Denies edema, Denies leg edema, Denies lightheadedness, Reports palpitations, Denies dyspnea, Denies dyspnea on exertion and Denies orthopnea Resp Denies cough, Denies dyspnea and Denies dyspnea on exertion GI Denies hematochezia and Denies change in stool character Musc Denies abnormal gait, Denies limited range of motion, Denies muscle cramps, Denies muscle weakness, Denies numbness, Denies radiating pain into limb, Denies stiffness and Denies tingling Neuro Denies abnormal gait, Denies dizziness, Denies numbness and Denies tingling Endo Reports palpitations Physical Exam Vital Signs: Last Vital Signs Pulse 84 07/11/25 13:36 BP 118/52 L 07/11/25 13:36 BMI result Body Mass Index 27.4 Const General: cooperative, healthy appearing, comfortable and no acute distress Orientation/consciousness: patient oriented x3 Neck Neck: Yes normal visual inspection and Yes no JVD Carotids: normal carotid upstroke Resp Effort & Inspection: normal respiratory effort Auscultation: clear to auscultation bilaterally, no crackles, no rales, no rhonchi and no wheezes Cardio Jugular venous distension: no JVD Rate: regular rate Rhythm: regular rhythm Heart sounds: S1 normal heart sound present, S2 normal heart sound present, no gallops, no murmurs and no rubs Neuro General: patient oriented x3 Extrem General: Yes normal to inspection, No no pedal edema and No calf tenderness Psych Appearance: grossly normal Mental Status: mental status grossly normal Speech and movement: Normal speech and movement present Office Procedures EKG Details: Today, read by me, normal sinus rhythm rate 84, Qtc 439ms [id number], Complete Assessment & Plan Assessment & Plan (1) SVT (supraventricular tachycardia): Comment: Patient is establish care with [facility] cardiology. Patient taking propanolol with good effect. Code(s): I47.1 - Supraventricular tachycardia Category: Medical Plan: History of SVT with prior ER visits receiving adenosine at least twice in past, last time 07/15/24. She continues on propranolol 20 mg once daily with brief palpitations. She remains fearful of recurrent SVT. Will update echocardiogram as it has been several years. Will refer to EP for SVT ablation. Continue Propranolol. ED care if needed for reapid heart palpitations. Vagal maneuvers reviewed. Cardiology OV in 6 mo, sooner if needed (2) Chest discomfort: Code(s): R07.89 - Other chest pain Category: Medical Plan: Reports of chest discomfort when stressed. EKG today nonischemic. No exertional symptosm. Plan I discussed with the patient the management of her supraventricular tachycardia, including the continuation of propranolol and the option of ablation. We reviewed the procedure details, including risks and benefits, and I provided a referral to an box nailer. We also discussed the stress-related nature of her chest pain and the importance of stress reduction techniques. An echocardiogram was recommended due to her family history of coronary artery disease. I advised her to maintain an active lifestyle to address her shortness of breath, likely due to deconditioning. Orders: Orders CA echo transthoracic complete Today I47.1 - Supraventricular tachycardia, R07.89 - Other chest pain Referrals Cardiac Electrophysiology Referral I47.1 - Supraventricular tachycardia Patient Instructions: - Continue taking propranolol 20 mg daily. - Consider ablation; consult with the box nailer at [facility]. - Practice stress reduction techniques to manage chest pain. - Maintain an active lifestyle to improve conditioning and reduce shortness of breath. - Follow up for an echocardiogram to assess cardiac function. Patient was informed and verbally consented to the use of an ambient scribe for clinic note documentation during this visit. Visit time spent on chart review, interview, assessment, orders, documentation. Coding Level of Care Code Est Pt Level 4 (33549) Complex EM visit Add On G2211 Diagnoses SVT (supraventricular tachycardia) I47.1 Chest discomfort R07.89 CPT Codes EKG - CPT: 20935-[id number], Complete ([id number]) Time Spent (min) 32
--- OUTSIDE RECORDS SUMMARY | 2025-07-11 16:21 | XMS_ITS | Clinical Summary ---
Author Organization [facility] Address [address] [place] [address] Phone Care Team Providers Care Finishing Department Supervisor Name Role Phone Pcp, Unknown Primary Care [...] long-term goal to work on. Referred to [facility] to explore therapy options. Also discussed possible [...] SEE NARRATIVE - 08/08/2017 12:00 [place] [address] Metal Coater Operator: Ce Carr MD REGISTERED DENTAL ASSISTANT RDA Cytology Report FINAL DIAGNOSIS A. PAP SMEAR [...] advised. This HPV test was performed at [facility], [address] [place] [address]. The accuracy and precision of this test has been verified in the Cytopathology laboratory of the [facility]. This test has not been cleared or approved by the U.S. Food and Drug Administration (FDA). CLINICAL HISTORY Date of Last Menstrual Period: Other Clinical Conditions: Screening Pap SPECIMEN SOURCE A: PAP SMEAR (SUREPATH) CE Patient Name: RADHA ZAVALA : 1985 (Age: 32) Sex: F Institution: [facility] Location: [facility] Date of Collection: 08/02/2017 Date of Reported: 08/08/2017 12:00 Results to: Marilou Cummings MSN, BSN us Marilou Cummings PHYSICIAN GENERAL INTERNAL MEDICINE CYTOLOGY ORDERABLES Final Resul t SEE NARRATIVE from Last 3 Months or Most Recently Relevant to Health Maintenance Insurance ACO [facility] ACO [facility]CO [facility]CO [facility]CO [facility] Care Teams Finishing Department Supervisor Relationship Specialty Start Date End Date Pcp, Unknown PCP - General 03/16/23 Additional Source Comments The information contained in this document represents components of the legal health record. It is not the complete legal health record.[facility]
== END 2025-07-11 14:09 | disposition home or self-care (01) ==
PROVIDERS: PCP Internal Medicine; Visit Provider Nurse Practitioner Family
DX: I47.10 Supraventricular tachycardia, unspecified (principal); R07.89 Other chest pain
CPT/HCPCS: 93010; 99214

== ENCOUNTER → 2025-07-11 13:26 | Outpatient (BNVA) | payer OTHER, SELFPAY | PROVIDERS: PCP Nurse Practitioner Primary Care; Visit Provider Nurse Practitioner Family | DX: I47.10 Supraventricular tachycardia, unspecified (principal) | CPT/HCPCS: 93005 ==

== ENCOUNTER 2025-07-16 11:16 | Outpatient (AMB) | payer OTHER, SELFPAY ==
--- NOTE | 2025-07-16 11:16 | A.OFFVIS_ITS ---
Intake Visit Reasons: Per DC Allergies No Known Allergies Allergy (Verified 07/11/25 13:39) HPI HPI Per DC: Details: Pt at work here in office. Reported lightheadedness and rapid heart palpitations. She has known hx of SVT and is awaiting EP eval for ablation. Radial pulse noted to be rapid, unable to get O2 sat monitor to read. Quickly assisted to exam room and placed in supine position. BP 142/90. Vagal maneuvers used and pulse slowing down . EKG quickly obtained and shows SR, rate 85. By that time she had stated palpitations were gone. Her lightheadedness improved and she was assisted to sitting position. BP 128/88. Offered ED evaluation and she declines. Allowed to rest and when she felt well enough - she was able to safely drive self home. Took Propranolol today. Had 1 caffinated coffee. Instructed on rest, hydration and continue Propranolol. Await call from EP provider for consult. ED care if needed for recurrent episodes. [facility] Medical History Vitamin D deficiency Hypertriglyceridemia Depression with anxiety Heavy menses Screening due Mood disorder Acute adjustment disorder with anxiety No known health problems Depression Tachycardia Surgical History No pertinent past surgical history Family History Mother Hypercholesteremia Arthritis Father HTN (hypertension) Hypercholesteremia Emphysema lung Manic depression Tachycardia Heart attack Stroke Substance use disorder Mental health disorder Maternal Grandfather Colon cancer Sister Suicide Substance use disorder Paternal Grandfather Substance use disorder Paternal Aunt Substance use disorder Paternal Uncle Substance use disorder Paternal Grandmother Mental health disorder Social History Household Members: Children Household Members Other:: 2 children ages 15 years old and 18 years old Housing: House Are you a primary small animal caretaker to a significant other at home: No Do you presently have visiting nurse or other home services: No Alcohol intake: never Patient Tobacco Use Status: Never used Tobacco e-Cigarette/Vaping Use: Never Used Second Hand Smoke Exposure: Yes service: No Current occupational status: employed 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 Skin warm, dry. Shaky hands, ambulates steady with guidance Orientation/consciousness: patient oriented x3 Neck Neck: Yes normal visual inspection and Yes no JVD Carotids: normal carotid upstroke Resp Effort & Inspection: normal respiratory effort Auscultation: clear to auscultation bilaterally Cardio Rate: regular rate Rhythm: regular rhythm Neuro General: patient oriented x3 Office Procedures EKG Details: Today, read by me sinus rhythm, normal OR, Qtc, QRS, rate 85 [id number], Complete Assessment & Plan Assessment & Plan (1) SVT (supraventricular tachycardia): Comment: Patient is establish care with [facility] cardiology. Patient taking propanolol with good effect. Code(s): I47.1 - Supraventricular tachycardia Category: Medical Plan: Clinical episode of lightheadedness and palpitation as above. Likely recurrent SVT. No changes to treatment plan with exception of caffiene avoidance. Continue Propranolol. Await EP eval. ED care if needed Coding Level of Care Code Est Pt Level 2 (73586) Diagnoses SVT (supraventricular tachycardia) I47.1 CPT Codes EKG - CPT: 22099-[id number], Complete ([id number]) Time Spent (min) 10
--- OUTSIDE RECORDS SUMMARY | 2025-07-16 13:30 | XMS_ITS | Clinical Summary ---
Author Organization [facility] Address [address] [place] [id number] Phone Care Team Providers Care Hearing Therapy Teacher Name Role Phone Pcp, Unknown Primary Care [...] long-term goal to work on. Referred to [facility] to explore therapy options. Also discussed possible [...] on patient's age to complete this topic IPV VACCINES Aged Out No longer eligi ble [...] Recently Relevant to Health Maintenance Results * MAMMOGRAPHY FOR RESULT ENTRY ONLY (04/21/2023) Marilou Cummings NP HEALTH MAINTENANCE Edited Resul t - Final * Outside Hepatitis C Virus Screening (10/05/2019) Hepatitis C Screening - External Neg Historical Provider LAB BLOOD ORDERABLES Silvina l Result * OUTSIDE HIV TEST (10/05/2019) HIV - External Neg Historical Provider MD LAB BLOOD ORDERABLES Silvina l Result * Pap Smear (08/02/2017 12:00 AM EST) 08/02/2017 08/03/2017 10: 04 AM EST Narrative SEE NARRATIVE - 08/08/2017 12:00 [place] [address] Rn Nicu: Ce Carr MD ALTERATIONS EXPERT Cytology Report FINAL DIAGNOSIS A. PAP SMEAR [...] This HPV test was performed at [facility], [address] [place] [address]. The accuracy and precision of this test has been verified in the Cytopathology laboratory of the [facility]. This test has not been cleared or approved by the U.S. Food and Drug Administration (FDA). CLINICAL HISTORY Date of Last Menstrual Period: Other Clinical Conditions: Screening Pap SPECIMEN SOURCE A: PAP SMEAR (SUREPATH) CE Patient Name: RADHA ZAVALA : 1985 (Age: 32) Sex: F Institution: [facility] Location: [facility] Date of Collection: 08/02/2017 Date of Reported: 08/08/2017 12:00 Results to: Marilou Cummings MSN, BSN us Marilou Cummings BRANCH LOGISTICS SUPERVISOR CYTOLOGY ORDERABLES Final Resul t SEE NARRATIVE from Last 3 Months or Most Recently Relevant to Health Maintenance [place] [id number] [facility] A[facility] ACO ACO [facility] Care Teams Hearing Therapy Teacher Relationship Specialty Start Date End Date Pcp, Unknown PCP - General 03/16/23 Additional Source Comments The information contained in this document represents components of the legal health record. It is not the complete legal health record.[facility]
== END 2025-07-16 12:30 | disposition home or self-care (01) ==
LOC: HO.HCS 11:16
PROVIDERS: PCP Internal Medicine; Visit Provider Nurse Practitioner Family
DX: I47.10 Supraventricular tachycardia, unspecified (principal)
CPT/HCPCS: 93010; 99212

== ENCOUNTER → 2025-07-16 11:16 | Outpatient (BNVA) | payer OTHER, SELFPAY | PROVIDERS: PCP Internal Medicine; Visit Provider Nurse Practitioner Family | DX: I47.10 Supraventricular tachycardia, unspecified (principal) | CPT/HCPCS: 93005 ==

== ENCOUNTER 2025-08-07 09:29 | Outpatient (AMB) | payer OTHER, SELFPAY ==
[2025-08-07 09:48] VITALS: BP 118/72; BMI 26.8
--- NOTE | 2025-08-07 09:48 | MHC.OFFVIS ---
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 Reports painful rectal bleeding w/defecation, history of anal fissure w/delivery 16 yrs ago. Some recent constipation. Doing well on OCP's. She denies any contraindications to control such as: migraines with aura, history of DVT or pulmonary emboli, high blood pressure, liver disease, thrombolic disorders, Lupus, +BETSY, breast cancer, or smoking. Currently is rarely sexually active, partner has medical concerns. She tries to eat healthy and stays active with exercise. Last pap smear 2024, negative. Mammogram: 2024. [facility] Medical History Vitamin D deficiency Hypertriglyceridemia Depression with anxiety Screening due Mood disorder Acute adjustment disorder with anxiety No known health problems Depression Tachycardia Surgical History No pertinent past surgical history Family History Mother Hypercholesteremia Arthritis Father HTN (hypertension) Hypercholesteremia Emphysema lung Manic depression Tachycardia Heart attack Stroke Substance use disorder Mental health disorder Maternal Grandfather Colon cancer Sister Suicide Substance use disorder Paternal Grandfather Substance use disorder Paternal Aunt Substance use disorder Paternal Uncle Substance use disorder Paternal Grandmother Mental health disorder Social History Household Members: Children Household Members Other:: 2 children ages 15 years old and 18 years old Housing: House Are you a primary healthcare prof to a significant other at home: No Do you presently have visiting nurse or other home services: No Alcohol intake: never Patient Tobacco Use Status: Never used Tobacco e-Cigarette/Vaping Use: Never Used Second Hand Smoke Exposure: Yes service: No Current occupational status: employed 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 Sexual orientation: Straight/Heterosexual Gender identity: Female Cognitive needs: No Hearing needs: No Vision needs: Yes Female Reproductive History Menstrual control method: pills Total pregnancies: 2 Full term: 2 Number of Living Children: 2 Date of last pap smear: 01/09/25 History of abnormal pap smear: No History of STI: No Date of Mammogram: 07/04/25 History of abnormal mammogram: No Review of Systems Const All systems reviewed & are unremarkable except as noted in HPI and below Reports as per HPI Eyes Reports no additional complaints ENT Reports no additional complaints Card Reports no additional complaints Resp Reports no additional complaints GI Reports as per HPI and Reports no additional complaints Reports as per HPI Musc Reports no additional complaints Skin/Breast Reports as per HPI Neuro Reports no additional complaints Psych Reports no additional complaints Endo Reports no additional complaints Crescencio/Lymph Reports no additional complaints Aller/Immun Reports no additional complaints Physical Exam Vital Signs: Last Vital Signs BP 118/72 08/07/25 09:48 BMI result Body Mass Index 26.8 Const General: cooperative, healthy appearing, no acute distress, well developed and alert Orientation/consciousness: patient oriented x3 HEENT Head: Yes normal to inspection Eyes General: appearance normal, both eyes and all related structures Neck Neck: Yes normal visual inspection Thyroid: Thyroid normal Chest Chest palpation & inspection: normal inspection of the chest and other (no puckering, dimpling, peau de orange, retraction, discharge, masses) Breast/axilla inspection: normal inspection of the breasts Breast/axilla palpation: normal palpation of the breasts Resp Effort & Inspection: normal respiratory effort GI Inspection: Yes normal to inspection Palpation (GI): Soft to palpation Rectal Exam - Female: deferred General: Yes bladder normal to palpation External Female Exam: normal external appearance and normal appearance of the urethra Speculum Exam - Vagina: normal appearance of the vagina, normal palpation, abnormal vaginal discharge yellow (Clumpy) and erythematous Speculum Exam - Cervix: normal appearance of the cervix and normal palpation Bimanual exam- vagina & uterus: normal bimanual exam, normal palpation, uterine size normal, bladder normal to palpation, normal palpation and non-tender Bimanual Exam- Adnexa, other: no masses Skin General skin exam: no rashes or lesions noted Rashes: no rashes Neuro General: patient oriented x3 Cognition (Neuro): normal cognition Extrem General: Yes normal to inspection Psych Attitude: cooperative Thought process: Normal thought process present Assessment & Plan Assessment & Plan (1) Vulvar itching: Code(s): L29.2 - Pruritus vulvae Plan: Use of medication reviewed. No coitus until well healed. Complete all medications as prescribed. Await final pending results for any changes in the plan of care. Call the office if there is no improvement in 24-48hrs., or if worsening symptoms. BV panel obtained. The patient expressed understanding and agreement with the plan of care. All of her questions and concerns were addressed to the best of my ability. (2) Encounter for well woman exam with routine gynecological exam: Code(s): Z01.419 - Encounter for gynecological examination (general) (routine) without abnormal findings Category: Medical Plan Discussed: Current recommendations for pap smears per ASCCP guidelines. Breast awareness and periodic breast exams. Mammogram yearly. Advised to follow up with PCP regarding rectal pain and bleeding possible referral to surgeon if indicated. Increase fluid and fiber, Sitz bath, topical barrier until seen. Maintain a healthy lifestyle including a well balanced diet and routine exercise. control hormone use warnings: go to ER if and loss of vision, blindness, severe headache, chest pain or difficulty breathing, severe abdominal pain, or any pain or swelling in an extremity. Patient verbalizes understanding and agrees to the plan of care. She was given opportunity to ask questions and all questions were answered to the best of my ability. 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 This note is constructed using voice recognition software. While every effort has been made to ensure accuracy, top precipitator operator errors may have been included. Orders: Orders Bacterial Vaginosis Panel Today Z01.419 - Encounter for gynecological examination (general) (routine) without abnormal findings Medications: New clotrimazole-betamethasone 1-0.05 % 1 appl topical BID PRN 45 grams 0RF itching 7 days terconazole 0.8% 1 appful vaginal BEDTIME 20 grams 0RF 3 days Refilled norethindrone ac-eth estradiol 1-20 mg-mcg () take continuously 1 tab PO DAILY 63 tabs 4RF Coding Level of Care Code Est Pt Prev Care 40-64y(70141) Diagnoses Vulvar itching L29.2 Encounter for well woman exam with routine gynecological exam Z01.419
--- OUTSIDE RECORDS SUMMARY | 2025-08-07 10:23 | XMS_ITS | Clinical Summary ---
Author Organization [facility] Address [address] [place] [id number] Phone Care Team Providers Care Tool Machine Setup Operator Name Role Phone Pcp, Unknown Primary Care [...] long-term goal to work on. Referred to Fwd: Power to explore therapy options. Also discussed possible [...] SEE NARRATIVE - 08/08/2017 12:00 [place] [address] Administrator Health Care Facility: Ce Carr MD SALES MARKETING DIRECTOR Cytology Report FINAL DIAGNOSIS A. PAP SMEAR [...] advised. This HPV test was performed at [facility], [address] [place] [address]. The accuracy and precision of this test has been verified in the Cytopathology laboratory of the [facility]. This test has not been cleared or approved by the U.S. Food and Drug Administration (FDA). CLINICAL HISTORY Date of Last Menstrual Period: Other Clinical Conditions: Screening Pap SPECIMEN SOURCE A: PAP SMEAR (SUREPATH) CE Patient Name: RADHA ZAVALA : 1985 (Age: 32) Sex: F Institution: [facility] Location: [facility] Date of Collection: 08/02/2017 Date of Reported: 08/08/2017 12:00 Results to: Marilou Cummings MSN, BSN us Marilou Cummings INTERNAL SECURITY MANAGER CYTOLOGY ORDERABLES Final Resul t SEE NARRATIVE from Last 3 Months or Most Recently Relevant to Health Maintenance Insurance [facility] Care Teams Tool Machine Setup Operator Relationship Specialty Start Date End Date Pcp, Unknown PCP - General 03/16/23 Additional Source Comments The information contained in this document represents components of the legal health record. It is not the complete legal health record.[facility]
== END 2025-08-07 10:26 | disposition home or self-care (01) ==
LOC: HO.HWS 09:30
PROVIDERS: PCP Internal Medicine; Visit Provider Advanced Practice Midwife
DX: Z01.419 Encounter for gynecological examination (general) (routine) without abnormal findings (principal); L29.2 Pruritus vulvae
CPT/HCPCS: 99396; 99459

== ENCOUNTER 2025-08-07 09:29 | Outpatient (REF) | payer OTHER, SELFPAY ==
[2025-08-07 15:42] LABS: Bacterial Vaginosis PCR NEGATIVE (Negative); Candida Group PCR DETECTED (Not Detect); Candida glab krusei PCR NOT DETECTED (Not Detect); Trichomonas vaginalis PCR NOT DETECTED (Not Detect)
== END 2025-08-07 09:30 | disposition home or self-care (01) ==
LOC: HO.LNP 09:29
PROVIDERS: PCP Internal Medicine; Visit Provider Advanced Practice Midwife
DX: Z01.411 Encounter for gynecological examination (general) (routine) with abnormal findings (principal); L29.2 Pruritus vulvae
CPT/HCPCS: 81515